=== PATIENT | male | born 1945 | race Caucasian/White ===

== ENCOUNTER 2019-12-04 06:16 | Outpatient (CLI) | payer OTHER, SELFPAY ==
--- NOTE | 2019-12-04 07:15 | US_ITS ---
WS: [id number] Bilateral renal ultrasound, 12/04/2019 Clinical Data: RENAL CYST Comparison: Renal ultrasound, 06/03/2019. Findings: The right kidney measures 12.8 cm x 6.0 cm x 7.0 cm and the left kidney is 12.4 cm x 5.3 cm x 6.1 cm. There is a simple right renal cyst measuring 3.2 x 3.9 x 4.0 cm. The abdominal aorta and inferior ve na cava show no vascular abnormalities. The bladder was scanned and was not remarkable. US/US renal BI* [id number] Impression: 1. Right renal cyst. 2. Negative bilateral renal ultrasound.
== END 2019-12-04 06:17 | disposition home or self-care (01) ==
LOC: RAD 06:16
PROVIDERS: Family Provider Internal Medicine; PCP Internal Medicine; Visit Provider Urology
DX: N28.1 Cyst of kidney, acquired (principal)
CPT/HCPCS: 76770; 81001

== ENCOUNTER 2019-12-31 09:29 | Outpatient (CLI) | payer OTHER, SELFPAY ==
[2019-12-31 10:31] LABS: Prostate Specific Antigen < 0.02 ng/mL (0-4)
== END 2019-12-31 09:30 | disposition home or self-care (01) ==
LOC: ONCMED 09:29
PROVIDERS: Family Provider Internal Medicine; PCP Internal Medicine; Visit Provider Radiology Radiation Oncology
DX: C61 Malignant neoplasm of prostate (principal)
CPT/HCPCS: 84153

== ENCOUNTER 2020-01-07 06:00 | Outpatient (CLI) | payer OTHER, MEDICARE, SELFPAY ==
--- NOTE | 2020-01-07 13:57 | ONCRAD EPV_ITS ---
Radiation Oncology Established Patient Visit Patient: Ponce MR#: [id number] : 1945> Age: 74> Sex: Male> Dictated by: Dr. Barrington Apple Date of Service: 01/07/2020 Referring Physician(s) : Diagnosis: C61 - Malignant neoplasm of prostate, Diagnosed 01/31/2019 (Active) Stage X, T2a, N0, MX Chief Complaint / History of Present Illness: The patient is a 74 year old gentleman with a T2a, N0, M0 adenocarcinoma of the prostate, Cambridge score 3+4, PSA 12.3. There is no definite evidence of local or distant metastasis. He received combination therapy with androgen deprivation therapy x 6 months and EBRT to a total dose of 80Gy completed on 08/05/2020. The patient notes nocturia x2 but denies dysuria, urinary urgency, frequency, weak stream, hematuria, diarrhea, rectal irritation or bleeding. His most recent PSA was 0.05 on September 02, 2019 and < 0.02 on December 31, 2019. Current Medications: Albuterol Sulfate HFA, allopurinol, chlorpheniramine Maleate, chlorthalidone, dULoxetine HCl, fluticasone Propionate, gabapentin, ibuprofen, insulin Glargine, losartan Potassium, multivitamin Adults, proventil HFA, singulair, tamsulosin HCl. Allergies: Lisinopril and Tetanus-Diphtheria Toxoids Td. Current Complaints / Review of Systems: Constitutional - Complains of night sweats which occur every night. Denies lack of appetite, fatigue and fever. Eyes - Complains of blurred vision in the right eye. ENMT - Complains of mouth dryness. Denies dysphagia, ear pain, stomatitis and altered taste. Neck - Complains of neck pain which is chronic. Integumentary - Complains of rash on the upper back / shoulder area. Denies dry skin. Cardiovascular - Denies arrhythmias and chest pain. Respiratory - Complains of dyspnea associated with normal activity. Denies cough and wheezing. Gastrointestinal - Complains of hemorrhoids. Denies abdominal pain, constipation, diarrhea, heartburn / dyspepsia, melena / GI bleeding, nausea and vomiting. No rectal bleeding or irritation. Genitourinary (M) - Complains of nocturia gets up about 2 times per night and urgency occasionally. Denies dysuria and frequency. Musculoskeletal - Complains of arthritis, bone pain in both forearms and joint pain both shoulders. Neurologic - Complains of intermittent dizziness. Denies headaches. Endocrine - Complains of Type 2 diabetes. Complains of frequent hot flashes. Denies thyroid disease. Hematologic/Lymphatic - Denies tender or enlarged lymph nodes. Vital Signs: Performed on 01/07/2020 9:02 AM BMI - 38.735 kg/m2 (high), Height - 72.00 in, Weight - 285.6 lbs, Temperature - 97.7 f, Pulse - 63, Respiration - 18, O2 Sat - 95 % (low), Pain - 4 and BP - 161/ 80 mm(hg)(high/). Physical Exam: General: Alert and oriented x 3. No acute distress. HEENT: Normocephalic, atraumatic. Extraocular Movements Intact: Pupils Equal, Round, Reactive to Light and Accommodation: Sclerae anicteric. Oral cavity is clear without lesions, masses or ulcers. NECK: Supple without supraclavicular or jugular lymphadenopathy. LUNGS: Clear to auscultation bilaterally without rales, rhonchi or wheeze. HEART: Regular rate and rhythm, normal S1 and S2 without murmur, gallop or rub. MUSCULOSKELETAL: No tenderness or percussion pain over the axial skeleton, scapulae or pelvis. ABDOMEN: Soft, nontender, nondistended without masses or organomegaly. Bowel sounds are present. EXTREMITIES: No peripheral edema is identified. Limited motor and sensory examination are grossly intact and symmetric bilaterally. NEUROLOGIC: Cranial nerves II ???XII are grossly intact. Normal sensation, strength 5/5 in all extremities, normal gait, no ataxia. Performance Status: 1 - No physically strenuous activity, but ambulatory and able to carry out light or sedentary work (e.g. office work, light house work). (ECOG) Lab: see HPI Pathology: adenocarcinoma of prostate, Cambridge score 3+4 Imaging: None pending Impression/plan: There is no clinical evidence of prostate cancer recurrence or late radiation toxicities. We will continue cancer surveillance. We will check his PSA in 4 months. Patient will follow-up with us afterwards. He is instructed to call us with any questions or issues. Signed by: 01/07/2020 1:56:07 PM <<Signature on File>> CPT Code: CPT Code: Signed By: Dr. Barrington Apple, 01/07/2020 1:56:08 PM <<Signature on File>>
== END 2020-01-07 06:01 | disposition home or self-care (01) ==
PROVIDERS: Family Provider Internal Medicine; PCP Internal Medicine; Visit Provider Radiology Radiation Oncology
DX: C61 Malignant neoplasm of prostate (principal); Z79.899 Other long term (current) drug therapy; Z92.3 Personal history of irradiation
CPT/HCPCS: 99213

== ENCOUNTER → 2020-04-07 11:55 | Outpatient (BNVA) | payer OTHER, SELFPAY | PROVIDERS: Family Provider Internal Medicine; PCP Internal Medicine; Visit Provider Nurse Practitioner Family | DX: R35.1 Nocturia (principal); R31.0 Gross hematuria; N28.1 Cyst of kidney, acquired; C61 Malignant neoplasm of prostate | CPT/HCPCS: 80053; 81001 ==

== ENCOUNTER → 2020-04-22 08:15 | Outpatient (BNVA) | payer OTHER, SELFPAY | PROVIDERS: Family Provider Internal Medicine; PCP Internal Medicine; Visit Provider Urology | DX: R31.0 Gross hematuria (principal); C61 Malignant neoplasm of prostate; N28.1 Cyst of kidney, acquired | CPT/HCPCS: 81001 ==

== ENCOUNTER 2020-06-16 08:54 | Outpatient (CLI) | payer OTHER, SELFPAY ==
--- NOTE | 2020-06-16 14:22 | ONCRAD EPV_ITS ---
Radiation Oncology Established Patient Visit Patient: Ponce MR#: [id number] : 1945> Age: 75> Sex: Male> Dictated by: Dr. David Fontaine Date of Service: 06/16/2020 Referring Physician(s) : Diagnosis: C61 - Malignant neoplasm of prostate, Diagnosed 01/31/2019 (Active) Stage X, T2a, N0, MX Radiotherapy to Date: Course: Prostate, Treatment Site: PTV54, Ref. ID: [id number], Energy: 15X/6X, Dose/Fx (cGy): 200, #Fx: , Dose Correction (cGy): 0, Total Dose (cGy): 5,400, Start Date: 06/10/2019, End Date: 07/16/2019, Elapsed Days: 36 Treatment Site: PTV80, Ref. ID: [id number], Energy: 15X/6X, Dose/Fx (cGy): 200, #Fx: , Dose Correction (cGy): 0, Total Dose (cGy): 2,600, Start Date: 07/17/2019, End Date: 08/05/2019, Elapsed Days: 19 Chief Complaint / History of Present Illness: The patient is a 75-year-old male who was diagnosed with T2a N0M0 adenocarcinoma of the prostate, Maria R score 3+4 in 6 out of 12 cores, pretreatment PSA 12.3 ng/mL. He is status post combined androgen deprivation therapy (initiated 03/2019 and last administered September 2019) and definitive radiation therapy to a total dose of 80 Gy (completed 08/05/2019). He is seen today in follow-up and his current PSA mateo is 0.02 ng/mL (06/10/2020). Furthermore, his international prostate symptom score completed today was 6 indicating mild urinary symptoms, and he reports that he is pleased with his quality of life due to urinary symptoms. The patient was also concerned that he might have testicular cancer, for he feels that his left testicle is swollen. Current Medications: Albuterol Sulfate HFA, allopurinol, chlorpheniramine Maleate, chlorthalidone, dULoxetine HCl, fluticasone Propionate, gabapentin, insulin Glargine, losartan Potassium, multivitamin Adults, proventil HFA, singulair. Allergies: Lisinopril and Tetanus-Diphtheria Toxoids Td. Current Complaints / Review of Systems: Constitutional - Complains of night sweats which occur every night and also occur during the day.. Denies lack of appetite, fatigue and fever. Eyes - Denies blurred vision and double vision. ENMT - Complains of mouth dryness occasionally and tinnitus. Denies dysphagia, ear pain, stomatitis and altered taste. Neck - Complains of neck pain which is chronic. Integumentary - Denies rash. Cardiovascular - Denies arrhythmias, chest pain and edema. Respiratory - Complains of chronic dyspnea. Denies cough and wheezing. Gastrointestinal - Denies abdominal pain, constipation, diarrhea, heartburn / dyspepsia, melena / GI bleeding, nausea and vomiting. Genitourinary (M) - Complains of dysuria which happens once in awhile and is very little, impotence, nocturia gets up about 1 to 2 times per night and urgency. Denies frequency and hematuria. Musculoskeletal - Complains of joint pain in the hands and shoulders. Denies bone pain. Neurologic - Denies dizziness, abnormal gait and headaches. Endocrine - Complains of Type 2 diabetes. Denies thyroid disease. Hematologic/Lymphatic - Denies tender or enlarged lymph nodes.. Vital Signs: Performed on 06/16/2020 9:34 AM BMI - 36.727 kg/m2 (high), Height - 72.00 in, Weight - 270.8 lbs, Temperature - 98.4 f, Pulse - 69, Respiration - 20, O2 Sat - 95 % (low), Pain - 0, Fatigue - 0 and BP - 164/ 75 mm(hg)(high/). Physical Exam: General: Alert and oriented x 3. No acute distress. HEENT: Normocephalic, atraumatic. Extraocular Movements Intact: Pupils Equal, Round, Reactive to Light and Accommodation: Sclerae anicteric. Oral cavity is clear without lesions, masses or ulcers. NECK: Supple without supraclavicular or jugular lymphadenopathy. LUNGS: Clear to auscultation bilaterally without rales, rhonchi or wheeze. HEART: Regular rate and rhythm, normal S1 and S2 without murmur, gallop or rub. Genital: Palpation of the patient's testicles reveals normal testicles without nodularity, without firmness, without a solid nodule, and without clinical exam findings consistent with malignancy. MUSCULOSKELETAL: No tenderness or percussion pain over the axial skeleton, scapulae or pelvis. ABDOMEN: Soft, nontender, nondistended without masses or organomegaly. Bowell sounds are present. EXTREMITIES: No peripheral edema is identified. Limited motor and sensory examination are grossly intact and symmetric bilaterally. NEUROLOGIC: Cranial nerves II ???XII are grossly intact. Normal sensation, strength 5/5 in all extremities, normal gait, no ataxia. Performance Status: 0 - Fully active, able to carry on all predisease activities without restrictions. (ECOG) Lab: None pending. Pathology: Primary, c61 - malignant neoplasm of prostate, Diagnosed 01/31/2019 (active) stage x, t2a, n0, mx. Impression: The patient is a 75-year-old male who was diagnosed with large volume favorable intermediate risk prostate cancer. He was treated androgen deprivation therapy (last administered September 2019) and definitive radiation therapy to a total dose of 80 Gy completed (July 2019). The patient has no evidence of biochemical recurrence and his PSA post treatment mateo is now 0.02 ng/mL. I plan to follow-up in 6 months with a repeat PSA. [facility]. Signed by: 06/16/2020 2:21:18 PM <<Signature on File>> CPT Code: CPT Code:
== END 2020-06-16 08:55 | disposition home or self-care (01) ==
LOC: ONCMED 08:58
PROVIDERS: PCP Internal Medicine; Visit Provider Radiology Radiation Oncology
DX: C61 Malignant neoplasm of prostate (principal); Z92.3 Personal history of irradiation; Z92.23 Personal history of estrogen therapy
CPT/HCPCS: 99213; G0463

== ENCOUNTER 2020-08-20 10:13 | Emergency (ER) | payer OTHER, MEDICARE, SELFPAY ==
[2020-08-20 10:15] VITALS: BP 95/55; PULSE 66; RESP 20; TEMP 36.6; O2SAT 98
--- NOTE | 2020-08-20 10:26 | CT_ITS ---
WS: [id number] CT HEAD TECHNIQUE: Noncontrast CT of the head obtained from the skullbase to the vertex. CLINICAL INFORMATION: fall, syncope COMPARISON: DLP: 896.[address] scans at [facility] use at least one of these dose optimization techniques: automat ed exposure control; mA and/or kV adjustment per patient size (includes targeted exams where dose is matched to clinical indication); or iterative reconstruction. FINDINGS: No evidence of intracranial hemorrhage or mass effect. Ventricular system and basal cisterns are austin nt. Mild small vessel changes with mild parenchymal volume loss. No extra-axial fluid collections. No evidence of mass or mass effect. Normal andersen-white differentiation. Paranasal sinuses and mastoid air cells are well aerated. .Normal visualized soft tissues. CT/CT head wo con* [id number] IMPRESSION: 1. No evidence of intracranial hemorrhage or mass effect. 2. Mild small vessel changes. Mild parenchymal volume loss. 3. No acute intracranial findings. Notified Joanne Santizo MD at 08/20/2020 10:52 AM.
--- NOTE | 2020-08-20 10:26 | ECG_ITS ---
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 Measurements Intervals [place] Rate: 59 P: 55 SD: 161 QRS: -50 QRSD: 125 T: -35 QT: 419 QTc: 417 Interpretive Statements SINUS BRADYCARDIA LEFT ANTERIOR FASCICULAR BLOCK [QRS AXIS <= -45, QR IN I, RS IN II] POSSIBLE LEFT VENTRICULAR HYPERTROPHY [VOLTAGE CRITERIA PLUS LAE OR QRS WIDENING] NONSPECIFIC ST & T-WAVE ABNORMALITY Compared to ECG 03/24/2019 16:00:39 Left anterior fascicular block now present T-wave abnormality now present Sinus rhythm no longer present Myocardial infarct finding no longer present Electronically Signed On 08-20-2020 20:37:35 CDT by Bernardo Damon M.D. [id number] f
--- NOTE | 2020-08-20 10:27 | XR_ITS ---
WS: [id number] Portable AP upright chest, 08/20/2020 Clinical Data: syncope Comparison: Portable chest, 03/24/2019 Findings: No nodules, masses or effusions are seen. The heart is normal. The pulmonary vascularity is not increased. No pneumonia or pneumothorax is seen. The aortic arch and descending aorta are tortuo us. The diaphragms are flattened. Patient has had an anterior cervical disc fusion. XR/XR chest 1V portable [id number] Impression: Atherosclerosis and hyperinflation.
[2020-08-20 10:55] LABS: Basophils % 0.2 %; Hematocrit 38.2 % (42.0-52.0); Hemoglobin 12.6 g/dL (11.7-16.6); Lymphocytes # 0.6 10^3/uL (0.8-4.8); Lymphocytes % 14.2 %; Mean Corpuscular Hemoglobin 29.7 pg (28.0-34.0); Mean Corpuscular Volume 90.1 fL (80-94); Mean Platelet Volume 11.4 fL (7.4-10.4); Monocytes # 0.2 10^3/uL (0.2-0.9); Monocytes % 5.1 %; Neutrophils # 3.27 10^3/uL (1.8-7.7); Neutrophils % 80.3 %; Nucleated Red Blood Cells % 0 %; Platelet Count 167 10^3/cmm (130-400); Red Blood Count 4.24 10^6/uL (4.1-5.3); Red Cell Distribution Width 13.6 % (12.1-15.1); White Blood Count 4.1 10^3/uL (4.0-10.0)
[2020-08-20 11:13] LABS: Alanine Aminotransferase 25 U/L (0-41); Albumin Level 4.3 g/dL (3.5-5.2); Alkaline Phosphatase 96 IU/L (40-130); Anion Gap 15.3 (5-19); Aspartate Amino Transferase 26 U/L (0-40); Blood Urea Nitrogen 24 mg/dL (8-23); Calcium 9.5 mg/dL (8.5-10.5); Carbon Dioxide 28 mmol/L (22-29); Chloride 95 mmol/L (98-107); Globulin 2.8 g/dL (1.3-4.6); Glucose 239 mg/dL (65-115); Magnesium 1.7 mg/dL (1.7-2.3); Osmolality Calculated 290 mOsm/kg (285-295); Potassium 4.3 mmol/L (3.5-5.1); Sodium 134 mmol/L (136-145); Total Bilirubin 0.2 mg/dL (0.15-1.2); Total Protein 7.1 g/dL (6.6-8.7)
--- NOTE | 2020-08-20 12:02 | W.ED.DIZZY ---
HPI - Dizziness General: Chief Complaint: Dizziness Stated Complaint: VERTIGO Time Seen by Provider: 08/20/20 10:16 History of Present Illness: HPI Narrative: This patient is a 75-year-old gentleman who presents after a syncopal episode. He said he got up this morning and drove into town without any problems. He got out of his vehicle and started to walk around the front of it started having some shaking all over. He tried to steady himself against the carpet next he knew he woke up on the pavement. Bystanders from the restaurant came and helped him up. He then went into the restaurant had breakfast with his friends as he had plan to do. He said he does not have any injuries from the fall but still does not feel quite right. He went to the [facility] for evaluation and they sent him here. He still is complaining of just not quite feeling right. He has no specific complaints at this time. He reports that he is been having these episodes of shakiness and feeling like he might pass out for several weeks. He has mentioned it to his doctor but no testing has been done. He said they happen a few times a week. There is not really a specific pattern to when or how they happen. He says he will just start jerking all over his body and gets dizzy. If he can steady himself the symptoms usually pass within a few seconds. He does not have chest pain or feel palpitations with this. He has no history of prior stroke. He has not been sick recently and said yesterday he felt fine. MD elicited complaint: dizziness, lightheadedness and other (Syncope) Onset (ago): week(s) (Has been having episodes over the past few weeks but had not completely passed out until this morning.) Timing: sudden onset Severity: moderate Description: lightheadedness and other (Jerking of his body) History of similar symptoms: Yes Exacerbating factors: movement/ambulation Relieving factors: remaining still Associated symptoms: Reports syncope; Denies chills or malaise Associated neuro symptoms: Deny confusion, difficulty speaking, dysphagia, diplopia, extremity weakness, facial numbness, facial weakness, gait changes, numbness in extremities or visual changes Review of Systems General: Reports: 10 or more systems reviewed and unremarkable except in HPI and below Const: Denies: fever(s), chills, fatigue or malaise Eyes: Denies: change in vision ENMT: Denies: odynophagia Card: Reports: syncope Resp: Denies: dyspnea, productive cough or non-productive cough GI: Denies: dysphagia : Denies: flank pain Musc: Denies: neck pain or back pain Skin/Breast: Denies: rash Neuro: Reports: involuntary movements; Denies: numbness in extremities or confusion Eder/Lymph: Denies: easy bruising or easy bleeding PFSH ED PFSH: Medical History Complex renal cyst Overall considered low risk, following with ultrasound, COPD (chronic obstructive pulmonary disease) Diabetes mellitus Diabetic neuropathy Gross hematuria HTN (hypertension) Prostate cancer Diagnosed 2019 treated with radiation therapy with good response initially Sleep apnea in adult Surgical History History of back surgery C3-C4 ACDFF WITH C4 CORPECTOMY History of circumcision History of neck surgery History of prostate biopsy Status post cataract surgery Status post knee surgery left Family History Father , AT AGE 65-CHF No problems noted. Mother , AT AGE 65-CHF No problems noted. Social History Smoking and tobacco status: former smoker Alcohol intake: never Marital status: Current occupational status: disabled History of recent travel: No Physical Exam Const: COMMON NORMALS: no acute distress, patient oriented x3, no limitations and alert GENERAL APPEARANCE: cooperative and comfortable HENMT: HEAD & SCALP: normal to inspection FACE & SINUS: normal facial exam Eye: GENERAL EYE: appearance normal, both eyes and all related structures Neck/C-Spine: COMMON NORMALS: supple, no meningeal signs and no JVD Chest: COMMONS NORMALS: normal inspection of the chest Resp: COMMON NORMALS: normal respiratory effort, No use of accessory muscles and clear to auscultation bilaterally AUSCULTATION: clear to auscultation bilaterally Cardio: COMMON NORMALS: no JVD, regular rate, regular rhythm and No murmurs present (Cardio) RATE: regular rate RHYTHM: regular rhythm GI: COMMON NORMALS: Normal to inspection, nondistended, normoactive bowel sounds present, Soft to palpation and non-tender INSPECTION: Yes normal to inspection AUSCULTATION: Yes normoactive bowel sounds PALPATION: Yes Soft to palpation Back/Pelvis: COMMON NORMALS: thoracic and lumbar spine normal to inspection Extremity: COMMON NORMALS: normal to inspection Neuro: COMMON NORMALS: patient oriented x3, moves all extremities, no focal motor deficits and no sensory deficits noted SENSORIUM/ORIENTATION: Yes alert MENINGEAL SIGNS: Yes no meningeal signs Psych: COMMON NORMALS: mental status grossly normal, cooperative and normal affect Skin: COMMON NORMALS: no rashes or lesions noted and turgor normal GENERAL SKIN EXAM: no rashes or lesions noted and turgor normal Course ED course: This patient had a syncopal episode today. He has had some episodes like this before. He struck the side of his head but had a negative work-up here in the department. We discussed the option of admitting him for further testing. He does not prefer to stay in the hospital. He will follow-up with his primary care provider. He agrees to return if he has any further episodes like this. Vital Signs: Vital signs: Vital Signs Temperature 97.9 F 08/20/20 10:15 Pulse Rate 71 08/20/20 14:03 Respiratory Rate 16 08/20/20 14:03 Blood Pressure 134/74 08/20/20 14:03 Pulse Oximetry 97 08/20/20 14:03 MDM - Dizziness Lab Data: Labs: Lab Results 08/20/20 08/20/20 Range/Units 10:00 10:00 WBC 4.1 (4.0-10.0) 10^3/ uL RBC 4.24 (4.1-5.3) 10^6/u L Hgb 12.6 (11.7-16.6) g/dL Hct 38.2 L (42.0-52.0) % MCV 90.1 (80-94) fL MCH 29.7 (28.0-34.0) pg MCHC 33.0 (30.0-36.0) g/dL RDW 13.6 (12.1-15.1) % Plt Count 167 (130-400) 10^3/c mm MPV 11.4 H (7.4-10.4) fL Neut % (Auto) 80.3 % Lymph % (Auto) 14.2 % [place] % (Auto) 5.1 % Eos % (Auto) 0.0 % Baso % (Auto) 0.2 % Neut # (Auto) 3.27 (1.8-7.7) 10^3/u L Lymph # (Auto) 0.6 L (0.8-4.8) 10^3/u L [place] # (Auto) 0.2 (0.2-0.9) 10^3/u L Eos # (Auto) 0.0 (0.0-0.8) 10^3/u L Baso # (Auto) 0.0 (0.0-0.1) 10^3/u L Nucleated RBC % (a uto) 0 % Nucleated RBCs # 0.0 /100WBC Sodium 134 L (136-145) mmol/L Potassium 4.3 (3.5-5.1) mmol/L Chloride 95 L (98-107) mmol/L Carbon Dioxide 28 (22-29) mmol/L Anion Gap 15.3 (5-19) BUN 24 H (8-23) mg/dL Creatinine 1.9 H (0.7-1.2) mg/dL GFR Calculation Not Reportable Glucose 239 H (65-115) mg/dL Calculated Osmolal ity 290 (285-295) mOsm/k g Calcium 9.5 (8.5-10.5) mg/dL Magnesium 1.7 (1.7-2.3) mg/dL Total Bilirubin 0.2 (0.15-1.2) mg/dL AST 26 (0-40) U/L ALT 25 (0-41) U/L Alkaline Phosphata se 96 (40-130) IU/L Total Protein 7.1 (6.6-8.7) g/dL Albumin 4.3 (3.5-5.2) g/dL Globulin 2.8 (1.3-4.6) g/dL Discharge Plan Discharge Patient Disposition: Home Clinical Impression: Syncope Condition: Stable Prescriptions: No Action allopurinol 100 mg tablet 100 mg PO DAILY RF: 0 atorvastatin 80 mg tablet 40 mg PO DAILY RF: 0 chlorthalidone 25 mg tablet 25 mg PO DAILY RF: 0 duloxetine 60 mg capsule,delayed release(DR/EC) 60 mg PO BID RF: 0 fluticasone propionate 50 mcg/actuation blister with device 1 inh INHALATION BID PRN (Reason: unknown) RF: 0 losartan 25 mg tablet 25 mg PO DAILY RF: 0 multivitamin Capsule 1 cap PO QAM RF: 0 prazosin 2 mg capsule 4 mg PO BEDTIME RF: 0 tamsulosin 0.4 mg capsule 0.4 mg PO BEDTIME RF: 0 gabapentin 300 mg Capsule 600 mg PO TID RF: 0 omeprazole 20 mg Capsule,Delayed Release(Dr/Ec) 20 mg PO BID RF: 0 Vitamin D3 10 mcg (400 unit) Tablet 10 mcg PO DAILY RF: 0 insulin regular hum U-500 conc 500 unit/mL (3 mL) Insulin Pen See Rx Instructions .ROUTE .COMPLEX RF: 0 Discharge Orders: Discharge Order (Routine); Ordered 08/20/20 Ordered By: Joanne Santizo Referrals: Denisse Turpin MD [Physician] - Waqas Sherwood [Primary Care Provider] - Denver Stone M.D [Physician] - Discharge Diet: Usual diet Discharge Activity: Resume usual activity Patient Instructions: Syncope (ED) Activity Restrictions/Additional Instructions: Use caution with any activity where passing out suddenly would cause you or others potential harm. This might include driving, climbing, working around machinery. Return to the emergency department if another episode happens or if you have any other new or concerning symptoms. [facility] as well as with neurology and cardiology based on referrals given here in the ER. Discharge Date/Time: 08/20/20 14:03 Coding Level of Care Code ED Lead Front Desk Agent for Julian Fwday Exam Comprehensive
[2020-08-20 12:24] VITALS: BP 135/73; PULSE 66; RESP 16; O2SAT 94
[2020-08-20 13:15] VITALS: BP 119/77; BP 127/87; BP 135/72; PULSE 70; PULSE 73; PULSE 75
[2020-08-20 13:17] VITALS: BP 135/72; PULSE 75; RESP 18; O2SAT 99
[2020-08-20 13:30] VITALS: BP 168/89; PULSE 63; RESP 16; O2SAT 97
[2020-08-20 14:03] VITALS: BP 134/74; PULSE 71; RESP 16; O2SAT 97
--- NOTE | 2020-08-23 16:10 | DCPLANNER ---
reception centre manager had message to schedule a follow up appointment for patient with [facility] and neurology. reception centre manager called [facility], spoke with Yoli, gave clinic patients information. A follow up appointment was scheduled for Tuesday, August 25, 2020 at 9:15 with CLIENT PROFESSIONAL, Apurva Webber. reception centre manager called patient and gave patient the appointment information for [facility]. reception centre manager called the office of Dr. Turpin, left a voicemail for the academic success coordinator that registered nurse hh case manager needed to make a referral to their clinic. reception centre manager tried to call the office several times to make a referral, was unable to speak with anyone to make referral, will call clinic on 08.24.20 to make referral. reception centre manager informed patient that registered nurse hh case manager has not been able to make the referral at this time.
--- NOTE | 2020-08-24 13:52 | DCPLANNER ---
projects manager had message to schedule a follow up appointment for patient with Dr. Turpin. projects manager called the office of Dr. Turpin, spoke with Robyn, gave clinic patients information. projects manager was told that patients information would be printed and reviewed. Clinic will call patient with appointment information.
--- NOTE | 2020-08-25 11:02 | DCPLANNER ---
Patient had a follow up appointment scheduled for 08.25.20 with [facility] - patient did attend the appointment.
--- NOTE | 2020-08-28 08:15 | DCPLANNER ---
Patient has a follow up appointment scheduled for Sunday, September 13, 2020 at 8:[address] Turpin. Clinic will call patient with appointment information.
--- NOTE | 2020-09-16 15:08 | DCPLANNER ---
Patient had a follow up appointment scheduled for 08.25.20 with [facility] - patient did attend appointment. Patient had a follow up appointment scheduled for 09.13.[address] Sheriff office - patient did attend appointment.
== END 2020-08-20 14:03 | disposition home or self-care (01) ==
PROVIDERS: Emergency Provider Emergency Medicine; PCP Internal Medicine
DX: R55 Syncope and collapse (principal); J44.9 Chronic obstructive pulmonary disease, unspecified; E11.40 Type 2 diabetes mellitus with diabetic neuropathy, unspecified; I10 Essential (primary) hypertension; Z85.46 Personal history of malignant neoplasm of prostate; Z87.891 Personal history of nicotine dependence
CPT/HCPCS: 12345; 70450; 71045; 80053; 83735; 85025; 93005; 99283

== ENCOUNTER → 2020-09-13 08:20 | Outpatient (BNVA) | payer OTHER, SELFPAY | PROVIDERS: PCP Internal Medicine; Visit Provider Nurse Practitioner | DX: R42 Dizziness and giddiness (principal); R55 Syncope and collapse; Z87.891 Personal history of nicotine dependence | CPT/HCPCS: 99204 ==

== ENCOUNTER 2020-09-16 14:01 | Outpatient (CLI) | payer OTHER, SELFPAY ==
--- NOTE | 2020-09-16 14:15 | USCV_ITS ---
Nikita Jackson Age: 75 Gender: M : 1945 Exam Date: 09/16/2020 14:19 Ordering Phys: Apurva Webber Technologist: Ran Tracy [place] [facility] [place]: SYNCOPE Risk Factors: HX OF SMOKER Previous Vascular Surgery: Right Brachial BP: / Left Brachial BP: / Right Left Velocity (cm/s) Spectral Plaque Velocity (cm/s) Spectral Plaque Syst/Diast Broadening Syst/Diast Broadening 71.53/ 17.07 Prox CCA 68.50 / 15.90 73.30/ 19.80 Mid CCA 74.10 / 18.80 63.35/ 18.15 Distal CCA 70.30 / 18.80 73.00/ 19.00 Prox ICA 65.70 / 14.10 72.20/ 23.30 Mid ICA 79.70 / 17.80 72.20/ 21.00 Distal ICA 70.30 / 18.80 89.30 ECA 77.80 0.64 ICA/CCA 1.08 Antegrade Vertebral Antegrade 61.40/ 15.50 cm/s 37.00/ 7.90 cm/s Bi Subclavian Tri 51.30 76.70 FINDINGS Comparison: none available. No significant elevation of systolic or diastolic velocities. Waveforms are normal. Mixture of calcified and noncalcified plaque in the bifurcations. Antegrade vertebral arteries. CONCLUSIONS Bilateral ICA stenosis less than 50%. Mild carotid bifurcation atherosclerosis. Dr. Lea Joel DO (Electronically Signed) Final Date: 17 September 2020 07:58 S
--- NOTE | 2020-09-16 15:00 | USCV_ITS ---
Nikita Jackson Age: 75 Gender: M : 1945 Exam Date: 09/16/2020 14:05 Ordering Phys: Apurva Webber Technologist: Ran Tracy Exam Location: [facility] [place] Indication: SYNCOPE BP: 156 / 74 HR: 58 Rhythm: Sinus Technical Quality: Fair MEASUREMENTS (Male / Female) Normal Values 2D ECHO LV Diastolic Diameter PLAX 3.9 cm 4.2 - 5.9 / 3.9 - 5.3 cm LV Systolic Diameter PLAX 3.4 cm IVS Diastolic Thickness 0.9 cm 0.6 - 1.0 / 0.6 - 0.9 cm IVS Systolic Thickness 1.3 cm LVPW Diastolic Thickness 0.8 cm 0.6 - 1.0 / 0.6 - 0.9 cm LVPW Systolic Thickness 1.4 cm LVOT Diameter 2.1 cm LV Ejection Fraction 2D Teich 14.4 % LV Ejection Fraction MOD 2C 58.7 % LV Ejection Fraction 2C AL 57.8 % LA Diameter 4.0 cm LA Width 4.0 cm LA Height 4.9 cm RA Width 3.1 cm RA Height 5.6 cm Aorta at Sinotubular Diameter 1.2 cm M-MODE LV Diastolic Diameter MM 6.6 cm 4.2 - 5.9 / 3.9 - 5.3 cm LV Systolic Diameter MM 5.1 cm LV Ejection Fraction MM Teich 45.2 % IVS Diastolic Thickness MM 1.3 cm 0.6 - 1.0 / 0.6 - 0.9 cm IVS Systolic Thickness MM 1.6 cm LVPW Diastolic Thickness MM 1.1 cm 0.6 - 1.0 / 0.6 - 0.9 cm LVPW Systolic Thickness MM 1.8 cm RV Diastolic Diameter MM 1.5 cm Aortic Annulus Diameter 4.5 cm LA Ao Ratio MM 0.9 MV E Point Septal Separation 1.2 cm DOPPLER AV Peak Velocity 151.0 cm/s LVOT Peak Velocity 120.0 cm/s AV Area Cont Eq vti 2.9 cm squared AV Area Cont Eq pk 2.9 cm squared MV Area PHT 5.0 cm squared Mitral E to A Ratio 0.8 MV E' Velocity 42.0 cm/s Mitral E to MV E' Ratio 10.1 Mitral E to LV E' Lateral Ratio 8.0 Mitral E to LV E' Septal Ratio 13.5 TR Peak Velocity 102.7 cm/s TR Peak Gradient 4.2 mmHg TV Peak E Velocity 98.3 cm/s Right Atrial Pressure 3.0 mmHg Pulmonary Artery Systolic Pressu 7.2 mmHg FINDINGS Left Ventricle Normal left ventricular size, systolic function and wall thickness. Left ventricular ejection fraction is estimated at 60 %. Although no diagnostic regional wall motion abnormality could be identified, this possibility cannot be completely excluded. Indeterminate diastolic function. Right Ventricle Normal right ventricular size and systolic function. Right ventricular systolic pressure 7.2 mmHg. Right Atrium Normal right atrial size. Right atrial pressure estimated at 3 mmHg. Left Atrium Upper normal left atrial size. Mitral Valve Mildly thickened mitral valve. No mitral valve stenosis. Trace mitral valve regurgitation. Aortic Valve Mildly thickened trileaflet aortic valve. No aortic valve stenosis. No aortic valve regurgitation. Tricuspid Valve Tricuspid valve not well visualized. Trace tricuspid valve regurgitation. Pulmonic Valve Pulmonic valve not well visualized. Pericardium No pericardial effusion. Aorta Normal size aortic root and proximal ascending aorta. Normal- sized inferior vena cava. CONCLUSIONS 1. This is a technically difficult study. 2. Normal left ventricular size, systolic function and wall thickness. Left ventricular ejection fraction is estimated at 60 %. Although no diagnostic regional wall motion abnormality could be identified, this possibility cannot be completely excluded. 3. Normal pulmonary artery pressure. 4. When compared to previous echocardiogram dated 03/24/2019, there may not have been any significant change. Yanelis Salas MD (Electronically Signed) Final Date: 16 September 2020 15:45 S
== END 2020-09-16 14:02 | disposition home or self-care (01) ==
LOC: US 14:03
PROVIDERS: PCP Internal Medicine; Visit Provider Nurse Practitioner Family
DX: R55 Syncope and collapse (principal); I65.23 Occlusion and stenosis of bilateral carotid arteries
CPT/HCPCS: 93306; 93880

== ENCOUNTER → 2020-09-28 09:21 | Outpatient (BNVA) | payer OTHER, SELFPAY | PROVIDERS: PCP Internal Medicine; Referring Provider Nurse Practitioner; Visit Provider Specialist | DX: R55 Syncope and collapse (principal); Z87.891 Personal history of nicotine dependence | CPT/HCPCS: 95816 ==

== ENCOUNTER → 2020-10-20 11:54 | Outpatient (BNVA) | payer OTHER, SELFPAY | PROVIDERS: PCP Family Medicine; Visit Provider Internal Medicine Cardiovascular Disease | DX: Z20.828 Contact with and (suspected) exposure to other viral communicable diseases (principal); R55 Syncope and collapse; Z79.01 Long term (current) use of anticoagulants; I10 Essential (primary) hypertension; I49.5 Sick sinus syndrome | CPT/HCPCS: 80053; 85025; 85610; 86850; 86900; 87635 ==

== ENCOUNTER 2020-10-25 06:02 | Day surgery (SDC) | payer OTHER, SELFPAY ==
[2020-10-25] VITALS (12 sets, daily range): BP systolic 156–205; BP diastolic 61–97; PULSE 65–79; RESP 17–19; TEMP 36.4–37.2; O2SAT 90–96; BMI 35.9
--- NOTE | 2020-10-25 06:13 | XR_ITS ---
WS: [id number] XR chest 2V* [id number] REASON FOR EXAM: pre op pace maker FINDINGS: The chest is unchanged compared to previous examination of 08/20/2020. Tortuous thoracic aorta with heart size within normal limits. Calcified granulomatous changes in both hemithoraces. No acute pulmonary parenchymal or pleural abnor mality. Mild degenerative spondylosis in the mid lower thoracic spine. Degenerative arthropathy both shoulder s. XR/XR chest 2V* [id number] IMPRESSION: No acute chest abnormality.
--- NOTE | 2020-10-25 07:10 | W.PM.OPSUD ---
Surgery/Procedure H&P Update DATE OF PROCEDURE: October 25, 2020 DATE H&P PERFORMED: 10/20/20 H&P UPDATE INFORMATION: I have reviewed H&P completed within last 30 days, I have examined patient prior to procedure and No changes to prior documentation PREOP DIAGNOSIS: Sinus node dysfunction/ syncope PLANNED PROCEDURE: Operation Date: 10/25/20 07:00 Proposed Procedures p Pacemaker Insertion(Not Applicable) - Kelby Sifuentes MD PATIENT REASSESSED PRIOR TO SEDATION, WITH NO CHANGE NOTED: Yes PHYSICAL EXAM: alert, clear to auscultation bilaterally and regular rate & rhythm AIRWAY EVAL/ANESTHESIA PLAN: normal airway, see other exam findings, ASA II, Local Anesthesia, Risks, benefits & alternatives of sedation and/or procedure discussed and Patient agrees to continue as planned
--- NOTE | 2020-10-25 09:07 | PM.OP ---
Operative Report Date of procedure: October 25, 2020 Pre-op Diagnosis: Sinus node dysfunction/ syncope Procedure: LOCATION: Cardiac catheterization lab PREOPERATIVE DIAGNOSES: Syncope, prolonged pauses, features of sinus node dysfunction. POSTOPERATIVE DIAGNOSES: Same. COMPLICATIONS: None. ESTIMATED BLOOD LOSS: Around less than 5 milliliters. BRIEF HISTORY: 75-year-old white male presents with recurrent episodes of syncope/near syncope. He was found to have prolonged pauses of more than 3 seconds on the event monitor. His clinical features were consistent with a sinus sofía dysfunction. For further management of his condition, a permanent pacemaker implantation was requested. A normal-chamber permanent pacemaker implantation was recommended for AV synchrony and symptom relief. The procedure was explained to the patient in detail with the risks and benefits. The risks of bleeding, hematoma, vascular injury, infection, pneumothorax, myocardial perforation and other concomitant complications were explained in detail, which the patient understood well and consented to proceed. PROCEDURE DESCRIPTION: The patient was brought to the Cardiac Catheterization Lab. The left and the right side of the neck and the subclavian area were cleaned and draped in a sterile fashion. 1% Xylocaine was used as the local anesthetic agent. A left subclavian venous access was obtained using a micropuncture needle system. Under venographic guidance, the patient was injected with 20 milliliters of Omnipaque through the left antecubital vein. A two-inch long incision was made 2.0 centimeters below the midclavicular region. By sharp and blunt dissection, a pacemaker pocket was made. A second venous access was obtained using another micropuncture needle system. Over the first guidewire, a 7-Nigerian venous sheath with dilator was advanced. The venous dilator and the guidewire were taken out. A screw-in ventricular lead was advanced through the venous sheath and was positioned towards the right ventricle. Under fluoroscopy guidance, the ventricular lead was positioned toward the right ventricular apex. Good pacing and sensing thresholds were obtained. The lead was secured to the endocardium by advancing the helix. The stability of the lead was tested by gentle twisting movements and also by asking the patient to take some deep breaths and cough. The venous sheath was peeled off, at this time. The lead was secured to the pectoralis fascia, by suturing with 1-0 Surgilon. Over the second guidewire, another 7-Nigerian venous sheath with dilator was advanced. The dilator and the guidewire were taken out. Under fluoroscopy guidance, an atrial lead (Medtronic), was advanced and positioned toward the right atrium. The lead was positioned in the right atrial appendage. Good pacing and sensing thresholds were obtained. The lead was secured to the endocardium by advancing the helix. Stability of the lead was tested by gentle twisting movements and also by asking the patient to take some deep breaths and cough. The venous sheath was peeled off, at this time. The lead was secured to the pectoralis fascia by suturing with 0-Surgilon. The pacemaker pocket was copiously irrigated with vancomycin solution. Complete hemostasis was achieved. Sponge counts were confirmed. The leads were attached to a Medtronic generator. The leads were positioned behind the generator and the generator was attached to the pectoralis fascia by suturing with 0-Surgilon. The pocket was closed in layers. Skin was approximated using 4-0 Vicryl. IMPLANTED DEVICES: ATRIAL LEAD: Model number: 5076/52 Serial number: [id number] Make: Medtronic VENTRICULAR LEAD: Model number: 5076/58 Serial number: [id number] Make: Medtronic GENERATOR Brand: Asmita XT DR MRI SureDcan Model number: W1 DR 01 Serial number: [id number] Make: Medtronic IMPLANTATION DATA: With the pacing system analyzer, the R wave sensing was 7.0 millivolts with a lead impedance of 769 and a pacing threshold was 0.5 volts at 0.4 milliseconds. In the atrium, the sensing was 3.0 millivolts with a lead impedance of 515 ohms and a pacing threshold was 0.7 volts at 0 0.5 milliseconds. Through the device, the R-wave sensing was 8.0 millivolts with a lead impedance of 665 and a pacing threshold was 0.5 volts at 0.4 milliseconds. The atrial sensing was 2.6 millivolts with a lead impedance of 456 ohms and a pacing threshold of 0.5 volts at 0.4 milliseconds. The pacemaker was set for AAIR/DDDR mode with upper rate of 130 and a lower rate of 60. A pressure dressing was applied over the pacemaker site. The patient was transferred to the Medical Floor in stable condition. A chest x-ray was ordered to confirm the lead position and also to rule out any pneumothorax.
[2020-10-25] MEDS: atorvastatin 40 mg Tablet 80 MG PO (10:18)
[2020-10-25] MEDS: allopurinol 100 mg Tablet PO (10:18)
[2020-10-25 10:50] LABS: Glucose Point of Care 89 mg/dL (70-110)
[2020-10-25] MEDS: gabapentin 300 mg Capsule 600 MG PO ×2 (14:26→20:28)
[2020-10-25] MEDS: HYDROcodone-acetaminophen 5-325 mg Tablet 1 TAB PO (14:27)
[2020-10-25] MEDS: acetaminophen 325 mg Tablet 650 MG PO (16:06)
[2020-10-25] MEDS: ondansetron 2 mg/ML SDV 2 mL 4 MG IVP (16:07)
[2020-10-25 16:44] LABS: Glucose Point of Care 204 mg/dL (70-110)
[2020-10-25] MEDS: duloxetine 60 mg Capsule PO (17:12)
--- NOTE | 2020-10-25 17:52 | PC.NURSE ---
SHIFT SUMMARY PATIENT HAS DONE WELL TODAY. SINUS RHYTHM ON THE MONITOR. SURGICAL DRESSING C/D/I. IMMOBILIZER IN PLACE. GOOD URINE OUTPUT. THIS AFTERNOON, PATIENT HAD EMESIS X1 AFTER THIS NURSE ADMINISTERED A HYDROCODONE FOR PAIN. DR. RICARDO NOTIFIED. AN ORDER FOR ZOFRAN AND TYLENOL GIVEN. THIS NURSE ADMINISTERED BOTH AND PATIENT STATED HE FEELS MUCH BETTER. NO COMPLAINTS AT THIS TIME.
[2020-10-26 00:24] VITALS: BP 158/81; PULSE 62; RESP 18; TEMP 36.7; O2SAT 97
[2020-10-26 04:50] VITALS: BP 164/82; PULSE 67; RESP 18; TEMP 36.6; O2SAT 95
[2020-10-26 06:00] VITALS: PULSE 60
--- NOTE | 2020-10-26 06:00 | XR_ITS ---
WS: [id number] XR chest 1V [id number] REASON FOR EXAM: Post permanent pacemaker placement; visualize lead tip FINDINGS: Compared to previous examination of 10/25/2020, battery pack is been placed in left chest wall. Pacema ker leads course through the left subclavian vein with the leads in the right atrial region and in th e region of the right ventricular apex. The leads are normal in configuration. The heart is at the up per limits of normal in size. No active pulmonary parenchymal or pleural disease is noted. XR/XR chest 1V [id number] IMPRESSION: Pacemaker placement as above.
[2020-10-26 07:28] VITALS: BP 158/84; PULSE 62; RESP 18; TEMP 36.4; O2SAT 97
[2020-10-26] MEDS: gabapentin 300 mg Capsule 600 MG PO (07:48)
[2020-10-26] MEDS: multivitamin therapeutic Tablet 1 TAB PO (07:48)
[2020-10-26] MEDS: allopurinol 100 mg Tablet PO (07:48)
[2020-10-26] MEDS: duloxetine 60 mg Capsule PO (07:48)
[2020-10-26] MEDS: atorvastatin 40 mg Tablet 80 MG PO (07:48)
[2020-10-26] MEDS: amlodipine 5 mg Tablet PO (07:49)
[2020-10-26 08:43] VITALS: PULSE 71; RESP 16; O2SAT 93
--- NOTE | 2020-10-26 08:55 | PC.CHAP ---
Pastoral Care Encounter/Spiritual Assessment Type of Contact [] Declined scraper meat visit [] Patient/Family/Request visit [] Outpatient visit [] Follow-up visit [] Physician referral [] Code/Alert [] Routine visit [] Staff referral [] Actively dying [] Patient sleeping [] Family support [] [] Out of room [] Palliative care [] [] Receiving care in room [] Pre-surgical visit [] Trauma [] Long length of stay [] ICU visit [] Other: Relational/Emotional Strength [x] Patient feels connected with others/family/visitors/staff [] Distress [] Loneliness/isolation [] Abandonment Spirituality of Patient [x] Person of Juliette [] Attends Mormon of their Juliette [] Believes in Prayer [] Reads Bible or Faith materials [] There are Spiritual issues to be addressed 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 Interventions [x [] Spiritual counseling [] Bereavement support [] Provided bereavement packet [] Provided Bible/devotional materials [] Provided toy/stuffed animal, coloring book to patient or family member [] Provided Communion [] Anointing/[place] [] Salvation [] Completed spiritual assessment [] Other: Impact on Illness or Injury [] Angry [] Fearful [] Anxious [] Often cries [] Exhaustion [] Unable to work [] Unable to attend christianity [] Unable to walk/stand [] Unable to read [] Unable to drive [] Unable to eat/drink [] Unable to sleep [] Unable to be with family [] Patient intubated [] Other: Summary patient doing well ready to go home Time spent with patient 20 min
--- NOTE | 2020-10-26 08:57 | P.PN_ITS ---
Subjective Subjective: Interval history: Patient is doing okay with no specific symptoms. No hematoma or bleeding from the pacemaker site. Telemetry shows sinus rhythm with a demand AV pacing He had a chest x-ray which revealed no pneumothorax. Patient continues remain stable. Blood pressure seems to be slightly elevated. No other specific complaints. Medications: Reviewed: Yes Medication Review Details: Current Medications Acetaminophen (Acetaminophen 325 Mg Tablet) 650 mg PO Q6H PRN PRN Reason: MILD PAIN Last Admin: 10/25/20 16:06 Dose: 650 mg Documented by: Hydrocodone Bitart/Acetaminophen (Hydrocodone-Acetaminophen 5-325 Mg Tablet) 1 tab PO Q4H PRN PRN Reason: MODERATE PAIN Last Admin: 10/25/20 14:27 Dose: 1 tab Documented by: Allopurinol (Allopurinol 100 Mg Tablet) 100 mg PO DAILY [facility] Last Admin: 10/26/20 07:48 Dose: 100 mg Documented by: Amlodipine Besylate (Amlodipine 5 Mg Tablet) 5 mg PO DAILY [facility] Last Admin: 10/26/20 07:49 Dose: 5 mg Documented by: Atorvastatin Calcium (Atorvastatin 40 Mg Tablet) 80 mg PO DAILY [facility] Last Admin: 10/26/20 07:48 Dose: 80 mg Documented by: Duloxetine HCl (Duloxetine 60 Mg Capsule) 60 mg PO BID [facility] Last Admin: 10/26/20 07:48 Dose: 60 mg Documented by: Gabapentin (Gabapentin 300 Mg Capsule) 600 mg PO TID [facility] Last Admin: 10/26/20 07:48 Dose: 600 mg Documented by: Multivitamins Therapeutic (Multivitamin Therapeutic Tablet) 1 tab PO DAILY [facility] Last Admin: 10/26/20 07:48 Dose: 1 tab Documented by: Non-Formulary Medication (Cholecalciferol (Vitamin D3) [Vitamin D3]) 10 mcg PO DAILY [facility] Non-Formulary Medication (Fluticasone Propionate) 1 inh INHALATION BID PRN PRN Reason: unknown Non-Formulary Medication (Insulin Regular Hum U-500 Conc) 0 unit SUBCUT BID [facility] Ondansetron HCl (Ondansetron 2 Mg/Ml Sdv 2 Ml) 4 mg IVP Q6H PRN PRN Reason: NAUSEA AND VOMITING Last Admin: 10/25/20 16:07 Dose: 4 mg Documented by: Vitals/I&O/Wt Last Vital Signs Temp 97.6 F 10/26/20 07:28 Pulse 71 10/26/20 08:43 Resp 16 10/26/20 08:43 BP 158/84 10/26/20 07:28 Pulse Ox 93 10/26/20 08:43 10/25/20 10/26/20 10/26/20 22:59 06:59 14:59 Intake Total 65 / 490 240 / 730 Output Total 300 / 620 300 / 920 Balance -235 / -130 -60 / -190 Weight last 48 hrs Weight 265 lb Physical Exam Narrative: EXAM NARRATIVE: GENERAL: The patient is alert and oriented times three. Not in any acute distress. HEENT: No significant pallor, icterus or lymphadenopathy.Oral cavity: There are no mucous membrane lesions. NECK: Trachea appears to be central. No masses noted. No JVD or thyromegaly appreciated. RESPIRATORY: Chest is symmetrical. No intercostals muscle retraction or any accessory muscle activation. There is no chest wall tenderness. Breath sounds are heard bilaterally. No rales or rhonchi heard. No evidence of any consolidation. The pacemaker site appears to have no hematoma bleeding. BREASTS: Deferred. HEART: The heart sounds are normal. No S3 or S4. No significant murmurs. No pericardial rub ABDOMEN: No vessel pulsations or distention. No tenderness. No organomegaly appreciated. Bowel sounds are normally heard. : Deferred. RECTAL: Deferred. LYMPHATIC: No lymphadenopathy noted in the neck or groin. EXTREMITIES: No edema or cyanosis. No clubbing. Peripheral pulses are palpated in fairly good volume and amplitude MUSCULOSKELETAL: No acute joint deformities or swelling SKIN: There are no significant rashes or ecchymosis NEUROPSYCHIATRIC: The patient is alert and oriented x3. Appears to be in a good mood. No tremors or rigidity noted. Data Other Labs: Laboratory Last Values POC Glucose 204 mg/dL (70-110) 10/25/20 16:40 CXR: My impression: The chest x-ray reveals slightly enlarged cardiac silhouette. No pneumothorax. Pacemaker leads appropriately placed. A&P Assessment and plan (1) Presence of permanent cardiac pacemaker: Patient status post permanent pacer implantation. Currently remained stable. He finished the IV antibiotics. Status: Acute (2) Syncope: No recurrence of syncope. Most likely related to the sinus sofía dysfunction Status: Acute Qualifiers: Syncope type: unspecified Qualified Code(s): R55 - Syncope and collapse (3) HTN (hypertension): Blood pressure is stage II. Patient is advised to continue monitoring the blood pressure at home and keep a blood pressure diary. He will bring the blood pressure diary during his next office visit. Based on the recordings, further management decisions will be made Status: Acute Qualifiers: Hypertension type: essential hypertension Qualified Code(s): I10 - Essential (primary) hypertension (4) Sinus node dysfunction: Patient had a prolonged pauses of 3 seconds or more on the event monitor. Currently seems to be stable Status: Acute Additional A&P Information Since the patient continues remain stable, will be discharged home today. Please refer to the discharge orders. 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
[2020-10-26 08:58] VITALS: PULSE 71; RESP 16; O2SAT 93
--- NOTE | 2020-10-26 09:47 | PC.NURSE ---
patient taken to private vehicle via wheelchair by video game script writer.
== END 2020-10-26 09:50 | disposition home or self-care (01) ==
LOC: CCL 06:04 → MEDSURG 10-26 08:55
PROVIDERS: PCP Family Medicine; Visit Provider Internal Medicine Cardiovascular Disease
DX: R55 Syncope and collapse (principal); I49.5 Sick sinus syndrome; J44.9 Chronic obstructive pulmonary disease, unspecified; E11.40 Type 2 diabetes mellitus with diabetic neuropathy, unspecified; G47.33 Obstructive sleep apnea (adult) (pediatric); Z85.46 Personal history of malignant neoplasm of prostate; E11.22 Type 2 diabetes mellitus with diabetic chronic kidney disease; I12.9 Hypertensive chronic kidney disease with stage 1 through stage 4 chronic kidney disease, or unspecified chronic kidney disease; N18.9 Chronic kidney disease, unspecified; Z87.891 Personal history of nicotine dependence
CPT/HCPCS: 12345; 33208; 36415; 36416; 71045; 71046; 82962; 94660; 96375; 97110; 97165; C1769; C1779; C1786; C1894; C1898; J0690; J2250; J2405; J3010; J7030; J7050; Q9967

== ENCOUNTER 2020-12-06 06:42 | Outpatient (CLI) | payer OTHER, SELFPAY ==
--- NOTE | 2020-12-06 08:00 | US_ITS ---
WS: [id number] RENAL ULTRASOUND HISTORY: Renal cyst COMPARISON: 12/04/2019 TECHNIQUE: 2-D and color Doppler imaging of the kidney submitted. Right kidney: 13.0 cm x 6.8 cm x 6.2 cm. Normal size kidney. Simple cyst upper pole measures 4.2 x 3.8 x 3.8 cm. This has slightly increased i n size. Several smaller additional cysts in the upper RIGHT kidney. No solid mass. Left kidney: 12.6 cm x 6.6 cm x 4.3 cm. Normal size kidney. No hydronephrosis or mass. Aorta: Normal. Urinary Bladder: Minimally distended bladder. Mild diffuse wall thickening may be due to the nondiste ntion. Prostate gland is enlarged measuring 6.2 x 5.5 x 3.2 cm. US/US renal BI* [id number] IMPRESSION: 1. No hydronephrosis or solid mass. 2. RIGHT renal cysts. 3. Prostate gland enlargement.
== END 2020-12-06 06:43 | disposition home or self-care (01) ==
LOC: RAD 06:44
PROVIDERS: PCP Family Medicine; Visit Provider Urology
DX: N28.1 Cyst of kidney, acquired (principal); N40.0 Benign prostatic hyperplasia without lower urinary tract symptoms
CPT/HCPCS: 76770; 81003; 84153

== ENCOUNTER → 2021-02-16 10:59 | Outpatient (BNVA) | payer OTHER, SELFPAY | PROVIDERS: PCP Family Medicine; Visit Provider Urology | DX: D49.4 Neoplasm of unspecified behavior of bladder (principal); Z20.822 Contact with and (suspected) exposure to COVID-19 | CPT/HCPCS: 87635 ==

== ENCOUNTER → 2021-02-17 08:34 | Outpatient (BNVA) | payer OTHER, SELFPAY | PROVIDERS: PCP Family Medicine; Visit Provider Urology | DX: C67.2 Malignant neoplasm of lateral wall of bladder (principal); R31.0 Gross hematuria; N32.89 Other specified disorders of bladder | CPT/HCPCS: 81003 ==

== ENCOUNTER 2021-02-18 14:38 | Observation (INO) | payer OTHER, SELFPAY ==
--- NOTE | 2021-02-17 12:33 | ECG_ITS ---
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 Measurements Intervals [place] Rate: 63 P: 255 CA: 190 QRS: -41 QRSD: 106 T: -22 QT: 383 QTc: 392 Interpretive Statements ELECTRONIC ATRIAL PACEMAKER MINIMAL VOLTAGE CRITERIA FOR LVH, CONSIDER NORMAL VARIANT [MEETS CRITERIA IN ONE OF: R(aVL), S(V1), R(V5), R(V5/V6)+S(V1)] INFERIOR MYOCARDIAL INFARCTION [40+ ms Q WAVE AND/OR ST/T ABNORMALITY IN II/aVF], OF INDETERMINATE AGE Compared to ECG 08/20/2020 10:09:52 Myocardial infarct finding now present Sinus bradycardia no longer present Left anterior fascicular block no longer present T-wave abnormality no longer present Electronically Signed On 02-17-2021 17:25:14 CDT by Yanelis Salas M.D. [email or web address]
[2021-02-17 12:43] VITALS: BMI 36.3
--- NOTE | 2021-02-17 13:33 | ANES.PREANE2 ---
Pre-Anesthetic Assessment Pre-Anesthetic Assessment: Height/Weight: Height 1.83 m Weight 121.563 kg Preop Diagnosis: Sinus node dysfunction/ syncope Proposed Procedure: Operation Date: 02/18/21 12:20 Proposed Procedures p Cystoscopy 02171 C67.2(Not Applicable) - Kolton Sharma MD s Transurethral Resection Bladder Tumor(Not Applicable) - Kolton Sharma MD Was Beta Marcos taken within 24 hours: N/A Was Clonidine taken within 24 hours: N/A Social: Social History: Tobacco and No alcohol Exam: Pre-Anes Outpt Exam: alert, oriented x 3 and regular rate & rhythm Airway: Submandibular: WNL Cervical ROM: WNL MP: 2 Dentition: False Additional comments: Heavy Vick Pulmonary: Pulmonary: COPD and Sleep apnea CV/HEM: CV/HEM: HTN Comments: Pacemaker : : Chronic renal Insufficiency Metabolic: Metabolic: DM Anesthetic Plan: ASA status: 3 Anesthesia: General Risk of > 500 ml blood loss (7ml/kg in children): No PFSH Anesthesia PFSH: Medical History Chronic kidney disease Complex renal cyst Overall considered low risk, following with ultrasound, COPD (chronic obstructive pulmonary disease) Diabetes mellitus Diabetic neuropathy Gross hematuria H/O cardiac pacemaker HTN (hypertension) Obstructive sleep apnea Prostate cancer Diagnosed 2019 treated with radiation therapy with good response Sinus node dysfunction Sleep apnea in adult Surgical History History of back surgery C3-C4 ACDFF WITH C4 CORPECTOMY History of circumcision History of neck surgery History of prostate biopsy Status post cataract surgery Status post knee surgery left Family History Father , AT AGE 65-CHF No problems noted. Mother , AT AGE 65-CHF No problems noted. Social History Smoking and tobacco status: former smoker Alcohol intake: never Marital status: Current occupational status: disabled History of recent travel: No Data Anesthesia Cardiac Studies: Cardiac Event Monitor 09/22/20
[2021-02-17 14:02] LABS: Basophils # 0.1 10^3/uL (0.0-0.1); Basophils % 0.8 %; Eosinophils # 0.2 10^3/uL (0.0-0.8); Eosinophils % 2.6 %; Hematocrit 38.3 % (42.0-52.0); Hemoglobin 12.3 g/dL (11.7-16.6); Lymphocytes # 1.9 10^3/uL (0.8-4.8); Lymphocytes % 30.9 %; Mean Corpuscular HGB Conc 32.1 g/dL (30.0-36.0); Mean Corpuscular Hemoglobin 29.6 pg (28.0-34.0); Mean Corpuscular Volume 92.3 fL (80-94); Mean Platelet Volume 10.3 fL (7.4-10.4); Monocytes # 0.5 10^3/uL (0.2-0.9); Monocytes % 8.1 %; Neutrophils # 3.55 10^3/uL (1.8-7.7); Neutrophils % 57.1 %; Nucleated Red Blood Cells % 0 %; Platelet Count 216 10^3/cmm (130-400); Red Blood Count 4.15 10^6/uL (4.1-5.3); Red Cell Distribution Width 13.7 % (12.1-15.1); White Blood Count 6.2 10^3/uL (4.0-10.0)
[2021-02-17 14:21] LABS: Anion Gap 10.3 (5-19); Blood Urea Nitrogen 18 mg/dL (8-23); Calcium 9.3 mg/dL (8.5-10.5); Carbon Dioxide 32 mmol/L (22-29); Chloride 100 mmol/L (98-107); Glucose 139 mg/dL (65-115); Osmolality Calculated 290 mOsm/kg (285-295); Potassium 4.3 mmol/L (3.5-5.1); Sodium 138 mmol/L (136-145)
[2021-02-18] VITALS (13 sets, daily range): BP systolic 157–188; BP diastolic 73–107; PULSE 60–69; RESP 11–21; TEMP 36.4–36.9; O2SAT 90–98
[2021-02-18] MEDS: sodium chloride 0.9% 1,000 ML 30 ML IV (11:59)
[2021-02-18 12:01] LABS: Glucose Point of Care 171 mg/dL (70-110)
--- NOTE | 2021-02-18 12:03 | ANES.PAUD2 ---
Pre-Anesthetic Update Pre-Anesthetic Assessment: Date of Surgery/Procedure: 02/18/21 Preop Diagnosis: Newly diagnosed left lateral bladder cancer Proposed Procedure: Operation Date: 02/18/21 13:20 Proposed Procedures p Cystoscopy 54139 C67.2(Not Applicable) - Kolton Sharma MD s Transurethral Resection Bladder Tumor(Not Applicable) - Kolton Sharma MD Any changes to Pre-Anesthetic Assessment?: Yes Last Intake: Intake Last Liquid Date 02/18/21 Last Liquid Time 06:30 Last Solid Date 02/17/21 Last Solid Time 19:00 Labs Last 48hrs: Laboratory Results - last 48 hr 02/17/21 02/17/21 02/18/21 13:00 13:00 11:55 WBC 6.2 RBC 4.15 Hgb 12.3 Hct 38.3 L MCV 92.3 MCH 29.6 MCHC 32.1 RDW 13.7 Plt Count 216 MPV 10.3 Neut % (Auto) 57.1 Lymph % (Auto) 30.9 [place] % (Auto) 8.1 Eos % (Auto) 2.6 Baso % (Auto) 0.8 Neut # (Auto) 3.55 Lymph # (Auto) 1.9 [place] # (Auto) 0.5 Eos # (Auto) 0.2 Baso # (Auto) 0.1 Nucleated RBC % (a uto) 0 Nucleated RBCs # 0.0 Sodium 138 Potassium 4.3 Chloride 100 Carbon Dioxide 32 H Anion Gap 10.3 BUN 18 Creatinine 0.9 GFR Calculation Not Reportable Glucose 139 H POC Glucose 171 H Calculated Osmolal ity 290 Calcium 9.3 Vitals: Temperature 97.5 F L 02/18/21 11:48 Temperature Source Temporal Artery S can 02/18/21 11:48 Pulse Rate 63 02/18/21 11:48 Respiratory Rate 18 02/18/21 11:48 Blood Pressure 159/107 02/18/21 11:48 Blood Pressure Xuan n 124 02/18/21 11:48 Pulse Oximetry 96 02/18/21 11:48 Oxygen Delivery Me thod 02/18/21 11:48 Exam: Pre-Anes Outpt Exam: alert, oriented x 3, clear to auscultation bilaterally and regular rate & rhythm Cardiac Studies: Cardiac Event Monitor 09/22/20
[2021-02-18] MEDS: levofloxacin-dextrose 5 % 500 MG/100 ML PREMIX 100 MG IV (13:36)
--- NOTE | 2021-02-18 13:41 | P.HPUD_ITS ---
Surgery/Procedure H&P Update DATE OF PROCEDURE: February 18, 2021 DATE H&P PERFORMED: 02/16/21 H&P UPDATE INFORMATION: I have reviewed H&P completed within last 30 days, I have examined patient prior to procedure, No changes to prior documentation and H&P is in [facility] EMR on date indicated CHANGES TO PREVIOUS DOCUMENTATION: Still having gross hematuria. No other symptom change. PREOP DIAGNOSIS: Newly diagnosed left lateral bladder cancer PLANNED PROCEDURE: Operation Date: 02/18/21 13:20 Proposed Procedures p Cystoscopy 31068 C67.2(Not Applicable) - Kolton Sharma MD s Transurethral Resection Bladder Tumor(Not Applicable) - Kolton Sharma MD
--- NOTE | 2021-02-18 13:43 | P.OP_ITS ---
Operative Report Date of procedure: February 18, 2021 Pre-op Diagnosis: Newly diagnosed left lateral bladder cancer Post-op diagnosis: same Procedure Done: 1. Cystoscopy, transurethral resection of bladder tumor MEDIUM Pathology: Bladder tumor left lateral wall samples Surgeon: Edith Anesthesia: General Estimated blood loss: Minimal Urine output: Not measured Complications: None Findings: Papillary tumor left lateral wall as expected. Largest diameter: Condition: stable Disposition: PACU Brief History: Mr. Velasco is a very pleasant 75-year-old white male with a history of prostate cancer status post radiation therapy with good response. Recently presented with gross hematuria and cystoscopy in the clinic showed some clots which were evacuated via cystoscopy. On the left lateral wall a papillary tumor was identified extending anticipating about 3 cm. Admitted now for TURBT. No contraindications to surgical intervention. Procedure: After routine preoperative evaluation examination and obtaining of informed consent he was taken to the operating suite on 02/18/2021 where general anesthesia was administered without difficulty after appropriate timeout was performed, SCDs confirmed to be functioning, preoperative antibiotics administered, beta- lilliana protocol confirmed. Prepped and draped in usual sterile fashion in dorsolithotomy position paying careful attention to avoiding pressure points. 21 Kyrgyz cystoscope with 30 degree lens was introduced into the urethra meatus and advanced into the bladder under videoscopy. The bladder was systematically examined with both 30 and 70 degree lenses. Some clot was evacuated. The bladder tumor was identified as expected in the location of the left lateral wall. The urethra was then calibrated with Len sounds and easily accommodated 30 Kyrgyz. 2% lidocaine jelly was instilled into the urethra then a 25 Kyrgyz continuous- flow resectoscope sheath with visual obturator was advanced into the bladder without difficulty. The gyrus bipolar system was utilized for resection and base fulguration. Initially started with the super loop for resection of the tumor for its full extent. Several areas were very superficial appearing and these were fulgurated. Muscle was seen at the base of the resection. The base was then fulgurated with the button probe completely. All specimens were evacuated from the bladder. Final inspection revealed good hemostasis and no residual tumor or resection specimens in the bladder. Bladder was drained with a 20 Kyrgyz three-way Hall catheter with 10 cc placed in the balloon.
[2021-02-18] MEDS: lidocaine 2% Urojet 20 mL (14:11)
--- NOTE | 2021-02-18 15:30 | PC.NURSE ---
Pt arrived to floor from PACU. A&Ox4, post op vitals started, CBI running slow, urine pale pink with no clots noted. Pt c/o needing to pee. Pt educated that catheter was draining bladder and he may have the sensation that he needs to pee. Pt verbalized understanding. Call light in reach, no needs at this time.
[2021-02-18] MEDS: gabapentin 300 mg Capsule 600 MG PO ×2 (17:23→21:19)
[2021-02-18] MEDS: duloxetine 60 mg Capsule PO (17:24)
--- NOTE | 2021-02-18 17:54 | PC.NURSE ---
Telephone order received from Dr. Sharma to use pt's cpap from home-- RT notified-- and to substitute pt's home insulin for formulary. This nurse called [facility] pharmacist, and he is going to put the order in for the insulin.
--- NOTE | 2021-02-18 18:00 | ANE.PACU2 ---
Inpatient post-anesthesia follow up: Airway intact: Yes Vital signs: Temperature 97.9 F Pulse Rate 68 Respiratory Rate 17 Blood Pressure 160/74 Pulse Oximetry 94 Oxygen Delivery Me thod [ Nasal Cannula Current Rate & Del william] Oxygen Delivery Me thod Nasal Cannula Oxygen Flow Rate [ Current Rate 2 & Delivery] Oxygen Flow Rate 2 Fraction of Inspir ed Oxygen Hydration adequate: Yes Nausea and vomiting: No Pain level: 2 Mental status: Baseline
[2021-02-18 18:33] LABS: Glucose Point of Care 265 mg/dL (70-110)
[2021-02-18 20:07] LABS: Glucose Point of Care 285 mg/dL (70-110)
--- NOTE | 2021-02-19 02:05 | PC.NURSE ---
Assessment of CBI urine appears to be more red. Output since MN is 1100. Increased CBI drip. There are no clots observed and patient denies pain or discomfort.
[2021-02-19 04:12] VITALS: BP 187/78; PULSE 65; RESP 18; TEMP 36.7; O2SAT 94
[2021-02-19] MEDS: amlodipine 5 mg Tablet PO (04:38)
[2021-02-19 06:48] VITALS: BP 160/74; PULSE 68; RESP 17; TEMP 36.6; O2SAT 94
[2021-02-19 06:48] LABS: Glucose Point of Care 207 mg/dL (70-110)
[2021-02-19] MEDS: allopurinol 100 mg Tablet PO (09:37)
[2021-02-19] MEDS: atorvastatin 40 mg Tablet PO (09:37)
[2021-02-19] MEDS: duloxetine 60 mg Capsule PO (09:37)
[2021-02-19] MEDS: gabapentin 300 mg Capsule 600 MG PO (09:37)
--- NOTE | 2021-02-19 10:23 | PM.PROC ---
Other Information: INTRAVESICAL INSTILLATION OF MITOMYCIN 40 mg Irrigation port plugged. 40 mg of mitomycin instilled into the bladder without difficulty. Tolerated well. Reviewed with nursing staff to drain no later than 11:15 AM. Can remove catheter at that time. Can drain sooner if has symptoms. Coding Level of Care Code Acute Supervisor [employer] for Julian Garsia
--- NOTE | 2021-02-19 10:24 | P.DS_ITS ---
Discharge Providers Date of Admission: 02/18/21 14:38 Date of Discharge: February 19, 2021 Attending Provider at Admission: Kolton Sharma MD Attending Provider at Discharge: Kolton Sharma MD Primary Care Provider: Rajwinder Olivarez MD Diagnoses at Discharge Discharge Diagnosis (1) Bladder cancer: Status: Acute Permanent problem details: TURBT on 02/18/2021. Pending pathology report Qualifiers: Bladder location: lateral wall Qualified Code(s): C67.2 - Malignant neoplasm of lateral wall of bladder (2) Obstructive sleep apnea: Status: Acute (3) HTN (hypertension): Status: Acute Qualifiers: Hypertension type: essential hypertension Qualified Code(s): I10 - Essential (primary) hypertension (4) Prostate cancer: Status: Chronic Permanent problem details: Diagnosed 2019 treated with radiation therapy with good response No evidence of recurrence (5) COPD (chronic obstructive pulmonary disease): Status: Acute Qualifiers: COPD type: unspecified COPD Qualified Code(s): J44.9 - Chronic obstructive pulmonary disease, unspecified (6) Sleep apnea in adult: Status: Deleted Reason for Visit Reason for Visit: cystoscopy Hospital Course Hospital Course He was admitted on 02/18/2021 on the day of surgery which went well. Was found to have a area of about 3 cm of papillary lesion on the left lateral wall cephalad to the left ureteral orifice. The area was well away from the left ureteral orifice. The tumor was completely resected. It had a well differentiated appearance. A good portion of the procedure was fulgurated due to its superficial complete opponent. His postoperative course was unremarkable. MITOMYCIN instillation (40 mg) was performed on postoperative day #1. He held it for an hour and then it was drained. Successful voiding trial after catheter removal and able to be discharged after confirmed emptying and no severe bleeding. He had some hypertension episodes during his hospital stay and was encouraged to follow-up with his primary care. Responded well to medication. Discharged on postoperative day #1 in stable condition. We will review the pathology report in about a week. I will plan on seeing him back in about 2 months for a surveillance cystoscopy. Limitations expectations were fully reviewed with the patient. Follow-up plan also as well. Physical Exam Const: COMMON NORMALS: no acute distress, alert and well nourished GENERAL APPEARANCE: well kempt and well developed ORIENTATION/CONSCIOUSNESS: not confused HENMT: COMMON NORMALS: normocephalic and atraumatic HEAD & SCALP: normocephalic and atraumatic Eye: COMMON NORMALS: no scleral icterus Neck/C-Spine: COMMON NORMALS: full ROM GENERAL: Yes normal visual inspection Resp: COMMON NORMALS: normal respiratory effort EFFORT & INSPECTION: No labored and No Actively coughing Neuro: SENSORIUM/ORIENTATION: Yes alert Psych: COMMON NORMALS: mental status grossly normal APPEARANCE: Yes grossly normal and Yes well kempt ATTITUDE: Yes calm and Yes engaged Skin: COMMON NORMALS: no rashes or lesions noted and no jaundice GENERAL SKIN EXAM: no rashes or lesions noted Urinary Catheter Management^: 3-way Urethral CBI: Cath Placed During This Visit: yes Reason for Continuing Indwelling Catheter: Other Urinary Catheter Date of Insertion: 02/18/21 Urinary Catheter Time of Insertion: 14:25 Discharge Data Data Completed and Pending: Pending at discharge Category Date Time Status Pathology: Surgic al [PTH] Routine Pth 02/18/21 14:45 Ordered Labs from last 24 hours 02/19/21 02/18/21 02/18/21 06:30 19:58 18:28 POC Glucose 207 H 285 H 265 H 02/18/21 11:55 POC Glucose 171 H Vitals: Last Vital Signs Temp 97.9 F 02/19/21 06:48 Pulse 68 02/19/21 06:48 Resp 17 02/19/21 06:48 BP 160/74 02/19/21 06:48 Pulse Ox 94 02/19/21 06:48 Discharge Plan Discharge Patient Disposition: Home Condition: Stable Prescriptions: Continued amlodipine 5 mg tablet 5 mg PO DAILY 30 Days Qty: 30 RF: 5 allopurinol 100 mg tablet 100 mg PO DAILY RF: 0 atorvastatin 80 mg tablet 40 mg PO DAILY RF: 0 duloxetine 60 mg capsule,delayed release(DR/EC) 60 mg PO BID RF: 0 gabapentin 300 mg Capsule 600 mg PO TID RF: 0 cholecalciferol (vitamin D3) [Vitamin D3] 10 mcg (400 unit) Tablet 10 mcg PO DAILY RF: 0 insulin regular hum U-500 conc 500 unit/mL (3 mL) insulin pen See Rx Instructions .ROUTE .COMPLEX RF: 0 Discharge Orders: Discharge Order (Routine); Ordered 02/19/21 Ordered By: Kolton Sharma Referrals: Kolton Sharma MD [Physician] - 2 months (Cystoscopy Call next week for pathology report confirmation) Discharge Diet: Usual diet Discharge Activity: Limit activity as instructed Activity Restrictions/Additional Instructions: 1. Please limit your lifting to less than 10 pounds for 3 weeks. If you are seeing some intermittent bleeding continued holding until the bleeding stops after that 3-week. 2. Please call next week late if you have not heard from us regarding the pathology report. I expect that the pathology will show a low risk of bladder cancer. If it shows something more sinister we may need to intervene with more instillation treatments. 3. Your next visit will be 2 months for cystoscopy in the clinic if the bladder cancer is in fact low risk. 4. Please call if you have any concerns or questions. The hospital corn husker machine operator can reach me after hours. Discharge Attestations Time Spent in Discharge Care*: greater than 30 min Quality Metrics Clinical Quality Measures During this hospital stay, did patient experience: None Coding Level of Care Code Acute Chg [facility] note Diagnoses Bladder cancer C67.2 Bladder location: lateral wall Obstructive sleep apnea G47.33 HTN (hypertension) I10 Hypertension type: essential hypertension Prostate cancer C61 COPD (chronic obstructive pulmonary disease) J44.9 COPD type: unspecified COPD Sleep apnea in adult G47.30
[2021-02-19 11:44] VITALS: BP 154/75; PULSE 63; RESP 17; TEMP 36.6; O2SAT 94
[2021-02-19 11:58] LABS: Glucose Point of Care 203 mg/dL (70-110)
[2021-02-19 16:33] VITALS: BP 154/75; PULSE 63; RESP 17; TEMP 36.6; O2SAT 94
--- NOTE | 2021-02-21 16:46 | PC.RESP ---
Pulmonary Rehab information sent to patient.
== END 2021-02-19 15:00 | disposition home or self-care (01) ==
LOC: MEDSURG 14:38
PROVIDERS: Anesthesiology; Admitting Provider Urology; PCP Family Medicine; Visit Provider Urology
PROC: 0TJB8ZZ Inspection of Bladder, Via Natural or Artificial Opening Endoscopic (ICD-10-PCS; CPT 52000; principal; 2021-02-18 13:00)
PROC: 0TBB8ZZ Excision of Bladder, Via Natural or Artificial Opening Endoscopic (ICD-10-PCS; CPT 52235; 2021-02-18 13:00)
DX: C67.2 Malignant neoplasm of lateral wall of bladder (principal); G47.33 Obstructive sleep apnea (adult) (pediatric); I10 Essential (primary) hypertension; C61 Malignant neoplasm of prostate; J44.9 Chronic obstructive pulmonary disease, unspecified; Z87.891 Personal history of nicotine dependence; E11.9 Type 2 diabetes mellitus without complications; Z95.0 Presence of cardiac pacemaker
CPT/HCPCS: 52235; 36416; 80048; 82962; 85025; 88305; 93005; 96372; G0378; J0330; J1100; J1815; J1956; J2250; J2405; J2710; J3010; J3490; J7030

== ENCOUNTER → 2021-04-25 09:23 | Outpatient (BNVA) | payer OTHER, SELFPAY | PROVIDERS: PCP Family Medicine; Visit Provider Urology | DX: C67.2 Malignant neoplasm of lateral wall of bladder (principal); R97.20 Elevated prostate specific antigen [PSA]; C61 Malignant neoplasm of prostate | CPT/HCPCS: 81003; 84153 ==

== ENCOUNTER → 2021-07-21 10:40 | Outpatient (BNVA) | payer OTHER, SELFPAY | PROVIDERS: PCP Family Medicine; Visit Provider Urology | DX: N32.9 Bladder disorder, unspecified (principal) | CPT/HCPCS: 81003; 88112 ==

== ENCOUNTER 2021-09-12 07:35 | Outpatient (CLI) | payer OTHER, SELFPAY ==
--- NOTE | 2021-09-12 07:48 | FL_ITS ---
WS: [id number] MODIFIED BARIUM SWALLOW HISTORY: Other dysphagia FLUOROSCOPY TIME: 2.5 minutes. Modified barium swallow was performed by the speech pathologist. Fluoroscopy was provided with the pa tient in a lateral projection. Multiple food consistencies were provided. Patient is status post anterior cervical fusion from C3 through C5. Corpectomy at C4. No aspiration or laryngeal penetration was noted during this examination. There is persistent residua l in the piriform sinuses and vallecula during the examination. The residual in the vallecula persist ed but did clear with hard swallows and additional liquids. Patient did swallow the barium tablet wit hout difficulty. FL/FL barium swallow modifd 17268 IMPRESSION: 1. Persistent residual food products in the vallecula and piriform sinuses dur ing this examination. Additional liquid to clear the residual was successful. 2. No aspiration or laryngeal penetration. Please see speech therapist report also for recommendations.
== END 2021-09-12 07:36 | disposition home or self-care (01) ==
LOC: RAD 07:38
PROVIDERS: PCP Family Medicine; Visit Provider Family Medicine
DX: R13.19 Other dysphagia (principal)
CPT/HCPCS: 74230; 92611

== ENCOUNTER → 2021-09-20 08:12 | Outpatient (BNVA) | payer OTHER, SELFPAY | PROVIDERS: PCP Family Medicine; Visit Provider Urology | DX: N32.9 Bladder disorder, unspecified (principal); C61 Malignant neoplasm of prostate; N28.1 Cyst of kidney, acquired | CPT/HCPCS: 81003 ==

== ENCOUNTER → 2021-10-07 08:41 | Outpatient (BNVA) | payer MEDICARE, SELFPAY | PROVIDERS: PCP Family Medicine; Visit Provider Urology | DX: R35.0 Frequency of micturition (principal) | CPT/HCPCS: 81003 ==

== ENCOUNTER → 2021-10-11 08:59 | Outpatient (BNVA) | payer OTHER, SELFPAY | PROVIDERS: PCP Family Medicine; Visit Provider Internal Medicine Cardiovascular Disease | DX: I12.9 Hypertensive chronic kidney disease with stage 1 through stage 4 chronic kidney disease, or unspecified chronic kidney disease (principal); N18.31 Chronic kidney disease, stage 3a; Z79.4 Long term (current) use of insulin; I49.5 Sick sinus syndrome; R55 Syncope and collapse; Z95.0 Presence of cardiac pacemaker; J44.9 Chronic obstructive pulmonary disease, unspecified; E11.22 Type 2 diabetes mellitus with diabetic chronic kidney disease | CPT/HCPCS: 80053; 80061; 83036; 84443; 85025 ==

== ENCOUNTER 2021-11-03 10:01 | Outpatient (RCR) | payer OTHER, SELFPAY | END 2021-11-18 23:59 | disposition home or self-care (01) | LOC: SST 10:01 | PROVIDERS: PCP Family Medicine; Referring Provider Family Medicine; Visit Provider Family Medicine | DX: R13.13 Dysphagia, pharyngeal phase (principal) | CPT/HCPCS: 92526; 92610 ==

== ENCOUNTER → 2021-12-09 08:02 | Outpatient (BNVA) | payer OTHER, SELFPAY | PROVIDERS: PCP Family Medicine; Visit Provider Urology | DX: N32.9 Bladder disorder, unspecified (principal); R30.0 Dysuria; C61 Malignant neoplasm of prostate; N41.9 Inflammatory disease of prostate, unspecified | CPT/HCPCS: 81003 ==

== ENCOUNTER → 2022-01-04 13:11 | Outpatient (BNVA) | payer OTHER, SELFPAY | PROVIDERS: PCP Family Medicine; Visit Provider Nurse Practitioner Family | DX: N41.9 Inflammatory disease of prostate, unspecified (principal) | CPT/HCPCS: 81003; 87086 ==

== ENCOUNTER → 2022-01-20 09:38 | Outpatient (BNVA) | payer OTHER, SELFPAY | PROVIDERS: PCP Family Medicine; Visit Provider Surgery | DX: N41.9 Inflammatory disease of prostate, unspecified (principal) | CPT/HCPCS: 81003; 87635 ==

== ENCOUNTER 2022-01-26 06:35 | Day surgery (SDC) | payer OTHER, SELFPAY ==
[2022-01-23 13:51] VITALS: BMI 35.9
--- NOTE | 2022-01-26 07:15 | ANES.PREANE2 ---
Pre-Anesthetic Assessment Height/Weight: Height 1.83 m Weight 120.202 kg Preop Diagnosis: Choking and acid reflux Operation Date: 01/26/22 08:15 Proposed Procedures p EGD 05344 K21.9(Not Applicable) - Polo Land MD Familial anesthetic complications: None Was Beta Marcos taken within 24 hours: N/A Was Clonidine taken within 24 hours: N/A Social No alcohol and No tobacco Exam alert, oriented x 3, clear to auscultation bilaterally and regular rate & rhythm Airway Submandibular: within normal limits Cervical ROM: Other (Very limited, h/o neck fusion) Mallampati: Class II Dentition: false Comments: Comments: Vick Pulmonary Sleep Apnea CV/HEM Coronary Artery Disease and Hypertension Pacemaker Chronic Renal Insufficiency Metabolic Diabetes Mellitus Anesthetic Plan ASA status: 3 Anesthesia: MAC Risk of > 500 ml blood loss (7ml/kg in children): No Medications/Allergies Home Medications Medication Instructions Recorded Confirmed Last Taken Type atorvastatin 80 mg tablet 80 mg PO DAILY 12/04/19 01/24/22 01/25/22 History duloxetine 60 mg capsule,delayed 60 mg PO BID 12/04/19 01/24/22 01/25/22 History release cholecalciferol (vitamin D3) 10 10 mcg PO DAILY 08/20/20 01/24/22 01/25/22 History mcg (400 unit) tablet (Vitamin D3) losartan 50 mg tablet 50 mg PO DAILY #30 tab 04/20/21 01/24/22 01/25/22 Rx glucosamine HCl 500 mg tablet 500 mg PO DAILY 07/21/21 01/24/22 01/25/22 History multivitamin 1 tab PO DAILY 07/21/21 01/24/22 01/25/22 History allopurinol 100 mg tablet 100 mg PO DAILY 09/30/21 01/24/22 01/25/22 History gabapentin 300 mg capsule 300 mg PO TID cap 09/30/21 01/24/22 01/25/22 History insulin regular hum U-500 conc See Rx Instructions .ROUTE .COMPLEX 09/30/21 01/26/22 01/25/22 17:30 History 65 units hydrochlorothiazide 25 mg tablet 25 mg PO DAILY #90 tab 10/12/21 01/24/22 01/25/22 Rx doxycycline hyclate 100 mg capsule 100 mg PO BID #60 cap 01/04/22 01/24/22 01/25/22 Rx ceracare 1 tab PO DAILY 01/20/22 01/24/22 01/25/22 History tamsulosin 0.4 mg capsule 0.4 mg PO BID #180 cap 01/20/22 01/24/22 01/25/22 Rx Allergies Allergy/AdvReac Type Severity Reaction Status Date / Time lisinopril Allergy unknown Verified 01/24/22 09:48 tetanus toxoid, adsorbed Allergy unknown Verified 01/24/22 09:48 COUNT INCLUDES THE [facility] Anesthesia Medical History Chronic kidney disease Complex renal cyst Overall considered low risk, following with ultrasound, COPD (chronic obstructive pulmonary disease) Diabetes mellitus Diabetic neuropathy Gross hematuria H/O cardiac pacemaker HTN (hypertension) Incomplete bladder emptying Lesion of bladder Chronic inflammatory change with fibroadipose tissue most likely consistent patient cystitis despite its suspicious appearing on cystitis Obstructive sleep apnea Prostate cancer Diagnosed 2019 treated with radiation therapy with good response No evidence of recurrence Sinus node dysfunction Surgical History History of back surgery C3-C4 ACDFF WITH C4 CORPECTOMY History of circumcision History of neck surgery History of prostate biopsy Status post cataract surgery Status post knee surgery left Family History Father , AT AGE 65-CHF No problems noted. Mother , AT AGE 65-CHF No problems noted. Social History Smoking and tobacco status: former smoker Alcohol intake: never Marital status: Current occupational status: disabled History of recent travel: No Data Anesthesia Cardiac Studies: Echocardiogram Ultrasound 09/16/20 Cardiac Event Monitor 09/22/20
[2022-01-26 07:17] VITALS: BP 175/91; PULSE 68; RESP 18; TEMP 36.9; O2SAT 98
[2022-01-26] MEDS: sodium chloride 0.9% 1,000 ML 30 ML IV (07:25)
--- NOTE | 2022-01-26 07:47 | P.HP_ITS ---
Same Day Surgery H&P Indication for Procedure/HPI DATE OF PROCEDURE: January 26, 2022 CHIEF COMPLAINT/INDICATIONFOR SURGICAL PROCEDURE: Problem with swallowing PREOP DIAGNOSIS: Choking and acid reflux PLANNED PROCEDURE: Operation Date: 01/26/22 08:15 Proposed Procedures p EGD 36808 K21.9(Not Applicable) - Polo Land MD This is a pleasant 76 years old gentleman with history of repeated episodes of choking and history of dysphagia as he did undergo modified barium swallow back in August 2021 that showed 1.? Persistent residual food products in the vallecula and piriform sinuses during this examination. Additional liquid to clear the residual was successful. 2.? No aspiration or laryngeal penetrati on. Patient was educated per speech pathology regarding avoiding of those episodes, yet the patient has been having frequency, denies nausea vomiting or bleeding per orifices and does not appear that he had endoscopic evaluation prior.? Patient reports that he has well fitting dentures when I asked him and he is referred to my practice today for consideration of diagnostic EGD. As a side note patient is updated on colonoscopies. 01/26/22 Patient comes today for diagnostic EGD ROS All systems have been reviewed negative except as per the above or per problem list Medications/Allergies* Home Medications Medication Instructions Recorded Confirmed Type atorvastatin 80 mg tablet 80 mg PO DAILY 12/04/19 01/24/22 History duloxetine 60 mg capsule,delayed 60 mg PO BID 12/04/19 01/24/22 History release cholecalciferol (vitamin D3) 10 10 mcg PO DAILY 08/20/20 01/24/22 History mcg (400 unit) tablet (Vitamin D3) glucosamine HCl 500 mg tablet 500 mg PO DAILY 07/21/21 01/24/22 History multivitamin 1 tab PO DAILY 07/21/21 01/24/22 History allopurinol 100 mg tablet 100 mg PO DAILY 09/30/21 01/24/22 History gabapentin 300 mg capsule 300 mg PO TID cap 09/30/21 01/24/22 History insulin regular hum U-500 conc See Rx Instructions .ROUTE .COMPLEX 09/30/21 01/26/22 History ceracare 1 tab PO DAILY 01/20/22 01/24/22 History Allergies/Adverse Reactions Allergy/AdvReac Type Severity Reaction Status Date / Time lisinopril Allergy unknown Verified 01/26/22 07:48 tetanus toxoid, adsorbed Allergy unknown Verified 01/26/22 07:48 Current Medications: Generic Name Dose Route Start Last Admin Trade Name Freq PRN Reason Stop Dose Admin Sodium Chloride 1,000 mls @ 30 mls/hr 01/26/22 07:00 01/26/22 07:25 Sodium Chloride 0.9% IV 01/27/22 06:59 30 mls/hr .Q24H ABHILASH Administration Pertinent History/Comorbid Conditions* Medical History (Updated 01/20/22 @ 09:40 by Cathy Irby APRN) Chronic kidney disease Complex renal cyst Overall considered low risk, following with ultrasound, COPD (chronic obstructive pulmonary disease) Diabetes mellitus Diabetic neuropathy Gross hematuria H/O cardiac pacemaker HTN (hypertension) Incomplete bladder emptying Lesion of bladder Chronic inflammatory change with fibroadipose tissue most likely consistent patient cystitis despite its suspicious appearing on cystitis Obstructive sleep apnea Prostate cancer Diagnosed 2019 treated with radiation therapy with good response No evidence of recurrence Sinus node dysfunction Surgical History (Updated 12/04/19 @ 08:42 by Kolton Sharma MD) History of back surgery C3-C4 ACDFF WITH C4 CORPECTOMY History of circumcision History of neck surgery History of prostate biopsy Status post cataract surgery Status post knee surgery left Family History Father, AT AGE 65-CHF Mother, AT AGE 65-CHF Social History Smoking and tobacco status: former smoker Alcohol intake: never Marital status: Current occupational status: disabled History of recent travel: No Pertinent Exam Findings alert, oriented x 3, regular rate & rhythm and procedure specific exam findings (Abdominal examination nontender nondistended soft) Recommendations Surgery/Procedure today (EGD with possible biopsy) Coding Level of Care Code Acute Predatory Game [employer] for Julian Garsia
[2022-01-26 08:07] VITALS: BP 150/74; PULSE 64; RESP 20; TEMP 36.7; O2SAT 97
[2022-01-26 08:14] VITALS: BP 124/87; PULSE 61; RESP 18; TEMP 36.6; O2SAT 96
--- NOTE | 2022-01-26 08:18 | PC.NURSE ---
dentures given to spouse
[2022-01-26 08:20] VITALS: BP 149/84; PULSE 61; RESP 18; O2SAT 98
--- NOTE | 2022-01-26 12:47 | ANE.PACU2 ---
Inpatient post-anesthesia follow up: Airway intact: Yes Vital signs: Temperature 97.9 F Pulse Rate 61 Respiratory Rate 18 Blood Pressure 149/84 Pulse Oximetry 98 Oxygen Delivery Me thod Room Air Oxygen Flow Rate Fraction of Inspir ed Oxygen Hydration adequate: Yes Nausea and vomiting: No Pain level: 1 Mental status: Baseline
== END 2022-01-26 08:38 | disposition home or self-care (01) ==
PROVIDERS: PCP Family Medicine; Visit Provider Surgery
PROC: 0DJ08ZZ Inspection of Upper Intestinal Tract, Via Natural or Artificial Opening Endoscopic (ICD-10-PCS; CPT 43235; principal; 2022-01-26 08:15)
DX: R09.89 Other specified symptoms and signs involving the circulatory and respiratory systems (principal); K21.00 Gastro-esophageal reflux disease with esophagitis, without bleeding; K29.70 Gastritis, unspecified, without bleeding; K29.80 Duodenitis without bleeding; K26.3 Acute duodenal ulcer without hemorrhage or perforation; G47.30 Sleep apnea, unspecified; I25.10 Atherosclerotic heart disease of native coronary artery without angina pectoris; I10 Essential (primary) hypertension; E11.9 Type 2 diabetes mellitus without complications; J44.9 Chronic obstructive pulmonary disease, unspecified; E11.40 Type 2 diabetes mellitus with diabetic neuropathy, unspecified; G47.33 Obstructive sleep apnea (adult) (pediatric); Z85.46 Personal history of malignant neoplasm of prostate; Z95.0 Presence of cardiac pacemaker; Z87.891 Personal history of nicotine dependence
CPT/HCPCS: 43239; 88305; 88342; J2704; J7030

== ENCOUNTER 2022-02-04 18:35 | Emergency (ER) | payer OTHER, MEDICARE, SELFPAY ==
[2022-02-04 18:42] VITALS: BP 177/84; PULSE 76; RESP 16; TEMP 36.9; O2SAT 96; BMI 35.9
--- NOTE | 2022-02-04 19:07 | W.ED.MALEGU ---
HPI - Male Genitourinary General: Chief complaint: Urogenital-Male Stated complaint: Urine Bag has blood In it Time Seen by Provider: 02/04/22 18:56 History of Present Illness: Patient is a 76-year-old male who comes to the ED with Hall catheter complaint. Patient had Hall catheter placed on February 01. Since noon today his urine started turning red and he was passing some clots. He felt like the Hall catheter was clogged and stopped draining. Urine turned red after he was up working on a ladder today. Also reports some burning discomfort from Hall catheter that he said was present once it was first placed. Denies any abdominal pain, nausea/vomiting, fever, chills. Patient has an appointment with Dr. Sharma on February 08. Associated symptoms: Reports hematuria; Deny dysuria, nausea or vomiting Review of Systems Const: Denies: fever(s), chills or fatigue Eyes: Denies: change in vision or eye discomfort ENMT: Denies: throat pain, odynophagia, nasal discharge or nasal congestion Card: Denies: chest pain, palpitations, edema, swelling of feet/ankles, dyspnea on exertion or orthopnea Resp: Denies: dyspnea, productive cough or non-productive cough GI: Denies: abdominal pain, nausea, vomiting, diarrhea, constipation or hematochezia : Reports: hematuria and other (Hall catheter not following.); Denies: flank pain, difficulty urinating or dysuria Musc: Denies: neck pain, back pain or extremity swelling Skin/Breast: Denies: rash or new lesions Neuro: Denies: headache(s), numbness in extremities or weakness in extremities PFSH ED PFSH: Medical History Chronic kidney disease Complex renal cyst Overall considered low risk, following with ultrasound, COPD (chronic obstructive pulmonary disease) Diabetes mellitus Diabetic neuropathy Gross hematuria H/O cardiac pacemaker HTN (hypertension) Incomplete bladder emptying Lesion of bladder Chronic inflammatory change with fibroadipose tissue most likely consistent patient cystitis despite its suspicious appearing on cystitis Obstructive sleep apnea Prostate cancer Diagnosed 2019 treated with radiation therapy with good response No evidence of recurrence Sinus node dysfunction Surgical History History of back surgery C3-C4 ACDFF WITH C4 CORPECTOMY History of circumcision History of neck surgery History of prostate biopsy Status post cataract surgery Status post knee surgery left Family History Father , AT AGE 65-CHF No problems noted. Mother , AT AGE 65-CHF No problems noted. Social History Smoking and tobacco status: former smoker Alcohol intake: never Marital status: Current occupational status: disabled History of recent travel: No Physical Exam Const: COMMON NORMALS: no acute distress, patient oriented x3 and alert GENERAL APPEARANCE: cooperative HENMT: COMMON NORMALS: normocephalic HEAD & SCALP: normocephalic MOUTH: Normal oral and palatal mucosa present THROAT: posterior oropharynx normal and uvula midline Neck/C-Spine: COMMON NORMALS: supple GENERAL: Yes normal visual inspection Resp: COMMON NORMALS: normal respiratory effort, No retractions, No use of accessory muscles and clear to auscultation bilaterally AUSCULTATION: clear to auscultation bilaterally Cardio: COMMON NORMALS: regular rate, regular rhythm, S1 normal heart sound present, S2 normal heart sound present, No gallops present (Cardio), No clicks present (Cardio), No murmurs present (Cardio) and Peripheral pulses 2+ throughout RATE: regular rate RHYTHM: regular rhythm HEART SOUNDS: S1 normal heart sound present and S2 normal heart sound present PERIPHERAL PULSES: Peripheral pulses 2+ throughout GI: COMMON NORMALS: Normal to inspection, nondistended, normoactive bowel sounds present, Soft to palpation, non-tender and no masses PALPATION: Yes Soft to palpation : COMMON NORMALS: Yes no CVA tenderness BLADDER/KIDNEY EXAM: Yes no CVA tenderness OTHER: Hall catheter bag-gross hematuria noted. Back/Pelvis: COMMON NORMALS: no CVA tenderness Extremity: COMMON NORMALS: normal to inspection Neuro: COMMON NORMALS: patient oriented x3 and moves all extremities SENSORIUM/ORIENTATION: Yes alert Skin: GENERAL SKIN EXAM: dry skin Course ED course: Nurse performed multiple flushes of Hall catheter and removed multiple clots. Urine would clear up some and then get red again. Hall catheters is patent and flowing. Patient has no concern for urinary retention. I discussed patient case with Dr. Ortiz and he recommended doing a CT of the abdomen and to continue doing another round of Hall cath flushes. If urine does not clear up patient could be transferred to a hospital with urology specialist available. Reevaluation(s): Reevaluation #1: Hall catheter bag was still flowing well and patent but urine was still bloody. I told patient about CT findings and my recommendation to transfer patient to hospital and has a urologist available. Patient stated he did not want to transfer to another hospital. I told patient the risks of his Hall catheter likely being obstructed again by clot and he will need to come back into the ED to have it flushed again. Patient understood. Patient has an appointment with Dr. Sharma on February 08 Time: 23:40 Vital Signs: Vital signs: Vital Signs Temperature 98.5 F 02/04/22 18:42 Pulse Rate 67 02/05/22 01:24 Respiratory Rate 20 H 02/05/22 01:24 Blood Pressure 157/77 02/05/22 01:24 Pulse Oximetry 98 02/05/22 01:24 MDM - Male Medical Decision Making Patient is a 76-year-old male comes to the ED with Hall catheter problem and hematuria. Patient says he is not having much flowing out of his Hall catheter and today around noon after he had gotten up on a ladder he started having visible blood in urine. Vitals stable. Patient does have gross hematuria in Hall leg bag. Rest of exam is benign. Hemoglobin 10.6 and creatinine 1.3 the rest of CBC and CMP were unremarkable. UA showed a lot of red blood cells but no concerns for any acute UTI at this time. Nurse performed multiple flushes of Hall catheter and removed multiple clots. Urine would clear up some and then get red again. Hall catheters is patent and flowing. Patient has no concern for urinary retention at this time. I discussed patient case with Dr. Ortiz and he recommended doing a CT of the abdomen and to continue doing another round of Hall cath flushes. Dr. Sharma is not auto transmission specialist and patient would need to be transferred. CT of abdomen pelvis showed some bladder wall thickening but no other significant findings. I once again recommended that patient transfer to another hospital with urology specialist auto transmission specialist. He refused to be transferred to another hospital. Patient wants to discharge home. I told him about the risks and that he will likely have another obstruction of his Hall catheter due to a clot. He understood. I gave him strict return to ED precautions. He was discharged home with a prescription for cefdinir. He has follow-up with Dr. Sharma scheduled for February 08. Dr. Ortiz agreed with plan. Lab Data I reviewed the patient's lab results. : 02/04/22 19:21 02/04/22 19:21 Radiology Impressions Abdomen/Pelvis CT 02/04/22 22:37 IMPRESSION: 1. Suspect mild to moderate diffuse urinary bladder wall thickening. Some indistinctness of the bladder wall, and stranding in the adjacent fat, suggesting edema/inflammation. While nonspecific, these findings could indicate evidence for cystitis or post radiation changes. See additional details above. 2. Some high attenuation fluid/material in the urinary bladder, likely representing blood/clot. 3. No hydronephrosis of either kidney. No visible renal or ureteral calculus. 4. Mild perinephric stranding bilaterally, see above discussion. 5. No free air or significant bowel distention. 6. No evidence for appendicitis or diverticulitis. 7. Other findings discussed above. COMMENTS: Consistent with the [employer]'s Incidental Findings Committee white paper (J Am Beckie Radiol 2018): Any incidental renal lesion less than 1 cm or classified as too small to characterize, or any incidental cystic renal lesion characterized as simple-appearing, is likely benign. No follow-up imaging is recommended for these lesions per consensus recommendations based on imaging criteria. Laboratory Results WBC 7.5 10^3/uL (4.0-10.0) 02/04/22 19: RBC 3.42 10^6/uL (4.1-5.3) L 02/04/22 19:21 Hgb 10.6 g/dL (11.7-16.6) L 02/04/22 19: Hct 32.7 % (42.0-52.0) L 02/04/22 19: MCV 95.6 fl (80-94) H 02/04/22 19: MCH 31.0 pg (28.0-34.0) 02/04/22 19: MCHC 32.4 g/dL (30.0-36.0) 02/04/22 19: RDW 13.6 % (12.1-15.1) 02/04/22 19: Plt Count 184 10^3/cmm (130-400) 02/04/22 19: MPV 10.3 fL (7.4-10.4) 02/04/22 19: Neut % (Auto) 65.4 % 02/04/22 19:21 Lymph % (Auto) 23.5 % 02/04/22 19: [place] % (Auto) 6.5 % 02/04/22 19:21 Eos % (Auto) 3.7 % 02/04/22 19:21 Baso % (Auto) 0.5 % 02/04/22 19: Neut # (Auto) 4.89 10^3/uL (1.8-7.7) 02/04/22: Lymph # (Auto) 1.8 10^3/uL (0.8-4.8) 02/04/22 19: [place] # (Auto) 0.5 10^3/uL (0.2-0.9) 02/04/22 19: Eos # (Auto) 0.3 10^3/uL (0.0-0.8) 02/04/22 19: Baso # (Auto) 0.0 10^3/uL (0.0-0.1) 02/04/22: Nucleated RBC % (auto) 0 % 02/04/22: Nucleated RBCs # 0.0 /100WBC 02/04/22 19: Sodium 135 mmol/L (136-145) L 02/04/22 19: Potassium 4.4 mmol/L (3.5-5.1) 02/04/22 19: Chloride 99 mmol/L (98-107) 02/04/22 19: Carbon Dioxide 26 mmol/L (22-29) 02/04/22 19: Anion Gap 14.4 (5-19) 02/04/22 19:21 BUN 26 mg/dL (8-23) H 02/04/22 19:21 Creatinine 1.3 mg/dL (0.7-1.2) H 02/04/22 19:21 GFR Calculation Not Reportable 02/04/22 19:21 Glucose 125 mg/dL (65-115) H 02/04/22 19:21 Calculated Osmolality 286 mOsm/kg (285-295) 02/04/22 19: Calcium 8.9 mg/dL (8.5-10.5) 02/04/22 19:21 Total Bilirubin 0.2 mg/dL (0.15-1.2) 02/04/22 19:21 AST 22 U/L (0-40) 02/04/22 19: ALT 18 U/L (0-41) 02/04/22 19: Alkaline Phosphatase 90 IU/L (40-130) 02/04/22 19: Total Protein 6.9 g/dL (6.6-8.7) 02/04/22 19: Albumin 4.2 g/dL (3.5-5.2) 02/04/22 19: Globulin 2.7 g/dL (1.3-4.6) 02/04/22 19:21 Urine Color Red (Yellow) 02/04/22 20:58 Urine Appearance Turbid (CLEAR) 02/04/22 20:58 Urine pH 8 (5-7) H 02/04/22 20:58 Ur Specific [place] 1.010 (1.005-1.030) 02/04/22 20:58 Urine Protein 3+ (Negative) H 02/04/22 20:58 Urine Glucose (UA) Norm (Normal) 02/04/22 20:58 Urine Ketones 1+ (Negative) H 02/04/22 20:58 Urine Blood 4+ (Negative) H 02/04/22 20:58 Urine Nitrate Negative (Negative) 02/04/22 20:58 Urine Bilirubin Neg (Negative) 02/04/22 20:58 Prot Sulfosalicylic Acd Positive (Negative) 02/04/22 20:58 Urine Urobilinogen 1 mg/dL (Negative) H 02/04/22 20:58 Ur Leukocyte Esterase Negative (Negative) 02/04/22 20:58 Urine RBC Too numerous to cnt /hpf (0-2) H 02/04/22 20:58 Urine WBC 0-4 /hpf (0-5) H 02/04/22 20:58 Ur Squamous Epith Cells 0-4 /hpf (0-5) H 02/04/22 20:58 Amorphous Sediment Not Reportable 02/04/22 20:58 Urine Bacteria Trace /hpf (NONE) 02/04/22 20:58 Urine Mucus 4+ /hpf 02/04/22 20:58 Discharge Plan Discharge Patient Disposition: Home Clinical Impression: Hall catheter problem Qualifiers: Encounter type: initial encounter Qualified Code(s): T83.9XXA - Unspecified complication of genitourinary prosthetic device, implant and graft, initial encounter Hematuria Qualifiers: Hematuria type: gross Qualified Code(s): R31.0 - Gross hematuria Anemia Qualifiers: Anemia type: unspecified type Qualified Code(s): D64.9 - Anemia, unspecified Condition: Stable Prescriptions: New cefdinir 300 mg capsule 300 mg PO BID 10 Days Qty: 20 0RF No Action allopurinol 100 mg tablet 100 mg PO DAILY 0RF ceracare 1 tab PO DAILY 0RF glucosamine HCl 500 mg tablet 500 mg PO DAILY 0RF Rx Instructions: administer with a meal multivitamin Tablet 1 tab PO DAILY 0RF doxycycline hyclate 100 mg capsule 100 mg PO BID Qty: 60 2RF atorvastatin 80 mg tablet 80 mg PO DAILY 0RF Label Comments: [facility] duloxetine 60 mg capsule,delayed release(DR/EC) 60 mg PO BID 0RF lidocaine HCl 2 % jelly 1 applic intra-urethral ONCE Qty: 1 0RF tamsulosin 0.4 mg capsule 0.4 mg PO BID Qty: 180 3RF losartan 50 mg tablet 50 mg PO DAILY Qty: 30 5RF hydrochlorothiazide 25 mg tablet 25 mg PO DAILY Qty: 90 3RF cholecalciferol (vitamin D3) [Vitamin D3] 10 mcg (400 unit) Tablet 10 mcg PO DAILY 0RF gabapentin 300 mg capsule 300 mg PO TID 0RF insulin regular hum U-500 conc 500 unit/mL (3 mL) insulin pen See Rx Instructions .ROUTE .COMPLEX 0RF Rx Instructions: sliding scale Carafate 1 gram tablet 1 g PO Q6H 84 Days Qty: 336 2RF Discharge Orders: Discharge ED (Routine); Ordered 02/04/22 Ordered By: Everardo Farr Referrals: Rajwinder Olivarez MD [Primary Care Provider] - Discharge Diet: Regular Discharge Activity: Limit activity as instructed Patient Instructions: Hall Catheter Placement and Care (ED), Hematuria (ED) Activity Restrictions/Additional Instructions: Follow-up with Dr. Sharma at your next scheduled appointment on February 08. Return to the ED if he start developing any abdominal pain or Hall catheter issues. take medications as prescribed. Rest for the next couple days and limit activity until seen by Dr. Sharma. Return to the ER or your medical provider if condition worsens. Please read and understand discharge instructions. Thank you for choosing [facility] for your healthcare needs today. Please realize this is an emergency room and that we are providing you with a medical screening exam and this may not be complete and all inclusive of all the testing and or work up that you may need to determine your ailment or severity of your illness. It is very important that you follow up as instructed or that you return to the Emergency Department should you have concerns or if your condition changes or worsens in any way. Coding Level of Care Code ED Bindery Machine Setter/Set Up Operator for Julian Garsia Exam Comprehensive
[2022-02-04 19:28] LABS: Basophils % 0.5 %; Eosinophils # 0.3 10^3/uL (0.0-0.8); Eosinophils % 3.7 %; Hematocrit 32.7 % (42.0-52.0); Hemoglobin 10.6 g/dL (11.7-16.6); Lymphocytes # 1.8 10^3/uL (0.8-4.8); Lymphocytes % 23.5 %; Mean Corpuscular HGB Conc 32.4 g/dL (30.0-36.0); Mean Corpuscular Volume 95.6 fl (80-94); Mean Platelet Volume 10.3 fL (7.4-10.4); Monocytes # 0.5 10^3/uL (0.2-0.9); Monocytes % 6.5 %; Neutrophils # 4.89 10^3/uL (1.8-7.7); Neutrophils % 65.4 %; Nucleated Red Blood Cells % 0 %; Platelet Count 184 10^3/cmm (130-400); Red Blood Count 3.42 10^6/uL (4.1-5.3); Red Cell Distribution Width 13.6 % (12.1-15.1); White Blood Count 7.5 10^3/uL (4.0-10.0)
[2022-02-04 19:58] LABS: Alanine Aminotransferase 18 U/L (0-41); Albumin Level 4.2 g/dL (3.5-5.2); Alkaline Phosphatase 90 IU/L (40-130); Anion Gap 14.4 (5-19); Aspartate Amino Transferase 22 U/L (0-40); Blood Urea Nitrogen 26 mg/dL (8-23); Calcium 8.9 mg/dL (8.5-10.5); Carbon Dioxide 26 mmol/L (22-29); Chloride 99 mmol/L (98-107); Globulin 2.7 g/dL (1.3-4.6); Glucose 125 mg/dL (65-115); Osmolality Calculated 286 mOsm/kg (285-295); Potassium 4.4 mmol/L (3.5-5.1); Sodium 135 mmol/L (136-145); Total Bilirubin 0.2 mg/dL (0.15-1.2); Total Protein 6.9 g/dL (6.6-8.7)
[2022-02-04 20:00] VITALS: BP 197/90; PULSE 80; RESP 20; O2SAT 96
[2022-02-04 20:28] LABS: Slide Review Slide Review Perform
--- NOTE | 2022-02-04 20:45 | PC.NURSE ---
Flushed patient's catheter 5 times with 40ml of normal saline. Each time I pulled out the 40ml that I put in. Return is red/pink. I was able to get one small clot out , but no other clots noticed during flushing. Catheter seems to be draining appropriately at this time.
--- NOTE | 2022-02-04 20:51 | PC.NURSE ---
pt cath flushed by 3 nurses, seveal clots removed
[2022-02-04 20:52] VITALS: BP 167/67; PULSE 80; RESP 20; O2SAT 94
[2022-02-04 21:32] LABS: Urine Appearance Turbid (CLEAR); Urine Color Red (Yellow)
[2022-02-04 21:40] LABS: Add Urine Microscopic? YES; Bilirubin Urine Neg (Negative); Blood Urine 4+ (Negative); Glucose Urine UA Norm (Normal); Ketones Urine 1+ (Negative); Leukocyte Esterase Urine Negative (Negative); Nitrate Urine Negative (Negative); Protein Urine 3+ (Negative); Sulfosalicylic Acid Urine Positive (Negative); Urobilinogen Urine 1 mg/dL (Negative); pH Urine 8 (5-7)
[2022-02-04 21:44] LABS: Add Urine Culture? Yes; Bacteria Urine TRACE /hpf; Mucus Urine 4+ /hpf; RBC Urine TOO NUMEROUS TO CNT /hpf (0-2); Squamous Epithelial Cell Urine 0-4 /hpf (0-5); WBC Urine 0-4 /hpf (0-5)
--- NOTE | 2022-02-04 22:31 | PC.NURSE ---
flushed cooper with 4 more bottles of NS turned to pink color put on fresh leg bag color turns to red
--- NOTE | 2022-02-04 22:37 | CTR_ITS ---
PROCEDURE INFORMATION: Exam: CT Abdomen And Pelvis Without Contrast Exam date and time: 02/04/2022 10:48 PM Age: 76 years old Clinical indication: Patient HX: Gross hematuria, HX of prostate CA w rad TECHNIQUE: Imaging protocol: Computed tomography of the abdomen and pelvis without contrast. Radiation optimization: All CT scans at this facility use at least one of these dose optimization techniques: automated exposure control; mA and/or kV adjustment per patient size (includes targeted exams where dose is matched to clinical indication); or iterative reconstruction. COMPARISON: CT abdomen pelvis wo con [id number] 03/24/2019 1:38 PM RADIATION DOSE METRICS: Total DLP (mGy-cm): 1928.3 FINDINGS: Lungs: The lung bases are clear. Liver: There are couple of small 10-13 mm low attenuation areas in the liver, similar to the prior exam. These are nonspecific, but are statistically most likely small cysts or cavernous hemangiomas. If there is clinical concern for other liver mass, MRI could be more specific. Gallbladder and bile ducts: No definite gallbladder abnormality by CT. No biliary tree dilation. Pancreas: Unremarkable. Spleen: Unremarkable. Adrenal glands: Unremarkable. Kidneys and ureters: No hydronephrosis of either kidney. No visible renal or ureteral calculus. Likely benign cysts in the right kidney, largest measures up to 4 cm. Mild perinephric stranding bilaterally, similar to the prior exam. This is a nonspecific appearance and could well be chronic. Possibility of pyelonephritis is not entirely excluded, please correlate clinically. Stomach and bowel: No significant significant bowel distention. There are no CT findings to strongly suggest diverticulitis. Appendix: The appendix is visualized and appears normal. Intraperitoneal space: No free intraperitoneal air, or ascites. Vasculature: No evidence for abdominal aortic aneurysm. Lymph nodes: No significant retroperitoneal adenopathy. Urinary bladder: Hall catheter in the urinary bladder. Gas in the bladder is presumably secondary to catheter insertion. Suspect mild to moderate diffuse urinary bladder wall thickening. Evaluation is somewhat limited, as the bladder is almost empty. This could be related to the prostate enlargement. There is some indistinctness of the bladder wall, and stranding in the adjacent fat, suggesting edema/inflammation. While nonspecific, these findings could indicate evidence for cystitis or post radiation changes. Bladder neoplasm not excluded. Please correlate clinically. Some high attenuation fluid/material in the urinary bladder, likely representing blood/clot. Reproductive: Prostate enlargement with transverse diameter of 5.5 cm. Bones/joints: Prominent degenerative/arthritic changes throughout the lumbar spine. Soft tissues: Very small umbilical hernia, containing only fat. CT/CT abdomen pelvis wo con [id number] IMPRESSION: 1. Suspect mild to moderate diffuse urinary bladder wall thickening. Some indistinctness of the bladder wall, and stranding in the adjacent fat, suggesting edema/inflammation. While nonspecific, these findings could indicate evidence for cystitis or post radiation changes. See additional details above. 2. Some high attenuation fluid/material in the urinary bladder, likely representing blood/clot. 3. No hydronephrosis of either kidney. No visible renal or ureteral calculus. 4. Mild perinephric stranding bilaterally, see above discussion. 5. No free air or significant bowel distention. 6. No evidence for appendicitis or diverticulitis. 7. Other findings discussed above. COMMENTS: Consistent with the [employer]'s Incidental Findings Committee white paper (J Am Beckie Radiol 2018): Any incidental renal lesion less than 1 cm or classified as too small to characterize, or any incidental cystic renal lesion characterized as simple-appearing, is likely benign. No follow-up imaging is recommended for these lesions per consensus recommendations based on imaging criteria.
[2022-02-04] MEDS: sodium chloride 0.9% 500 ML 999 ML IV (23:05)
[2022-02-04 23:22] VITALS: BP 119/68; PULSE 78; RESP 20; O2SAT 98
[2022-02-05] MEDS: cefdinir 300 MG CAPSULE PO (00:32)
--- NOTE | 2022-02-05 01:23 | PC.NURSE ---
pt cath flush with 4 bottles of NS multiple clots, Dr notified, pt continues to refuse to be transfered but instructed to come back if cath clots again
[2022-02-05 01:24] VITALS: BP 157/77; PULSE 67; RESP 20; O2SAT 98
== END 2022-02-05 01:28 | disposition home or self-care (01) ==
PROVIDERS: Emergency Provider Physician Assistant; PCP Family Medicine
DX: T83.9XXA Unspecified complication of genitourinary prosthetic device, implant and graft, initial encounter (principal); R31.0 Gross hematuria; D64.9 Anemia, unspecified; Z79.4 Long term (current) use of insulin; J44.9 Chronic obstructive pulmonary disease, unspecified; I10 Essential (primary) hypertension; E11.40 Type 2 diabetes mellitus with diabetic neuropathy, unspecified; Z95.0 Presence of cardiac pacemaker; Z85.46 Personal history of malignant neoplasm of prostate; Z87.891 Personal history of nicotine dependence
CPT/HCPCS: 74176; 80053; 81001; 85025; 87086; 96360; 99284; J7040

== ENCOUNTER 2022-02-06 15:39 | Inpatient (IN) | payer OTHER, SELFPAY ==
[2022-02-06] VITALS (27 sets, daily range): BP systolic 108–189; BP diastolic 58–81; PULSE 60–86; RESP 11–25; TEMP 36.8–37.2; O2SAT 82–95
[2022-02-06 16:25] LABS: Glucose Point of Care 91 mg/dL (70-110)
[2022-02-06] MEDS: sodium chlor 0.9% + KCl 20 mEq 20 MEQ/1,000 ML BAG 50 MEQ IV (18:03)
--- NOTE | 2022-02-06 18:13 | PC.NURSE ---
Direct Admit Pt rec'd from admissions via wheelchair. Pt's is at bedside. Pt is alert and oriented. Three way cooper in place and draining. Cooper bag switched from leg bag to gravity overnight bag. Manual irrigation done per Dr Sharma's orders. Small red clots the size of pencil erasers were flushed and drained into cooper bag. Cont. Bladder Irrigation started at a moderate drip rate to maintain a urine color that is between red and pink. No distention noted to bladder and pt currently denies pain. Pt oriented to room and denied further questions.
[2022-02-06 18:44] LABS: Basophils # 0.1 10^3/uL (0.0-0.1); Basophils % 0.7 %; Eosinophils # 0.2 10^3/uL (0.0-0.8); Eosinophils % 2.8 %; Hematocrit 32.1 % (42.0-52.0); Hemoglobin 10.4 g/dL (11.7-16.6); Lymphocytes # 1.9 10^3/uL (0.8-4.8); Lymphocytes % 26.5 %; Mean Corpuscular HGB Conc 32.4 g/dL (30.0-36.0); Mean Corpuscular Hemoglobin 30.6 pg (28.0-34.0); Mean Corpuscular Volume 94.4 fl (80-94); Mean Platelet Volume 10.4 fL (7.4-10.4); Monocytes # 0.5 10^3/uL (0.2-0.9); Monocytes % 7.5 %; Neutrophils # 4.47 10^3/uL (1.8-7.7); Neutrophils % 62.2 %; Nucleated Red Blood Cells % 0 %; Platelet Count 222 10^3/cmm (130-400); Red Cell Distribution Width 13.8 % (12.1-15.1); White Blood Count 7.2 10^3/uL (4.0-10.0)
--- NOTE | 2022-02-06 18:57 | PM.HP ---
Providers/Chief Complaint Admitting Physician: Kolton Sharma MD Primary Care Provider: Rajwinder Olivarez MD History of Present Illness Nikita Perez is a 76 year old male direct admitted from, gross hematuria, radiation cystitis. See note below that was begun in clinic this afternoon: Problems following: PROSTATE CANCER Diagnosed January 2019 PSA 12.3and benign feeling ZEHRA. Prostate volume 54 mL. Pathology: 6 of 12 cores positive for Maria R 3+4 ranging from 2 microscopic foci and 4 with volumes of 40-95%. Bilateral involvement. at prostate cancer counseling he was leaning more toward radiation therapy.? Daughters participated in discussion February 2019. Received combination therapy with antigen deprivation therapy x6 months and EBRT (completed on 08/05/2020). COMPLEX RENAL CYST Follow-up ultrasound showed no evidence of progression of concerning findings. GROSS HEMATURIA Associated with UTI with complete resolution after treatment with ciprofloxacin 2019. BLADDER LESION On cystoscopic examination for gross hematuria was found to have a lesion that looked consistent with TCC of the bladder but pathology on TURBT 03-09 showed FIBROADIPOSE TISSUE with INFLAMMATION but?NO MALIGNANCY 02/06/2022: UROLOGY follow-up visit Last visit was 02/01/2022 with JESUS Dill for complaint of plugging of straight cath with clots. 20 Surinamese Hall catheter was placed and irrigated until urine return was light pink. Plan was for follow-up this week with possible reinitiation of SCIC. ?? ? Summary of outside records: [facility] emergency department (02/04/2022) Presented with complaint of gross hematuria and passing clots. CT scan showed some high attenuation fluid/material in the bladder likely representing blood/clot, no hydronephrosis. WBC: 7.5.? Hemoglobin: 10.6.? BUN: 26.? Creatinine: 1.3. Nurses performed multiple flushes of catheter with removal of multiple clots. Urine was clear and then get red again. Hall catheter patent and flowing. Recommended transfer to another facility, he declined. Discharged with a prescription for cefdinir. ?? ? Current data Symptoms: Has continued to have gross hematuria with passage of clots since ER visit. CYSTOSCOPY/CLOT EVACUATION: 2% lidocaine jelly, informed consent obtained, routine prep. Findings: Large amount of clot identified in the bladder with flexible cystoscopy. A 22 Surinamese Anay Couvelaire hematuria three-way catheter was passed without difficulty and he was irrigated with 2 to 3 L of sterile water with a large amount of clot returned. Placed on continuous bladder irrigation in the clinic Plan direct admit to [facility] for CBI, possible surgical intervention if required. Reviewed alternatives including hyperbaric oxygen therapy etc. Review of Systems Const: Denies: fever(s) or chills Eyes: Denies: change in vision, blurry vision or eye discharge ENMT: Denies: throat pain or hoarseness Card: Denies: chest pain or palpitations Resp: Denies: dyspnea or wheezing GI: Denies: abdominal pain or nausea : Reports: difficulty urinating and hematuria; Denies: flank pain Musc: Denies: neck pain or joint redness Skin/Breast: Denies: rash Neuro: Denies: confusion, behavioral changes or Slurred speech present Psych: Denies: anxiety or depression Endo: Denies: flushing Eder/Lymph: Denies: easy bruising, easy bleeding (Gross hematuria) or tender lymph nodes All/Imm: Denies: urticaria or acute wheezing Medications/Allergies Home Medications Medication Instructions Recorded Confirmed Last Taken Type duloxetine 60 mg capsule,delayed 60 mg PO BID 12/04/19 02/06/22 01/25/22 History release cholecalciferol (vitamin D3) 10 10 mcg PO DAILY 08/20/20 02/06/22 01/25/22 History mcg (400 unit) tablet (Vitamin D3) losartan 50 mg tablet 50 mg PO DAILY #30 tab 04/20/21 02/06/22 01/25/22 Rx glucosamine HCl 500 mg tablet 500 mg PO DAILY 07/21/21 02/06/22 01/25/22 History multivitamin 1 tab PO DAILY 07/21/21 02/06/22 01/25/22 History allopurinol 100 mg tablet 100 mg PO DAILY 09/30/21 02/06/22 01/25/22 History gabapentin 300 mg capsule 300 mg PO TID cap 09/30/21 02/06/22 01/25/22 History hydrochlorothiazide 25 mg tablet 25 mg PO DAILY #90 tab 10/12/21 02/06/22 01/25/22 Rx ceracare 1 tab PO DAILY 01/20/22 02/06/22 01/25/22 History tamsulosin 0.4 mg capsule 0.4 mg PO BID #180 cap 01/20/22 02/06/22 01/25/22 Rx sucralfate 1 gram tablet (Carafate) 1 g PO Q6H 84 Days #336 tab 01/26/22 02/06/22 Unknown Rx atorvastatin 80 mg tablet 40 mg PO DAILY tab 02/06/22 02/06/22 Unknown History fluticasone propionate 50 1 spray INTRANASAL DAILY 02/06/22 02/06/22 Unknown History mcg/actuation nasal spray,suspension (Allergy Relief (fluticasone)) insulin NPH isoph U-100 human 100 85 unit SUBCUT QAM ml 02/06/22 02/06/22 Unknown History unit/mL (3 mL) subcutaneous pen (Humulin N NPH U-100 Insulin KwikPen) resveratrol 100 mg capsule mg PO DAILY cap 02/06/22 02/06/22 Unknown History sucralfate 1 gram tablet 1 g PO .every six hours tab 02/06/22 02/06/22 Unknown History Allergies Allergy/AdvReac Type Severity Reaction Status Date / Time lisinopril Allergy unknown Verified 02/06/22 12:57 tetanus toxoid, adsorbed Allergy unknown Verified 02/06/22 12:57 PFSH Acute PFSH: Medical History (Updated 02/06/22 @ 19:05 by Kolton Sharma MD) Chronic kidney disease Complex renal cyst Overall considered low risk, following with ultrasound, COPD (chronic obstructive pulmonary disease) Diabetes mellitus Diabetic neuropathy Gross hematuria H/O cardiac pacemaker HTN (hypertension) Incomplete bladder emptying Lesion of bladder Chronic inflammatory change with fibroadipose tissue most likely consistent patient cystitis despite its suspicious appearing on cystitis Obstructive sleep apnea Prostate cancer Diagnosed 2019 treated with radiation therapy with good response No evidence of recurrence Sinus node dysfunction Urinary retention Surgical History (Updated 02/06/22 @ 19:05 by Kolton Sharma MD) History of back surgery C3-C4 ACDFF WITH C4 CORPECTOMY History of circumcision History of eye surgery 2018 History of neck surgery History of prostate biopsy Status post cataract surgery Status post knee surgery left Family History Father , AT AGE 65-CHF No problems noted. Mother , AT AGE 65-CHF No problems noted. Social History Smoking and tobacco status: former smoker Alcohol intake: never Marital status: Current occupational status: disabled History of recent travel: No Vitals/I&O/Wt Last Vital Signs Temp 98.9 F 02/06/22 16:56 Pulse 78 02/06/22 16:56 Resp 18 02/06/22 16:56 BP 108/79 02/06/22 16:56 02/06/22 02/06/22 02/06/22 06:59 14:59 22:59 Intake Total 100 / 100 Balance 100 / 100 Physical Exam Const: COMMON NORMALS: no acute distress, alert and well nourished GENERAL APPEARANCE: well kempt and well developed ORIENTATION/CONSCIOUSNESS: not confused HENMT: HEAD & SCALP: normocephalic and atraumatic Eye: COMMON NORMALS: conjunctivae normal and no scleral icterus Neck/C-Spine: COMMON NORMALS: full ROM GENERAL: Yes normal visual inspection Lymph: LYMPHATIC: No no lymphadenopathy noted and No no lymphedema noted Resp: COMMON NORMALS: normal respiratory effort EFFORT & INSPECTION: No labored and No Actively coughing GI: OTHER: Soft. No palpable masses. : OTHER: Normal male genitalia normal urethral meatus. Extremity: COMMON NORMALS: no clubbing, cyanosis or edema Neuro: COMMON NORMALS: no focal motor deficits SENSORIUM/ORIENTATION: Yes alert Psych: COMMON NORMALS: mental status grossly normal APPEARANCE: Yes grossly normal and Yes well kempt ATTITUDE: Yes calm and Yes engaged Skin: COMMON NORMALS: no rashes or lesions noted and no jaundice Data : 02/06/22 18:07 02/06/22 18:07 A&P Assessment and plan (1) Clot retention of urine: Status: Acute (2) Radiation cystitis: Status: Acute (3) Prostate cancer: Status: Chronic (4) HTN (hypertension): Status: Acute Qualifiers: Hypertension type: essential hypertension Qualified Code(s): I10 - Essential (primary) hypertension (5) Diabetes mellitus: Status: Acute Qualifiers: Diabetes mellitus type: type 2 Diabetes mellitus rn long term care insulin use: with chcf use Diabetes mellitus complication status: without complication Qualified Code(s): E11.9 - Type 2 diabetes mellitus without complications; 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 Hopefully initial therapy with conservative CBI will be enough. Manually irrigate as needed. Consider cystoscopy under anesthesia with fulguration alum irrigation hyperbaric oxygen etc. for persistence. Continue home medications. Serial CBC. Attestations Medical Necessity Statement*: Clot retention, requiring CBI, possible surgical intervention. Coding Level of Care Code Acute National Facilities Manager for [facility] Fwd Diagnoses Clot retention of urine R33.8 Radiation cystitis N30.40 Prostate cancer C61 HTN (hypertension) I10 Hypertension type: essential hypertension Diabetes mellitus E11.9; Z79.4 Diabetes mellitus type: type 2 Diabetes mellitus rn long term care insulin use: with rn long term care use Diabetes mellitus complication status: without complication COPD (chronic obstructive pulmonary disease) J44.9 COPD type: unspecified COPD Incomplete bladder emptying R33.9
[2022-02-06 19:27] LABS: Anion Gap 13.3 (5-19); Blood Urea Nitrogen 26 mg/dL (8-23); Calcium 9.2 mg/dL (8.5-10.5); Carbon Dioxide 27 mmol/L (22-29); Chloride 102 mmol/L (98-107); Glucose 55 mg/dL (65-115); Osmolality Calculated 288 mOsm/kg (285-295); Potassium 4.3 mmol/L (3.5-5.1); Sodium 138 mmol/L (136-145)
[2022-02-06 19:57] LABS: Glucose Point of Care 120 mg/dL (70-110)
[2022-02-06] MEDS: gabapentin 300 mg Capsule PO (20:28)
[2022-02-06] MEDS: sucralfate 1 gm Tablet PO (21:51)
[2022-02-07] VITALS (13 sets, daily range): BP systolic 115–165; BP diastolic 44–92; PULSE 61–80; RESP 13–19; TEMP 36.3–37.1; O2SAT 89–98; BMI 33.4
[2022-02-07] MEDS: HYDROcodone-acetaminophen 5-325 mg Tablet 1 TAB PO ×3 (01:03→18:23)
[2022-02-07] MEDS: sucralfate 1 gm Tablet PO ×4 (03:53→22:14)
[2022-02-07 05:11] LABS: Basophils % 0.5 %; Eosinophils # 0.3 10^3/uL (0.0-0.8); Eosinophils % 3.6 %; Hematocrit 31.3 % (42.0-52.0); Lymphocytes # 1.7 10^3/uL (0.8-4.8); Lymphocytes % 21.5 %; Mean Corpuscular HGB Conc 31.9 g/dL (30.0-36.0); Mean Corpuscular Hemoglobin 30.7 pg (28.0-34.0); Mean Platelet Volume 10.2 fL (7.4-10.4); Monocytes # 0.5 10^3/uL (0.2-0.9); Monocytes % 6.1 %; Neutrophils # 5.35 10^3/uL (1.8-7.7); Neutrophils % 67.9 %; Nucleated Red Blood Cells % 0 %; Platelet Count 212 10^3/cmm (130-400); Red Blood Count 3.26 10^6/uL (4.1-5.3); Red Cell Distribution Width 13.7 % (12.1-15.1); White Blood Count 7.9 10^3/uL (4.0-10.0)
[2022-02-07 05:31] LABS: Anion Gap 11.8 (5-19); Blood Urea Nitrogen 23 mg/dL (8-23); Calcium 8.9 mg/dL (8.5-10.5); Carbon Dioxide 26 mmol/L (22-29); Chloride 103 mmol/L (98-107); Glucose 138 mg/dL (65-115); Osmolality Calculated 288 mOsm/kg (285-295); Potassium 4.8 mmol/L (3.5-5.1); Sodium 136 mmol/L (136-145)
[2022-02-07] MEDS: insulin nph human 100 units/1 mL 85 UNIT SUBCUT (07:06)
--- NOTE | 2022-02-07 07:47 | PC.NURSE ---
Pt received from ICU at 0730. AAOx4. MAkes all needs known. CBI in use. MD to bedside. Ordered to aggressively irrigate q1-2h. No c/o pain at this time. IVF at 50ml/h.
[2022-02-07 08:03] LABS: Glucose Point of Care 193 mg/dL (70-110)
[2022-02-07] MEDS: hydroCHLOROthiazide 25 mg Tablet PO (08:30)
[2022-02-07] MEDS: gabapentin 300 mg Capsule PO ×3 (08:30→22:14)
[2022-02-07] MEDS: atorvastatin 40 mg Tablet PO (08:30)
[2022-02-07] MEDS: fluticasone nasal spray 16gm Btl 1 SPRAY INTRANASAL (08:31)
[2022-02-07] MEDS: allopurinol 100 mg Tablet PO (08:31)
[2022-02-07] MEDS: duloxetine 60 mg Capsule PO ×2 (08:31→17:28)
[2022-02-07] MEDS: losartan 50 mg Tablet PO (08:31)
[2022-02-07] MEDS: tamsulosin 0.4 mg Capsule PO ×2 (08:31→17:28)
[2022-02-07] MEDS: multivitamin therapeutic Tablet 1 TAB PO (08:31)
[2022-02-07] MEDS: insulin lispro 100 unit/1 mL SUBCUT ×3 (08:35→22:13)
[2022-02-07 11:42] LABS: Glucose Point of Care 178 mg/dL (70-110)
--- NOTE | 2022-02-07 12:59 | PM.PN ---
Subjective Subjective: Hospital day #2: Still requiring CBI. Required multiple manual irrigations last night with a lot of clots returned. Catheter staying patent without much problem though. Less clots retrieved with irrigation manually this morning. No other complaints. Hemoglobin stable this morning. Reviewed and consider the above information for this visit cystoscopy under anesthesia clot evacuation possible fulguration if no dramatic improvement by this evening. We will go ahead and put him on the schedule in anticipation of that but certainly can cancel if improves. Vitals/I&O/Wt Last Vital Signs Temp 98.6 F 02/07/22 11:14 Pulse 65 02/07/22 11:14 Resp 18 02/07/22 11:14 BP 159/75 02/07/22 11:14 Pulse Ox 94 02/07/22 11:14 02/06/22 02/07/22 02/07/22 22:59 06:59 14:59 Intake Total 100 / 100 100 / 200 720 / 720 Output Total 46550 / 68961 Balance -55251 / -64241 100 / -77956 720 / 720 Data : 02/07/22 04:55 02/07/22 04:55 A&P Assessment and plan (1) Clot retention of urine: Using combination of manual irrigation and CBI. Still continuing with hematuria. Status: Acute (2) Radiation cystitis: Likely the source of recurrent bleeding. Status: Acute Attestations Medical Necessity Statement*: Continues with active hematuria requiring CBI. Coding Level of Care Code Acute Communications Coordinator for [facility] Diagnoses Clot retention of urine R33.8 Radiation cystitis N30.40
[2022-02-07] MEDS: sodium chlor 0.9% + KCl 20 mEq 20 MEQ/1,000 ML BAG 50 MEQ IV (13:00)
[2022-02-07 17:10] LABS: Glucose Point of Care 119 mg/dL (70-110)
--- NOTE | 2022-02-07 18:35 | PC.NURSE ---
Pt resting in bed. 3way catheter in use for CBI. Normal saline infusing per orders. Manual irrigation provided PRN. Small clots cleared. Pt c/o moderate pain, pain med given per orders. Pt tolerates well. MD at bedside, pt to go to surgery in morning for cystoscopy, clot removal and possible surgical intervention. Pt understands and consent form signed and on chart. Pt has home cpap in room and has already placed it on. Will monitor.
[2022-02-07] MEDS: levofloxacin-dextrose 5 % 500 MG/100 ML PREMIX 100 MG IV (18:45)
[2022-02-07 21:12] LABS: Glucose Point of Care 158 mg/dL (70-110)
[2022-02-08] VITALS (15 sets, daily range): BP systolic 94–140; BP diastolic 53–94; PULSE 61–95; RESP 13–18; TEMP 36.2–37.8; O2SAT 89–100
[2022-02-08] MEDS: HYDROcodone-acetaminophen 5-325 mg Tablet 1 TAB PO ×3 (01:02→14:49)
[2022-02-08] MEDS: sucralfate 1 gm Tablet PO ×4 (03:36→19:59)
[2022-02-08 05:56] LABS: Basophils % 0.4 %; Eosinophils # 0.1 10^3/uL (0.0-0.8); Eosinophils % 0.7 %; Hematocrit 30.5 % (42.0-52.0); Hemoglobin 9.8 g/dL (11.7-16.6); Lymphocytes # 1.2 10^3/uL (0.8-4.8); Mean Corpuscular HGB Conc 32.1 g/dL (30.0-36.0); Mean Corpuscular Hemoglobin 30.8 pg (28.0-34.0); Mean Corpuscular Volume 95.9 fl (80-94); Mean Platelet Volume 9.7 fL (7.4-10.4); Monocytes # 0.4 10^3/uL (0.2-0.9); Monocytes % 4.1 %; Neutrophils # 7.31 10^3/uL (1.8-7.7); Neutrophils % 81.4 %; Nucleated Red Blood Cells % 0 %; Platelet Count 221 10^3/cmm (130-400); Red Blood Count 3.18 10^6/uL (4.1-5.3); Red Cell Distribution Width 13.5 % (12.1-15.1)
[2022-02-08 06:55] LABS: Hepatitis B Surface Antigen Non-Reactive (Nonreactive); Hepatitis C Virus Antibody Non-Reactive (Nonreactive)
[2022-02-08 06:59] LABS: HIV 1 & 2 Antibody Non-Reactive (Non-Reactiv); HIV 1 & 2 Antigen Non-Reactive (Non-Reactiv)
--- NOTE | 2022-02-08 07:26 | P.ANESASSM_ITS ---
Pre-Anesthetic Assessment Height/Weight: Height 1.83 m Weight 111.754 kg Temp Pulse Resp BP Pulse Ox 97.1 F L 65 18 126/66 90 02/08/22 07:22 02/08/22 07:22 02/08/22 07:22 02/08/22 07:22 02/08/22 07:22 Preop Diagnosis: Choking and acid reflux Operation Date: 02/08/22 08:15 Proposed Procedures p Cystoscopy(Not Applicable) - Kolton Sharma MD s Clot Evacuation Fulguration(Not Applicable) - Kolton Sharma MD Familial anesthetic complications: None Was Beta Marcos taken within 24 hours: N/A Was Clonidine taken within 24 hours: N/A Last intake: Intake Last Liquid Date 02/08/22 Last Liquid Time 00:00 Last Solid Date 02/08/22 Last Solid Time 00:00 Social Tobacco Exam alert, oriented x 3, clear to auscultation bilaterally and regular rate & rhythm Airway Mallampati: Class IV Dentition: chipped and loose Comments: Comments: full olivares Pulmonary Sleep Apnea CV/HEM Anemia and Hypertension pacer for SSS Chronic Renal Insufficiency Metabolic Diabetes Mellitus, Hyperlipidemia and Morbid Obesity Anesthetic Plan ASA status: 4 Anesthesia: General Risk of > 500 ml blood loss (7ml/kg in children): No Medications/Allergies Home Medications Medication Instructions Recorded Confirmed Last Taken Type duloxetine 60 mg capsule,delayed 60 mg PO BID 12/04/19 02/07/22 01/25/22 History release cholecalciferol (vitamin D3) 10 10 mcg PO DAILY 08/20/20 02/07/22 01/25/22 History mcg (400 unit) tablet (Vitamin D3) glucosamine HCl 500 mg tablet 500 mg PO DAILY 07/21/21 02/07/22 01/25/22 History multivitamin 1 tab PO DAILY 07/21/21 02/07/22 01/25/22 History allopurinol 100 mg tablet 100 mg PO QAM 09/30/21 02/07/22 01/25/22 History gabapentin 300 mg capsule 600 mg PO TID cap 09/30/21 02/07/22 01/25/22 History hydrochlorothiazide 25 mg tablet 25 mg PO DAILY #90 tab 10/12/21 02/07/22 01/25/22 Rx ceracare 1 tab PO DAILY 01/20/22 02/07/2201/25/22 History tamsulosin 0.4 mg capsule 0.4 mg PO BID #180 cap 01/20/22 02/07/22 01/25/22 Rx sucralfate 1 gram tablet (Carafate) 1 g PO Q6H 84 Days #336 tab 01/26/22 02/07/22 01/31/22 Rx atorvastatin 80 mg tablet 40 mg PO BEDTIME tab 02/06/22 02/07/22 Unknown History fluticasone propionate 50 1 spray INTRANASAL BID 02/06/22 02/07/22 Unknown History mcg/actuation nasal spray,suspension (Allergy Relief (fluticasone)) resveratrol 100 mg capsule 100 mg PO DAILY cap 02/06/22 02/07/22 Unknown History acetaminophen 500 mg tablet 500 mg PO QPM PRN 02/07/22 02/07/22 Unknown History albuterol sulfate 90 mcg/actuation 1 inh INHALATION QID PRN 02/07/22 02/07/22 Unknown History aerosol inhaler (ProAir HFA) docusate calcium 240 mg capsule 240 mg PO DAILY 02/07/22 02/07/22 Unknown History doxycycline hyclate 100 mg capsule 100 mg PO BID 02/07/22 02/07/22 02/06/22 History insulin regular hum U-500 conc See Rx Instructions .ROUTE .COMPLEX 02/07/22 02/07/22 Unknown History (Humulin R U-500 (Conc) Insulin Kwikpen) lidocaine 5 % topical patch See Rx Instructions .ROUTE .COMPLEX 02/07/22 02/07/22 Unknown History losartan 50 mg tablet 50 mg PO BID 02/07/22 02/07/22 Unknown History mometasone 100 mcg/actuation HFA 1 puff INHALATION BID 02/07/22 02/07/22 Unknown History aerosol inhaler olodaterol 2.5 mcg/actuation mist 2 inh INHALATION DAILY 02/07/22 02/07/22 Unknown History for inhalation polyethylene glycol 3350 17 See Rx Instructions .ROUTE .COMPLEX 02/07/22 02/07/22 Unknown History gram/dose oral powder sulfamethoxazole 800 1 tab PO BID 02/07/22 02/07/22 02/06/22 History mg-trimethoprim 160 mg tablet Allergies Allergy/AdvReac Type Severity Reaction Status Date / Time lisinopril Allergy unknown Verified 02/06/22 12:57 tetanus toxoid, adsorbed Allergy unknown Verified 02/06/22 12:57 Current Medications Generic Name Dose Route Start Last Admin Trade Name Rayray PRN Reason Stop Dose Admin Hydrocodone Bitart/Acetaminophen 1 tab 02/06/22 16:56 02/08/22 01:02 Hydrocodone-Acetaminophen 5-325 Mg Tablet PO 1 tab Q4H PRN Administration MODERATE TO SEVERE PAIN Allopurinol 100 mg 02/07/22 09:00 02/07/22 08:31 Allopurinol 100 Mg Tablet PO 100 mg DAILY ABHILASH Administration Atorvastatin Calcium 40 mg 02/07/22 09:00 02/07/22 08:30 Atorvastatin 40 Mg Tablet PO 40 mg DAILY ABHILASH Administration Duloxetine HCl 60 mg 02/07/22 09:00 02/07/22 17:28 Duloxetine 60 Mg Capsule PO 60 mg BID ABHILASH Administration Fluticasone Propionate 1 spray 02/07/22 09:00 02/07/22 08:31 Fluticasone Nasal [place] 16gm Btl INTRANASAL 1 spray DAILY ABHILASH Administration Gabapentin 300 mg 02/06/22 21:00 02/07/22 22:14 Gabapentin 300 Mg Capsule PO 300 mg TID ABHILASH Administration Hydrochlorothiazide 25 mg 02/07/22 09:00 02/07/22 08:30 Hydrochlorothiazide 25 Mg Tablet PO 25 mg DAILY ABHILASH Administration Potassium Chloride/Sodium Chloride 20 meq in 1,000 mls @ 50 mls/hr 02/06/22 17:00 02/07/22 13:00 Sodium Chlor 0.9% + Kcl 20 Meq IV 50 mls/hr .Q20H ABHILASH Administration Levofloxacin/Dextrose 500 mg in 100 mls @ 100 mls/hr 02/07/22 18:30 02/07/22 18:45 Levaquin-D5w IV 100 mls/hr Q24H ABHILASH Administration Protocol Insulin Human Lispro 0 unit 02/06/22 21:00 02/07/22 22:13 Insulin Lispro 100 Unit/1 Ml SUBCUT 2 unit WM&BEDTIME ABHILASH Administration Protocol Insulin Human NPH 85 unit 02/07/22 06:00 02/07/22 07:06 Insulin Nph Human 100 Units/1 Ml SUBCUT 85 unit QAM ABHILASH Administration Losartan Potassium 50 mg 02/07/22 09:00 02/07/22 08:31 Losartan 50 Mg Tablet PO 50 mg DAILY ABHILASH Administration Multivitamins Therapeutic 1 tab 02/07/22 09:00 02/07/22 08:31 Multivitamin Therapeutic Tablet PO 1 tab DAILY ABHILASH Administration Sucralfate 1 gm 02/06/22 19:15 02/08/22 03:36 Sucralfate 1 Gm Tablet PO 1 gm Q6H ABHILASH Administration Tamsulosin HCl 0.4 mg 02/07/22 09:00 02/07/22 17:28 Tamsulosin 0.4 Mg Capsule PO 0.4 mg BID ABHILASH Administration PFSH Anesthesia Medical History (Updated 02/06/22 @ 19:05 by Kolton Sharma MD) Chronic kidney disease Complex renal cyst Overall considered low risk, following with ultrasound, COPD (chronic obstructive pulmonary disease) Diabetes mellitus Diabetic neuropathy Gross hematuria H/O cardiac pacemaker HTN (hypertension) Incomplete bladder emptying Lesion of bladder Chronic inflammatory change with fibroadipose tissue most likely consistent patient cystitis despite its suspicious appearing on cystitis Obstructive sleep apnea Prostate cancer Diagnosed 2019 treated with radiation therapy with good response No evidence of recurrence Sinus node dysfunction Urinary retention Surgical History (Updated 02/06/22 @ 19:05 by Kolton Sharma MD) History of back surgery C3-C4 ACDFF WITH C4 CORPECTOMY History of circumcision History of eye surgery 2018 History of neck surgery History of prostate biopsy Status post cataract surgery Status post knee surgery left Family History Father , AT AGE 65-CHF No problems noted. Mother , AT AGE 65-CHF No problems noted. Social History Smoking and tobacco status: former smoker Alcohol intake: never Marital status: Current occupational status: disabled History of recent travel: No Data Anesthesia : 02/08/22 05:48 02/07/22 04:55 Short CBC 02/06/22 02/07/22 02/08/22 Range/Units 18:07 04:55 05:48 WBC 7.2 7.9 9.0 (4.0-10.0) 10^3/uL Hgb 10.4 L 10.0 L 9.8 L (11.7-16.6) g/dL Hct 32.1 L 31.3 L 30.5 L (42.0-52.0) % MCV 94.4 H 96.0 H 95.9 H (80-94) fl Plt Count 222 212 221 (130-400) 10^3/cmm Neut % (Auto) 62.2 67.9 81.4 % Neut # (Auto) 4.47 5.35 7.31 (1.8-7.7) 10^3/uL BMP 02/06/22 02/07/22 18:07 04:55 Sodium 138 136 Potassium 4.3 4.8 Chloride 102 103 Carbon Dioxide 27 26 BUN 26 H 23 Creatinine 1.4 H 1.3 H Glucose 55 L 138 H Calcium 9.2 8.9 Cardiac Studies: Echocardiogram Ultrasound 09/16/20 Cardiac Event Monitor 09/22/20
[2022-02-08] MEDS: sodium chloride 0.9% 1,000 ML 30 ML IV (07:33)
--- NOTE | 2022-02-08 08:36 | PM.OP ---
Operative Report Date of procedure: February 08, 2022 Pre-op diagnosis: Preop Diagnosis Clot retention, radiation cystitis, refractory Post-op diagnosis: Clot retention, radiation cystitis, refractory Procedure done: 1. Cystoscopy with clot evacuation 2. Fulguration of bladder neck Specimens removed/disposition: None Pathology: None Surgeon: Edith Anesthesia: General Estimated blood loss: Minimal active bleeding Urine output: Not measured Complications: None Findings: About 150 cc or more of clot in the bladder it appeared to be old. Evacuated with Ellik evacuator. 2 areas at the bladder neck that were oozing that were fulgurated with the Bugbee cautery probe to complete hemostasis. 20 Nigerian 3-way latex Hall catheter placed at the completion of the procedure with CBI initiated. Brief History: Mr. Velasco is a delightful 76-year-old white male with a history of radiation cystitis and recently developed urinary retention. Developed intermittent gross hematuria and then later clot retention with catheter dysfunction. Large hematuria catheter was placed in my office clots were evacuated with manual barbotage and CBI was started but the urine remained somewhat bloody. He was direct admitted 2 days ago. Initial goal was to perform conservative measures with CBI and manual irrigation which were conducted on inpatient basis. Unfortunately he did not completely clear and for that reason he was taken to the operating room today. Procedure: After urgent evaluation examination and obtaining of informed consent he was taken to the operating suite on 02/08/2022 where general anesthesia was administered. Initially an LMA was anticipated but it was not sealing well and was converted easily to endotracheal tube. Appropriate timeout was performed, SCDs confirmed to be functioning, preoperative antibiotics administered, beta-lilliana protocol confirmed. Prepped and draped in usual sterile fashion in dorsolithotomy position paying careful attention to avoiding pressure points. 21 Nigerian cystoscope with 30 degree lens was introduced into urethra meatus and advanced into the bladder. There was a large amount of clot in the bladder and it was evacuated with an Ellik evacuator. Once it was confirmed that all the clots were out a 70 degree lens was utilized to examine the bladder carefully. He did have some inflammatory changes from catheter and clot but no other suspicious abnormalities other than already identified radiation cystitis type changes. There were 2 areas of bleeding at the bladder neck 1 at the 7 o'clock position and 1 at the 4 o'clock position These were easily controlled with the Bugbee cautery probe. On final inspection hemostasis was good. All clot was confirmed to be out of the bladder. The scope was removed and the bladder was drained with a 20 Nigerian 3-way latex Hall catheter with CBI running. Balloon inflated with 30 cc of saline. Efflux was clear He tolerated the procedure well without complications and was awakened in the operating room and returned to the recovery room in stable condition. PLANS: 1. Maintain CBI but wean off as appropriate. Manual irrigation as needed 2. Anticipate voiding trial tomorrow. If does well can be discharged. May restart SCIC if poor emptying.
[2022-02-08] MEDS: polyethylene glycol 3350 Pkt 17 gm PO (09:45)
[2022-02-08 12:12] LABS: Glucose Point of Care 139 mg/dL (70-110)
[2022-02-08] MEDS: gabapentin 300 mg Capsule PO ×2 (14:44→20:00)
--- NOTE | 2022-02-08 16:49 | ANE.PACU2 ---
Inpatient post-anesthesia follow up: Airway intact: Yes Vital signs: Temperature 97.6 F Pulse Rate 66 Respiratory Rate 18 Blood Pressure 122/71 Pulse Oximetry 92 Oxygen Delivery Me thod Room Air Oxygen Flow Rate 6 Fraction of Inspir ed Oxygen Hydration adequate: Yes Nausea and vomiting: No Pain level: 2 Mental status: Baseline
[2022-02-08] MEDS: duloxetine 60 mg Capsule PO (17:13)
[2022-02-08] MEDS: levofloxacin-dextrose 5 % 500 MG/100 ML PREMIX 100 MG IV (17:13)
[2022-02-08] MEDS: losartan 50 mg Tablet PO (17:13)
[2022-02-08] MEDS: tamsulosin 0.4 mg Capsule PO (17:13)
[2022-02-08] MEDS: sodium chlor 0.9% + KCl 20 mEq 20 MEQ/1,000 ML BAG 50 MEQ IV (17:20)
--- NOTE | 2022-02-08 18:51 | PC.NURSE ---
PATIENT HAS DONE VERY WELL TODAY. CBI TURNED DOWN TO A VERY SLOW DRIP, ALMOST OFF. PATIENT HAS HAD 4500ML OF IRRIGATION IN AND 1100ML OF URINE OUTPUT. NO MANUAL IRRIGATION NEEDED. PAIN VERY WELL CONTROLLED. PATIENT HAS BEEN UP TO THE BATHROOM A FEW TIMES, PASSING GAS BUT NO BOWEL MOVEMENT. CURRENTLY RESTING IN BED WITH NO COMPLAINTS.
[2022-02-08 21:19] LABS: Glucose Point of Care 125 mg/dL (70-110)
[2022-02-08 21:19] LABS: Glucose Point of Care 148 mg/dL (70-110)
[2022-02-08 21:19] LABS: Glucose Point of Care 131 mg/dL (70-110)
[2022-02-08 21:19] LABS: Glucose Point of Care 134 mg/dL (70-110)
[2022-02-08] MEDS: insulin lispro 100 unit/1 mL SUBCUT (21:23)
[2022-02-08] MEDS: insulin nph human 100 units/1 mL 65 UNIT SUBCUT (21:24)
[2022-02-09] VITALS (9 sets, daily range): BP systolic 116–159; BP diastolic 53–80; PULSE 69–74; RESP 16–18; TEMP 36.6–37.2; O2SAT 91–98
[2022-02-09] MEDS: HYDROcodone-acetaminophen 5-325 mg Tablet 1 TAB PO ×2 (00:26→15:11)
[2022-02-09 05:06] LABS: Glucose Point of Care 46 mg/dL (70-110)
[2022-02-09] MEDS: sucralfate 1 gm Tablet PO ×3 (05:14→15:12)
[2022-02-09 05:45] LABS: Glucose Point of Care 46 mg/dL (70-110)
[2022-02-09 05:45] LABS: Glucose Point of Care 51 mg/dL (70-110)
[2022-02-09 06:46] LABS: Glucose Point of Care 98 mg/dL (70-110)
--- NOTE | 2022-02-09 07:57 | PC.NURSE ---
CBI has been running all second shift supervisor at a very low rate. Pt has had approximately 1,950 CBI fluid in and 2,825 out. Urine started out pink/clear/no clots at the beginning of second shift supervisor. This morning urine is yellow/clear/no clots. No manual irrigation was needed overnight. Pt has only required 1 pain pill overnight (states just some discomfort from cooper in urethra). Bladder remains undistended. Temp of 100.1 at approx 2000. room was very warm at this time (76 deg on thermostat). Pt requested that heat be turned down & this Nurse did turn room temp down to 70 deg per pt request. Pt temps remained in the 99's for the next 2 vs checks. Pt was feeling symptomatic of low blood glucose this morning & BG was checked at 46. Pt was given 3 orange juice with sugar packets, he also ate an oatmeal cream pie at bedside. BG did come up to 88 afterwards.
[2022-02-09] MEDS: multivitamin therapeutic Tablet 1 TAB PO (09:07)
[2022-02-09] MEDS: duloxetine 60 mg Capsule PO ×2 (09:07→17:47)
[2022-02-09] MEDS: atorvastatin 40 mg Tablet PO (09:07)
[2022-02-09] MEDS: hydroCHLOROthiazide 25 mg Tablet PO (09:07)
[2022-02-09] MEDS: tamsulosin 0.4 mg Capsule PO ×2 (09:07→17:47)
[2022-02-09] MEDS: polyethylene glycol 3350 Pkt 17 gm PO (09:07)
[2022-02-09] MEDS: losartan 50 mg Tablet PO ×2 (09:07→17:46)
[2022-02-09] MEDS: allopurinol 100 mg Tablet PO (09:07)
[2022-02-09] MEDS: gabapentin 300 mg Capsule PO ×2 (09:14→14:04)
[2022-02-09 11:42] LABS: Glucose Point of Care 148 mg/dL (70-110)
[2022-02-09 17:12] LABS: Glucose Point of Care 167 mg/dL (70-110)
[2022-02-09] MEDS: insulin lispro 100 unit/1 mL SUBCUT (17:46)
[2022-02-09] MEDS: levofloxacin-dextrose 5 % 500 MG/100 ML PREMIX 100 MG IV (17:47)
--- NOTE | 2022-02-09 18:24 | P.DS_ITS ---
Discharge Providers Date of Admission: 02/06/22 15:39 Date of Discharge: February 09, 2022 Attending Provider at Admission: Kolton Sharma MD Attending Provider at Discharge: Kolton Sharma MD Primary Care Provider: Rajwinder Olivarez MD Diagnoses at Discharge Discharge Diagnosis (1) Clot retention of urine: Details from hospital stay: Secondary to radiation cystitis. 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 Will consider alternative treatments including hyperbaric oxygen therapy etc. if recurrent bleeding. Status: Acute Hospital Course Hospital Course He had presented to the clinic on the day of admission with occlusion of his Hall catheter and grossly bloody urine with clots. Large hematuria catheter was placed and he was manually irrigated with clearance of the large amount of clots. Placed on CBI with some improvement. Could not clear up adequately to discharge home with catheter in for that reason he was direct admitted from the clinic. Was re-irrigated once admitted. Continued to have active bleeding requiring CBI. Ultimately on 02/08/2022 he was taken to the operating suite where large amount of clot was evacuated. There were couple areas of oozing from the bladder neck and these were fulgurated. Hall catheter was replaced and he did well. CBI was weaned off with no active bleeding. A voiding trial though failed. He had had diagnosis of urinary retention in a relatively short-term basis prior to his admission and original catheter placement. Discharged home in stable condition for further convalescence at home. Plan will be to reevaluate in the middle of next week possible voiding trial possible SCIC reinitiation. Physical Exam Narrative: Alert oriented no acute distress very pleasant cooperative the exam Respiratory: No labored respiration no wheezes Abdomen: Soft nontender no palpable mass organomegaly appreciated. Neurologic: No focal deficits. Alert and oriented Extremities good range of motion Skin: No jaundice rashes or lesions, multiple tattoos : Normal genitourinary exam. Catheter is draining very light pink urine mostly yellow Hematologic lymphatic: No lymphadenopathy, no active bleeding or bruising Urinary Catheter Management: Hall: Cath Placed During This Visit: yes, but has since been removed by the nurse Reason for Continuing Indwelling Catheter: Acute Urinary Retention or Obstruction Urinary Catheter Date of Insertion: 02/09/22 Urinary Catheter Time of Insertion: 15:30 Date Urinary Catheter Removed: 02/09/22 Time Urinary Catheter Discontinued: 07:53 Discharge Data Studies Completed and Pending Laboratory Results WBC 9.0 10^3/uL (4.0-10.0) 02/08/22 05:48 RBC 3.18 10^6/uL (4.1-5.3) L 02/08/22 05:48 Hgb 9.8 g/dL (11.7-16.6) L 02/08/22 05:48 Hct 30.5 % (42.0-52.0) L 02/08/22 05:48 MCV 95.9 fl (80-94) H 02/08/22 05:48 MCH 30.8 pg (28.0-34.0) 02/08/22 05:48 MCHC 32.1 g/dL (30.0-36.0) 02/08/22 05:48 RDW 13.5 % (12.1-15.1) 02/08/22 05:48 Plt Count 221 10^3/cmm (130-400) 02/08/22 05:48 MPV 9.7 fL (7.4-10.4) 02/08/22 05:48 Neut % (Auto) 81.4 % 02/08/22 05:48 Lymph % (Auto) 13.0 % 02/08/22 05:48 [place] % (Auto) 4.1 % 02/08/22 05:48 Eos % (Auto) 0.7 % 02/08/22 05:48 Baso % (Auto) 0.4 % 02/08/22 05:48 Neut # (Auto) 7.31 10^3/uL (1.8-7.7) 02/08/22 05:48 Lymph # (Auto) 1.2 10^3/uL (0.8-4.8) 02/08/22 05:48 [place] # (Auto) 0.4 10^3/uL (0.2-0.9) 02/08/22 05:48 Eos # (Auto) 0.1 10^3/uL (0.0-0.8) 02/08/22 05:48 Baso # (Auto) 0.0 10^3/uL (0.0-0.1) 02/08/22 05:48 Nucleated RBC % (auto) 0 % 02/08/22 05:48 Nucleated RBCs # 0.0 /100WBC 02/08/22 05:48 Sodium 136 mmol/L (136-145) 02/07/22 04:55 Potassium 4.8 mmol/L (3.5-5.1) 02/07/22 04:55 Chloride 103 mmol/L (98-107) 02/07/22 04:55 Carbon Dioxide 26 mmol/L (22-29) 02/07/22 04:55 Anion Gap 11.8 (5-19) 02/07/22 04:55 BUN 23 mg/dL (8-23) 02/07/22 04:55 Creatinine 1.3 mg/dL (0.7-1.2) H 02/07/22 04:55 GFR Calculation Not Reportable 02/07/22 04:55 Glucose 138 mg/dL (65-115) H 02/07/22 04:55 POC Glucose 167 mg/dL (70-110) H 02/09/22 17:03 Calculated Osmolality 288 mOsm/kg (285-295) 02/07/22 04:55 Calcium 8.9 mg/dL (8.5-10.5) 02/07/22 04:55 Hep Bs Antigen Non-reactive (Nonreactive) 02/08/22 06:22 Hepatitis C Antibody Non-reactive (Nonreactive) 02/08/22 06:22 HIV 1&2 Ab & HIV 1 Ag Non-reactive (Non-Reactiv) 02/08/22 06:22 HIV 1&2 Antibody Non-reactive (Non-Reactiv) 02/08/22 06:22 Procedures Performed Cystoscopy, clot evacuation, fulguration of bladder neck Vitals Last Vital Signs Temp 98.7 F 02/09/22 16:00 Pulse 72 02/09/22 16:00 Resp 17 02/09/22 16:00 BP 147/77 02/09/22 17:46 Pulse Ox 91 02/09/22 16:00 Discharge Plan Discharge Patient Disposition: Home Condition: Stable Prescriptions: New levofloxacin 250 mg tablet 250 mg PO DAILY 10 Days Qty: 10 1RF Continued allopurinol 100 mg tablet 100 mg PO QAM 0RF ceracare 1 tab PO DAILY 0RF glucosamine HCl 500 mg tablet 500 mg PO DAILY 0RF Rx Instructions: administer with a meal multivitamin Tablet 1 tab PO DAILY 0RF duloxetine 60 mg capsule,delayed release(DR/EC) 60 mg PO BID 0RF atorvastatin 80 mg tablet 40 mg PO BEDTIME 0RF Label Comments: [facility] tamsulosin 0.4 mg capsule 0.4 mg PO BID Qty: 180 3RF resveratrol 100 mg capsule 100 mg PO DAILY 0RF fluticasone propionate [Allergy Relief (fluticasone)] 50 mcg/actuation spray,suspension 1 spray intranasal BID 0RF Rx Instructions: administer into each nostril hydrochlorothiazide 25 mg tablet 25 mg PO DAILY Qty: 90 3RF cholecalciferol (vitamin D3) [Vitamin D3] 10 mcg (400 unit) Tablet 10 mcg PO DAILY 0RF gabapentin 300 mg capsule 600 mg PO TID 0RF sucralfate [Carafate] 1 gram tablet 1 g PO Q6H 84 Days Qty: 336 2RF losartan 50 mg Tablet 50 mg PO BID 0RF docusate calcium 240 mg Capsule 240 mg PO DAILY 0RF acetaminophen 500 mg Tablet 500 mg PO QPM PRN (Reason: Sleep) 0RF lidocaine 5 % Adhesive Patch,Medicated See Rx Instructions .ROUTE .COMPLEX 0RF Rx Instructions: 1 patch topically daily leave on most painful area for up to 12 hrs then off for 12 hours polyethylene glycol 3350 17 gram/dose powder See Rx Instructions .ROUTE .COMPLEX 0RF Rx Instructions: two scoops with two glasses of water daily until soft bowel movement then do one scoop once a day ProAir HFA 90 mcg/actuation Hfa Aerosol Inhaler 1 inh INHALATION QID PRN (Reason: Shortness Of Breath) 0RF olodaterol 2.5 mcg/actuation Mist 2 inh INHALATION DAILY 0RF mometasone 100 mcg/actuation Hfa Aerosol Inhaler 1 puff INHALATION BID 0RF Humulin R U-500 (Conc) Kwikpen 500 unit/mL (3 mL) Insulin Pen See Rx Instructions .ROUTE .COMPLEX 0RF Rx Instructions: 85-90 unit subcutaneously qam and 65 units qpm Discontinued doxycycline hyclate 100 mg capsule 100 mg PO BID 0RF Rx Instructions: rx filled 01/04/22 30d/s sulfamethoxazole-trimethoprim 800-160 mg tablet 1 tab PO BID 0RF Rx Instructions: rx filled 01/04/22 30d/s Discharge Orders: Discharge Order (Routine); Ordered 02/09/22 Ordered By: Kolton Sharma Referrals: Kolton Sharma MD [Physician] - 02/15/22 Discharge Diet: Usual diet Discharge Activity: Limit activity as instructed Patient Instructions: Opioid Safety Activity Restrictions/Additional Instructions: 1. We will continue the Hall catheter at discharge and maintain it until reevaluated in the clinic. We will make a decision at that point whether to continue the catheter or restart self-catheterization. 2. Antibiotics have been changed to Levaquin 250 mg daily. A prescription was sent to [facility] pharmacy. 3. Please call if you have any concerns or questions. Follow-up visit will need to be set since the clinic is closed at discharge. Please call the office [phone] for scheduling for next week. Discharge Attestations Time Spent in Discharge Care*: greater than 30 min Quality Metrics Clinical Quality Measures [ No reported AMI, CVA or VTE this stay] Coding Level of Care Code Acute g FW NV note Diagnoses Clot retention of urine R33.8 Radiation cystitis N30.40
--- NOTE | 2022-02-09 18:54 | PC.NURSE ---
Patient discharge education reviewed with patient. Leg bag placed and catheter bag sent with patient. Urine is straw-colored, patient understands discharge plan and needs. All questions asked. Waiting for ride to arrive.
== END 2022-02-09 19:21 | disposition home or self-care (01) | DRG 664 ==
LOC: ICU 17:38 → MEDSURG 02-07 07:13
PROVIDERS: Admitting Provider Urology; PCP Family Medicine; Visit Provider Urology
PROC: 0TJB8ZZ Inspection of Bladder, Via Natural or Artificial Opening Endoscopic (ICD-10-PCS; CPT 52000; principal; 2022-02-08 08:05)
PROC: 0T5B8ZZ Destruction of Bladder, Via Natural or Artificial Opening Endoscopic (ICD-10-PCS; 2022-02-08 08:05)
DX: N30.41 Irradiation cystitis with hematuria (principal); W88.1XXA Exposure to radioactive isotopes, initial encounter; Z85.46 Personal history of malignant neoplasm of prostate; Z92.3 Personal history of irradiation; Z92.23 Personal history of estrogen therapy; T83.091A Other mechanical complication of indwelling urethral catheter, initial encounter; Y73.8 Miscellaneous gastroenterology and urology devices associated with adverse incidents, not elsewhere classified; J44.9 Chronic obstructive pulmonary disease, unspecified; Z95.0 Presence of cardiac pacemaker; R33.9 Retention of urine, unspecified; G47.33 Obstructive sleep apnea (adult) (pediatric); Z98.1 Arthrodesis status; Z87.891 Personal history of nicotine dependence; Z79.4 Long term (current) use of insulin; E11.22 Type 2 diabetes mellitus with diabetic chronic kidney disease; N18.9 Chronic kidney disease, unspecified; E11.42 Type 2 diabetes mellitus with diabetic polyneuropathy; I12.9 Hypertensive chronic kidney disease with stage 1 through stage 4 chronic kidney disease, or unspecified chronic kidney disease
CPT/HCPCS: 36415; 36416; 51702; 80048; 82962; 85025; 86803; 87340; 87806; 96372; J1815; J1956; J2704; J7030

== ENCOUNTER 2022-02-17 06:10 | Outpatient (CLI) | payer OTHER, SELFPAY ==
--- NOTE | 2022-02-17 | US_ITS ---
WS: [id number] Complete ABDOMINAL ULTRASOUND HISTORY: CHRONIC RENAL DISEASE COMPARISON: Renal ultrasound 12/06/2020 CT 02/04/2022 Liver: 20.0 cm in length. Moderately enlarged heterogeneous liver. Attenuation throughout the liver w ith coarse echotexture. No mass identified or bile duct dilatation. Portal Vein: Normal hepatopetal flow with monophasic waveform. Gallbladder: Normally distended with no gallstones, wall thickening or pericholecystic fluid. Gallbladder wall thickness: 0.3 cm. Pancreas: Tail is obscured by bowel gas. Head and proximal body are normal. CBD: 0.6 cm. Right kidney: 11.6 cm x 7.3 cm x 7.7 cm. Normal size kidney. Again noted is a simple cyst from the u pper pole measuring 4.2 x 4.0 x 3.8 cm. No hydronephrosis. No solid mass. Left kidney: 10.0 cm x 5.9 cm x 6.9 cm. No mass, cortical thickening or hydronephrosis. Spleen: Small spleen difficult to visualize. Abdominal aorta and IVC are within normal limits. No ascites. Nondistended urinary bladder. Resulting in a thick wall. Incomplete evaluation of the ranulfo dder. US/US abdomen complete* [id number] IMPRESSION: 1. Normal gallbladder. 2. Moderate hepatomegaly and hepatic steatosis. 3. Stable simple RIGHT renal cyst. 4. No renal obstruction.
== END 2022-02-17 06:11 | disposition home or self-care (01) ==
LOC: RAD 06:11
PROVIDERS: PCP Family Medicine; Visit Provider Registered Nurse
DX: N18.31 Chronic kidney disease, stage 3a (principal); R16.0 Hepatomegaly, not elsewhere classified; K76.0 Fatty (change of) liver, not elsewhere classified; N28.1 Cyst of kidney, acquired
CPT/HCPCS: 76700

== ENCOUNTER 2022-03-01 15:37 | Observation (INO) | payer OTHER, SELFPAY ==
[2022-03-01] VITALS (12 sets, daily range): BP systolic 135–174; BP diastolic 68–110; PULSE 71–85; RESP 12–18; TEMP 36.2–36.6; O2SAT 86–97; BMI 35.2
[2022-03-01 12:42] LABS: Basophils # 0.1 10^3/uL (0.0-0.1); Basophils % 0.9 %; Eosinophils # 0.1 10^3/uL (0.0-0.8); Eosinophils % 2.4 %; Hematocrit 32.3 % (42.0-52.0); Hemoglobin 10.3 g/dL (11.7-16.6); Lymphocytes # 1.4 10^3/uL (0.8-4.8); Lymphocytes % 26.7 %; Mean Corpuscular HGB Conc 31.9 g/dL (30.0-36.0); Mean Corpuscular Hemoglobin 30.7 pg (28.0-34.0); Mean Corpuscular Volume 96.4 fl (80-94); Mean Platelet Volume 10.3 fL (7.4-10.4); Monocytes # 0.4 10^3/uL (0.2-0.9); Monocytes % 7.3 %; Neutrophils # 3.33 10^3/uL (1.8-7.7); Neutrophils % 62.1 %; Nucleated Red Blood Cells % 0 %; Platelet Count 246 10^3/cmm (130-400); Red Blood Count 3.35 10^6/uL (4.1-5.3); Red Cell Distribution Width 14.4 % (12.1-15.1); White Blood Count 5.4 10^3/uL (4.0-10.0)
--- NOTE | 2022-03-01 12:46 | PC.NURSE ---
500mL urine output out of catheter
[2022-03-01 12:50] LABS: Glucose Point of Care 57 mg/dL (70-110)
[2022-03-01 13:05] LABS: Alanine Aminotransferase 15 U/L (0-41); Albumin Level 3.9 g/dL (3.5-5.2); Alkaline Phosphatase 74 IU/L (40-130); Blood Urea Nitrogen 19 mg/dL (8-23); Calcium 8.8 mg/dL (8.5-10.5); Carbon Dioxide 26 mmol/L (22-29); Chloride 103 mmol/L (98-107); Globulin 2.3 g/dL (1.3-4.6); Glucose 58 mg/dL (65-115); Osmolality Calculated 290 mOsm/kg (285-295); Sodium 140 mmol/L (136-145); Total Bilirubin 0.2 mg/dL (0.15-1.2); Total Protein 6.2 g/dL (6.6-8.7)
[2022-03-01 13:10] LABS: Anion Gap 14.8 (5-19); Aspartate Amino Transferase 23 U/L (0-40); Potassium 3.8 mmol/L (3.5-5.1)
--- NOTE | 2022-03-01 13:29 | ANES.PREANE2 ---
Pre-Anesthetic Assessment Height/Weight: Height 1.83 m Weight 117.934 kg Preop Diagnosis: Clot urinary retention, radiation cystitis Operation Date: 03/01/22 11:35 Proposed Procedures p Clot Evacuation Fulguration 09646/31147/n30.40(Not Applicable) - Kolton Sharma MD s Cystoscopy(Not Applicable) - Kolton Sharma MD Familial anesthetic complications: None Was Beta Marcos taken within 24 hours: N/A Was Clonidine taken within 24 hours: N/A Last intake: Intake Last Liquid Date 02/28/22 Last Liquid Time 20:00 Last Solid Date 02/28/22 Last Solid Time 20:00 Social Tobacco and No alcohol Exam alert, oriented x 3 and regular rate & rhythm Airway Submandibular: within normal limits Cervical ROM: within normal limits Mallampati: Class II Dentition: chipped Comments: Comments: Vick Pulmonary Chronic Obstructive Pulmonary Disease and Sleep Apnea CV/HEM Hypertension Pacemaker Chronic Renal Insufficiency GI Gastritis Metabolic Diabetes Mellitus and Morbid Obesity Anesthetic Plan ASA status: 3 Anesthesia: General Medications/Allergies Home Medications Medication Instructions Recorded Confirmed Last Taken Type duloxetine 60 mg capsule,delayed 60 mg PO BID 12/04/19 03/01/22 02/28/22 History release cholecalciferol (vitamin D3) 10 10 mcg PO DAILY 08/20/20 03/01/22 02/28/22 History mcg (400 unit) tablet (Vitamin D3) glucosamine HCl 500 mg tablet 500 mg PO DAILY 07/21/21 03/01/22 02/28/22 History multivitamin 1 tab PO DAILY 07/21/21 03/01/22 02/28/22 History allopurinol 100 mg tablet 100 mg PO QAM 09/30/21 03/01/22 02/28/22 History gabapentin 300 mg capsule 600 mg PO TID cap 09/30/21 03/01/22 02/28/22 History hydrochlorothiazide 25 mg tablet 25 mg PO DAILY #90 tab 10/12/21 03/01/22 02/28/22 Rx ceracare 1 tab PO DAILY 01/20/22 03/01/22 02/28/22 History tamsulosin 0.4 mg capsule 0.4 mg PO BID #180 cap 01/20/22 03/01/22 02/28/22 Rx sucralfate 1 gram tablet (Carafate) 1 g PO Q6H 84 Days #336 tab 01/26/22 03/01/22 02/28/22 Rx atorvastatin 80 mg tablet 40 mg PO BEDTIME tab 02/06/22 03/01/22 02/28/22 History fluticasone propionate 50 1 spray INTRANASAL BID 02/06/22 03/01/22 02/28/22 History mcg/actuation nasal spray,suspension (Allergy Relief (fluticasone)) resveratrol 100 mg capsule 100 mg PO DAILY cap 02/06/22 03/01/22 02/28/22 History acetaminophen 500 mg tablet 500 mg PO QPM PRN 02/07/22 03/01/22 02/28/22 History albuterol sulfate 90 mcg/actuation 1 inh INHALATION QID PRN 02/07/22 03/01/22 02/28/22 History aerosol inhaler (ProAir HFA) docusate calcium 240 mg capsule 240 mg PO DAILY 02/07/22 03/01/22 02/28/22 History insulin regular hum U-500 conc See Rx Instructions .ROUTE .COMPLEX 02/07/22 03/01/22 02/28/22 History (Humulin R U-500 (Conc) Insulin Kwikpen) lidocaine 5 % topical patch See Rx Instructions .ROUTE .COMPLEX 02/07/22 03/01/22 02/28/22 History mometasone 100 mcg/actuation HFA 1 puff INHALATION BID 02/07/22 03/01/22 02/28/22 History aerosol inhaler olodaterol 2.5 mcg/actuation mist 2 inh INHALATION DAILY 02/07/22 03/01/22 02/28/22 History for inhalation polyethylene glycol 3350 17 See Rx Instructions .ROUTE .COMPLEX 02/07/22 03/01/22 02/28/22 History gram/dose oral powder ferrous sulfate 325 mg (65 mg 325 mg PO DAILY 03/01/22 03/01/22 02/28/22 History iron) tablet (Feosol) levofloxacin 250 mg tablet 250 mg PO DAILY PRN tab 03/01/22 03/01/22 02/28/22 History losartan 50 mg tablet 25 mg PO DAILY tab 03/01/22 03/01/22 02/28/22 History Allergies Allergy/AdvReac Type Severity Reaction Status Date / Time lisinopril Allergy unknown Verified 03/01/22 12:05 tetanus toxoid, adsorbed Allergy unknown Verified 03/01/22 12:05 [facility] Anesthesia Medical History Chronic kidney disease Complex renal cyst Overall considered low risk, following with ultrasound, COPD (chronic obstructive pulmonary disease) Diabetes mellitus Diabetic neuropathy Gross hematuria H/O cardiac pacemaker HTN (hypertension) Incomplete bladder emptying Lesion of bladder Chronic inflammatory change with fibroadipose tissue most likely consistent patient cystitis despite its suspicious appearing on cystitis Obstructive sleep apnea Prostate cancer Diagnosed 2019 treated with radiation therapy with good response No evidence of recurrence Sinus node dysfunction Urinary retention Surgical History History of back surgery C3-C4 ACDFF WITH C4 CORPECTOMY History of circumcision History of eye surgery 2018 History of neck surgery History of prostate biopsy Status post cataract surgery Status post knee surgery left Family History Father , AT AGE 65-CHF No problems noted. Mother , AT AGE 65-CHF No problems noted. Social History Smoking and tobacco status: former smoker Alcohol intake: never Marital status: Current occupational status: disabled History of recent travel: No Data Anesthesia : 03/01/22 12:27 03/01/22 12:27 Short CBC 03/01/22 Range/Units 12:27 WBC 5.4 (4.0-10.0) 10^3/uL Hgb 10.3 L (11.7-16.6) g/dL Hct 32.3 L (42.0-52.0) % MCV 96.4 H (80-94) fl Plt Count 246 (130-400) 10^3/cmm Neut % (Auto) 62.1 % Neut # (Auto) 3.33 (1.8-7.7) 10^3/uL BMP 03/01/22 12:27 Sodium 140 Potassium 3.8 Chloride 103 Carbon Dioxide 26 BUN 19 Creatinine 1.2 Glucose 58 L Calcium 8.8 Liver Function 03/01/22 Range/Units 12:27 Total Bilirubin 0.2 (0.15-1.2) mg/dL AST 23 (0-40) U/L ALT 15 (0-41) U/L Alkaline Phosphatase 74 (40-130) IU/L Albumin 3.9 (3.5-5.2) g/dL Blood Bank 03/01/22 12:27 Blood Type O Negative Rho(D) Type Negative Antibody Screen Negative Cardiac Studies: Echocardiogram Ultrasound 09/16/20 Cardiac Event Monitor 09/22/20
[2022-03-01 13:48] LABS: Glucose Point of Care 109 mg/dL (70-110)
[2022-03-01] MEDS: levofloxacin-dextrose 5 % 500 MG/100 ML PREMIX 100 MG IV (14:25)
--- NOTE | 2022-03-01 14:59 | PM.OP ---
Operative Report Date of procedure: March 01, 2022 Pre-op diagnosis: Preop Diagnosis Clot urinary retention, radiation cystitis Post-op diagnosis: Clot urinary retention, radiation cystitis with small active bleeder. Procedure done: 1. Cystoscopy with clot evacuation 2. Fulguration of bladder lesion consistent with radiation cystitis Specimens removed/disposition: Clot Pathology: None Surgeon: Edith Anesthesia: General Urine output: Not measured Complications: None Findings: Approximately 150 cc of clot evacuated. Some generalized erythema of the bladder wall but one active bleeding site and the previously noted area of radiation cystitis type changes with a previous biopsy of the area which was negative for TCCA Brief History: Mr. Velasco is a very 76-year-old white male with a history of prostate cancer status post radiation therapy no evidence of recurrence. Recently he was found to be in retention and to date has not recovered spontaneous voiding on maximal medical therapy. Last year he was found to have some gross hematuria and a cystoscopy revealed a lesion on the right lateral wall the bladder which was suspicious for TCCA. He underwent biopsy under anesthesia but it showed no evidence of cancer but more consistent with a fibroadipose change of unclear etiology possibly consistent with radiation cystitis Last month he developed gross hematuria and required aggressive manual irrigation followed by CBI and ultimately under anesthesia clot evacuation with fulguration of a couple small areas on the bladder neck. Did well ultimately and was placed back on [facility] for retention. Called this morning with complaints of dark bloody urine and difficulty passing clots. Attempts at clot evacuation in the clinic with aggressive irrigation were unsuccessful in clearing all the clot and he was admitted through Outpatient Surgery for further evaluation under anesthesia. Procedure: After urgent/emergent evaluation examination and obtaining of informed consent he was taken to the operating suite on 03/01/2022 where general anesthesia was administered without difficulty after appropriate timeout was performed, SCDs confirmed to be functioning, preoperative antibiotics administered, beta-lilliana protocol confirmed. Prepped and draped in usual sterile fashion in dorsolithotomy position paying careful attention to avoiding pressure points. 21 Peruvian cystoscope with 30 degree lens was introduced into the urethra meatus and advanced into the bladder to videoscopy. His bladder neck was very stiff presumably because of his prior radiation of prostate cancer. There was a large amount of clot in the bladder. An [employer] evacuator was utilized to eventually clear all the clot. The bladder was then carefully inspected with both 30 and 70 degree lenses. There was some generalized erythema but no diffuse bleeding. There was one spot just inside the bladder neck on the right lateral wall/floor well away from the orifice that was actively bleeding. This area was then fulgurated with the Bugbee cautery probe. Because of the difficulty in visualizing the entire wall because of his bladder neck stiffness it was decided to examine post fulguration with the flexible cystoscope and direct and retroflexed positions which showed no further lesions or active bleeding. The bladder was drained with a 20 Peruvian three-way Hall catheter with 30 cc in the balloon. Light CBI was initiated. Tolerated the procedure well without complications and was awakened in the operating room and returned to the recovery room in stable condition. Plans: 1. Consult for outpatient hyperbaric oxygen for refractory intermittent bleeding secondary to radiation cystitis 2. Admit to observation status. Try to wean off the CBI as soon as possible. Manual irrigation as needed.
[2022-03-01] MEDS: lidocaine 2% Urojet 20 mL TOPICAL (15:14)
[2022-03-01 15:39] LABS: Glucose Point of Care 76 mg/dL (70-110)
--- NOTE | 2022-03-01 16:19 | ANE.PACU2 ---
Inpatient post-anesthesia follow up: Airway intact: Yes Vital signs: Temperature 97.3 F Pulse Rate 72 Respiratory Rate 18 Blood Pressure 147/86 Pulse Oximetry 95 Oxygen Delivery Me thod Room Air Oxygen Flow Rate 6 Fraction of Inspir ed Oxygen Hydration adequate: Yes Nausea and vomiting: No Pain level: 2 Mental status: Baseline
[2022-03-01] MEDS: tamsulosin 0.4 mg Capsule PO (17:01)
[2022-03-01] MEDS: famotidine 20 mg/2 mL INJ IVP (17:01)
[2022-03-01] MEDS: sodium chloride 0.9% 1,000 ML 50 ML IV (17:01)
[2022-03-01] MEDS: duloxetine 60 mg Capsule PO (17:02)
[2022-03-01] MEDS: sucralfate 1 gm Tablet PO ×2 (17:02→23:34)
[2022-03-01] MEDS: fluticasone nasal spray 16gm Btl 1 SPRAY INTRANASAL (17:02)
[2022-03-01] MEDS: docusate sodium 100 mg Capsule PO (17:02)
[2022-03-01 17:43] LABS: Glucose Point of Care 68 mg/dL (70-110)
--- NOTE | 2022-03-01 18:20 | PC.NURSE ---
PATIENT HAS DONE WELL SINCE ARRIVING FROM THE OR. PATIENT HAS HAD 700ML OF CBI INSERTED AND 1250ML OF OUTPUT. NO COMPLAINTS OF PAIN. CBI TURNED TO A VERY MINIMAL DRIP. CONTINUE TO MONITOR.
[2022-03-01] MEDS: HYDROcodone-acetaminophen 5-325 mg Tablet 1 TAB PO (21:00)
[2022-03-01] MEDS: gabapentin 300 mg Capsule 600 MG PO (21:00)
[2022-03-01] MEDS: atorvastatin 40 mg Tablet PO (21:01)
[2022-03-01 21:03] LABS: Glucose Point of Care 252 mg/dL (70-110)
[2022-03-01] MEDS: insulin lispro 100 unit/1 mL SUBCUT (21:08)
[2022-03-02] MEDS: HYDROcodone-acetaminophen 5-325 mg Tablet 1 TAB PO (03:18)
[2022-03-02 03:25] LABS: Basophils % 0.3 %; Hematocrit 29.5 % (42.0-52.0); Hemoglobin 9.5 g/dL (11.7-16.6); Lymphocytes # 0.7 10^3/uL (0.8-4.8); Lymphocytes % 8.7 %; Mean Corpuscular HGB Conc 32.2 g/dL (30.0-36.0); Mean Corpuscular Hemoglobin 31.1 pg (28.0-34.0); Mean Corpuscular Volume 96.7 fl (80-94); Mean Platelet Volume 10.6 fL (7.4-10.4); Monocytes # 0.2 10^3/uL (0.2-0.9); Neutrophils % 87.5 %; Nucleated Red Blood Cells % 0 %; Platelet Count 238 10^3/cmm (130-400); Red Blood Count 3.05 10^6/uL (4.1-5.3); Red Cell Distribution Width 14.4 % (12.1-15.1); White Blood Count 7.6 10^3/uL (4.0-10.0)
[2022-03-02 03:43] LABS: Blood Urea Nitrogen 23 mg/dL (8-23); Calcium 8.5 mg/dL (8.5-10.5); Carbon Dioxide 28 mmol/L (22-29); Chloride 102 mmol/L (98-107); Glucose 221 mg/dL (65-115); Osmolality Calculated 296 mOsm/kg (285-295); Sodium 138 mmol/L (136-145)
[2022-03-02 03:50] LABS: Anion Gap 12.9 (5-19); Potassium 4.9 mmol/L (3.5-5.1)
[2022-03-02 04:00] VITALS: BP 146/91; PULSE 91; RESP 17; TEMP 37.1; O2SAT 96
[2022-03-02] MEDS: sucralfate 1 gm Tablet PO (05:32)
[2022-03-02] MEDS: allopurinol 100 mg Tablet PO (05:32)
[2022-03-02] MEDS: famotidine 20 mg/2 mL INJ IVP (05:32)
--- NOTE | 2022-03-02 05:40 | PC.NURSE ---
i reported low o2 86 to nurse we put his oxygen back on and it came back up to 91
[2022-03-02 06:17] LABS: Glucose Point of Care 192 mg/dL (70-110)
[2022-03-02 07:13] VITALS: BP 168/74; PULSE 80; RESP 14; TEMP 36.8; O2SAT 93
[2022-03-02] MEDS: docusate sodium 100 mg Capsule PO (08:25)
[2022-03-02] MEDS: gabapentin 300 mg Capsule 600 MG PO (08:25)
[2022-03-02] MEDS: hydroCHLOROthiazide 25 mg Tablet PO (08:25)
[2022-03-02] MEDS: ferrous sulfate EC 325 mg Tablet PO (08:25)
[2022-03-02] MEDS: tamsulosin 0.4 mg Capsule PO (08:26)
[2022-03-02] MEDS: lidocaine 5% Patch 1 PATCH TOPICAL (08:26)
[2022-03-02] MEDS: losartan 50 mg Tablet 25 MG PO (08:26)
[2022-03-02] MEDS: duloxetine 60 mg Capsule PO (08:26)
[2022-03-02] MEDS: fluticasone nasal spray 16gm Btl 1 SPRAY INTRANASAL (08:27)
--- NOTE | 2022-03-02 08:40 | XR_ITS ---
WS: [id number] Portable AP upright chest, 03/02/2022 Clinical Data: Pre Screening Comparison: Portable chest, 10/26/2020. Findings: No nodules, masses or effusions are seen. The heart is likely enlarged. The pulmonary vascu larity is not increased. No pneumonia or pneumothorax is seen. The aortic arch and descending thoraci c aorta show mild tortuosity. The permanent pacemaker remains in the same position. XR/XR chest 1V portable [id number] Impression: Cardiomegaly and atherosclerosis.
--- NOTE | 2022-03-02 08:46 | ECG_ITS ---
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 Measurements Intervals [place] Rate: 65 P: 48 VT: 154 QRS: -35 QRSD: 125 T: -26 QT: 402 QTc: 419 Interpretive Statements SINUS RHYTHM WITH OCCASIONAL VENTRICULAR PREMATURE COMPLEXES LEFT AXIS DEVIATION [QRS AXIS < -30] MODERATE INTRAVENTRICULAR CONDUCTION DELAY [110+ ms QRS DURATION] Compared to ECG 02/17/2021 12:40:08 Ventricular premature complex(es) now present Left-axis deviation now present Intraventricular conduction delay now present Atrial-paced complex(es) or rhythm no longer present Myocardial infarct finding no longer present Electronically Signed On 03-02-2022 18:13:54 CDT by Denver Stone M.D. [email or web address]
[2022-03-02 10:00] VITALS: PULSE 78; RESP 18; O2SAT 95
--- NOTE | 2022-03-02 10:15 | PC.CHAP ---
Pastoral Care Encounter/Spiritual Assessment Type of Contact [] Declined logistics loss prevention manager visit [] Patient/Family/Request visit [] Outpatient visit [] Follow-up visit [] Physician referral [] Code/Alert [x] Routine visit [] Staff referral [] Actively dying [] Patient sleeping [] Family support [] [] Out of room [] Palliative care [] [x] Receiving care in room [] Pre-surgical visit [] Trauma [] Long length of stay [] ICU visit [] Other: Relational/Emotional Strength [x] Patient feels connected with others/family/visitors/staff [] Distress [] Loneliness/isolation [] Abandonment Spirituality of Patient [x] Person of Juliette [] Attends Mandaen of their Juliette [x] Believes in Prayer [] Reads Bible or Jain materials [] There are Spiritual issues to be addressed [employer] Interventions [x] Prayer [x] Active listening [x] Non-anxious presence [x] Spiritual/emotional support [] Crisis/trauma care [x] Spiritual counseling [] Bereavement support [] Provided bereavement packet [] Provided Bible/devotional materials [] Provided toy/stuffed animal, coloring book to patient or family member [] Provided Communion [] Anointing/[place] [] Salvation [x] Completed spiritual assessment [] Other: Impact on Illness or Injury [] Angry [] Fearful [x] Anxious [] Often cries [] Exhaustion [] Unable to work [] Unable to attend jehovah's witness [] Unable to walk/stand [] Unable to read [] Unable to drive [] Unable to eat/drink [] Unable to sleep [] Unable to be with family [] Patient intubated [] Other: Summary postate surgery has a good attitude is going home +1 Time spent with patient 10 mins
[2022-03-02 10:57] VITALS: PULSE 78; RESP 18; O2SAT 95
--- NOTE | 2022-03-15 10:59 | P.DS_ITS ---
Discharge Providers Date of Admission: 03/01/22 15:37 Date of Discharge: March 02, 2022 Attending Provider at Admission: Kolton Sharma MD Attending Provider at Discharge: Kolton Sharma MD Primary Care Provider: Rajwinder Olivarez MD Diagnoses at Discharge Discharge Diagnosis (1) Clot retention of urine: Status: Resolved (2) Radiation cystitis: Status: Acute (3) Gross hematuria: Status: Acute (4) Prostate cancer: Status: Chronic Permanent problem details: Diagnosed 2019 treated with radiation therapy with good response No evidence of recurrence Reason for Visit Reason for Visit: Brief History: Well-known to me 76-year-old white male with a history of prostate cancer treated with radiation effectively. Has had some intermittent gross hematuria and a recent hospitalization for clot retention. Was managed conservatively and did well. Presented on the day of admission to my office with recurrent clot retention. Admitted to the hospital with plans for cystoscopy clot evacuation and fulguration. Hospital Course Hospital Course Admitted from the hospital to Outpatient Surgery on 03/01/2022 with gross hematuria clot retention and radiation cystitis. Taken emergently to the operating room where clot was evacuated and an area of radiation cystitis type changes was actively bleeding. No other lesions seen. Previously had a suspicious lesion that was biopsied last year showing no evidence of malignant process. There was no evidence on cystoscopic exam of any type of malignant lesions. Postoperatively he did well his CBI was weaned off his Hall catheter was left indwelling and discharged on 03/02/[address] Consult was placed for wound care for hyperbaric oxygen treatment. Physical Exam Narrative: Alert and oriented no acute distress Cardiovascular regular rate and rhythm Respiratory clear to auscultation no audible wheezes Abdomen soft nondistended and nontender. Normal genitourinary exam. Urine was clear draining in the catheter. Good range of motion of extremities. Some mild peripheral edema. No cyanosis. Neuropsych: Clear mental status. Good understanding. Good insight Hematologic lymphatic no active bleeding. Does have some chronic bruising. Neurologic no focal defects. Urinary Catheter Management: 3-way Urethral CBI: Cath Placed During This Visit: yes, but has since been removed by the nurse Reason for Continuing Indwelling Catheter: Perioperative Use in Selected Surgeries Urinary Catheter Date of Insertion: 03/01/22 Urinary Catheter Time of Insertion: 14:58 Date Urinary Catheter Removed: 03/01/22 Time Urinary Catheter Discontinued: 14:30 Discharge Data Studies Completed and Pending Completed Studies During Hospitalization Category Date Time Status XR chest 1V portable [id number] Routine Exams 03/02/22 08:40 Completed Radiology Impressions Chest X-Ray 03/02/22 08:40 Impression: Cardiomegaly and atherosclerosis. Laboratory Results WBC 7.6 10^3/uL (4.0-10.0) 03/02/22 02:20 RBC 3.05 10^6/uL (4.1-5.3) L 03/02/22 02:20 Hgb 9.5 g/dL (11.7-16.6) L 03/02/22 02:20 Hct 29.5 % (42.0-52.0) L 03/02/22 02:20 MCV 96.7 fl (80-94) H 03/02/22 02:20 MCH 31.1 pg (28.0-34.0) 03/02/22 02:20 MCHC 32.2 g/dL (30.0-36.0) 03/02/22 02:20 RDW 14.4 % (12.1-15.1) 03/02/22 02:20 Plt Count 238 10^3/cmm (130-400) 03/02/22 02:20 MPV 10.6 fL (7.4-10.4) H 03/02/22 02:20 Neut % (Auto) 87.5 % 03/02/22 02:20 Lymph % (Auto) 8.7 % 03/02/22 02:20 Beaver % (Auto) 3.0 % 03/02/22 02:20 Eos % (Auto) 0.0 % 03/02/22 02:20 Baso % (Auto) 0.3 % 03/02/22 02:20 Neut # (Auto) 6.60 10^3/uL (1.8-7.7) 03/02/22 02:20 Lymph # (Auto) 0.7 10^3/uL (0.8-4.8) L 03/02/22 02:20 Beaver # (Auto) 0.2 10^3/uL (0.2-0.9) 03/02/22 02:20 Eos # (Auto) 0.0 10^3/uL (0.0-0.8) 03/02/22 02:20 Baso # (Auto) 0.0 10^3/uL (0.0-0.1) 03/02/22 02:20 Nucleated RBC % (auto) 0 % 03/02/22 02:20 Nucleated RBCs # 0.0 /100WBC 03/02/22 02:20 Sodium 138 mmol/L (136-145) 03/02/22 02:20 Potassium 4.9 mmol/L (3.5-5.1) 03/02/22 02:20 Chloride 102 mmol/L (98-107) 03/02/22 02:20 Carbon Dioxide 28 mmol/L (22-29) 03/02/22 02:20 Anion Gap 12.9 (5-19) 03/02/22 02:20 BUN 23 mg/dL (8-23) 03/02/22 02:20 Creatinine 1.2 mg/dL (0.7-1.2) 03/02/22 02:20 GFR Calculation Not Reportable 03/02/22 02:20 Glucose 221 mg/dL (65-115) H 03/02/22 02:20 POC Glucose 192 mg/dL (70-110) H 03/02/22 06:13 Calculated Osmolality 296 mOsm/kg (285-295) H 03/02/22 02:20 Calcium 8.5 mg/dL (8.5-10.5) 03/02/22 02:20 Total Bilirubin 0.2 mg/dL (0.15-1.2) 03/01/22 12:27 AST 23 U/L (0-40) 03/01/22 12:27 ALT 15 U/L (0-41) 03/01/22 12:27 Alkaline Phosphatase 74 IU/L (40-130) 03/01/22 12:27 Total Protein 6.2 g/dL (6.6-8.7) L 03/01/22 12:27 Albumin 3.9 g/dL (3.5-5.2) 03/01/22 12:27 Globulin 2.3 g/dL (1.3-4.6) 03/01/22 12:27 Blood Type O Negative 03/01/22 12:27 Rho(D) Type Negative 03/01/22 12:27 Antibody Screen Negative 03/01/22 12:27 Procedures Performed 1. Cystoscopy, clot evacuation 2. Fulguration Vitals Last Vital Signs Temp 98.3 F 03/02/22 07:13 Pulse 78 03/02/22 10:57 Resp 18 03/02/22 10:57 BP 168/74 03/02/22 07:13 Pulse Ox 95 03/02/22 10:57 Discharge Plan Discharge Patient Disposition: Home Condition: Stable Prescriptions: Continued allopurinol 100 mg tablet 100 mg PO QAM 0RF ceracare 1 tab PO DAILY 0RF glucosamine HCl 500 mg tablet 500 mg PO DAILY 0RF Rx Instructions: administer with a meal multivitamin Tablet 1 tab PO DAILY 0RF duloxetine 60 mg capsule,delayed release(DR/EC) 60 mg PO BID 0RF atorvastatin 80 mg tablet 40 mg PO BEDTIME 0RF Label Comments: [facility] tamsulosin 0.4 mg capsule 0.4 mg PO BID Qty: 180 3RF resveratrol 100 mg capsule 100 mg PO DAILY 0RF fluticasone propionate [Allergy Relief (fluticasone)] 50 mcg/actuation spray,suspension 1 spray intranasal BID 0RF Rx Instructions: administer into each nostril levofloxacin 250 mg tablet 250 mg PO DAILY PRN (Reason: infection) 0RF ferrous sulfate [Feosol] 325 mg (65 mg iron) tablet 325 mg PO DAILY 0RF hydrochlorothiazide 25 mg tablet 25 mg PO DAILY Qty: 90 3RF cholecalciferol (vitamin D3) [Vitamin D3] 10 mcg (400 unit) Tablet 10 mcg PO DAILY 0RF gabapentin 300 mg capsule 600 mg PO TID 0RF sucralfate [Carafate] 1 gram tablet 1 g PO Q6H 84 Days Qty: 336 2RF docusate calcium 240 mg Capsule 240 mg PO DAILY 0RF acetaminophen 500 mg Tablet 500 mg PO QPM PRN (Reason: Sleep) 0RF lidocaine 5 % Adhesive Patch,Medicated See Rx Instructions .ROUTE .COMPLEX 0RF Rx Instructions: 1 patch topically daily leave on most painful area for up to 12 hrs then off for 12 hours polyethylene glycol 3350 17 gram/dose powder See Rx Instructions .ROUTE .COMPLEX 0RF Rx Instructions: two scoops with two glasses of water daily until soft bowel movement then do one scoop once a day albuterol sulfate [ProAir HFA] 90 mcg/actuation Hfa Aerosol Inhaler 1 inh INHALATION QID PRN (Reason: Shortness Of Breath) 0RF olodaterol 2.5 mcg/actuation Mist 2 inh INHALATION DAILY 0RF mometasone 100 mcg/actuation Hfa Aerosol Inhaler 1 puff INHALATION BID 0RF Humulin R U-500 (Conc) Kwikpen 500 unit/mL (3 mL) Insulin Pen See Rx Instructions .ROUTE .COMPLEX 0RF Rx Instructions: 85-90 unit subcutaneously qam and 65 units qpm losartan 50 mg tablet 25 mg PO DAILY 0RF Discharge Orders: Discharge Order (Routine); Ordered 03/02/22 Ordered By: Kolton Sharma Referrals: Kolton Sharma MD [Physician] - 03/10/22 (Voiding trial Dr. Sharma's office will call you with a follow up appointment.) Darleen Marshall [Emergency Department] - 03/03/22 8:00 am (Recurrent radiation cystitis with bleeding and clot retention. Please evaluate to see if a candidate for hyperbaric oxygen treatment) [facility], [Staff Physician] - (You have an appointment at the Wound Care Clinic tomorrow, March 03, 2022 at 8:00 am. If you have any questions or concerns please contact them at [phone].) Discharge Diet: Usual diet Discharge Activity: Limit activity as instructed Patient Instructions: Cystoscopy, Hall Catheter Care, Urinary Leg Bag (GEN), Opioid Safety Activity Restrictions/Additional Instructions: Maintain Hall catheter Avoid lifting >10 pounds You should be contacted by the wound care clinic soon for evaluation for hyperbaric oxygen candidacy We will follow up with you next week toward the end of the week for voiding t rial. Discharge Attestations Time Spent in Discharge Care*: greater than 30 min Quality Metrics Clinical Quality Measures [ No reported AMI, CVA or VTE this stay] Coding Level of Care Code Acute Chg FW DC note Diagnoses Clot retention of urine R33.8 Radiation cystitis N30.40 Gross hematuria R31.0 Prostate cancer C61
== END 2022-03-02 10:58 | disposition home or self-care (01) ==
LOC: MEDSURG 03-02 07:46
PROVIDERS: Admitting Provider Urology; PCP Family Medicine; Visit Provider Urology
PROC: 0T5B8ZZ Destruction of Bladder, Via Natural or Artificial Opening Endoscopic (ICD-10-PCS; CPT 52001; principal; 2022-03-01 11:35)
PROC: 0TJB8ZZ Inspection of Bladder, Via Natural or Artificial Opening Endoscopic (ICD-10-PCS; CPT 52000; 2022-03-01 11:35)
DX: R33.8 Other retention of urine (principal); N30.40 Irradiation cystitis without hematuria; J44.9 Chronic obstructive pulmonary disease, unspecified; Z95.0 Presence of cardiac pacemaker; E66.01 Morbid (severe) obesity due to excess calories; Z68.35 Body mass index [BMI] 35.0-35.9, adult; Z79.4 Long term (current) use of insulin; E11.22 Type 2 diabetes mellitus with diabetic chronic kidney disease; I12.9 Hypertensive chronic kidney disease with stage 1 through stage 4 chronic kidney disease, or unspecified chronic kidney disease; N18.9 Chronic kidney disease, unspecified; G47.33 Obstructive sleep apnea (adult) (pediatric); Z98.1 Arthrodesis status; Z85.46 Personal history of malignant neoplasm of prostate; Z87.891 Personal history of nicotine dependence
CPT/HCPCS: 52001; 52224; 36415; 36416; 71045; 80048; 80053; 82962; 85025; 86850; 86900; 93005; 96372; G0378; J1100; J1815; J1956; J2405; J2704; J3010; J3490; J7030

== ENCOUNTER → 2022-03-03 08:05 | Outpatient (BNVA) | payer OTHER, SELFPAY | PROVIDERS: PCP Family Medicine; Visit Provider Emergency Medicine | DX: L59.9 Disorder of the skin and subcutaneous tissue related to radiation, unspecified (principal); M79.9 Soft tissue disorder, unspecified; N32.89 Other specified disorders of bladder; Z92.3 Personal history of irradiation; Z87.891 Personal history of nicotine dependence | CPT/HCPCS: 99204; 99212 ==

== ENCOUNTER → 2022-03-07 12:53 | Outpatient (BNVA) | payer OTHER, SELFPAY | PROVIDERS: PCP Family Medicine | DX: L59.9 Disorder of the skin and subcutaneous tissue related to radiation, unspecified (principal); M79.9 Soft tissue disorder, unspecified; N32.89 Other specified disorders of bladder; Z92.3 Personal history of irradiation | CPT/HCPCS: G0277 ==

== ENCOUNTER → 2022-03-08 13:01 | Outpatient (BNVA) | payer OTHER, SELFPAY | PROVIDERS: PCP Family Medicine | DX: L59.9 Disorder of the skin and subcutaneous tissue related to radiation, unspecified (principal); M79.9 Soft tissue disorder, unspecified; N32.89 Other specified disorders of bladder; Z97.3 Presence of spectacles and contact lenses | CPT/HCPCS: G0277 ==

== ENCOUNTER → 2022-03-09 13:17 | Outpatient (BNVA) | payer OTHER, SELFPAY | PROVIDERS: PCP Family Medicine | DX: L59.9 Disorder of the skin and subcutaneous tissue related to radiation, unspecified (principal); M79.9 Soft tissue disorder, unspecified; N32.89 Other specified disorders of bladder; Z92.3 Personal history of irradiation | CPT/HCPCS: G0277 ==

== ENCOUNTER → 2022-03-10 08:21 | Outpatient (BNVA) | payer OTHER, SELFPAY | PROVIDERS: PCP Family Medicine | DX: L59.9 Disorder of the skin and subcutaneous tissue related to radiation, unspecified (principal); M79.9 Soft tissue disorder, unspecified; N30.41 Irradiation cystitis with hematuria; Z92.3 Personal history of irradiation | CPT/HCPCS: G0277 ==

== ENCOUNTER → 2022-03-13 13:06 | Outpatient (BNVA) | payer OTHER, SELFPAY | PROVIDERS: PCP Family Medicine | DX: L59.9 Disorder of the skin and subcutaneous tissue related to radiation, unspecified (principal); M79.9 Soft tissue disorder, unspecified; N30.41 Irradiation cystitis with hematuria; Z92.3 Personal history of irradiation | CPT/HCPCS: G0277 ==

== ENCOUNTER → 2022-03-14 12:54 | Outpatient (BNVA) | payer OTHER, SELFPAY | PROVIDERS: PCP Family Medicine | DX: L59.9 Disorder of the skin and subcutaneous tissue related to radiation, unspecified (principal); M79.9 Soft tissue disorder, unspecified; N32.89 Other specified disorders of bladder; Z92.3 Personal history of irradiation | CPT/HCPCS: 99183; G0277 ==

== ENCOUNTER → 2022-03-15 13:08 | Outpatient (BNVA) | payer OTHER, SELFPAY | PROVIDERS: PCP Family Medicine | DX: L59.9 Disorder of the skin and subcutaneous tissue related to radiation, unspecified (principal); M79.9 Soft tissue disorder, unspecified; N30.41 Irradiation cystitis with hematuria; Z92.3 Personal history of irradiation | CPT/HCPCS: G0277 ==

== ENCOUNTER → 2022-03-16 08:02 | Outpatient (BNVA) | payer OTHER, SELFPAY | PROVIDERS: PCP Family Medicine | DX: L59.9 Disorder of the skin and subcutaneous tissue related to radiation, unspecified (principal); M79.9 Soft tissue disorder, unspecified; N30.41 Irradiation cystitis with hematuria; Z92.3 Personal history of irradiation | CPT/HCPCS: G0277 ==

== ENCOUNTER → 2022-03-17 08:14 | Outpatient (BNVA) | payer OTHER, SELFPAY | PROVIDERS: PCP Family Medicine | DX: L59.9 Disorder of the skin and subcutaneous tissue related to radiation, unspecified (principal); M79.9 Soft tissue disorder, unspecified; N30.41 Irradiation cystitis with hematuria; Z92.3 Personal history of irradiation | CPT/HCPCS: G0277 ==

== ENCOUNTER → 2022-03-20 13:06 | Outpatient (BNVA) | payer OTHER, SELFPAY | PROVIDERS: PCP Family Medicine; Visit Provider Thoracic Surgery (Cardiothoracic Vascular Surgery) | DX: L59.9 Disorder of the skin and subcutaneous tissue related to radiation, unspecified (principal); M79.9 Soft tissue disorder, unspecified; N30.41 Irradiation cystitis with hematuria; Z92.3 Personal history of irradiation | CPT/HCPCS: G0277 ==

== ENCOUNTER → 2022-03-21 08:26 | Outpatient (BNVA) | payer OTHER, SELFPAY | PROVIDERS: PCP Family Medicine | DX: L59.9 Disorder of the skin and subcutaneous tissue related to radiation, unspecified (principal); M79.9 Soft tissue disorder, unspecified; N32.89 Other specified disorders of bladder; Z92.3 Personal history of irradiation | CPT/HCPCS: G0277 ==

== ENCOUNTER → 2022-03-22 08:23 | Outpatient (BNVA) | payer OTHER, SELFPAY | PROVIDERS: PCP Family Medicine | DX: L59.9 Disorder of the skin and subcutaneous tissue related to radiation, unspecified (principal); M79.9 Soft tissue disorder, unspecified; N32.89 Other specified disorders of bladder; Z92.3 Personal history of irradiation | CPT/HCPCS: G0277 ==

== ENCOUNTER → 2022-03-23 08:07 | Outpatient (BNVA) | payer OTHER, SELFPAY | PROVIDERS: PCP Family Medicine | DX: L59.9 Disorder of the skin and subcutaneous tissue related to radiation, unspecified (principal); M79.9 Soft tissue disorder, unspecified; N32.89 Other specified disorders of bladder; Z92.3 Personal history of irradiation | CPT/HCPCS: G0277 ==

== ENCOUNTER → 2022-03-24 12:56 | Outpatient (BNVA) | payer OTHER, SELFPAY | PROVIDERS: PCP Family Medicine | DX: L59.9 Disorder of the skin and subcutaneous tissue related to radiation, unspecified (principal); M79.9 Soft tissue disorder, unspecified; N32.89 Other specified disorders of bladder; Z92.3 Personal history of irradiation | CPT/HCPCS: G0277 ==

== ENCOUNTER → 2022-03-27 08:05 | Outpatient (BNVA) | payer OTHER, SELFPAY | PROVIDERS: PCP Family Medicine | DX: L59.9 Disorder of the skin and subcutaneous tissue related to radiation, unspecified (principal); M79.9 Soft tissue disorder, unspecified; N32.89 Other specified disorders of bladder; Z92.3 Personal history of irradiation | CPT/HCPCS: G0277 ==

== ENCOUNTER → 2022-03-28 08:01 | Outpatient (BNVA) | payer OTHER, SELFPAY | PROVIDERS: PCP Family Medicine | DX: L59.9 Disorder of the skin and subcutaneous tissue related to radiation, unspecified (principal); M79.9 Soft tissue disorder, unspecified; N32.89 Other specified disorders of bladder; Z92.3 Personal history of irradiation | CPT/HCPCS: G0277 ==

== ENCOUNTER → 2022-03-29 07:54 | Outpatient (BNVA) | payer OTHER, SELFPAY | PROVIDERS: PCP Family Medicine | DX: L59.9 Disorder of the skin and subcutaneous tissue related to radiation, unspecified (principal); M79.9 Soft tissue disorder, unspecified; N32.89 Other specified disorders of bladder; Z92.3 Personal history of irradiation | CPT/HCPCS: G0277 ==

== ENCOUNTER → 2022-03-30 13:12 | Outpatient (BNVA) | payer OTHER, SELFPAY | PROVIDERS: PCP Family Medicine | DX: L59.9 Disorder of the skin and subcutaneous tissue related to radiation, unspecified (principal); M79.9 Soft tissue disorder, unspecified; N32.89 Other specified disorders of bladder; Z92.3 Personal history of irradiation | CPT/HCPCS: G0277 ==

== ENCOUNTER → 2022-03-31 07:55 | Outpatient (BNVA) | payer OTHER, SELFPAY | PROVIDERS: PCP Family Medicine | DX: L59.9 Disorder of the skin and subcutaneous tissue related to radiation, unspecified (principal); M79.9 Soft tissue disorder, unspecified; N30.41 Irradiation cystitis with hematuria; Z92.3 Personal history of irradiation | CPT/HCPCS: 51700; 99213; G0277 ==

== ENCOUNTER → 2022-04-04 07:59 | Outpatient (BNVA) | payer OTHER, SELFPAY | PROVIDERS: PCP Family Medicine | DX: L59.9 Disorder of the skin and subcutaneous tissue related to radiation, unspecified (principal); M79.9 Soft tissue disorder, unspecified; N32.89 Other specified disorders of bladder; Z92.3 Personal history of irradiation | CPT/HCPCS: G0277 ==

== ENCOUNTER → 2022-04-05 07:59 | Outpatient (BNVA) | payer OTHER, SELFPAY | PROVIDERS: PCP Family Medicine | DX: L59.9 Disorder of the skin and subcutaneous tissue related to radiation, unspecified (principal); M79.9 Soft tissue disorder, unspecified; N30.41 Irradiation cystitis with hematuria; Z92.3 Personal history of irradiation | CPT/HCPCS: G0277 ==

== ENCOUNTER → 2022-04-06 13:22 | Outpatient (BNVA) | payer OTHER, SELFPAY | PROVIDERS: PCP Family Medicine | DX: L59.9 Disorder of the skin and subcutaneous tissue related to radiation, unspecified (principal); M79.9 Soft tissue disorder, unspecified; N32.89 Other specified disorders of bladder; Z92.3 Personal history of irradiation | CPT/HCPCS: G0277 ==

== ENCOUNTER → 2022-04-07 08:05 | Outpatient (BNVA) | payer OTHER, SELFPAY | PROVIDERS: PCP Family Medicine | DX: N30.41 Irradiation cystitis with hematuria (principal); M79.9 Soft tissue disorder, unspecified; Z92.3 Personal history of irradiation | CPT/HCPCS: G0277 ==

== ENCOUNTER → 2022-04-10 07:50 | Outpatient (BNVA) | payer OTHER, SELFPAY | PROVIDERS: PCP Family Medicine | DX: L59.9 Disorder of the skin and subcutaneous tissue related to radiation, unspecified (principal); M79.9 Soft tissue disorder, unspecified; N30.41 Irradiation cystitis with hematuria; Z92.3 Personal history of irradiation | CPT/HCPCS: G0277 ==

== ENCOUNTER → 2022-04-11 08:09 | Outpatient (BNVA) | payer OTHER, SELFPAY | PROVIDERS: PCP Family Medicine | DX: L59.9 Disorder of the skin and subcutaneous tissue related to radiation, unspecified (principal); M79.9 Soft tissue disorder, unspecified; Z92.3 Personal history of irradiation; N30.41 Irradiation cystitis with hematuria | CPT/HCPCS: G0277 ==

== ENCOUNTER → 2022-04-12 07:57 | Outpatient (BNVA) | payer OTHER, SELFPAY | PROVIDERS: PCP Family Medicine | DX: L59.9 Disorder of the skin and subcutaneous tissue related to radiation, unspecified (principal); M79.9 Soft tissue disorder, unspecified; Z92.3 Personal history of irradiation; N30.41 Irradiation cystitis with hematuria | CPT/HCPCS: 99212; G0277 ==

== ENCOUNTER → 2022-04-14 07:58 | Outpatient (BNVA) | payer OTHER, SELFPAY | PROVIDERS: PCP Family Medicine | DX: L59.9 Disorder of the skin and subcutaneous tissue related to radiation, unspecified (principal); M79.9 Soft tissue disorder, unspecified; Z92.3 Personal history of irradiation; N30.41 Irradiation cystitis with hematuria | CPT/HCPCS: G0277 ==

== ENCOUNTER → 2022-04-18 07:58 | Outpatient (BNVA) | payer OTHER, SELFPAY | PROVIDERS: PCP Family Medicine; Visit Provider Nurse Practitioner Family | DX: L59.9 Disorder of the skin and subcutaneous tissue related to radiation, unspecified (principal); M79.9 Soft tissue disorder, unspecified; N30.41 Irradiation cystitis with hematuria; Z92.3 Personal history of irradiation | CPT/HCPCS: G0277 ==

== ENCOUNTER → 2022-04-19 08:13 | Outpatient (BNVA) | payer OTHER, SELFPAY | PROVIDERS: PCP Family Medicine | DX: L59.9 Disorder of the skin and subcutaneous tissue related to radiation, unspecified (principal); M79.9 Soft tissue disorder, unspecified; N30.41 Irradiation cystitis with hematuria; Z92.3 Personal history of irradiation | CPT/HCPCS: G0277 ==

== ENCOUNTER → 2022-04-21 08:16 | Outpatient (BNVA) | payer OTHER, SELFPAY | PROVIDERS: PCP Family Medicine | DX: L59.9 Disorder of the skin and subcutaneous tissue related to radiation, unspecified (principal); M79.9 Soft tissue disorder, unspecified; Z92.3 Personal history of irradiation; N30.41 Irradiation cystitis with hematuria | CPT/HCPCS: G0277 ==

== ENCOUNTER → 2022-04-24 08:10 | Outpatient (BNVA) | payer OTHER, SELFPAY | PROVIDERS: PCP Family Medicine | DX: L59.9 Disorder of the skin and subcutaneous tissue related to radiation, unspecified (principal); M79.9 Soft tissue disorder, unspecified; Z92.3 Personal history of irradiation; N30.41 Irradiation cystitis with hematuria | CPT/HCPCS: G0277 ==

== ENCOUNTER → 2022-04-25 07:51 | Outpatient (BNVA) | payer OTHER, SELFPAY | PROVIDERS: PCP Family Medicine | DX: L59.9 Disorder of the skin and subcutaneous tissue related to radiation, unspecified (principal); M79.9 Soft tissue disorder, unspecified; N30.41 Irradiation cystitis with hematuria; Z92.3 Personal history of irradiation | CPT/HCPCS: G0277 ==

== ENCOUNTER → 2022-04-26 08:18 | Outpatient (BNVA) | payer OTHER, SELFPAY | PROVIDERS: PCP Family Medicine | DX: L59.9 Disorder of the skin and subcutaneous tissue related to radiation, unspecified (principal); M79.9 Soft tissue disorder, unspecified; Z92.3 Personal history of irradiation; N30.41 Irradiation cystitis with hematuria | CPT/HCPCS: G0277 ==

== ENCOUNTER → 2022-04-27 08:18 | Outpatient (BNVA) | payer OTHER, SELFPAY | PROVIDERS: PCP Family Medicine | DX: L59.9 Disorder of the skin and subcutaneous tissue related to radiation, unspecified (principal); M79.9 Soft tissue disorder, unspecified; Z92.3 Personal history of irradiation; N30.41 Irradiation cystitis with hematuria | CPT/HCPCS: G0277 ==

== ENCOUNTER → 2022-04-28 07:50 | Outpatient (BNVA) | payer OTHER, SELFPAY | PROVIDERS: PCP Family Medicine | DX: L59.9 Disorder of the skin and subcutaneous tissue related to radiation, unspecified (principal); M79.9 Soft tissue disorder, unspecified; Z92.3 Personal history of irradiation; N30.41 Irradiation cystitis with hematuria | CPT/HCPCS: 52000; G0277 ==

== ENCOUNTER → 2022-05-01 07:53 | Outpatient (BNVA) | payer OTHER, SELFPAY | PROVIDERS: PCP Family Medicine | DX: L59.9 Disorder of the skin and subcutaneous tissue related to radiation, unspecified (principal); M79.9 Soft tissue disorder, unspecified; Z92.3 Personal history of irradiation; N30.41 Irradiation cystitis with hematuria | CPT/HCPCS: G0277 ==

== ENCOUNTER → 2022-05-02 08:08 | Outpatient (BNVA) | payer OTHER, SELFPAY | PROVIDERS: PCP Family Medicine | DX: L59.9 Disorder of the skin and subcutaneous tissue related to radiation, unspecified (principal); M79.9 Soft tissue disorder, unspecified; Z92.3 Personal history of irradiation; N30.41 Irradiation cystitis with hematuria | CPT/HCPCS: G0277 ==

== ENCOUNTER → 2022-05-03 08:21 | Outpatient (BNVA) | payer OTHER, SELFPAY | PROVIDERS: PCP Family Medicine | DX: L59.9 Disorder of the skin and subcutaneous tissue related to radiation, unspecified (principal); M79.9 Soft tissue disorder, unspecified; Z92.3 Personal history of irradiation; N30.41 Irradiation cystitis with hematuria | CPT/HCPCS: G0277 ==

== ENCOUNTER → 2022-05-04 08:10 | Outpatient (BNVA) | payer OTHER, SELFPAY | PROVIDERS: PCP Family Medicine | DX: L59.9 Disorder of the skin and subcutaneous tissue related to radiation, unspecified (principal); M79.9 Soft tissue disorder, unspecified; Z92.3 Personal history of irradiation; N30.41 Irradiation cystitis with hematuria | CPT/HCPCS: G0277 ==

== ENCOUNTER → 2022-05-05 07:57 | Outpatient (BNVA) | payer OTHER, SELFPAY | PROVIDERS: PCP Family Medicine | DX: L59.9 Disorder of the skin and subcutaneous tissue related to radiation, unspecified (principal); M79.9 Soft tissue disorder, unspecified; Z92.3 Personal history of irradiation; N30.41 Irradiation cystitis with hematuria | CPT/HCPCS: G0277 ==

== ENCOUNTER → 2022-05-17 10:48 | Outpatient (BNVA) | payer OTHER, SELFPAY | PROVIDERS: PCP Family Medicine; Visit Provider Internal Medicine Cardiovascular Disease | DX: N32.89 Other specified disorders of bladder (principal); R33.8 Other retention of urine; N30.41 Irradiation cystitis with hematuria; E11.22 Type 2 diabetes mellitus with diabetic chronic kidney disease; I12.9 Hypertensive chronic kidney disease with stage 1 through stage 4 chronic kidney disease, or unspecified chronic kidney disease; N18.31 Chronic kidney disease, stage 3a; Z79.4 Long term (current) use of insulin; Z95.0 Presence of cardiac pacemaker; R31.0 Gross hematuria; I49.5 Sick sinus syndrome; E11.9 Type 2 diabetes mellitus without complications; J44.9 Chronic obstructive pulmonary disease, unspecified; R55 Syncope and collapse; Z87.891 Personal history of nicotine dependence | CPT/HCPCS: 52001; 99214; 99215 ==

== ENCOUNTER 2022-05-17 17:40 | Observation (INO) | payer OTHER, SELFPAY ==
[2022-05-17] VITALS (13 sets, daily range): BP systolic 123–233; BP diastolic 60–99; PULSE 60–78; RESP 10–20; TEMP 36.2–36.7; O2SAT 90–98; BMI 34.7
--- NOTE | 2022-05-17 16:18 | ANES.PREANE2 ---
Pre-Anesthetic Assessment Height/Weight: Height 1.83 m Weight 117.934 kg Preop Diagnosis: Clot Urinary retention, radiation cystitis Operation Date: 05/17/22 16:30 Proposed Procedures p Cystoscopy(Not Applicable) - Kolton Sharma MD s Clot Evacuation Fulguration(Not Applicable) - Kolton Sharma MD Familial anesthetic complications: none Was Beta Marcos taken within 24 hours: N/A Was Clonidine taken within 24 hours: N/A Last intake: > 8 hrs Social Tobacco and No alcohol Exam alert, oriented x 3, clear to auscultation bilaterally and regular rate & rhythm Airway Mallampati: Class IV Dentition: chipped Comments: Comments: full olivares Pulmonary Chronic Obstructive Pulmonary Disease and Sleep Apnea CV/HEM Hypertension cardiac pacemaker, sinus node dysfunction Chronic Renal Insufficiency Metabolic Diabetes Mellitus Anesthetic Plan ASA status: 4 Anesthesia: General Risk of > 500 ml blood loss (7ml/kg in children): No Medications/Allergies Home Medications Medication Instructions Recorded Confirmed Last Taken Type duloxetine 60 mg capsule,delayed 60 mg PO BID 12/04/19 05/17/22 02/28/22 History release cholecalciferol (vitamin D3) 10 10 mcg PO DAILY 08/20/20 05/17/22 02/28/22 History mcg (400 unit) tablet (Vitamin D3) glucosamine HCl 500 mg tablet 500 mg PO DAILY 07/21/21 05/17/22 02/28/22 History multivitamin 1 tab PO DAILY 07/21/21 05/17/22 02/28/22 History allopurinol 100 mg tablet 100 mg PO QAM 09/30/21 05/17/22 02/28/22 History gabapentin 300 mg capsule 600 mg PO TID cap 09/30/21 05/17/22 02/28/22 History hydrochlorothiazide 25 mg tablet 25 mg PO DAILY #90 tab 10/12/21 05/17/22 02/28/22 Rx ceracare 1 tab PO DAILY 01/20/22 05/17/22 02/28/22 History tamsulosin 0.4 mg capsule 0.4 mg PO BID #180 cap 01/20/22 05/17/22 02/28/22 Rx sucralfate 1 gram tablet (Carafate) 1 g PO Q6H 84 Days #336 tab 01/26/22 05/17/22 02/28/22 Rx atorvastatin 80 mg tablet 40 mg PO BEDTIME tab 02/06/22 05/17/22 02/28/22 History fluticasone propionate 50 1 spray INTRANASAL BID 02/06/22 05/17/22 02/28/22 History mcg/actuation nasal spray,suspension (Allergy Relief (fluticasone)) resveratrol 100 mg capsule 100 mg PO DAILY cap 02/06/22 05/17/22 02/28/22 History acetaminophen 500 mg tablet 500 mg PO QPM PRN 02/07/22 05/17/22 02/28/22 History albuterol sulfate 90 mcg/actuation 1 inh INHALATION QID PRN 02/07/22 05/17/22 02/28/22 History aerosol inhaler (ProAir HFA) docusate calcium 240 mg capsule 240 mg PO DAILY 02/07/22 05/17/22 02/28/22 History insulin regular hum U-500 conc See Rx Instructions .ROUTE .COMPLEX 02/07/22 05/17/22 02/28/22 History (Humulin R U-500 (Conc) Insulin Kwikpen) lidocaine 5 % topical patch See Rx Instructions .ROUTE .COMPLEX 02/07/22 05/17/22 02/28/22 History mometasone 100 mcg/actuation HFA 1 puff INHALATION BID 02/07/22 05/17/22 02/28/22 History aerosol inhaler olodaterol 2.5 mcg/actuation mist 2 inh INHALATION DAILY 02/07/22 05/17/22 02/28/22 History for inhalation polyethylene glycol 3350 17 See Rx Instructions .ROUTE .COMPLEX 02/07/22 05/17/22 02/28/22 History gram/dose oral powder ferrous sulfate 325 mg (65 mg 325 mg PO DAILY 03/01/22 05/17/22 02/28/22 History iron) tablet (Feosol) nifedipine 30 mg tablet,extended 30 mg PO DAILY #30 tab 05/17/22 05/17/22 Unknown Rx release Allergies Allergy/AdvReac Type Severity Reaction Status Date / Time losartan Allergy Mild ADR-Seizure Verified 05/17/22 12:47 lisinopril Allergy unknown Verified 05/17/22 12:47 tetanus toxoid, adsorbed Allergy unknown Verified 05/17/22 12:47 [facility] Anesthesia Medical History Chronic kidney disease Complex renal cyst Overall considered low risk, following with ultrasound, COPD (chronic obstructive pulmonary disease) Diabetes mellitus Diabetic neuropathy Gross hematuria H/O cardiac pacemaker HTN (hypertension) Incomplete bladder emptying Lesion of bladder Chronic inflammatory change with fibroadipose tissue most likely consistent patient cystitis despite its suspicious appearing on cystitis Obstructive sleep apnea Prostate cancer Diagnosed 2019 treated with radiation therapy with good response No evidence of recurrence Sinus node dysfunction Urinary retention Surgical History History of back surgery C3-C4 ACDFF WITH C4 CORPECTOMY History of circumcision History of eye surgery 2018 History of neck surgery History of prostate biopsy Status post cataract surgery Status post knee surgery left Family History Father , AT AGE 65-CHF No problems noted. Mother , AT AGE 65-CHF No problems noted. Social History Smoking and tobacco status: former smoker Alcohol intake: never Marital status: Current occupational status: retired and disabled History of recent travel: No Data Anesthesia Cardiac Studies: Echocardiogram Ultrasound 09/16/20 Cardiac Event Monitor 09/22/20
[2022-05-17] MEDS: sodium chloride 0.9% 1,000 ML 30 ML IV ×2 (16:35→20:07)
[2022-05-17] MEDS: levofloxacin-dextrose 5 % 500 MG/100 ML PREMIX 100 MG IV (16:39)
[2022-05-17 16:40] LABS: Glucose Point of Care 116 mg/dL (70-110)
[2022-05-17] MEDS: lidocaine 2% Urojet 20 mL TOPICAL (17:02)
--- NOTE | 2022-05-17 17:22 | PM.OP ---
Operative Report Date of procedure: May 17, 2022 Pre-op diagnosis: Clot Urinary retention, radiation cystitis Post-op diagnosis: Clot Urinary retention, radiation cystitis Procedure done: Cystoscopy, clot evacuation Specimens removed/disposition: Clots, discarded Pathology: None Surgeon: Edith Anesthesia: General Estimated blood loss: Minimal Urine output: Not measured Complications: None Findings: Large amount of old clot in the bladder Evacuated through the cystoscope utilizing Ellik evacuator. No active bleeding noted. -Fixed bladder neck secondary to prior radiation therapy. Brief History: Mr. Velasco is a delightful 77-year-old white male with a history of prostate cancer status post radiation therapy completed July 2020. No evidence of recurrence of prostate cancer but he has had intermittent gross hematuria and episodic clot retention. Cystoscopy revealed on 1 occasion what appeared to be bladder cancer but it was resected and pathology showed fibroadipose tissue consistent with inflammation felt to be secondary to radiation cystitis and not bladder cancer. He continued to have intermittent bleeding and was hospitalized at least 1 other time requiring clot evacuation fulguration prolonged continuous bladder irrigation etc. Ultimately was recommended that he undergo hyperbaric oxygen therapy. He received 40 treatments completing them on 05/05/2022. Further complicating issues is that he has had recurrent persistent urinary retention requiring self clean intermittent catheterization which was felt potentially a contributing factor to his recurrent bleeding. Presented today in the clinic with of almost a week of gross hematuria. Was developing increasing difficulty draining his bladder with self-catheterization. Large bore catheter was placed in the office and manual irrigation was conducted. Cystoscopy in the office today with some clot evacuation did confirmed persistent large organized clots and for that reason he was admitted through same-day surgery for cystoscopy under anesthesia with clot evacuation Procedure: After emergent evaluation examination and obtaining of informed consent he was taken to the operating suite on 05/17/22 where general anesthesia was administered without difficulty, appropriate timeout was performed, SCDs confirmed to be functioning, preoperative antibiotics administered, beta-lilliana protocol confirmed. Prepped and draped in the usual sterile fashion in dorsolithotomy position paying careful attention to avoiding pressure points. 21 Hungarian cystoscope with 30 degree lens was introduced into the urethra meatus and into the bladder. As previously noted he has a very high and fixed bladder neck from his radiation treatment. It was somewhat difficult to get the scope into the bladder but ultimately was successful without traumatizing the mucosa. Large amount of clot was identified. Ellik evacuator was utilized to clear the clot requiring several fillings and emptying's to do so. Some large organized clots were removed as well as more fresh clots. Bladder was reinspected and all the clot was confirmed to be evacuated. There was no easily identifiable active bleeding sites. The water was turned off and the bladder was carefully inspected and no active bleeding could be found. The bladder neck was inspected and found to be in good shape without significant mucosal disruption. The scope was removed. A 22 Hungarian Hall Anay three-way catheter was attempted to be passed into the bladder but could not be manipulated beyond the bladder neck. The scope was repassed, flexible tip guidewire was passed through the scope into the bladder, and then the three-way catheter was advanced over the guidewire easily into the bladder. Several irrigations were conducted without any significant bleeding or clots. Balloon was inflated with 30 cc and light CBI with normal saline was initiated. Efflux remained clear He tolerated procedure well without complications was awakened in the operating room and returned to recovery in stable condition. PLANS: 1. Admit to observation status 2. Continue CBI with tapering as tolerated 3. Will likely discharge with catheter in place for removal in the clinic early next week.
[2022-05-17 17:51] LABS: Glucose Point of Care 112 mg/dL (70-110)
[2022-05-17 18:06] LABS: Basophils % 0.6 %; Eosinophils # 0.1 10^3/uL (0.0-0.8); Eosinophils % 2.9 %; Hematocrit 26.9 % (42.0-52.0); Hemoglobin 8.5 g/dL (11.7-16.6); Lymphocytes # 1.1 10^3/uL (0.8-4.8); Lymphocytes % 21.9 %; Mean Corpuscular HGB Conc 31.6 g/dL (30.0-36.0); Mean Corpuscular Hemoglobin 28.8 pg (28.0-34.0); Mean Corpuscular Volume 91.2 fl (80-94); Monocytes # 0.3 10^3/uL (0.2-0.9); Neutrophils # 3.28 10^3/uL (1.8-7.7); Neutrophils % 67.2 %; Nucleated Red Blood Cells % 0 %; Platelet Count 187 10^3/cmm (130-400); Red Blood Count 2.95 10^6/uL (4.1-5.3); Red Cell Distribution Width 13.3 % (12.1-15.1); White Blood Count 4.9 10^3/uL (4.0-10.0)
[2022-05-17] MEDS: NIFEdipine ER (24 hr) 30 mg Tablet PO (20:04)
[2022-05-17] MEDS: duloxetine 60 mg Capsule PO (20:05)
[2022-05-17] MEDS: atorvastatin 40 mg Tablet PO (20:05)
[2022-05-17] MEDS: tamsulosin 0.4 mg Capsule PO (20:05)
[2022-05-17] MEDS: sucralfate 1 gm Tablet PO (20:05)
[2022-05-17] MEDS: gabapentin 300 mg Capsule 600 MG PO (20:05)
[2022-05-17] MEDS: budesonide 0.5 mg/2 mL Neb INHALATION (22:12)
[2022-05-17] MEDS: hydroCHLOROthiazide 25 mg Tablet PO (22:26)
[2022-05-17 22:37] LABS: Glucose Point of Care 116 mg/dL (70-110)
[2022-05-17 23:32] LABS: Alanine Aminotransferase 8 U/L (0-41); Albumin Level 3.6 g/dL (3.5-5.2); Alkaline Phosphatase 71 IU/L (40-130); Aspartate Amino Transferase 15 U/L (0-40); Blood Urea Nitrogen 70 mg/dL (8-23); Calcium 8.4 mg/dL (8.5-10.5); Carbon Dioxide 25 mmol/L (22-29); Chloride 103 mmol/L (98-107); Globulin 3.1 g/dL (1.3-4.6); Glucose 105 mg/dL (65-115); Osmolality Calculated 313 mOsm/kg (285-295); Sodium 141 mmol/L (136-145); Total Bilirubin 0.2 mg/dL (0.15-1.2); Total Protein 6.7 g/dL (6.6-8.7)
[2022-05-17 23:33] LABS: Anion Gap 17.9 (5-19); Potassium 4.9 mmol/L (3.5-5.1)
[2022-05-18] VITALS (21 sets, daily range): BP systolic 110–173; BP diastolic 48–78; PULSE 66–93; RESP 12–36; TEMP 36.5–37.3; O2SAT 88–95
--- NOTE | 2022-05-18 | SCC_ITS ---
Procedure done: Cystoscopy, clot evacuation (small amount of clot) 3.8 seconds of fluoroscopic guidance, for a cumulative dose of 1.41 mGy, was provided to Dr. Sharma by the radiology department. C-arm images of the pelvis were saved for the patient's permanent record. GABRIELE
--- NOTE | 2022-05-18 02:04 | PC.NURSE ---
NATHANIEL rain informed of midnight BP
--- NOTE | 2022-05-18 03:38 | PC.NURSE ---
CBI running number of bags from my shift starting at 1900 to 0400 when I signed off to Cathy OROZCO was 9 bags. First bag was already counted for by day shift RN. One bag was only 2000ml. Still running at a moderately fast rate, urine is still flores red.
--- NOTE | 2022-05-18 04:17 | PM.PN ---
Subjective Subjective: Postoperative day #1, clot evacuation Patient was taken to the operating room last night emergently for clot retention. Blood clot was removed After clot was removed bladder was carefully inspected and no active bleeding could be identified. 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 He was placed on CBI at that time primarily as a prophylactic measure. In the PACU his urine looked good. He had a CBC and CMP drawn operatively. CBC came back postoperatively with a hemoglobin of 8.5 white count of 4.9. Before received a critical value alert regarding a creatinine of >6 on CMP and when I spoke to the lab it was reported that the specimen was hemolyzed, was canceled and not reliable. He was to be redrawn. The results available from the redraw for about midnight last night and confirmed initial results of creatinine 6.3. That was 4.9 other electrolytes were okay. In addition to his lab findings he was having enough gross hematuria to require fairly high flow CBI to keep urine pink. Creatinine was 1.2 in February 2022. Last renal ultrasound February 2022: No evidence of hydronephrosis, 4 cm RUP simple cyst known from previous imaging. No solid masses. Last CT scan of abdomen was 02/04/2022: Showed no upper urinary tract abnormalities but did show bladder wall thickening, acute blood in the bladder, perivesical inflammatory changes, all consistent with the process of acute bleeding which was addressed at that time with cystoscopy and clot evacuation. He had had an episode of clot urinary retention again of unclear etiology. It was felt that RADIATION CYSTITIS explained this bleeding and ultimately because of persistence of bleeding he was treated with HYPERBARIC OXYGEN THERAPY for a total of 40 treatments completed in April 2022. Etiology of his renal failure at this point is unclear. Does have other significant comorbidities including diabetes and hypertension. Will obtain hospitalist and nephrology consultation for medical management. Obtain a noncontrasted stone protocol CT scan to reevaluate the upper urinary tract including the ureters. He has been typed and crossed for 2 units given what appears to be ongoing bleeding. ADDENDUM: CT scan has been performed. Shows thickened bladder wall and bilateral hydroureteronephrosis down to the bilateral UVJ. No stones. Expect that what ever is creating his chronic thickening of his bladder wall, most likely radiation cystitis is the source. Plan: 1. Cystoscopy bilateral stent placement if possible today when time available in the OR. If unsuccessful in accessing the ureters in a retrograde fashion will require bilateral percutaneous nephrostomy tube placement where interventional radiology is available. 2. Consulted Dr. Talamantes, hospitalist for medical management. 3. Possible nephrology consult if Dr. Bullard felt that it was necessary. Hopefully if I can get stents up we will see a reversal of his deteriorating renal function. Vitals/I&O/Wt Last Vital Signs Temp 99.1 F 05/18/22 00:00 Pulse 66 05/18/22 00:00 Resp 12 05/18/22 00:00 BP 173/78 05/18/22 00:00 Pulse Ox 90 05/18/22 00:00 05/17/22 05/17/22 05/18/22 14:59 22:59 06:59 Intake Total 400 / 400 Output Total 301 / 301 1850 / 2151 Balance 99 / 99 -1850 / -1751 Weight last 48 hrs Weight 256 lb 4 oz Weight 260 lb Physical Exam Narrative: Alert and oriented no acute distress Respiratoryno audible wheezes, unlabored Abdomen soft nondistended and nontender. Normal genitourinary exam.? Urine was clear draining in the catheter. Urine is clear with fairly low CBI rate of infusion Good range of motion of extremities.? Some mild peripheral edema.? No cyanosis. Neuropsych: Clear mental status.? Good understanding.? Good insight Hematologic lymphatic no active bleeding.? Does have some chronic bruising. Neurologic no focal defects. Urinary Catheter Management: 3-way Urethral CBI: Cath Placed During This Visit: yes, but has since been removed by the nurse Reason for Continuing Indwelling Catheter: Perioperative Use in Selected Surgeries Urinary Catheter Date of Insertion: 05/17/22 Urinary Catheter Time of Insertion: 17:00 Date Urinary Catheter Removed: 05/17/22 Time Urinary Catheter Discontinued: 16:45 Data : 05/18/22 04:57 05/18/22 04:57 A&P Assessment and plan (1) Bilateral ureteral obstruction: Level of bilateral UVJ. Exact etiology unclear but expect related to chronic bladder inflammatory changes. Status: Acute (2) Acute renal failure: Obstructive uropathy likely secondary to bladder wall thickening associated with radiation cystitis, chronic cystitis. Status: Acute (3) Urinary retention: Chronic. On SCIC at home. Complicated by clot retention from radiation cystitis. Status post clot evacuation last night with stable status currently. Status: Acute (4) Radiation cystitis: Status: Acute (5) Prostate cancer: Status: Chronic Plan 1. Cystoscopy bilateral stent placement if possible today when time available in the OR. If unsuccessful in accessing the ureters in a retrograde fashion will require bilateral percutaneous nephrostomy tube placement where interventional radiology is available. 2. Consulted Dr. Talamantes, hospitalist for medical management. 3. Possible nephrology consult if Dr. Bullard felt that it was necessary. Hopefully if I can get stents up we will see a reversal of his deteriorating renal function. Attestations Medical Necessity Statement*: Critically ill. Renal failure. Obstructive uropathy. Ongoing requirement for CBI Coding Level of Care Code Acute Regulatory Process Manager for [facility] Fwd Diagnoses Acute renal failure N17.9 Urinary retention R33.9 Radiation cystitis N30.40 Prostate cancer C61 Bilateral ureteral obstruction N13.5
--- NOTE | 2022-05-18 04:41 | CTR_ITS ---
PROCEDURE INFORMATION: Exam: CT Abdomen And Pelvis Without Contrast Exam date and time: 05/18/2022 6:08 AM Age: 77 years old Clinical indication: Other: Hermaturia; Additional info: Gross hematuria, recurrent clot retention, new onset renal F, . new onset renal failure TECHNIQUE: Imaging protocol: Computed tomography of the abdomen and pelvis without contrast. Radiation optimization: All CT scans at this facility use at least one of these dose optimization techniques: automated exposure control; mA and/or kV adjustment per patient size (includes targeted exams where dose is matched to clinical indication); or iterative reconstruction. COMPARISON: 1. US abdomen complete* [id number] 02/17/2022 6:[address] abdomen pelvis wo con [id number] 02/04/2022 10:48 PM 3. US renal BI* [id number] 12/06/2020 7:[address] abdomen pelvis wo con [id number] 03/24/2019 1:38 PM RADIATION DOSE METRICS: Total DLP (mGy-cm): 2213.98 FINDINGS: Tubes, catheters and devices: Pacemaker leads noted. Lungs: Chronic bibasilar atelectasis or scarring. Heart: Coronary artery calcifications. Liver: No acute abnormality on noncontrast imaging. Stable small hepatic dome cyst. Gallbladder and bile ducts: No acute abnormality. No calcified stones. No ductal dilation. Pancreas: No acute abnormality. No ductal dilation. Spleen: No acute abnormality. Adrenal glands: No acute abnormality. No mass. Kidneys and ureters: Moderate bilateral hydroureteronephrosis. Redemonstrated right renal cysts including 4.9 cm anterolateral right renal upper pole cyst. Stomach and bowel: No significant or disproportionate large or small bowel distention. Colonic diverticulosis without CT evidence of diverticulitis. Appendix: Grossly normal nondilated visualized appendix. Intraperitoneal space: No significant fluid collection. No free air. Vasculature: Atherosclerotic vascular calcification. No aortic aneurysm. Lymph nodes: No enlarged lymph nodes. Urinary bladder: Hall catheter in place within a thickened nondistended decompressed urinary bladder with perivesical inflammation and fat stranding. Minimal hyperdense hematuria or clot within the urinary bladder. Reproductive: Mildly prominent prostate with small prostate calcifications. Bones/joints: Multilevel spondylosis and degenerative bony changes. Soft tissues: Tiny fat containing umbilical hernia. Fat containing bilateral inguinal hernias left greater than right. CT/CT abdomen pelvis wo con [id number] IMPRESSION: 1. Hall catheter in place within a thickened nondistended decompressed urinary bladder with perivesical inflammation and fat stranding. Findings are suggestive of chronic cystitis/UTI. An underlying urothelial lesion could be obscured. 2. Minimal hyperdense hematuria or clot within the urinary bladder. 3. Moderate bilateral hydroureteronephrosis consistent with obstructive uropathy. 4. Colonic diverticulosis without CT evidence of diverticulitis. 5. Atherosclerotic vascular disease including coronary artery disease.
[2022-05-18 05:06] LABS: Basophils % 0.4 %; Eosinophils # 0.1 10^3/uL (0.0-0.8); Eosinophils % 2.2 %; Hemoglobin 8.4 g/dL (11.7-16.6); Lymphocytes # 0.7 10^3/uL (0.8-4.8); Lymphocytes % 12.1 %; Mean Corpuscular HGB Conc 32.3 g/dL (30.0-36.0); Mean Corpuscular Hemoglobin 28.5 pg (28.0-34.0); Mean Corpuscular Volume 88.1 fl (80-94); Mean Platelet Volume 11.3 fL (7.4-10.4); Monocytes # 0.3 10^3/uL (0.2-0.9); Monocytes % 6.2 %; Neutrophils # 4.29 10^3/uL (1.8-7.7); Neutrophils % 78.7 %; Nucleated Red Blood Cells % 0 %; Platelet Count 186 10^3/cmm (130-400); Red Blood Count 2.95 10^6/uL (4.1-5.3); Red Cell Distribution Width 13.2 % (12.1-15.1); White Blood Count 5.5 10^3/uL (4.0-10.0)
[2022-05-18 05:31] LABS: Blood Urea Nitrogen 69 mg/dL (8-23); Calcium 8.5 mg/dL (8.5-10.5); Carbon Dioxide 25 mmol/L (22-29); Chloride 104 mmol/L (98-107); Glucose 134 mg/dL (65-115); Osmolality Calculated 316 mOsm/kg (285-295); Sodium 142 mmol/L (136-145)
[2022-05-18] MEDS: allopurinol 100 mg Tablet PO (05:35)
[2022-05-18] MEDS: sucralfate 1 gm Tablet PO ×3 (05:35→18:16)
--- NOTE | 2022-05-18 07:09 | PC.NURSE ---
during my care of this patient i instilled a little less than 4 bags of CBI fluid at approx. 11,700ml and 12,975ml was returned. Urine yield was approx 1,275mls. No complaints of pain. Urine output color at this time light pink and turned down to a moderate flow. No need to irrigate during my time with this patient.
[2022-05-18] MEDS: levalbuterol 0.63 mg/3 mL Neb INHALATION (08:19)
[2022-05-18] MEDS: budesonide 0.5 mg/2 mL Neb INHALATION (08:19)
[2022-05-18 08:23] LABS: Creatine Phosphokinase 139 U/L (39-308)
--- NOTE | 2022-05-18 08:25 | PM.HP ---
Providers/Chief Complaint Admitting Physician: Kolton Sharma MD Primary Care Provider: Rajwinder Olivarez MD Chief Complaint: Clot evacuation History of Present Illness Nikita Perez is a 77 year old male Medications/Allergies Home Medications Medication Instructions Recorded Confirmed Last Taken Type duloxetine 60 mg capsule,delayed 60 mg PO BID 12/04/19 05/17/22 05/17/22 History release cholecalciferol (vitamin D3) 10 10 mcg PO DAILY 08/20/20 05/17/22 05/16/22 History mcg (400 unit) tablet (Vitamin D3) glucosamine HCl 500 mg tablet 500 mg PO DAILY 07/21/21 05/17/22 05/16/22 History multivitamin 1 tab PO DAILY 07/21/21 05/17/22 05/16/22 History allopurinol 100 mg tablet 100 mg PO QAM 09/30/21 05/17/22 05/17/22 History gabapentin 300 mg capsule 600 mg PO TID cap 09/30/21 05/17/22 05/17/22 History hydrochlorothiazide 25 mg tablet 25 mg PO DAILY #90 tab 10/12/21 05/17/22 05/16/22 Rx ceracare 1 tab PO DAILY 01/20/22 05/17/22 05/16/22 History tamsulosin 0.4 mg capsule 0.4 mg PO BID #180 cap 01/20/22 05/17/22 05/16/22 Rx sucralfate 1 gram tablet (Carafate) 1 g PO Q6H 84 Days #336 tab 01/26/22 05/17/22 05/16/22 Rx atorvastatin 80 mg tablet 40 mg PO BEDTIME tab 02/06/22 05/17/22 05/16/22 History fluticasone propionate 50 1 spray INTRANASAL BID 02/06/22 05/17/22 05/16/22 History mcg/actuation nasal spray,suspension (Allergy Relief (fluticasone)) resveratrol 100 mg capsule 100 mg PO DAILY cap 02/06/22 05/17/22 05/16/22 History acetaminophen 500 mg tablet 500 mg PO QPM PRN 02/07/22 05/17/22 02/28/22 History albuterol sulfate 90 mcg/actuation 1 inh INHALATION QID PRN 02/07/22 05/17/22 05/17/22 History aerosol inhaler (ProAir HFA) docusate calcium 240 mg capsule 240 mg PO DAILY 02/07/22 05/17/22 05/16/22 History insulin regular hum U-500 conc See Rx Instructions .ROUTE .COMPLEX 02/07/22 05/17/22 05/16/22 History (Humulin R U-500 (Conc) Insulin Kwikpen) lidocaine 5 % topical patch See Rx Instructions .ROUTE .COMPLEX 02/07/22 05/17/22 02/28/22 History mometasone 100 mcg/actuation HFA 1 puff INHALATION BID 02/07/22 05/17/22 02/28/22 History aerosol inhaler olodaterol 2.5 mcg/actuation mist 2 inh INHALATION DAILY 02/07/22 05/17/22 05/16/22 History for inhalation polyethylene glycol 3350 17 See Rx Instructions .ROUTE .COMPLEX 02/07/22 05/17/22 05/16/22 History gram/dose oral powder ferrous sulfate 325 mg (65 mg 325 mg PO DAILY 03/01/22 05/17/22 05/16/22 History iron) tablet (Feosol) nifedipine 30 mg tablet,extended 30 mg PO DAILY #30 tab 05/17/22 05/17/22 Unknown Rx release Allergies Allergy/AdvReac Type Severity Reaction Status Date / Time losartan Allergy Mild ADR-Seizure Verified 05/17/22 12:47 lisinopril Allergy unknown Verified 05/17/22 12:47 tetanus toxoid, adsorbed Allergy unknown Verified 05/17/22 12:47 PFSH Acute PFSH: Medical History Chronic kidney disease Complex renal cyst Overall considered low risk, following with ultrasound, COPD (chronic obstructive pulmonary disease) Diabetes mellitus Diabetic neuropathy Gross hematuria H/O cardiac pacemaker HTN (hypertension) Incomplete bladder emptying Lesion of bladder Chronic inflammatory change with fibroadipose tissue most likely consistent patient cystitis despite its suspicious appearing on cystitis Obstructive sleep apnea Prostate cancer Diagnosed 2019 treated with radiation therapy with good response No evidence of recurrence Sinus node dysfunction Urinary retention Surgical History History of back surgery C3-C4 ACDFF WITH C4 CORPECTOMY History of circumcision History of eye surgery 2018 History of neck surgery History of prostate biopsy Status post cataract surgery Status post knee surgery left Family History Father , AT AGE 65-CHF No problems noted. Mother , AT AGE 65-CHF No problems noted. Social History Smoking and tobacco status: former smoker Alcohol intake: never Marital status: Current occupational status: retired and disabled History of recent travel: No Vitals/I&O/Wt Last Vital Signs Temp 98.3 F 05/18/22 04:00 Pulse 78 05/18/22 08:22 Resp 18 05/18/22 08:22 BP 119/66 05/18/22 04:00 Pulse Ox 90 05/18/22 08:22 05/17/22 05/18/22 05/18/22 22:59 06:59 14:59 Intake Total 400 / 400 400 / 800 Output Total 301 / 301 3125 / 3426 Balance 99 / 99 -2725 / -2626 Weight last 48 hrs Weight 116.233 kg Weight 117.934 kg Physical Exam Urinary Catheter Management: 3-way Urethral CBI: Cath Placed During This Visit: yes, but has since been removed by the nurse Reason for Continuing Indwelling Catheter: Perioperative Use in Selected Surgeries Urinary Catheter Date of Insertion: 05/17/22 Urinary Catheter Time of Insertion: 17:00 Date Urinary Catheter Removed: 05/17/22 Time Urinary Catheter Discontinued: 16:45 Data : 05/18/22 04:57 05/18/22 04:57 Coding Level of Care Code Acute Health Counselor for [facility]
--- NOTE | 2022-05-18 08:32 | PM.CONSULT ---
Providers/Reason For Consult Consulting Physician/Specialty*: Nimesh Talamantes MD, hospitalist Reason for Consult*: Medical management, renal failure Requesting Physician: Dr. Sharma Attending Physician: Kolton Sharma MD Primary Care Provider: Rajwinder Olivarez MD History of Present Illness History of Present Illness Nikita Perez is a 77 year old male admitted to hospital with hematuria, requiring CBI. Urology noted the patient had significant renal failure on admission. Patient reports he has been concerned about blood in his urine lately. He reports no fevers. He has had no vomiting. He denies any chest pain or shortness of breath. He has been taking his medication as prescribed. There has been a concern as his renal function is still poor this morning. Hospital course to this point has been reviewed in detail with the patient. Review of Systems General: Reports: 10 or more systems reviewed and unremarkable except in HPI and below Const: Denies: fever(s) or chills Eyes: Denies: change in vision ENMT: Denies: throat pain Card: Denies: chest pain Resp: Reports: dyspnea (Reports this is chronic and unchanged) GI: Reports: hematochezia (Occasional blood in stool. Negative colonoscopy 2018); Denies: abdominal pain, nausea or vomiting : Reports: difficulty urinating and hematuria Musc: Denies: neck pain Skin/Breast: Denies: rash Neuro: Denies: headache(s) Psych: Denies: anxiety Endo: Denies: polyuria Eder/Lymph: Denies: easy bruising All/Imm: Denies: urticaria Medications/Allergies Home Medications Medication Instructions Recorded Confirmed Last Taken Type duloxetine 60 mg capsule,delayed 60 mg PO BID 12/04/19 05/17/22 05/17/22 History release cholecalciferol (vitamin D3) 10 10 mcg PO DAILY 08/20/20 05/17/22 05/16/22 History mcg (400 unit) tablet (Vitamin D3) glucosamine HCl 500 mg tablet 500 mg PO DAILY 07/21/21 05/17/22 05/16/22 History multivitamin 1 tab PO DAILY 07/21/21 05/17/22 05/16/22 History allopurinol 100 mg tablet 100 mg PO QAM 09/30/21 05/17/22 05/17/22 History gabapentin 300 mg capsule 600 mg PO TID cap 1105/17/22 05/17/22 History hydrochlorothiazide 25 mg tablet 25 mg PO DAILY #90 tab 10/12/21 05/17/22 05/16/22 Rx ceracare 1 tab PO DAILY 01/20/22 05/17/22 05/16/22 History tamsulosin 0.4 mg capsule 0.4 mg PO BID #180 cap 01/20/22 05/17/22 05/16/22 Rx sucralfate 1 gram tablet (Carafate) 1 g PO Q6H 84 Days #336 tab 01/26/22 05/17/22 05/16/22 Rx atorvastatin 80 mg tablet 40 mg PO BEDTIME tab 02/06/22 05/17/22 05/16/22 History fluticasone propionate 50 1 spray INTRANASAL BID 02/06/22 05/17/22 05/16/22 History mcg/actuation nasal spray,suspension (Allergy Relief (fluticasone)) resveratrol 100 mg capsule 100 mg PO DAILY cap 02/06/22 05/17/22 05/16/22 History acetaminophen 500 mg tablet 500 mg PO QPM PRN 02/07/22 05/17/22 02/28/22 History albuterol sulfate 90 mcg/actuation 1 inh INHALATION QID PRN 02/07/22 05/17/22 05/17/22 History aerosol inhaler (ProAir HFA) docusate calcium 240 mg capsule 240 mg PO DAILY 02/07/22 05/17/22 05/16/22 History insulin regular hum U-500 conc See Rx Instructions .ROUTE .COMPLEX 02/07/22 05/17/22 05/16/22 History (Humulin R U-500 (Conc) Insulin Kwikpen) lidocaine 5 % topical patch See Rx Instructions .ROUTE .COMPLEX 02/07/22 05/17/22 02/28/22 History mometasone 100 mcg/actuation HFA 1 puff INHALATION BID 02/07/22 05/17/22 02/28/22 History aerosol inhaler olodaterol 2.5 mcg/actuation mist 2 inh INHALATION DAILY 02/07/22 05/17/22 05/16/22 History for inhalation polyethylene glycol 3350 17 See Rx Instructions .ROUTE .COMPLEX 02/07/22 05/17/22 05/16/22 History gram/dose oral powder ferrous sulfate 325 mg (65 mg 325 mg PO DAILY 03/01/22 05/17/22 05/16/22 History iron) tablet (Feosol) nifedipine 30 mg tablet,extended 30 mg PO DAILY #30 tab 05/17/22 05/17/22 Unknown Rx release Allergies Allergy/AdvReac Type Severity Reaction Status Date / Time losartan Allergy Mild ADR-Seizure Verified 05/17/22 12:47 lisinopril Allergy unknown Verified 05/17/22 12:47 tetanus toxoid, adsorbed Allergy unknown Verified 05/17/22 12:47 Current Medications Generic Name Dose Route Start Last Admin Trade Name Freq PRN Reason Stop Dose Admin Allopurinol 100 mg 05/18/22 06:00 05/18/22 05:35 Allopurinol 100 Mg Tablet PO 100 mg QAM ABHILASH Administration Budesonide 0.5 mg 05/17/22 20:00 05/18/22 08:19 Budesonide 0.5 Mg/2 Ml Neb INHALATION 0.5 mg BID.RESPIRATORY ABHILASH Administration Duloxetine HCl 60 mg 05/17/22 18:54 05/17/22 20:05 Duloxetine 60 Mg Capsule PO 60 mg BID ABHILASH Administration Fluticasone Propionate 1 spray 05/17/22 18:54 05/17/22 20:06 Fluticasone Nasal [place] 16gm Btl INTRANASAL Not Given BID ABHILASH Sodium Chloride 1,000 mls @ 100 mls/hr 05/17/22 18:54 05/17/22 20:07 Sodium Chloride 0.9% IV 30 mls/hr .Q10H ABHILASH Administration Sucralfate 1 gm 05/17/22 18:54 05/18/22 05:35 Sucralfate 1 Gm Tablet PO 1 gm Q6H ABHILASH Administration Tamsulosin HCl 0.4 mg 05/17/22 18:54 05/17/22 20:05 Tamsulosin 0.4 Mg Capsule PO 0.4 mg BID ABHILASH Administration PFSH Acute PFSH: Medical History Chronic kidney disease Complex renal cyst Overall considered low risk, following with ultrasound, COPD (chronic obstructive pulmonary disease) Diabetes mellitus Diabetic neuropathy Gross hematuria H/O cardiac pacemaker HTN (hypertension) Incomplete bladder emptying Lesion of bladder Chronic inflammatory change with fibroadipose tissue most likely consistent patient cystitis despite its suspicious appearing on cystitis Obstructive sleep apnea Prostate cancer Diagnosed 2019 treated with radiation therapy with good response No evidence of recurrence Sinus node dysfunction Urinary retention Surgical History History of back surgery C3-C4 ACDFF WITH C4 CORPECTOMY History of circumcision History of eye surgery 2018 History of neck surgery History of prostate biopsy Status post cataract surgery Status post knee surgery left Family History Father , AT AGE 65-CHF No problems noted. Mother , AT AGE 65-CHF No problems noted. Social History Smoking and tobacco status: former smoker Alcohol intake: never Marital status: Current occupational status: retired and disabled History of recent travel: No Vitals/I&O/Wt Last Vital Signs Temp 98.3 F 05/18/22 04:00 Pulse 78 05/18/22 08:22 Resp 18 05/18/22 08:22 BP 119/66 05/18/22 04:00 Pulse Ox 90 05/18/22 08:22 05/17/22 05/18/22 05/18/22 22:59 06:59 14:59 Intake Total 400 / 400 400 / 800 Output Total 301 / 301 3125 / 3426 Balance 99 / 99 -2725 / -2626 Weight last 48 hrs Weight 116.233 kg Weight 117.934 kg Physical Exam Narrative: General exam is a conversive white male, in no distress. HEENT: Pupils equally round. Oropharynx clear. Neck is supple no lymphadenopathy or thyromegaly Cardiovascular regular rate and rhythm without murmur. Lungs clear no wheezing or crackles. Diminished breath sounds are noted bilaterally Abdomen is soft with positive bowel sounds. Perhaps slight suprapubic pain to palpation, more on the right. exam demonstrates Hall Extremities no cyanosis clubbing or edema, cap refill brisk Skin no rash Neuro no focal deficits Urinary Catheter Management: 3-way Urethral CBI: Cath Placed During This Visit: yes, but has since been removed by the nurse Reason for Continuing Indwelling Catheter: Perioperative Use in Selected Surgeries Urinary Catheter Date of Insertion: 05/17/22 Urinary Catheter Time of Insertion: 17:00 Date Urinary Catheter Removed: 05/17/22 Time Urinary Catheter Discontinued: 16:45 Data : 05/18/22 04:57 05/18/22 04:57 Other Labs: Calcium 8.5 CK1 [address] demonstrates Hall catheter with decompressed bladder, perivesical inflammation and fat stranding, moderate bilateral hydroureteronephrosis A&P Assessment and plan (1) Acute kidney injury: Patient with significant acute kidney injury, which appears to be secondary to postobstructive uropathy. Clot removal occurred yesterday. Ureteral stents are planned today. Continue hydration currently. Monitor closely for any fluid overload. Currently will use isotonic saline at 100 cc an hour. Check urinalysis I have checked CK this morning, it was normal Hold statin Reduce Neurontin for renal function Discontinue current insulin regimen. He has significant chance of hypoglycemia with his renal failure. Placed on mild sliding scale. Avoid renal toxic medication Hold hydrochlorothiazide Secondary to concern of possible cystitis placed on Rocephin, urine culture will be obtained Repeat laboratory around 1. Status: Acute (2) Obstructive uropathy: Postoperative day #1 status post clot evacuation. Urology evaluating for ureteral stenting Status: Acute (3) Gross hematuria: Improved with CBI, clot evacuation by urology Status: Acute (4) Anemia: Significant acute blood loss anemia secondary to hematuria. Hemoglobin appears to have stabilized. Repeat hemoglobin this afternoon. At this point blood transfusion is not needed. It may be needed in the future. Status: Acute (5) Diabetes mellitus: Change to sliding scale insulin Status: Acute Qualifiers: Diabetes mellitus type: type 2 Diabetes mellitus assisted insulin use: with artificial plastic eye maker use Diabetes mellitus complication status: without complication Qualified Code(s): E11.9 - Type 2 diabetes mellitus without complications; Z79.4 - assisted (current) use of insulin (6) HTN (hypertension): Discontinue hydrochlorothiazide for now. Close monitoring of blood pressure. Status: Acute Qualifiers: Hypertension type: essential hypertension Qualified Code(s): I10 - Essential (primary) hypertension Plan Multiple other medical problems as listed in past medical history Full code SCDs for DVT prophylaxis. Anticoagulation contraindicated as active bleeding Consult Attestations Medical Necessity Statement: As per primary Coding Level of Care Code Acute Technical Training Coordinator for [facility] Diagnoses Acute kidney injury N17.9 Obstructive uropathy N13.9 Gross hematuria R31.0 Anemia D64.9 Diabetes mellitus E11.9; Z79.4 Diabetes mellitus type: type 2 Diabetes mellitus assisted insulin use: with assisted use Diabetes mellitus complication status: without complication HTN (hypertension) I10 Hypertension type: essential hypertension
[2022-05-18] MEDS: NIFEdipine ER (24 hr) 30 mg Tablet PO (09:23)
[2022-05-18] MEDS: docusate sodium 100 mg Capsule 200 MG PO (09:23)
[2022-05-18] MEDS: tamsulosin 0.4 mg Capsule PO ×2 (09:24→18:16)
[2022-05-18] MEDS: ferrous sulfate EC 325 mg Tablet PO (09:24)
[2022-05-18] MEDS: duloxetine 60 mg Capsule PO ×2 (09:24→18:16)
[2022-05-18] MEDS: fluticasone nasal spray 16gm Btl 1 SPRAY INTRANASAL ×2 (09:25→18:16)
[2022-05-18] MEDS: lidocaine 5% Patch 1 PATCH TRANSDERMA (09:25)
[2022-05-18] MEDS: cefTRIAXone 1,000 MG in sodium chloride 0.9% (plus) 50 ML 100 MG IV (09:29)
[2022-05-18] MEDS: gabapentin 100 mg Capsule PO ×2 (09:29→15:13)
--- NOTE | 2022-05-18 09:35 | ANES.PREANE2 ---
Pre-Anesthetic Assessment Height/Weight: Height 1.83 m Weight 116.233 kg Temp Pulse Resp BP Pulse Ox 98.3 F 78 18 119/66 90 05/18/22 04:00 05/18/22 08:22 05/18/22 08:22 05/18/22 04:00 05/18/22 08:22 Preop Diagnosis: Clot Urinary retention, radiation cystitis Operation Date: 05/17/22 16:30 Proposed Procedures p Cystoscopy(Not Applicable) - Kolton Sharma MD s Clot Evacuation Fulguration(Not Applicable) - Kolton Sharma MD Operation Date: 05/18/22 11:50 Proposed Procedures p Cystoscopy(Not Applicable) - Kolton Sharma MD s Ureteral Stent Placement(Not Applicable) - Kolton Sharma MD s possible Clot Evacuation Fulguration(Not Applicable) - Kolton Sharma MD Familial anesthetic complications: none Was Beta Marcos taken within 24 hours: N/A Was Clonidine taken within 24 hours: N/A Last intake: Intake Last Liquid Date 05/17/22 Last Liquid Time 10:30 Last Solid Date 05/17/22 Last Solid Time 07:00 Social No alcohol and No tobacco Exam alert, oriented x 3 and regular rate & rhythm diminished b/l Airway Submandibular: within normal limits Cervical ROM: within normal limits Mallampati: Class IV Dentition: chipped Pulmonary Chronic Obstructive Pulmonary Disease and Sleep Apnea CV/HEM Arrythmia and Hypertension cardiac pacemaker Chronic Renal Insufficiency Hepatic None reported GI None reported Metabolic Diabetes Mellitus Musc/skel Osteoarthritis/DJD Neuropsych None reported Anesthetic Plan ASA status: 4 Anesthesia: Anesthesia Evaluation and General Other: We discussed risk and benefits of general anesthesia including PONV, sore throat (sometimes severe), corneal abrasion, positioning and peripheral nerve injuries, life threatening allergic reaction, post operative ICU admission requiring prolonged intubation, aspiration, stroke, heart attack, , and rare incidences of recall. Patient consents to proceed with general anesthesia. Risk of > 500 ml blood loss (7ml/kg in children): No Medications/Allergies Home Medications Medication Instructions Recorded Confirmed Last Taken Type duloxetine 60 mg capsule,delayed 60 mg PO BID 12/04/19 05/17/22 05/17/22 History release cholecalciferol (vitamin D3) 10 10 mcg PO DAILY 08/20/20 05/17/22 05/16/22 History mcg (400 unit) tablet (Vitamin D3) glucosamine HCl 500 mg tablet 500 mg PO DAILY 07/21/21 05/17/22 05/16/22 History multivitamin 1 tab PO DAILY 07/21/21 05/17/22 05/16/22 History allopurinol 100 mg tablet 100 mg PO QAM 09/30/21 05/17/22 05/17/22 History gabapentin 300 mg capsule 600 mg PO TID cap 09/30/21 05/17/22 05/17/22 History hydrochlorothiazide 25 mg tablet 25 mg PO DAILY #90 tab 10/12/21 05/17/22 05/16/22 Rx ceracare 1 tab PO DAILY 01/20/22 05/17/22 05/16/22 History tamsulosin 0.4 mg capsule 0.4 mg PO BID #180 cap 01/20/22 05/17/22 05/16/22 Rx sucralfate 1 gram tablet (Carafate) 1 g PO Q6H 84 Days #336 tab 01/26/22 05/17/22 05/16/22 Rx atorvastatin 80 mg tablet 40 mg PO BEDTIME tab 02/06/22 05/17/22 05/16/22 History fluticasone propionate 50 1 spray INTRANASAL BID 02/06/22 05/17/22 05/16/22 History mcg/actuation nasal spray,suspension (Allergy Relief (fluticasone)) resveratrol 100 mg capsule 100 mg PO DAILY cap 02/06/22 05/17/22 05/16/22 History acetaminophen 500 mg tablet 500 mg PO QPM PRN 02/07/22 05/17/22 02/28/22 History albuterol sulfate 90 mcg/actuation 1 inh INHALATION QID PRN 02/07/22 05/17/22 05/17/22 History aerosol inhaler (ProAir HFA) docusate calcium 240 mg capsule 240 mg PO DAILY 02/07/22 05/17/22 05/16/22 History insulin regular hum U-500 conc See Rx Instructions .ROUTE .COMPLEX 02/07/22 05/17/22 05/16/22 History (Humulin R U-500 (Conc) Insulin Kwikpen) lidocaine 5 % topical patch See Rx Instructions .ROUTE .COMPLEX 02/07/22 05/17/22 02/28/22 History mometasone 100 mcg/actuation HFA 1 puff INHALATION BID 02/07/22 05/17/22 02/28/22 History aerosol inhaler olodaterol 2.5 mcg/actuation mist 2 inh INHALATION DAILY 02/07/22 05/17/22 05/16/22 History for inhalation polyethylene glycol 3350 17 See Rx Instructions .ROUTE .COMPLEX 02/07/22 05/17/22 05/16/22 History gram/dose oral powder ferrous sulfate 325 mg (65 mg 325 mg PO DAILY 03/01/22 05/17/22 05/16/22 History iron) tablet (Feosol) nifedipine 30 mg tablet,extended 30 mg PO DAILY #30 tab 05/17/22 05/17/22 Unknown Rx release Allergies Allergy/AdvReac Type Severity Reaction Status Date / Time losartan Allergy Mild ADR-Seizure Verified 05/17/22 12:47 lisinopril Allergy unknown Verified 05/17/22 12:47 tetanus toxoid, adsorbed Allergy unknown Verified 05/17/22 12:47 Current Medications Generic Name Dose Route Start Last Admin Trade Name Freq PRN Reason Stop Dose Admin Allopurinol 100 mg 05/18/22 06:00 05/18/22 05:35 Allopurinol 100 Mg Tablet PO 100 mg QAM ABHILASH Administration Budesonide 0.5 mg 05/17/22 20:00 05/18/22 08:19 Budesonide 0.5 Mg/2 Ml Neb INHALATION 0.5 mg BID.RESPIRATORY ABHILASH Administration Docusate Sodium 200 mg 05/18/22 09:00 05/18/22 09:23 Docusate Sodium 100 Mg Capsule PO 200 mg DAILY ABHILASH Administration Duloxetine HCl 60 mg 05/17/22 18:54 05/18/22 09:24 Duloxetine 60 Mg Capsule PO 60 mg BID ABHILASH Administration Ferrous Sulfate 325 mg 05/18/22 09:00 05/18/22 09:24 Ferrous Sulfate Ec 325 Mg Tablet PO 325 mg DAILY ABHILSAH Administration Fluticasone Propionate 1 spray 05/17/22 18:54 05/18/22 09:25 Fluticasone Nasal [place] 16gm Btl INTRANASAL 1 spray BID ABHILASH Administration Gabapentin 100 mg 05/18/22 09:00 05/18/22 09:29 Gabapentin 100 Mg Capsule PO 100 mg TID ABHILASH Administration Sodium Chloride 1,000 mls @ 100 mls/hr 05/17/22 18:54 05/17/22 20:07 Sodium Chloride 0.9% IV 30 mls/hr .Q10H ABHILASH Administration Ceftriaxone Sodium 1,000 mg/ 50 mls @ 100 mls/hr 05/18/22 09:00 05/18/22 09:29 Sodium Chloride IV 100 mls/hr Q24H ABHILASH Administration Protocol Lidocaine 1 patch 05/18/22 09:00 05/18/22 09:25 Lidocaine 5% Patch TRANSDERMA 1 patch Q12H ABHILASH Administration Nifedipine 30 mg 05/18/22 09:00 05/18/22 09:23 Nifedipine Er (24 Hr) 30 Mg Tablet PO 30 mg DAILY ABHILASH Administration Sucralfate 1 gm 05/17/22 18:54 05/18/22 05:35 Sucralfate 1 Gm Tablet PO 1 gm Q6H ABHILASH Administration Tamsulosin HCl 0.4 mg 05/17/22 18:54 05/18/22 09:24 Tamsulosin 0.4 Mg Capsule PO 0.4 mg BID ABHILASH Administration PFSH Anesthesia Medical History Chronic kidney disease Complex renal cyst Overall considered low risk, following with ultrasound, COPD (chronic obstructive pulmonary disease) Diabetes mellitus Diabetic neuropathy Gross hematuria H/O cardiac pacemaker HTN (hypertension) Incomplete bladder emptying Lesion of bladder Chronic inflammatory change with fibroadipose tissue most likely consistent patient cystitis despite its suspicious appearing on cystitis Obstructive sleep apnea Prostate cancer Diagnosed 2019 treated with radiation therapy with good response No evidence of recurrence Sinus node dysfunction Urinary retention Surgical History History of back surgery C3-C4 ACDFF WITH C4 CORPECTOMY History of circumcision History of eye surgery 2018 History of neck surgery History of prostate biopsy Status post cataract surgery Status post knee surgery left Family History Father , AT AGE 65-CHF No problems noted. Mother , AT AGE 65-CHF No problems noted. Social History Smoking and tobacco status: former smoker Alcohol intake: never Marital status: Current occupational status: retired and disabled History of recent travel: No Data Anesthesia : 05/18/22 04:57 05/18/22 04:57 Short CBC 05/17/22 05/18/22 Range/Units 16:45 04:57 WBC 4.9 5.5 (4.0-10.0) 10^3/uL Hgb 8.5 L 8.4 L (11.7-16.6) g/dL Hct 26.9 L 26.0 L (42.0-52.0) % MCV 91.2 88.1 (80-94) fl Plt Count 187 186 (130-400) 10^3/cmm Neut % (Auto) 67.2 78.7 % Neut # (Auto) 3.28 4.29 (1.8-7.7) 10^3/uL BMP 05/17/22 05/17/22 05/18/22 16:45 23:01 04:57 Sodium Cancelled 141 142 Potassium Cancelled 4.9 5.0 Chloride Cancelled 103 104 Carbon Dioxide Cancelled 25 25 BUN Cancelled 70 H 69 H Creatinine Cancelled 6.3 H* 6.0 H* Glucose Cancelled 105 134 H Calcium Cancelled 8.4 L 8.5 Cardiac Enzymes 05/18/22 Range/Units 04:57 Creatine Kinase 139 (39-308) U/L Liver Function 05/17/22 05/17/22 Range/Units 16:45 23:01 Total Bilirubin Cancelled 0.2 AST Cancelled 15 ALT Cancelled 8 Alkaline Phosphatase Cancelled 71 Albumin Cancelled 3.6 Blood Bank 05/18/22 04:57 Blood Type O Negative Rho(D) Type Negative Antibody Screen Negative Cardiac Studies: Echocardiogram Ultrasound 09/16/20 Cardiac Event Monitor 09/22/20
--- NOTE | 2022-05-18 10:29 | PC.CHAP ---
Pastoral Care Encounter/Spiritual Assessment Type of Contact [] Declined stock and station agent visit [] Patient/Family/Request visit [] Outpatient visit [] Follow-up visit [] Physician referral [] Code/Alert [x] Routine visit [] Staff referral [] Actively dying [] Patient sleeping [] Family support [] [] Out of room [] Palliative care [] [x] Receiving care in room [] Pre-surgical visit [] Trauma [] Long length of stay [] ICU visit [] Other: Relational/Emotional Strength [x] Patient feels connected with others/family/visitors/staff [] Distress [] Loneliness/isolation [] Abandonment Spirituality of Patient [x] Person of Juliette [] Attends [employer] of their [place] [x] Believes in Prayer [] Reads Bible or Religion materials [] There are Spiritual issues to be addressed 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 Plant 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 Interventions [x] Prayer [x] Active listening [x] Non-anxious presence [x] Spiritual/emotional support [] Crisis/trauma care [x] Spiritual counseling [] Bereavement support [] Provided bereavement packet [] Provided Bible/devotional materials [] Provided toy/stuffed animal, coloring book to patient or family member [] Provided Communion [] Anointing/[place] [] Salvation [x] Completed spiritual assessment [] Other: Impact on Illness or Injury [] Angry [] Fearful [x] Anxious [] Often cries [] Exhaustion [] Unable to work [] Unable to attend mu-ism [] Unable to walk/stand [] Unable to read [] Unable to drive [] Unable to eat/drink [] Unable to sleep [] Unable to be with family [] Patient intubated [] Other: Summary in some pain had surgery has a good attirude soime recovery time will be going home Time spent with patient 10 mins
[2022-05-18 10:45] LABS: Glucose Point of Care 145 mg/dL (70-110)
[2022-05-18] MEDS: sodium chloride 0.9% 1,000 ML 30 ML IV (11:40)
--- NOTE | 2022-05-18 12:20 | SC_ITS ---
WS: [id number] [place] [facility] U[facility] REASON FOR EXAM: surgery FINDINGS: The cystoscope in place with wire deployed into air-filled bladder which has an irregular mucosal cristofer face. SC/[facility] [place] [facility] U[facility] IMPRESSION: Cystoscopy as above.
[2022-05-18] MEDS: lidocaine 2% Urojet 20 mL TOPICAL (12:43)
[2022-05-18 13:34] LABS: Glucose Point of Care 149 mg/dL (70-110)
--- NOTE | 2022-05-18 13:34 | P.OP_ITS ---
Operative Report Date of procedure: May 18, 2022 Pre-op diagnosis: Bilateral distal ureteral obstruction with acute renal failure Clot Urinary retention, radiation cystitis Post-op diagnosis: Bilateral distal ureteral obstruction with acute renal failure Clot Urinary retention, radiation cystitis Procedure done: Cystoscopy, clot evacuation (small amount of clot) Implants: Hall catheter Specimens removed/disposition: Clot Pathology: None Surgeon: Edith Anesthesia: General Urine output: Not measured Complications: Could not identify either ureteral orifice through the severe inflammatory changes on the posterior bladder wall near the bladder neck extending onto the trigone. No evidence of malignant process. Therefore attempt at bilateral ureteral stenting retrograde fashion was aborted. Findings: Severe intense inflammatory changes on the posterior bladder wall near the bladder neck. Failed to identify either ureteral orifice. Small amount of clot evacuated. No active bleeding was identified. 24 Gu[place]ian three-way 30 cc balloon catheter was replaced for prophylactic CBI. Brief History: Mr. Velasco is a delightful 77-year-old white male with a history of prostate cancer status post radiation therapy no evidence of recurrence to date. 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 He also had persistence of incomplete emptying and required SCIC for bladder management since that time. Developed recurrent bleeding requiring cystoscopy and clot evacuation of large amount of clot with severe bleeding earlier this year. Treated conservatively with improvement. Based on the radiation cystitis changes was recommended that he undergo hyperbaric oxygen therapy which was completed in mid April. Presented to the office yesterday with 1 weeks worth of ongoing intermittent bleeding. Could not drain his bladder completely because of the catheter size and persistence of retention requiring SCIC. He was scoped in the clinic after a prolonged irrigation of the bladder and still found to have large clots and ultimately last night was taken to the operating room for clot evacuation. Was found to have a lot of inflammatory changes in the bladder but no active bleeding after the clots were removed and he was transferred back to the floor on CBI for prophylaxis. Did have more bleeding but it was ultimately managed well conservatively with CBI. CMP was drawn preoperatively but was discarded due to hemolyzed specimen. It was repeated and at midnight was discovered to have a creatinine of 6.3. No electrolyte disturbances otherwise. No cardiac irritability etc. He was decided to taken to the operating room today when time is available to see if a retrograde access could be obtained for bilateral ureteral stenting. We did review that if that was impossible he would need bilateral percutaneous nephrostomies and that would require transfer to an institution with IR coverage. He was taken to the operating suite this afternoon for cystoscopy clot evacuation bilateral ureteral stenting. Procedure: After urgent evaluation and obtaining of informed consent he was taken to the operating suite on 05/18/2022 where general anesthesia was administered without difficulty. Prepped and draped in usual sterile fashion in dorsolithotomy position paying careful attention to avoiding pressure points. 21 [place]ian cystoscope with 30 degree lens was introduced into the urethra meatus and advanced into the bladder. The previously identified high bladder neck and fairly fixed bladder neck was again encountered but easily bypassable. Clot was identified in the bladder and was cleared with an Ellik evacuator easily. Careful inspection with a 70 and 30 degree lens was then conducted looking for either ureteral orifice. There is an intense amount of inflammation and bullous edema of the bladder neck area extending onto the trigone bilaterally and extending fairly laterally on both sides. A guidewire was used to try to probe several potential areas but unfortunately none of the more likely possibilities were proven to be ureteral orifices. Eventually the attempt at guidewire passing was abandoned. The bladder was then carefully inspected looking for any active bleeding and none was found. The guidewire was advanced into the bladder to help facilitate passage of the 24 [place]ian three-way 30 cc balloon catheter. Last night when I placed the catheter it was somewhat difficult and a guidewire made it easier. Balloon was inflated with 30 cc catheter was irrigated and confirmed to be functioning well and the wire was removed. Light CBI was reinitiated. He tolerated procedure well without complications and was awakened in the operating room and returned to the recovery room in stable condition. PLANS: 1. We will request transfer for interventional radiology. Family and patient prefer [facility] if possible. I will contact Dr. Carney to see if that it would be a possibility. 2. Continue CBI for now. 3. I have reviewed the findings with the and patient. We had discussed this possibility preoperatively so it was no real surprise. They seem to content with my explanations.
--- NOTE | 2022-05-18 14:13 | ANE.PACU2 ---
Inpatient post-anesthesia follow up: Airway intact: Yes Vital signs: Temperature 97.7 F Pulse Rate 87 Respiratory Rate 17 Blood Pressure 110/69 Pulse Oximetry 92 Oxygen Delivery Me thod Nasal Cannula Oxygen Flow Rate 2 Fraction of Inspir ed Oxygen Hydration adequate: Yes Nausea and vomiting: No Pain level: 1 Mental status: Baseline
[2022-05-18 15:17] LABS: Basophils % 0.1 %; Eosinophils % 0.2 %; Hematocrit 24.2 % (42.0-52.0); Hemoglobin 7.9 g/dL (11.7-16.6); Lymphocytes # 0.6 10^3/uL (0.8-4.8); Lymphocytes % 7.6 %; Mean Corpuscular HGB Conc 32.6 g/dL (30.0-36.0); Mean Corpuscular Hemoglobin 28.7 pg (28.0-34.0); Monocytes # 0.5 10^3/uL (0.2-0.9); Monocytes % 5.6 %; Neutrophils # 7.17 10^3/uL (1.8-7.7); Neutrophils % 86.1 %; Nucleated Red Blood Cells % 0 %; Platelet Count 184 10^3/cmm (130-400); Red Blood Count 2.75 10^6/uL (4.1-5.3); Red Cell Distribution Width 13.3 % (12.1-15.1); White Blood Count 8.3 10^3/uL (4.0-10.0)
[2022-05-18 15:20] LABS: Blood Urea Nitrogen 67 mg/dL (8-23); Calcium 8.3 mg/dL (8.5-10.5); Carbon Dioxide 23 mmol/L (22-29); Chloride 104 mmol/L (98-107); Glucose 154 mg/dL (65-115); Osmolality Calculated 316 mOsm/kg (285-295); Sodium 142 mmol/L (136-145)
[2022-05-18] MEDS: ipratropium-albuterol 3 mL Neb INHALATION (16:00)
[2022-05-18] MEDS: HYDROcodone-acetaminophen 5-325 mg Tablet 1 TAB PO (16:13)
[2022-05-18 17:18] LABS: Glucose Point of Care 166 mg/dL (70-110)
--- NOTE | 2022-05-18 17:25 | P.TS_ITS ---
Transfer Summary Providers Date of Admission: 05/17/22 17:40 Date of Discharge/Transfer: 05/18/22 Attending Provider at Admission: Kolton Sharma MD Attending Provider at Transfer: Kolton Sharma MD Consults: Hospitalist service: Dr. Nimesh Talamantes Primary Care Provider: Rajwinder Olivarez MD Transfer Plans: Anticipated date of transfer: 05/18/22 . Diagnoses at Discharge Discharge Diagnosis (1) Acute kidney injury: Details from hospital stay: Creatinine of 6.3 discovered on routine lab work done before emergent clot evacuation. Discovered to be secondary to distal ureteral obstruction bilaterally likely from bladder inflammatory changes. Status: Acute (2) Obstructive uropathy: Details from hospital stay: See above Status: Acute (3) Gross hematuria: Details from hospital stay: Recurrent. 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 Below is a summary of problems that we are following as well as current admission description. PCP: Rajwinder Olivarez, [place] [facility] [place] visit Problems following: PROSTATE CANCER Diagnosed January 2019 PSA 12.3and benign feeling ZEHRA. Prostate volume 54 mL. Pathology: 6 of 12 cores positive for Maria R 3+4 ranging from 2 microscopic foci and 4 with volumes of 40-95%. Bilateral involvement. at prostate cancer counseling he was leaning more toward radiation therapy.? Daughters participated in discussion February 2019. Received combination therapy with antigen deprivation therapy x6 months and EBRT (completed on 08/05/2020). COMPLEX RENAL CYST Follow-up ultrasound showed no evidence of progression of concerning findings. GROSS HEMATURIA Associated with UTI with complete resolution after treatment with ciprofloxacin 2019. 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 Recurred April 2022. URINARY RETENTION Etiology unclear. Was not able to void after initial episode of gross hematuria and has been on self clean intermittent catheterization since then. CURRENT VISIT 05/17/2022: UROLOGY follow-up visit Urgent drop-in: GROSS HEMATURIA/retention Noticed increasing gross hematuria fairly abruptly on 05/12/2022.? Continued intermittently over the weekend and then got worse on 05/15/2022.? Has not really abated since that time.? Was having difficulty emptying his bladder with his intermittent catheterization schedule. Experiencing a lot of pressure frequency and urgency. Presented to the clinic where a large bore Hall catheter was placed and manual irrigation was conducted with about 4+ liters of sterile water with a lot of clot returned. Procedure: CYSTOSCOPY/clot evacuation:?2% lidocaine jelly, informed consent obtained, routine prep. Findings: Scope was passed into the bladder.? Large amount of clot in the bladder.? Irrigation was conducted with some return.? Could not see any definite active bleeding. Exchanged for 22 Vietnamese hematuria catheter (Anay Morel) but still cannot clear the clot. Based on the degree of bleeding that he has been having now for almost a week and amount of clot that was visualized I recommended taken to the operating room for cystoscopy clot evacuation fulguration. See above problems which were reviewed and updated today specifically with radiation cystitis. I reviewed with the patient the procedure.? He has been through this before.? Benefits risk potential complications alternatives discussed. We will plan on cystoscopy clot evacuation fulguration and admission for postoperative CBI Hospital Course Hospital Course On day of admission, 05/17/2022 he was taken from the clinic to the outpatient surgery area and then to the operating room for clot evacuation. He was found to have a fairly large amount of clot in his bladder that was cleared with cystoscopy. There was a lot of inflammatory changes noted on the posterior floor but no active bleeding. Three-way CBI catheter was reinserted and he was admitted to the floor. Later that night CMP demonstrated a surprise finding of a creatinine 6.3. His previous creatinine had been 1.[address] scan was ordered (stone protocol) and demonstrated bilateral hydroureteronephrosis with dilation all the way to the UVJ's bilaterally. There was no evidence of stones or other clear defining cause of obstruction but his bladder was thickened consistent with a cystoscopic findings and it was felt that there was an intramural obstruction. Based on these findings it was recommended that we try retrograde stent placement and if not successful due to difficulty finding the orifices consider bilateral percutaneous nephrostomy tube placement. He was taken to the operating room on 05/18/2022 and cystoscopy was performed. There was a small amount of clot in the bladder that was easily cleared. There was no active bleeding identified. Unfortunately with extensive inspection of the posterior bladder wall and what appeared to be the area of the trigone there was just no landmark that was normal. He had significant bullous edema and inflammatory changes without obvious evidence of a malignant process. I was unable to find and therefore intubate either orifice despite spending a lot of time trying to discern that. Ultimately the procedure was abandoned and he was placed back on CBI and arrangements were then made for transfer to [facility] for evaluation of bilateral percutaneous nephrostomy tube placement. He was transferred on the afternoon of 05/18/[address] [facility]. Physical Exam Narrative: Alert and oriented no acute distress Respiratoryno audible wheezes, unlabored Abdomen soft nondistended and nontender. Normal genitourinary exam.? Urine was clear draining in the catheter.? Urine is clear with fairly low CBI rate of infusion Good range of motion of extremities.? Some mild peripheral edema.? No cyanosis. Neuropsych: Clear mental status.? Good understanding.? Good insight Hematologic lymphatic no active bleeding.? Does have some chronic bruising. Neurologic no focal defects. Urinary Catheter Management: 3-way Urethral CBI: Cath Placed During This Visit: yes, but has since been removed by the nurse Reason for Continuing Indwelling Catheter: Perioperative Use in Selected Surgeries Urinary Catheter Date of Insertion: 05/18/22 Urinary Catheter Time of Insertion: 12:50 Date Urinary Catheter Removed: 05/18/22 Time Urinary Catheter Discontinued: 12:28 TS Data Studies Completed and Pending Pending at discharge Category Date Time Status CBC Auto Diff [Complete Blood Count w/Auto] AM LABS Lab 05/19/22 04:00 Ordered CMP [Comprehensive Metabolic Panel] AM LABS Lab 05/19/22 04:00 Ordered PRBC [Leukocyte Reduced RBC] Timed Lab 05/18/22 04:57 Results Type and Screen AM LABS Lab 05/18/22 04:57 Results Urinalysis and Microscopic Routine Lab 05/18/22 08:23 Uncollected Urine Culture Routine Lab 05/18/22 08:23 Uncollected Labs from last 24 hours 05/18/22 05/18/22 05/18/22 17:10 14:36 14:36 WBC 8.3 RBC 2.75 L Hgb 7.9 L Hct 24.2 L MCV 88.0 MCH 28.7 MCHC 32.6 RDW 13.3 Plt Count 184 MPV 11.0 H Neut % (Auto) 86.1 Lymph % (Auto) 7.6 Anderson % (Auto) 5.6 Eos % (Auto) 0.2 Baso % (Auto) 0.1 Neut # (Auto) 7.17 Lymph # (Auto) 0.6 L Anderson # (Auto) 0.5 Eos # (Auto) 0.0 Baso # (Auto) 0.0 Nucleated RBC % (auto) 0 Nucleated RBCs # 0.0 Sodium 142 Potassium 5.0 Chloride 104 Carbon Dioxide 23 Anion Gap 20.0 H BUN 67 H Creatinine 5.9 H* GFR Calculation Not Reportable Glucose 154 H POC Glucose 166 H Calculated Osmolality 316 H Calcium 8.3 L Magnesium 2.0 Total Bilirubin AST ALT Alkaline Phosphatase Creatine Kinase Total Protein Albumin Globulin Blood Type Rho(D) Type Antibody Screen Crossmatch 05/18/22 05/18/22 05/18/22 13:29 10:40 04:57 WBC RBC Hgb Hct MCV MCH MCHC RDW Plt Count MPV Neut % (Auto) Lymph % (Auto) Anderson % (Auto) Eos % (Auto) Baso % (Auto) Neut # (Auto) Lymph # (Auto) Anderson # (Auto) Eos # (Auto) Baso # (Auto) Nucleated RBC % (auto) Nucleated RBCs # Sodium Potassium Chloride Carbon Dioxide Anion Gap BUN Creatinine GFR Calculation Glucose POC Glucose 149 H 145 H Calculated Osmolality Calcium Magnesium Total Bilirubin AST ALT Alkaline Phosphatase Creatine Kinase 139 Total Protein Albumin Globulin Blood Type Rho(D) Type Antibody Screen Crossmatch 05/18/22 05/18/22 05/18/22 04:57 04:57 04:57 WBC 5.5 RBC 2.95 L Hgb 8.4 L Hct 26.0 L MCV 88.1 MCH 28.5 MCHC 32.3 RDW 13.2 Plt Count 186 MPV 11.3 H Neut % (Auto) 78.7 Lymph % (Auto) 12.1 Anderson % (Auto) 6.2 Eos % (Auto) 2.2 Baso % (Auto) 0.4 Neut # (Auto) 4.29 Lymph # (Auto) 0.7 L Anderson # (Auto) 0.3 Eos # (Auto) 0.1 Baso # (Auto) 0.0 Nucleated RBC % (auto) 0 Nucleated RBCs # 0.0 Sodium 142 Potassium 5.0 Chloride 104 Carbon Dioxide 25 Anion Gap 18.0 BUN 69 H Creatinine 6.0 H* GFR Calculation Not Reportable Glucose 134 H POC Glucose Calculated Osmolality 316 H Calcium 8.5 Magnesium Total Bilirubin AST ALT Alkaline Phosphatase Creatine Kinase Total Protein Albumin Globulin Blood Type O Negative Rho(D) Type Negative Antibody Screen Negative Crossmatch See Detail 05/17/22 05/17/22 05/17/22 23:01 22:30 17:48 WBC RBC Hgb Hct MCV MCH MCHC RDW Plt Count MPV Neut % (Auto) Lymph % (Auto) [place] % (Auto) Eos % (Auto) Baso % (Auto) Neut # (Auto) Lymph # (Auto) Anderson # (Auto) Eos # (Auto) Baso # (Auto) Nucleated RBC % (auto) Nucleated RBCs # Sodium 141 Potassium 4.9 Chloride 103 Carbon Dioxide 25 Anion Gap 17.9 BUN 70 H Creatinine 6.3 H* GFR Calculation Not Reportable Glucose 105 POC Glucose 116 H 112 H Calculated Osmolality 313 H Calcium 8.4 L Magnesium Total Bilirubin 0.2 AST 15 ALT 8 Alkaline Phosphatase 71 Creatine Kinase Total Protein 6.7 Albumin 3.6 Globulin 3.1 Blood Type Rho(D) Type Antibody Screen Crossmatch 05/17/22 05/17/22 16:45 16:45 WBC 4.9 RBC 2.95 L Hgb 8.5 L Hct 26.9 L MCV 91.2 MCH 28.8 MCHC 31.6 RDW 13.3 Plt Count 187 MPV 12.0 H Neut % (Auto) 67.2 Lymph % (Auto) 21.9 Anderson % (Auto) 7.0 Eos % (Auto) 2.9 Baso % (Auto) 0.6 Neut # (Auto) 3.28 Lymph # (Auto) 1.1 Anderson # (Auto) 0.3 Eos # (Auto) 0.1 Baso # (Auto) 0.0 Nucleated RBC % (auto) 0 Nucleated RBCs # 0.0 Sodium Cancelled Potassium Cancelled Chloride Cancelled Carbon Dioxide Cancelled Anion Gap Cancelled BUN Cancelled Creatinine Cancelled GFR Calculation Cancelled Glucose Cancelled POC Glucose Calculated Osmolality Cancelled Calcium Cancelled Magnesium Total Bilirubin Cancelled AST Cancelled ALT Cancelled Alkaline Phosphatase Cancelled Creatine Kinase Total Protein Cancelled Albumin Cancelled Globulin Cancelled Blood Type Rho(D) Type Antibody Screen Crossmatch Completed Studies During Hospitalization Category Date Time Status CT abdomen pelvis wo con [id number] Routine Cat Scan 05/18/22 04:41 Completed Laboratory Last Values WBC 8.3 10^3/uL (4.0-10.0) 05/18/22 14:36 RBC 2.75 10^6/uL (4.1-5.3) L 05/18/22 14:36 Hgb 7.9 g/dL (11.7-16.6) L 05/18/22 14:36 Hct 24.2 % (42.0-52.0) L 05/18/22 14:36 MCV 88.0 fl (80-94) 05/18/22 14:36 MCH 28.7 pg (28.0-34.0) 05/18/22 14:36 MCHC 32.6 g/dL (30.0-36.0) 05/18/22 14:36 RDW 13.3 % (12.1-15.1) 05/18/22 14:36 Plt Count 184 10^3/cmm (130-400) 05/18/22 14:36 MPV 11.0 fL (7.4-10.4) H 05/18/22 14:36 Neut % (Auto) 86.1 % 05/18/22 14:36 Lymph % (Auto) 7.6 % 05/18/22 14:36 Anderson % (Auto) 5.6 % 05/18/22 14:36 Eos % (Auto) 0.2 % 05/18/22 14:36 Baso % (Auto) 0.1 % 05/18/22 14:36 Neut # (Auto) 7.17 10^3/uL (1.8-7.7) 05/18/22 14:36 Lymph # (Auto) 0.6 10^3/uL (0.8-4.8) L 05/18/22 14:36 Anderson # (Auto) 0.5 10^3/uL (0.2-0.9) 05/18/22 14:36 Eos # (Auto) 0.0 10^3/uL (0.0-0.8) 05/18/22 14:36 Baso # (Auto) 0.0 10^3/uL (0.0-0.1) 05/18/22 14:36 Nucleated RBC % (auto) 0 % 05/18/22 14:36 Nucleated RBCs # 0.0 /100WBC 05/18/22 14:36 Sodium 142 mmol/L (136-145) 05/18/22 14:36 Potassium 5.0 mmol/L (3.5-5.1) 05/18/22 14:36 Chloride 104 mmol/L (98-107) 05/18/22 14:36 Carbon Dioxide 23 mmol/L (22-29) 05/18/22 14:36 Anion Gap 20.0 (5-19) H 05/18/22 14:36 BUN 67 mg/dL (8-23) H 05/18/22 14:36 Creatinine 5.9 mg/dL (0.7-1.2) H* 05/18/22 14:36 GFR Calculation Not Reportable 05/18/22 14:36 Glucose 154 mg/dL (65-115) H 05/18/22 14:36 POC Glucose 166 mg/dL (70-110) H 05/18/22 17:10 Calculated Osmolality 316 mOsm/kg (285-295) H 05/18/22 14:36 Calcium 8.3 mg/dL (8.5-10.5) L 05/18/22 14:36 Magnesium 2.0 mg/dL (1.7-2.3) 05/18/22 14:36 Total Bilirubin 0.2 mg/dL (0.15-1.2) 05/17/22 23:01 AST 15 U/L (0-40) 05/17/22 23:01 ALT 8 U/L (0-41) 05/17/22 23:01 Alkaline Phosphatase 71 IU/L (40-130) 05/17/22 23:01 Creatine Kinase 139 U/L (39-308) 05/18/22 04:57 Total Protein 6.7 g/dL (6.6-8.7) 05/17/22 23:01 Albumin 3.6 g/dL (3.5-5.2) 05/17/22 23:01 Globulin 3.1 g/dL (1.3-4.6) 05/17/22 23:01 Blood Type O Negative 05/18/22 04:57 Rho(D) Type Negative 05/18/22 04:57 Antibody Screen Negative 05/18/22 04:57 Crossmatch See Detail 05/18/22 04:57 Radiology Impressions Abdomen/Pelvis CT 05/18/22 04:41 IMPRESSION: 1. Hall catheter in place within a thickened nondistended decompressed urinary bladder with perivesical inflammation and fat stranding. Findings are suggestive of chronic cystitis/UTI. An underlying urothelial lesion could be obscured. 2. Minimal hyperdense hematuria or clot within the urinary bladder. 3. Moderate bilateral hydroureteronephrosis consistent with obstructive uropathy. 4. Colonic diverticulosis without CT evidence of diverticulitis. 5. Atherosclerotic vascular disease including coronary artery disease. C-Arm Fluoroscopy 05/18/22 12:20 IMPRESSION: Cystoscopy as above. Recent Clincial Data Last Vital Signs Temp 98.2 F 05/18/22 15:30 Pulse 91 05/18/22 16:03 Resp 20 H 05/18/22 16:03 BP 129/63 05/18/22 15:30 Pulse Ox 95 05/18/22 16:03 Vital Signs Temp Pulse Resp BP Pulse Ox 05/18/22 16:03 91 20 H 95 05/18/22 15:30 98.2 F 79 14 129/63 94 05/18/22 15:00 98.2 F 80 20 H 119/60 93 05/18/22 14:30 99.1 F 84 17 135/70 94 05/18/22 13:55 97.7 F 87 17 110/69 92 05/18/22 13:50 85 15 127/59 91 05/18/22 13:45 85 14 122/60 93 05/18/22 13:40 84 16 135/57 90 05/18/22 13:35 86 12 139/48 90 05/18/22 13:30 86 16 132/59 89 L 05/18/22 13:25 87 19 H 126/61 90 05/18/22 13:20 85 17 130/66 92 05/18/22 13:16 91 05/18/22 13:15 89 16 125/55 88 L 05/18/22 13:10 90 15 136/57 95 05/18/22 13:08 93 36 H 93 05/18/22 11:22 99.1 F 72 17 152/66 94 05/18/22 08:22 78 18 90 Intake & Output/Weight 05/16/22 05/17/22 05/18/22 05/19/22 06:59 06:59 06:59 06:59 Intake Total 800 / 800 688 / 688 Output Total 3426 / 3426 2 / 2 Balance -2626 / -2626 686 / 686 Weight 256 lb 4 oz Vitals Last Vital Signs Temp 98.2 F 05/18/22 15:30 Pulse 91 05/18/22 16:03 Resp 20 H 05/18/22 16:03 BP 129/63 05/18/22 15:30 Pulse Ox 95 05/18/22 16:03 TS Medications Medications Acetaminophen (Acetaminophen 500 Mg Tablet) 500 mg PO QPM PRN PRN Reason: Sleep Hydrocodone Bitart/Acetaminophen (Hydrocodone-Acetaminophen 5-325 Mg Tablet) 1 tab PO Q6H PRN PRN Reason: MODERATE PAIN Last Admin: 05/18/22 16:13 Dose: 1 tab Documented by: Albuterol/Ipratropium (Ipratropium-Albuterol 3 Ml Neb) 3 ml INHALATION Q6H.RESPIRATORY ABHILASH Last Admin: 05/18/22 16:00 Dose: 3 ml Documented by: Allopurinol (Allopurinol 100 Mg Tablet) 100 mg PO QAM ABHILASH Last Admin: 05/18/22 05:35 Dose: 100 mg Documented by: Budesonide (Budesonide 0.5 Mg/2 Ml Neb) 0.5 mg INHALATION BID.RESPIRATORY ABHILASH Last Admin: 05/18/22 08:19 Dose: 0.5 mg Documented by: Dexamethasone (Dexamethasone 4 Mg/Ml Inj) 4 mg IVP Q5M PRN PRN Reason: Nausea unrelieved by Reglan Stop: 05/19/22 13:04 Dextrose (Dextrose 50% Syringe 50 Ml) 25 ml IVP ONCE PRN; Protocol PRN Reason: hypoglycemia protocol Dextrose (Dextrose 50% Syringe 50 Ml) 50 ml IVP PRN PRN; Protocol PRN Reason: hypoglycemia protocol Diphenhydramine HCl (Diphenhydramine 50 Mg/Ml Sdv 1ml) 12.5 mg IVP Q6H PRN PRN Reason: ITCHING Docusate Sodium (Docusate Sodium 100 Mg Capsule) 200 mg PO DAILY [facility] Last Admin: 05/18/22 09:23 Dose: 200 mg Documented by: Duloxetine HCl (Duloxetine 60 Mg Capsule) 60 mg PO BID [facility] Last Admin: 05/18/22 09:24 Dose: 60 mg Documented by: Ferrous Sulfate (Ferrous Sulfate Ec 325 Mg Tablet) 325 mg PO DAILY [facility] Last Admin: 05/18/22 09:24 Dose: 325 mg Documented by: Fluticasone Propionate (Fluticasone Nasal [place] 16gm Btl) 1 spray INTRANASAL BID [facility] Last Admin: 05/18/22 09:25 Dose: 1 spray Documented by: Gabapentin (Gabapentin 100 Mg Capsule) 100 mg PO TID [facility] Last Admin: 05/18/22 15:13 Dose: 100 mg Documented by: Glucagon (Glucagon 1 Mg/Ml Inj 1 Ml) 1 mg IM ONCE PRN; Protocol PRN Reason: Adult Acute Hypoglycemia Prot. Sodium Chloride (Sodium Chloride 0.9%) 1,000 mls @ 100 mls/hr IV .Q10H [facility] Last Infusion: 05/18/22 14:03 Dose: 30 mls/hr Documented by: Dextrose (D5w) 500 mls @ 100 mls/hr IV ONCE PRN; Protocol PRN Reason: Adult Acute Hypoglycemia Prot Ceftriaxone Sodium 1,000 mg/ (Sodium Chloride) 50 mls @ 100 mls/hr IV Q24H [facility]; Protocol Last Infusion: 05/18/22 10:36 Dose: Infused Documented by: Insulin Human Lispro (Insulin Lispro 100 Unit/1 Ml) 0 unit SUBCUT WM&BEDTIME [facility]; Protocol Ipratropium [place] (Ipratropium 0.5 Mg/2.5 Ml Neb) 0.5 mg INHALATION ONCE PRN PRN Reason: WHEEZING Lidocaine (Lidocaine 5% Patch) 1 patch TRANSDERMA Q12H [facility] Last Admin: 05/18/22 09:25 Dose: 1 patch Documented by: Naloxone HCl (Naloxone 0.4 Mg/Ml Sdv) 0.1 mg IVP Q2M PRN PRN Reason: OPIATERV Nifedipine (Nifedipine Er (24 Hr) 30 Mg Tablet) 30 mg PO DAILY [facility] Last Admin: 05/18/22 09:23 Dose: 30 mg Documented by: Polyethylene Glycol (Polyethylene Glycol 3350 Pkt 17 Gm) 17 - 34 gm PO Q24H PRN PRN Reason: CONSTIPATION Sucralfate (Sucralfate 1 Gm Tablet) 1 gm PO Q6H [facility] Last Admin: 05/18/22 15:13 Dose: 1 gm Documented by: Tamsulosin HCl (Tamsulosin 0.4 Mg Capsule) 0.4 mg PO BID [facility] Last Admin: 05/18/22 09:24 Dose: 0.4 mg Documented by: Discontinued Medications Albuterol Sulfate (Albuterol 8 Gm Mdi) 1 puff INHALATION QID PRN PRN Reason: Shortness Of Breath Albuterol Sulfate (Albuterol 2.5 Mg/0.5 Ml Neb) 2.5 mg INHALATION ONCE PRN PRN Reason: WHEEZING Albuterol/Ipratropium (Ipratropium-Albuterol 3 Ml Neb) 3 ml INHALATION Q6H [facility] Atorvastatin Calcium (Atorvastatin 40 Mg Tablet) 40 mg PO BEDTIME [facility] Last Admin: 05/17/22 20:05 Dose: 40 mg Documented by: Benzocaine (Cetylpyridinium Lozenge) 1 each MUCOUS MEM ONCE ONE Stop: 05/18/22 13:05 Last Admin: 05/18/22 14:55 Dose: Not Given Documented by: Diphenhydramine HCl (Diphenhydramine 50 Mg/Ml Sdv 1ml) 12.5 mg IVP ONCE PRN PRN Reason: NAUSEA Ephedrine Sulfate (Ephedrine 50 Mg/Ml Inj) Confirm Administered Dose 50 mg .ROUTE .STK-MED ONE Stop: 05/18/22 12:27 Famotidine (Famotidine 20 Mg/2 Ml Inj) 20 mg IVP ONCE PRN PRN Reason: HEARTBURN Famotidine (Famotidine 20 Mg/2 Ml Inj) 20 mg IVP ONCE PRN PRN Reason: HEARTBURN Fentanyl (Fentanyl 50 Mcg/Ml Inj 2ml) 50 mcg IVP Q10M PRN PRN Reason: Preop Pain Fentanyl (Fentanyl 50 Mcg/Ml Inj 2ml) 100 mcg IVP ONCE PRN PRN Reason: Per anesthesia for block Fentanyl (Fentanyl 50 Mcg/Ml Inj 2ml) Confirm Administered Dose 100 mcg .ROUTE .STK-MED ONE Stop: 05/17/22 16:57 Fentanyl (Fentanyl 50 Mcg/Ml Inj 2ml) Confirm Administered Dose 100 mcg .ROUTE .STK-MED ONE Stop: 05/18/22 11:18 Fentanyl (Fentanyl 50 Mcg/Ml Inj 2ml) 50 mcg IVP Q10M PRN PRN Reason: Preop Pain Fentanyl (Fentanyl 50 Mcg/Ml Inj 2ml) 100 mcg IVP ONCE PRN PRN Reason: Per anesthesia for block Fentanyl (Fentanyl 50 Mcg/Ml Inj 2ml) 50 mcg IVP Q5M PRN PRN Reason: Pain level 6-10 PACU Phase I Stop: 05/19/22 13:04 Gabapentin (Gabapentin 300 Mg Capsule) 600 mg PO TID [facility] Last Admin: 05/17/22 20:05 Dose: 600 mg Documented by: Glycopyrrolate (Glycopyrrolate 0.2 Mg/Ml Sdv 2 Ml) Confirm Administered Dose 0.4 mg .ROUTE .STK-MED ONE Stop: 05/18/22 12:37 Hydrochlorothiazide (Hydrochlorothiazide 25 Mg Tablet) 25 mg PO DAILY [facility] Hydrochlorothiazide (Hydrochlorothiazide 25 Mg Tablet) 25 mg PO ONCE ONE Stop: 05/17/22 19:51 Last Admin: 05/17/22 22:26 Dose: 25 mg Documented by: Hydromorphone HCl (Hydromorphone 1 Mg/Ml Inj 1 Ml) 0.25 mg IVP Q10M PRN PRN Reason: Pain level 4-6 PACU Phase I Stop: 05/19/22 13:04 Hydromorphone HCl (Hydromorphone 1 Mg/Ml Inj 1 Ml) 0.5 mg IVP Q10M PRN PRN Reason: Pain level 7-10 PACU Phase I Stop: 05/19/22 13:04 Sodium Chloride (Sodium Chloride 0.9%) 1,000 mls @ 30 mls/hr IV .Q24H [facility] Stop: 05/18/22 16:29 Last Admin: 05/17/22 16:35 Dose: 30 mls/hr Documented by: Levofloxacin/Dextrose (Levaquin-D5w) 500 mg in 100 mls @ 100 mls/hr IV ONCE ONE; Protocol Stop: 05/17/22 17:24 Last Infusion: 05/17/22 17:22 Dose: Infused Documented by: Sodium Chloride (Sodium Chloride 0.9%) 1,000 mls @ 30 mls/hr IV .Q24H [facility] Stop: 05/19/22 11:29 Last Admin: 05/18/22 11:40 Dose: 30 mls/hr Documented by: Sodium Chloride (Sodium Chloride 0.9%) 500 mls @ 999 mls/hr IV .Q31M PRN PRN Reason: HYPOTENSION Insulin Human Regular (Insulin Regular-Human 100 Units/1 Ml) 85 unit SUBCUT QAM ABHILASH Insulin Human Regular (Insulin Regular-Human 100 Units/1 Ml) 65 unit SUBCUT QPM ABHILASH Insulin Human Regular (Insulin Regular-Human 100 Units/1 Ml) 65 unit SUBCUT QPM [facility] Last Admin: 05/17/22 22:42 Dose: Not Given Documented by: Ipratropium [place] (Ipratropium 0.5 Mg/2.5 Ml Neb) 0.5 mg INHALATION ONCE PRN PRN Reason: WHEEZING Levalbuterol HCl (Levalbuterol 0.63 Mg/3 Ml Neb) 0.63 mg INHALATION ONCE PRN PRN Reason: WHEEZING Levalbuterol HCl (Levalbuterol 0.63 Mg/3 Ml Neb) 0.63 mg INHALATION QID.RESPIRATORY ABHILASH Last Admin: 05/18/22 08:19 Dose: 0.63 mg Documented by: Lidocaine HCl (Lidocaine 2% Inj 20 Ml) Confirm Administered Dose 20 ml .ROUTE .STK-MED ONE Stop: 05/17/22 16:13 Lidocaine HCl (Lidocaine 1% Inj 20 Ml) 0.1 ml INTRADERMA PRN PRN PRN Reason: anesthetic prior to IV start Stop: 05/18/22 16:17 Lidocaine HCl (Lidocaine 2% [place]ro[place] 20 Ml) Confirm Administered Dose 20 ml .ROUTE .STK-MED ONE Stop: 05/17/22 16:23 Lidocaine HCl (Lidocaine 2% Urojet 20 Ml) 20 ml TOPICAL ONCE ONE Stop: 05/17/22 17:02 Last Admin: 05/17/22 17:02 Dose: 20 ml Documented by: Lidocaine HCl (Lidocaine 1% Inj 20 Ml) 0.1 ml INTRADERMA PRN PRN PRN Reason: anesthetic prior to IV start Stop: 05/19/22 11:27 Lidocaine HCl (Lidocaine 2% Urojet 20 Ml) Confirm Administered Dose 20 ml .ROUTE .STK-MED ONE Stop: 05/18/22 12:14 Lidocaine HCl (Lidocaine 2% Urojet 20 Ml) 20 ml TOPICAL ONCE ONE Stop: 05/18/22 12:43 Last Admin: 05/18/22 12:43 Dose: 20 ml Documented by: Lidocaine HCl (Lidocaine 1% Mpf 5 Ml Inj) Confirm Administered Dose 5 ml .ROUTE .STK-MED ONE Stop: 05/18/22 13:15 Meperidine HCl (Meperidine 50 Mg/Ml Inj) 12.5 mg IVP Q5M PRN PRN Reason: Shivering PACU Phase I Stop: 05/19/22 13:04 Metoclopramide HCl (Metoclopramide 5 Mg/Ml Sdv 2 Ml) 10 mg IVP ONCE PRN PRN Reason: N/V if zofran ineffective Metoclopramide HCl (Metoclopramide 5 Mg/Ml Sdv 2 Ml) 10 mg IVP ONCE PRN PRN Reason: N/V if zofran ineffective Metoclopramide HCl (Metoclopramide 5 Mg/Ml Sdv 2 Ml) 10 mg IVP Q5M PRN PRN Reason: Nausea unrelieved by Zofran Stop: 05/19/22 13:04 Midazolam HCl (Midazolam 1 Mg/Ml Inj 2 Ml) 2 mg IVP Q5M PRN PRN Reason: Preop Anxiety Midazolam HCl (Midazolam 1 Mg/Ml Inj 5 Ml) 5 mg IVP ONCE PRN PRN Reason: Per anesthesia for block Nifedipine (Nifedipine Er (24 Hr) 30 Mg Tablet) 30 mg PO ONCE ONE Stop: 05/17/22 19:50 Last Admin: 05/17/22 20:04 Dose: 30 mg Documented by: Non-Formulary Medication ([facility]) 1 tab PO DAILY ABHILASH Non-Formulary Medication (Resveratrol) 100 mg PO DAILY ABHILASH Ondansetron HCl (Ondansetron 2 Mg/Ml Sdv 2 Ml) 4 mg IVP Q5M PRN PRN Reason: NAUSEA AND VOMITING Ondansetron HCl (Ondansetron 2 Mg/Ml Sdv 2 Ml) Confirm Administered Dose 4 mg .ROUTE .STK-MED ONE Stop: 05/17/22 16:59 Ondansetron HCl (Ondansetron 2 Mg/Ml Sdv 2 Ml) 4 mg IVP Q5M PRN PRN Reason: NAUSEA AND VOMITING Ondansetron HCl (Ondansetron 2 Mg/Ml Sdv 2 Ml) Confirm Administered Dose 4 mg .ROUTE .STK-MED ONE Stop: 05/18/22 12:37 Ondansetron HCl (Ondansetron 2 Mg/Ml Sdv 2 Ml) 4 mg IVP Q15M PRN PRN Reason: Nausea/Vomiting PACU PHASE II Ondansetron HCl (Ondansetron 2 Mg/Ml Sdv 2 Ml) 4 mg IVP Q5M PRN PRN Reason: Nausea PACU Phase I Stop: 05/19/22 13:04 Phenylephrine HCl (Phenylephrine 10 Mg/Ml Sdv 1 Ml) Confirm Administered Dose 10 mg .ROUTE .STK-MED ONE Stop: 05/18/22 12:37 Propofol (Propofol 10 Mg/Ml Sdv 20 Ml) Confirm Administered Dose 200 mg .ROUTE .STK-MED ONE Stop: 05/17/22 16:13 Propofol (Propofol 10 Mg/Ml Sdv 20 Ml) Confirm Administered Dose 200 mg .ROUTE .STK-MED ONE Stop: 05/18/22 13:15 Scopolamine (Scopolamine 1.5 Patch) 1 patch TRANSDERMA ONCE PRN PRN Reason: Nausea/ Vomiting Prophylaxis Scopolamine (Scopolamine 1.5 Patch) 1 patch TRANSDERMA ONCE PRN PRN Reason: Nausea/ Vomiting Prophylaxis Vasopressin (Vasopressin 20 Unit/Ml Inj) Confirm Administered Dose 20 unit .ROUTE .STK-MED ONE Stop: 05/18/22 12:50 Allergies losartan Allergy (Mild, Verified 05/17/22 12:47) ADR-Seizure lisinopril Allergy (Verified 05/17/22 12:47) unknown tetanus toxoid, adsorbed Allergy (Verified 05/17/22 12:47) unknown Home Medications duloxetine 60 mg capsule,delayed release 60 mg PO BID 12/04/19 [History Confirmed 05/17/22] cholecalciferol (vitamin D3) 10 mcg (400 unit) tablet (Vitamin D3) 10 mcg PO DAILY 08/20/20 [History Confirmed 05/17/22] glucosamine HCl 500 mg tablet 500 mg PO DAILY 07/21/21 [History Confirmed 05/17/22] multivitamin 1 tab PO DAILY 07/21/21 [History Confirmed 05/17/22] allopurinol 100 mg tablet 100 mg PO QAM 09/30/21 [History Confirmed 05/17/22] gabapentin 300 mg capsule 600 mg PO TID cap 09/30/21 [History Confirmed 05/17/22] hydrochlorothiazide 25 mg tablet 25 mg PO DAILY #90 tab 10/12/21 [Rx Confirmed 05/17/22] [facility] 1 tab PO DAILY 01/20/22 [History Confirmed 05/17/22] tamsulosin 0.4 mg capsule 0.4 mg PO BID #180 cap 01/20/22 [Rx Confirmed ] sucralfate 1 gram tablet (Carafate) 1 g PO Q6H 84 Days #336 tab 01/26/22 [Rx Confirmed 05/17/22] atorvastatin 80 mg tablet 40 mg PO BEDTIME tab 02/06/22 [History Confirmed 05/17/22] fluticasone propionate 50 mcg/actuation nasal spray,suspension (Allergy Relief (fluticasone)) 1 spray INTRANASAL BID 02/06/22 [History Confirmed 05/17/22] resveratrol 100 mg capsule 100 mg PO DAILY cap 02/06/22 [History Confirmed 05/17/22] acetaminophen 500 mg tablet 500 mg PO QPM PRN 02/07/22 [History Confirmed 05/17/22] albuterol sulfate 90 mcg/actuation aerosol inhaler (ProAir HFA) 1 inh INHALATION QID PRN 02/07/22 [History Confirmed 05/17/22] docusate calcium 240 mg capsule 240 mg PO DAILY 02/07/22 [History Confirmed 05/17/22] insulin regular hum U-500 conc (Humulin R U-500 (Conc) Insulin Kwikpen) See Rx Instructions .ROUTE .COMPLEX 02/07/22 [History Confirmed 05/17/22] lidocaine 5 % topical patch See Rx Instructions .ROUTE .COMPLEX 02/07/22 [History Confirmed 05/17/22] mometasone 100 mcg/actuation HFA aerosol inhaler 1 puff INHALATION BID 02/07/22 [History Confirmed 05/17/22] olodaterol 2.5 mcg/actuation mist for inhalation 2 inh INHALATION DAILY 02/07/22 [History Confirmed 05/17/22] polyethylene glycol 3350 17 gram/dose oral powder See Rx Instructions .ROUTE .COMPLEX 02/07/22 [History Confirmed 05/17/22] ferrous sulfate 325 mg (65 mg iron) tablet (Feosol) 325 mg PO DAILY 03/01/22 [Hi story Confirmed 05/17/22] nifedipine 30 mg tablet,extended release 30 mg PO DAILY #30 tab 05/17/22 [Rx Confirmed 05/17/22] Discharge Plan Discharge Patient Disposition: Home Condition: Stable Prescriptions: Continued allopurinol 100 mg tablet 100 mg PO QAM 0RF [facility] 1 tab PO DAILY 0RF glucosamine HCl 500 mg tablet 500 mg PO DAILY 0RF Rx Instructions: administer with a meal multivitamin Tablet 1 tab PO DAILY 0RF duloxetine 60 mg capsule,delayed release(DR/EC) 60 mg PO BID 0RF atorvastatin 80 mg tablet 40 mg PO BEDTIME 0RF Label Comments: [facility] tamsulosin 0.4 mg capsule 0.4 mg PO BID Qty: 180 3RF resveratrol 100 mg capsule 100 mg PO DAILY 0RF fluticasone propionate [Allergy Relief (fluticasone)] 50 mcg/actuation spray,suspension 1 spray intranasal BID 0RF Rx Instructions: administer into each nostril ferrous sulfate [Feosol] 325 mg (65 mg iron) tablet 325 mg PO DAILY 0RF nifedipine 30 mg tablet extended release 30 mg PO DAILY Qty: 30 3RF Rx Instructions: hasn't started taking this rx yet hydrochlorothiazide 25 mg tablet 25 mg PO DAILY Qty: 90 3RF cholecalciferol (vitamin D3) [Vitamin D3] 10 mcg (400 unit) Tablet 10 mcg PO DAILY 0RF gabapentin 300 mg capsule 600 mg PO TID 0RF sucralfate [Carafate] 1 gram tablet 1 g PO Q6H 84 Days Qty: 336 2RF docusate calcium 240 mg Capsule 240 mg PO DAILY 0RF acetaminophen 500 mg Tablet 500 mg PO QPM PRN (Reason: Sleep) 0RF lidocaine 5 % Adhesive Patch,Medicated See Rx Instructions .ROUTE .COMPLEX 0RF Rx Instructions: 1 patch topically daily leave on most painful area for up to 12 hrs then off for 12 hours polyethylene glycol 3350 17 gram/dose powder See Rx Instructions .ROUTE .COMPLEX 0RF Rx Instructions: two scoops with two glasses of water daily until soft bowel movement then do one scoop once a day albuterol sulfate [ProAir HFA] 90 mcg/actuation Hfa Aerosol Inhaler 1 inh INHALATION QID PRN (Reason: Shortness Of Breath) 0RF olodaterol 2.5 mcg/actuation Mist 2 inh INHALATION DAILY 0RF mometasone 100 mcg/actuation Hfa Aerosol Inhaler 1 puff INHALATION BID 0RF Humulin R U-500 (Conc) Kwikpen 500 unit/mL (3 mL) Insulin Pen See Rx Instructions .ROUTE .COMPLEX 0RF Rx Instructions: 85-90 unit subcutaneously qam and 65 units qpm Discharge Orders: Transfer Out of Facility (Order); Ordered 05/18/22 Ordered By: Kolton Sharma Discharge Diet: As Directed Discharge Activity: Limit activity as instructed Patient Instructions: Opioid Safety Transfer Attestations Time Spent in Transfer Care: greater than 30 min Quality Metrics Clinical Quality Measures [ No reported AMI, CVA or VTE this stay] Coding Level of Care Code Acute Pleating 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
== END 2022-05-18 19:00 | disposition short-term general hospital (02) ==
LOC: MEDSURG 17:41
PROVIDERS: Internal Medicine; Admitting Provider Urology; PCP Family Medicine; Visit Provider Urology
PROC: 0TJB8ZZ Inspection of Bladder, Via Natural or Artificial Opening Endoscopic (ICD-10-PCS; CPT 52000; principal; 2022-05-17 16:30)
PROC: 0T5B8ZZ Destruction of Bladder, Via Natural or Artificial Opening Endoscopic (ICD-10-PCS; CPT 52001; 2022-05-17 16:30)
PROC: 0T5B8ZZ Destruction of Bladder, Via Natural or Artificial Opening Endoscopic (ICD-10-PCS; CPT 52001; 2022-05-18 11:30)
DX: N13.5 Crossing vessel and stricture of ureter without hydronephrosis (principal); N17.9 Acute kidney failure, unspecified; N13.9 Obstructive and reflux uropathy, unspecified; R31.0 Gross hematuria; D64.9 Anemia, unspecified; Z79.4 Long term (current) use of insulin; I10 Essential (primary) hypertension; E11.40 Type 2 diabetes mellitus with diabetic neuropathy, unspecified; Z95.0 Presence of cardiac pacemaker; Z87.891 Personal history of nicotine dependence
CPT/HCPCS: 52001 ×2; 36415; 36416; 74176; 76000; 80048; 80053; 82550; 82962; 83735; 85025; 86850; 86900; 86920; 94640; 94660; 94664; G0378; J0696; J1815; J1956; J2370; J2405; J2704; J3010; J3490; J7030; J7614; J7626

== ENCOUNTER → 2022-06-20 07:52 | Outpatient (BNVA) | payer OTHER, SELFPAY | PROVIDERS: PCP Family Medicine; Visit Provider Urology | DX: N13.9 Obstructive and reflux uropathy, unspecified (principal); R31.0 Gross hematuria; R33.9 Retention of urine, unspecified; N30.40 Irradiation cystitis without hematuria; Z96.0 Presence of urogenital implants | CPT/HCPCS: 99213 ==

== ENCOUNTER → 2022-06-21 14:58 | Outpatient (BNVA) | payer OTHER, SELFPAY | PROVIDERS: PCP Family Medicine; Visit Provider Urology | DX: N13.9 Obstructive and reflux uropathy, unspecified (principal); R33.9 Retention of urine, unspecified; N30.40 Irradiation cystitis without hematuria; N13.5 Crossing vessel and stricture of ureter without hydronephrosis; Z96.0 Presence of urogenital implants | CPT/HCPCS: 52310; 99213 ==

== ENCOUNTER 2022-06-26 09:58 | Outpatient (CLI) | payer OTHER, SELFPAY ==
--- NOTE | 2022-06-26 10:45 | FL_ITS ---
WS: [id number] BILATERAL PERCUTANEOUS NEPHROSTOGRAMS. HISTORY: Bilateral distal ureteral. Prostatic carcinoma with radiation therapy treatment. RIGHT NEPHROSTOGRAM: Under fluoroscopy contrast was injected into the right nephrostomy tube. There is prompt filling of n ormal-appearing calyces and renal pelvis. Contrast readily flowed down the abdominal portion of the u reter which was of normal caliber. From S1 distally the ureter as a complex appearance with areas of dilatation and narrowing over a saari g segment ending in a 2 cm irregular narrowing with no contrast entering the bladder from the right u reter. LEFT NEPHROSTOGRAM: Under fluoroscopy contrast was injected into the left gastrostomy tube. There is prompt filling of no rmal-appearing calyces and renal pelvis. Contrast readily flowed down the abdominal portion of the ur eter which was of normal caliber. Mild dilatation of the proximal pelvic ureter terminating in a short segment of stenosis with distal dilatation and no contrast entering the urinary bladder from the left ureter. No contrast identified within the bladder on delayed imaging. FL/FL nephrostogram exst [id number] IMPRESSION: By moderate pressure nephrostograms both ureters are completely occluded in a c omplex fashion compatible with recurrent carcinoma and/or radiation.
[2022-06-26] MEDS: iohexol 350 mg/mL 100 mL Btl IV (11:12)
== END 2022-06-26 09:59 | disposition home or self-care (01) ==
LOC: RAD 10:00
PROVIDERS: PCP Family Medicine; Visit Provider Urology
DX: Z96.0 Presence of urogenital implants (principal)
CPT/HCPCS: 50431; 50684; Q9967

== ENCOUNTER → 2022-06-29 08:26 | Outpatient (BNVA) | payer OTHER, SELFPAY | PROVIDERS: PCP Family Medicine; Visit Provider Urology | DX: N13.9 Obstructive and reflux uropathy, unspecified (principal); Z96.0 Presence of urogenital implants | CPT/HCPCS: 99213 ==

== ENCOUNTER 2022-08-03 09:03 | Outpatient (CLI) | payer OTHER, SELFPAY ==
--- NOTE | 2022-08-03 10:15 | FL_ITS ---
WS: [id number] Bilateral nephrostograms, 08/03/2022 Clinical Data: Prostatic carcinoma treated with radiation therapy, obstruction of distal ureters. Comparison: Bilateral nephrostogram, 06/26/2022. Fluoroscopy time: 0.9 minutes # of spot films: 8 Findings: Right nephrostogram: Contrast material was injected through the nephrostomy catheter. The right renal pelvis is normal. Th e proximal right ureter was normal. Distally there was narrowing unchanged from before. No contrast e ntered the bladder. Left nephrostogram: Contrast material is injected through the nephrostomy catheter. The left renal pe lvis showed mild dilatation. The proximal left ureter was normal. Distally there is dilatation of the left ureter and no contrast entered the bladder. FL/FL nephrostogram exst [id number] Impression: No change in bilateral distal ureteral obstruction probably from radiation ther apy.
[2022-08-03 15:44] LABS: Alanine Aminotransferase 12 U/L (0-41); Albumin Level 3.2 g/dL (3.5-5.2); Alkaline Phosphatase 81 U/L (40-130); Blood Urea Nitrogen 34 mg/dL (8-23); Calcium 9.2 mg/dL (8.5-10.5); Carbon Dioxide 23 mmol/L (22-29); Chloride 101 mmol/L (98-107); Globulin 4.2 g/dL (1.3-4.6); Glucose 163 mg/dL (65-115); Osmolality Calculated 295 mOsm/kg (285-295); Sodium 137 mmol/L (136-145); Total Bilirubin 0.3 mg/dL (0.15-1.2); Total Protein 7.4 g/dL (6.6-8.7)
[2022-08-03 15:49] LABS: Anion Gap 17.8 (5-19); Aspartate Amino Transferase 29 U/L (0-40); Potassium 4.8 mmol/L (3.5-5.1)
[2022-08-03 18:20] LABS: Prostate Specific AG Urology 0.09 ng/mL (0-4)
== END 2022-08-03 09:04 | disposition home or self-care (01) ==
LOC: RAD 09:05
PROVIDERS: PCP Family Medicine; Visit Provider Urology
DX: N13.5 Crossing vessel and stricture of ureter without hydronephrosis (principal); R97.20 Elevated prostate specific antigen [PSA]; N13.9 Obstructive and reflux uropathy, unspecified; R51.9 Headache, unspecified; R63.4 Abnormal weight loss; N30.40 Irradiation cystitis without hematuria; C61 Malignant neoplasm of prostate; N41.9 Inflammatory disease of prostate, unspecified; R62.7 Adult failure to thrive; Z96.0 Presence of urogenital implants
CPT/HCPCS: 50431; 50684; 80053; 84153; 99213

== ENCOUNTER 2022-08-05 21:39 | Inpatient (IN) | payer OTHER, SELFPAY ==
[2022-08-05 21:40] VITALS: PULSE 93; RESP 22; O2SAT 97; BMI 27.1
[2022-08-05 21:46] VITALS: BP 114/64; PULSE 86; RESP 19; O2SAT 94
--- NOTE | 2022-08-05 21:48 | PC.NURSE ---
Addendum entered by Millie Amanda RN 08/06/22 01:31: attempted to obtain urine specimen at this time. states no no nope sorry . clarified that i cannot obtain urine from nephrostomy drain, patient states no. Original Note: attempted to obtain urine specimen at this time. states no no nope sorry . clarified that i cannot obtain urine specimen from renal collection, patient states no.
--- NOTE | 2022-08-05 22:09 | XRR_ITS ---
PROCEDURE INFORMATION: Exam: XR Chest Exam date and time: 08/05/2022 10:42 PM Age: 77 years old Clinical indication: Shortness of breath; Prior surgery; Surgery date: 6+ months; Surgery type: Pace maker; Additional info: SOB, weakness TECHNIQUE: Imaging protocol: Radiologic exam of the chest. Views: 1 view. COMPARISON: CR XR chest 1V portable [id number] 03/02/2022 9:01 AM FINDINGS: Tubes, catheters and devices: Pacemaker. Lungs: Left lower lobe atelectasis versus very minimal infiltrate. Pleural spaces: Unremarkable. No pleural effusion. No pneumothorax. Heart/Mediastinum: Cardiomegaly. Bones/joints: Unremarkable. XR/XR chest 1V portable [id number] IMPRESSION: 1. Cardiomegaly. 2. Left lower lobe atelectasis versus very minimal infiltrate.
--- NOTE | 2022-08-05 22:10 | ECG_ITS ---
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 Measurements Intervals [place] Rate: 91 P: 64 PA: 142 QRS: -43 QRSD: 114 T: 80 QT: 347 QTc: 428 Interpretive Statements SINUS RHYTHM LEFT AXIS DEVIATION [QRS AXIS < -30] MODERATE INTRAVENTRICULAR CONDUCTION DELAY [110+ ms QRS DURATION] NONSPECIFIC T-WAVE ABNORMALITY INTERPRETATION BASED ON A DEFAULT AGE OF 40 YEARS Compared to ECG 03/02/2022 08:30:29 T-wave abnormality now present Ventricular premature complex(es) no longer present Electronically Signed On 08-06-2022 8:36:32 CDT by Jason Valiente M.D. [id number]
[2022-08-05 22:22] LABS: Basophils % 0.2 %; Eosinophils % 0.1 %; Hematocrit 28.6 % (42.0-52.0); Hemoglobin 8.9 g/dL (11.7-16.6); Lymphocytes # 0.8 10^3/uL (0.8-4.8); Lymphocytes % 4.4 %; Mean Corpuscular HGB Conc 31.1 g/dL (30.0-36.0); Mean Corpuscular Hemoglobin 27.5 pg (28.0-34.0); Mean Corpuscular Volume 88.3 fl (80-94); Mean Platelet Volume 10.6 fL (7.4-10.4); Monocytes % 5.4 %; Neutrophils # 15.91 10^3/uL (1.8-7.7); Neutrophils % 89.3 %; Nucleated Red Blood Cells % 0 %; Platelet Count 330 10^3/cmm (130-400); Red Blood Count 3.24 10^6/uL (4.1-5.3); Red Cell Distribution Width 15.4 % (12.1-15.1); White Blood Count 17.8 10^3/uL (4.0-10.0)
[2022-08-05] MEDS: sodium chloride 0.9% 500 ML IV (22:32)
[2022-08-05 22:34] LABS: Lactate (Lactic Acid level) 3.2 mmol/L (0.5-2.2)
[2022-08-05 22:36] LABS: Troponin(5th) Baseline 58 ng/L (0-15)
[2022-08-05 22:47] LABS: Alanine Aminotransferase 10 U/L (0-41); Albumin Level 3.2 g/dL (3.5-5.2); Alkaline Phosphatase 74 U/L (40-130); Anion Gap 19.8 (5-19); Aspartate Amino Transferase 15 U/L (0-40); Blood Urea Nitrogen 40 mg/dL (8-23); C Reactive Protein 125.2 mg/L (0.0-4.9); Calcium 8.9 mg/dL (8.5-10.5); Carbon Dioxide 22 mmol/L (22-29); Chloride 99 mmol/L (98-107); Creatine Phosphokinase 111 U/L (39-308); Globulin 3.8 g/dL (1.3-4.6); Glucose 254 mg/dL (65-115); Magnesium 1.5 mg/dL (1.7-2.3); NT Pro B Type Natriuretic Pept 1502 pg/mL (0-450); Osmolality Calculated 300 mOsm/kg (285-295); Phosphorus 2.8 mg/dL (2.5-4.5); Potassium 4.8 mmol/L (3.5-5.1); Sodium 136 mmol/L (136-145); Total Bilirubin 0.4 mg/dL (0.15-1.2)
--- NOTE | 2022-08-05 22:53 | W.ED.SOB ---
HPI - SOB/Dyspnea General: Chief Complaint: Shortness of Breath/Dyspnea Stated Complaint: FALL Time Seen by Provider: 08/05/22 21:43 Source: patient and EMS History of Present Illness: HPI Narrative: 77-year-old gentleman with a history of prostate cancer, CHF, and a 50 pound weight loss in the last several months. He presents with a fall this evening, and generalized weakness. Essentially he was trying to clean feces, his own, off the floor, when he fell and could not get up at home. He did not injure himself or hit his head. He is not anticoagulated. He simply could not get up. This was around 8 PM. No focal weakness. No dizziness. No language or vision problems. He has been experiencing increased shortness of breath recently. MD elicited complaint: shortness of breath and cough Pertinent past history: congestive heart failure Onset (ago): hour(s) Exacerbating factors: lying flat and exertion Relieving factors: oxygen Associated symptoms: Reports cough, fever(s) (Possibly today, and may) and orthopnea; Deny abdominal pain, chest congestion, chest pain, dizziness, extremity pain, nausea or vomiting Treatment prior to arrival: oxygen Related Data: Home oxygen amount: none Review of Systems Const: Reports: fever(s) (Possibly today, and may) Eyes: Denies: change in vision ENMT: Denies: throat pain Card: Reports: orthopnea; Denies: chest pain Resp: Reports: dyspnea and non-productive cough; Denies: productive cough or chest congestion GI: Reports: diarrhea and constipation; Denies: abdominal pain, nausea or vomiting Musc: Denies: extremity pain Neuro: Denies: headache(s) or dizziness PFS ED PFSH: Medical History Chronic kidney disease Complex renal cyst Overall considered low risk, following with ultrasound, COPD (chronic obstructive pulmonary disease) Diabetes mellitus Diabetic neuropathy Gross hematuria H/O cardiac pacemaker HTN (hypertension) Incomplete bladder emptying Lesion of bladder Chronic inflammatory change with fibroadipose tissue most likely consistent patient cystitis despite its suspicious appearing on cystitis Obstructive sleep apnea Prostate cancer Diagnosed 2019 treated with radiation therapy with good response No evidence of recurrence Sinus node dysfunction Urinary retention Surgical History History of back surgery C3-C4 ACDFF WITH C4 CORPECTOMY History of circumcision History of eye surgery 2018 History of neck surgery History of prostate biopsy Status post cataract surgery Status post knee surgery left Family History Father , AT AGE 65-CHF No problems noted. Mother , AT AGE 65-CHF No problems noted. Social History Smoking and tobacco status: never smoked Alcohol intake: never Marital status: Current occupational status: retired and disabled History of recent travel: No Physical Exam Const: GENERAL APPEARANCE: cooperative and frail appearing HENMT: COMMON NORMALS: normocephalic, atraumatic and Normal external nose present HEAD & SCALP: normocephalic and atraumatic FACE & SINUS: normal facial exam and face symmetric NOSE: Normal external nose present Eye: COMMON NORMALS: Equal, round and reactive pupils present and EOMs intact bilaterally PUPIL: Yes Equal, round and reactive pupils present Neck/C-Spine: GENERAL: Yes trachea midline Chest: CHEST: Yes Symmetrical chest wall rise Resp: COMMON NORMALS: normal respiratory effort, No use of accessory muscles and clear to auscultation bilaterally AUSCULTATION: clear to auscultation bilaterally and diminished lung sounds Cardio: COMMON NORMALS: regular rate and regular rhythm RATE: regular rate RHYTHM: regular rhythm GI: COMMON NORMALS: Normal to inspection, nondistended, normoactive bowel sounds present, Soft to palpation and non-tender PALPATION: Yes Soft to palpation Extremity: COMMON NORMALS: no pedal edema Neuro: CAMIL[place] COMA SCALE: document GCS findings Camille coma scale eye opening: Spontaneous [place] coma scale verbal response: Orientated [place] coma scale motor response: Obey commands Camille coma scale total score: 15 Course Vital Signs: Vital signs: Vital Signs Pulse Rate 75 08/06/22 02:08 Respiratory Rate 20 H 08/06/22 02:26 Blood Pressure 128/66 08/06/22 02:26 Pulse Oximetry 94 08/06/22 02:26 Oxygen Delivery Me thod 08/06/22 02:26 Oxygen Flow Rate 2 08/05/22 21:40 MDM - SOB/Dyspnea Medical Decision Making Patient with generalized weakness. He thinks he may have had a fever earlier in the day. His white count is 18. Hemoglobin 9. His creatinine is 2.1, up from 1.7 a couple of days ago. His BUN is 40. Chest x-ray shows cardiomegaly, and perhaps minimal infiltrate versus atelectasis. Abdominal CT shows prominent fluid in the small bowel suggestive of enteritis and some rectal wall thickening potentially a colitis. It also shows prominent urinary bladder wall thickening and edema suggestive of cystitis with bilateral perinephric edema, possibly pyelonephritis. He is given IV fluids, but not a full sepsis bolus, as the patient has a history of CHF. He is given IV Zosyn after blood cultures. He will be admitted. His lactic is 3.2. Hospitalist will evaluate in ER Lab Data : 08/05/22 21:47 08/05/22 21:47 Labs/Radiology: Radiology Impressions Chest X-Ray 08/05/22 22:09 IMPRESSION: 1. Cardiomegaly. 2. Left lower lobe atelectasis versus very minimal infiltrate. Abdomen/Pelvis CT 08/05/22 23:30 IMPRESSION: 1. Diffuse urinary bladder wall thickening with some surrounding edema suggestive of a cystitis. 2. Mildly prominent fluid in the small bowel without dilation suggestive of an enteritis. 3. Emphysematous changes. 4. Left lower lobe atelectasis versus minimal infiltrate. 5. Right kidney cyst, negative for follow-up advised. 6. Bilateral percutaneous nephrostomy tube seen appear in place. 7. Rectal wall thickening suggestive of a colitis. 8. Bilateral fat containing inguinal hernias without bowel. 9. Mild perinephric edema bilaterally suggestive of renal insufficiency, pyelonephritis may also be a consideration. 10. Diverticulosis without diverticulitis. Laboratory Results WBC 17.8 10^3/uL (4.0-10.0) H 08/05/22 21:47 RBC 3.24 10^6/uL (4.1-5.3) L 08/05/22 21:47 Hgb 8.9 g/dL (11.7-16.6) L 08/05/22 21:47 Hct 28.6 % (42.0-52.0) L 08/05/22 21:47 MCV 88.3 fl (80-94) 08/05/22 21:47 MCH 27.5 pg (28.0-34.0) L 08/05/22 21:47 MCHC 31.1 g/dL (30.0-36.0) 08/05/22 21:47 RDW 15.4 % (12.1-15.1) H 08/05/22 21:47 Plt Count 330 10^3/cmm (130-400) 08/05/22 21:47 MPV 10.6 fL (7.4-10.4) H 08/05/22 21:47 Neut % (Auto) 89.3 % 08/05/22 21:47 Lymph % (Auto) 4.4 % 08/05/22 21:47 [place] % (Auto) 5.4 % 08/05/22 21:47 Eos % (Auto) 0.1 % 08/05/22 21:47 Baso % (Auto) 0.2 % 08/05/22 21:47 Neut # (Auto) 15.91 10^3/uL (1.8-7.7) H 08/05/22 21:47 Lymph # (Auto) 0.8 10^3/uL (0.8-4.8) 08/05/22 21:47 [place] # (Auto) 1.0 10^3/uL (0.2-0.9) H 08/05/22 21:47 Eos # (Auto) 0.0 10^3/uL (0.0-0.8) 08/05/22 21:47 Baso # (Auto) 0.0 10^3/uL (0.0-0.1) 08/05/22 21:47 Nucleated RBC % (auto) 0 % 08/05/22 21:47 Nucleated RBCs # 0.0 /100WBC 08/05/22 21:47 Sodium 136 mmol/L (136-145) 08/05/22 21:47 Potassium 4.8 mmol/L (3.5-5.1) 08/05/22 21:47 Chloride 99 mmol/L (98-107) 08/05/22 21:47 Carbon Dioxide 22 mmol/L (22-29) 08/05/22 21:47 Anion Gap 19.8 (5-19) H 08/05/22 21:47 BUN 40 mg/dL (8-23) H 08/05/22 21:47 Creatinine 2.1 mg/dL (0.7-1.2) H 08/05/22 21:47 GFR Calculation Not Reportable 08/05/22 21:47 Glucose 254 mg/dL (65-115) H 08/05/22 21:47 Calculated Osmolality 300 mOsm/kg (285-295) H 08/05/22 21:47 Lactate 3.2 mmol/L (0.5-2.2) H 08/05/22 21:47 Calcium 8.9 mg/dL (8.5-10.5) 08/05/22 21:47 Phosphorus 2.8 mg/dL (2.5-4.5) 08/05/22 21:47 Magnesium 1.5 mg/dL (1.7-2.3) L 08/05/22 21:47 Total Bilirubin 0.4 mg/dL (0.15-1.2) 08/05/22 21:47 AST 15 U/L (0-40) 08/05/22 21:47 ALT 10 U/L (0-41) 08/05/22 21:47 Alkaline Phosphatase 74 U/L (40-130) 08/05/22 21:47 Creatine Kinase 111 U/L (39-308) 08/05/22 21:47 Troponin T Baseline 58 ng/L (0-15) H 08/05/22 21:47 Troponin T 120 Minute 58.90 ng/L (0-15) H 08/06/22 00:25 Delta Troponin T 0.90 ABS# (0-10) 08/06/22 00:25 C-Reactive Protein 125.2 mg/L (0.0-4.9) H 08/05/22 21:47 NT-Pro-B Natriuret Pep 1502 pg/mL (0-450) H 08/05/22 21:47 Total Protein 7.0 g/dL (6.6-8.7) 08/05/22 21:47 Albumin 3.2 g/dL (3.5-5.2) L 08/05/22 21:47 Globulin 3.8 g/dL (1.3-4.6) 08/05/22 21:47 Urine Color Yellow (Yellow) 08/05/22 22:52 Urine Appearance Cloudy (CLEAR) 08/05/22 22:52 Urine pH 5 (5-7) 08/05/22 22:52 Ur Specific [place] 1.020 (1.005-1.030) 08/05/22 22:52 Urine Protein 3+ (Negative) H 08/05/22 22:52 Urine Glucose (UA) Norm (Normal) 08/05/22 22:52 Urine Ketones 1+ (Negative) H 08/05/22 22:52 Urine Blood 3+ (Negative) H 08/05/22 22:52 Urine Nitrate Negative (Negative) 08/05/22 22:52 Urine Bilirubin Neg (Negative) 08/05/22 22:52 Urine Urobilinogen Neg mg/dL (Negative) 08/05/22 22:52 Ur Leukocyte Esterase 2+ (Negative) H 08/05/22 22:52 Urine RBC 25-40 /hpf (0-2) H 08/05/22 22:52 Urine WBC 55-80 /hpf (0-5) H 08/05/22 22:52 Ur Squamous Epith Cells 0-4 /hpf (0-5) H 08/05/22 22:52 Amorphous Sediment Trace /hpf 08/05/22 22:52 Urine Bacteria 3+ /hpf (NONE) H 08/05/22 22:52 Coarse Granular Casts 0-4 /lpf H 08/05/22 22:52 Urine Mucus Trace /hpf 08/05/22 22:52 Blood Type O Negative 08/05/22 23:05 Rho(D) Type Negative 08/05/22 23:05 Antibody Screen Negative 08/05/22 23:05 Discharge Plan Discharge Patient Disposition: Admitted As Inpatient Clinical Impression: Acute kidney injury, Obstructive uropathy, Acute pyelonephritis Condition: Stable Coding Level of Care Code ED Director Of Outreach for Chg Fwd Exam Comprehensive
[2022-08-05 22:54] VITALS: BP 123/56; PULSE 78; RESP 19; O2SAT 98
[2022-08-05 23:10] LABS: Urine Color Yellow (Yellow)
[2022-08-05 23:11] LABS: Add Urine Microscopic? YES; Bilirubin Urine Neg (Negative); Blood Urine 3+ (Negative); Glucose Urine UA Norm (Normal); Ketones Urine 1+ (Negative); Leukocyte Esterase Urine 2+ (Negative); Nitrate Urine Negative (Negative); Protein Urine 3+ (Negative); Urine Appearance Cloudy (CLEAR); Urobilinogen Urine Neg (Negative); pH Urine 5 (5-7)
[2022-08-05 23:12] LABS: Add Urine Culture? Yes; Amorphous Sediment Urine TRACE /hpf; Bacteria Urine 3+ /hpf; Coarse Granular Casts Urine 0-4 /lpf; Mucus Urine TRACE /hpf; RBC Urine 25-40 /hpf (0-2); Squamous Epithelial Cell Urine 0-4 /hpf (0-5); WBC Urine 55-80 /hpf (0-5)
[2022-08-05 23:17] VITALS: BP 138/66; PULSE 79; RESP 21; O2SAT 95
--- NOTE | 2022-08-05 23:30 | CTR_ITS ---
PROCEDURE INFORMATION: Exam: CT Abdomen And Pelvis Without Contrast Exam date and time: 08/05/2022 11:57 PM Age: 77 years old Clinical indication: Other: Leukocytosis, abd pain, urinary obstruction; Patient HX: Renal drainage tube TECHNIQUE: Imaging protocol: Computed tomography of the abdomen and pelvis without contrast. Radiation optimization: All CT scans at this facility use at least one of these dose optimization techniques: automated exposure control; mA and/or kV adjustment per patient size (includes targeted exams where dose is matched to clinical indication); or iterative reconstruction. COMPARISON: CT abdomen pelvis wo con [id number] 06/16/2022 2:18 PM RADIATION DOSE METRICS: Total DLP (mGy-cm): 841.53 FINDINGS: Tubes, catheters and devices: Pacemaker. Bilateral percutaneous nephrostomy tube seen appear in place. Lungs: Emphysematous changes. Left lower lobe atelectasis versus minimal infiltrate. Liver: Normal. No mass. Gallbladder and bile ducts: Normal. No calcified stones. No ductal dilation. Pancreas: Normal. No ductal dilation. Spleen: Normal. No splenomegaly. Adrenal glands: Normal. No mass. Kidneys and ureters: Right kidney cyst, negative for follow-up advised. Mild perinephric edema bilaterally suggestive of renal insufficiency, pyelonephritis may also be a consideration. Stomach and bowel: Mildly prominent fluid in the small bowel without dilation suggestive of an enteritis. Rectal wall thickening suggestive of a colitis. Diverticulosis without diverticulitis. Appendix: No evidence of appendicitis. Intraperitoneal space: Unremarkable. No free air. No significant fluid collection. Vasculature: Unremarkable. No abdominal aortic aneurysm. Lymph nodes: Unremarkable. No enlarged lymph nodes. Urinary bladder: Diffuse urinary bladder wall thickening with some surrounding edema suggestive of a cystitis. Reproductive: Unremarkable as visualized. Bones/joints: Unremarkable. No acute fracture. Soft tissues: Bilateral fat containing inguinal hernias without bowel. CT/CT abdomen pelvis con [id number] IMPRESSION: 1. Diffuse urinary bladder wall thickening with some surrounding edema suggestive of a cystitis. 2. Mildly prominent fluid in the small bowel without dilation suggestive of an enteritis. 3. Emphysematous changes. 4. Left lower lobe atelectasis versus minimal infiltrate. 5. Right kidney cyst, negative for follow-up advised. 6. Bilateral percutaneous nephrostomy tube seen appear in place. 7. Rectal wall thickening suggestive of a colitis. 8. Bilateral fat containing inguinal hernias without bowel. 9. Mild perinephric edema bilaterally suggestive of renal insufficiency, pyelonephritis may also be a consideration. 10. Diverticulosis without diverticulitis.
[2022-08-05] MEDS: piperacillin-tazobactam 3.375 GM in sodium chloride 0.9% (plus) 50 ML IV (23:39)
[2022-08-06] VITALS (26 sets, daily range): BP systolic 92–164; BP diastolic 44–71; PULSE 70–101; RESP 16–23; TEMP 36.8–37.7; O2SAT 92–98
--- NOTE | 2022-08-06 00:10 | ECG_ITS ---
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 Measurements Intervals [place] Rate: 74 P: 59 OR: 145 QRS: -42 QRSD: 107 T: -44 QT: 391 QTc: 436 Interpretive Statements SINUS RHYTHM LEFT AXIS DEVIATION [QRS AXIS < -30] NONSPECIFIC ST & T-WAVE ABNORMALITY Compared to ECG 08/05/2022 21:46:54 Intraventricular conduction delay no longer present T-wave abnormality still present Electronically Signed On 08-06-2022 8:39:42 CDT by Jason Valiente M.D. [email or web address] [email or web address] hospitalLSU, [facility].[id number]
[2022-08-06] MEDS: ondansetron 2 mg/ML SDV 2 mL 4 MG IVP (01:07)
[2022-08-06] MEDS: fentaNYL 50 mcg/mL INJ 2mL IVP (01:07)
--- NOTE | 2022-08-06 01:23 | PC.NURSE ---
LILLIE SAAVEDRA LEAVING TO GO HOME, CELL [phone]
[2022-08-06] MEDS: sodium chloride 0.9% 1,000 ML 999 ML IV (01:30)
--- NOTE | 2022-08-06 01:36 | P.HP_ITS ---
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 Patient tells me that he lives at home with his , recently he been feeling more weak and fatigued, has had generalized malaise, this evening, he fell, and was able to get up, due to weakness. He tells me that his nephrostomy tubes are draining, he has not had any recent issues with it, follows up with Dr. Sharma, no fevers, no chills, no nausea, no vomiting, no abdominal pain. He does report over 50 pound weight loss poor appetite. Denies any head trauma, is not on any blood thinners, does report increased shortness of breath. Review of Systems Card: Denies: chest pain Resp: Denies: dyspnea GI: Denies: abdominal pain : Denies: flank pain Neuro: Denies: headache(s) Medications/Allergies Home Medications Medication Instructions Recorded Confirmed Last Taken Type duloxetine 60 mg capsule,delayed 60 mg PO BID 12/04/19 08/03/22 05/17/22 History release cholecalciferol (vitamin D3) 10 10 mcg PO DAILY 08/20/20 08/03/22 05/16/22 History mcg (400 unit) tablet (Vitamin D3) glucosamine HCl 500 mg tablet 500 mg PO DAILY 07/21/21 08/03/22 05/16/22 History multivitamin 1 tab PO DAILY 07/21/21 08/03/22 05/16/22 History allopurinol 100 mg tablet 100 mg PO QAM 09/30/21 08/03/22 05/17/22 History gabapentin 300 mg capsule 600 mg PO TID 09/30/21 08/03/22 05/17/22 History hydrochlorothiazide 25 mg tablet 25 mg PO DAILY #90 tabs 10/12/21 08/03/22 05/16/22 Rx ceracare 1 tab PO DAILY 01/20/22 08/03/22 05/16/22 History tamsulosin 0.4 mg capsule 0.4 mg PO BID #180 caps 01/20/22 08/03/22 05/16/22 Rx sucralfate 1 gram tablet (Carafate) 1 g PO Q6H 12 weeks #336 tabs 01/26/22 08/03/22 05/16/22 Rx atorvastatin 80 mg tablet 40 mg PO BEDTIME 02/06/22 08/03/22 05/16/22 History fluticasone propionate 50 1 spray intranasal BID 02/06/22 08/03/22 05/16/22 History mcg/actuation nasal spray,suspension (Allergy Relief (fluticasone)) resveratrol 100 mg capsule 100 mg PO DAILY 02/06/22 08/03/22 05/16/22 History acetaminophen 500 mg tablet 500 mg PO QPM PRN Sleep 02/07/22 08/03/22 02/28/22 History albuterol sulfate 90 mcg/actuation 1 inh inhalation QID PRN Shortness 02/07/22 08/03/22 05/17/22 History aerosol inhaler (ProAir HFA) Of Breath docusate calcium 240 mg capsule 240 mg PO DAILY 02/07/22 08/03/22 05/16/22 History insulin regular hum U-500 conc See Rx Instructions .Route .COMPLEX 02/07/22 08/03/22 05/16/22 History (Humulin R U-500 (Conc) Insulin Kwikpen) lidocaine 5 % topical patch See Rx Instructions .Route .COMPLEX 02/07/22 08/03/22 02/28/22 History mometasone 100 mcg/actuation HFA 1 puff inhalation BID 02/07/22 08/03/22 02/28/22 History aerosol inhaler olodaterol 2.5 mcg/actuation mist 2 inh inhalation DAILY 02/07/22 08/03/22 05/16/22 History for inhalation polyethylene glycol 3350 17 See Rx Instructions .Route .COMPLEX 02/07/22 08/03/22 05/16/22 History gram/dose oral powder ferrous sulfate 325 mg (65 mg 325 mg PO DAILY 03/01/22 08/03/22 05/16/22 History iron) tablet (Feosol) nifedipine 30 mg tablet,extended 30 mg PO DAILY #30 tabs 05/17/22 08/03/22 Unknown Rx release cefdinir 300 mg capsule 300 mg PO Q12H 06/20/22 08/03/22 Unknown History tramadol 50 mg tablet 50 mg PO Q8H PRN pain #21 tabs 08/03/22 08/03/22 Unknown Rx Allergies Allergy/AdvReac Type Severity Reaction Status Date / Time losartan Allergy Mild ADR-Seizure Verified 08/03/22 12:59 lisinopril Allergy unknown Verified 08/03/22 12:59 morphine Allergy ADR-Halluci Verified 08/03/22 13:04 nating tetanus toxoid, adsorbed Allergy unknown Verified 08/03/22 12:59 PFSH Acute PFSH: Medical History Chronic kidney disease Complex renal cyst Overall considered low risk, following with ultrasound, COPD (chronic obstructive pulmonary disease) Diabetes mellitus Diabetic neuropathy Gross hematuria H/O cardiac pacemaker HTN (hypertension) Incomplete bladder emptying Lesion of bladder Chronic inflammatory change with fibroadipose tissue most likely consistent patient cystitis despite its suspicious appearing on cystitis Obstructive sleep apnea Prostate cancer Diagnosed 2019 treated with radiation therapy with good response No evidence of recurrence Sinus node dysfunction Urinary retention Surgical History History of back surgery C3-C4 ACDFF WITH C4 CORPECTOMY History of circumcision History of eye surgery 2018 History of neck surgery History of prostate biopsy Status post cataract surgery Status post knee surgery left Family History Father , AT AGE 65-CHF No problems noted. Mother , AT AGE 65-CHF No problems noted. Social History Smoking and tobacco status: never smoked Alcohol intake: never Marital status: Current occupational status: retired and disabled History of recent travel: No Vitals/I&O/Wt Last Vital Signs Pulse 70 08/06/22 01:35 Resp 16 08/06/22 01:35 BP 109/59 08/06/22 01:35 Pulse Ox 94 08/06/22 01:35 O2 Del Method 08/06/22 01:35 O2 Flow Rate 2 08/05/22 21:40 08/05/22 08/05/22 08/06/22 14:59 22:59 06:59 Intake Total 500 / 500 Balance 500 / 500 Weight last 48 hrs Weight 90.718 kg Physical Exam Const: COMMON NORMALS: no acute distress and patient oriented x3 HENMT: COMMON NORMALS: normocephalic HEAD & SCALP: normocephalic Resp: COMMON NORMALS: normal respiratory effort, No retractions, No use of accessory muscles and clear to auscultation bilaterally AUSCULTATION: clear to auscultation bilaterally Cardio: COMMON NORMALS: regular rate, regular rhythm, S1 normal heart sound present and S2 normal heart sound present RATE: regular rate RHYTHM: regular rhythm HEART SOUNDS: S1 normal heart sound present and S2 normal heart sound present GI: COMMON NORMALS: Normal to inspection, nondistended, normoactive bowel sounds present, Soft to palpation, non-tender, No hepatosplenomegaly present, no masses and no bruits PALPATION: Yes Soft to palpation and Yes No hepatosplenomegaly present : OTHER: Bilateral nephrostomy tubes in place Extremity: COMMON NORMALS: capillary refill normal, no clubbing, cyanosis or edema, no calf tenderness and no pedal edema Neuro: COMMON NORMALS: patient oriented x3 Psych: COMMON NORMALS: mental status grossly normal Data : 08/05/22 21:47 08/05/22 21:47 Micro: Microbiology 08/05/22 23:05 Blood Culture - Preliminary Blood SPECIMEN COLLECTED 08/05/22 23:00 Blood Culture - Preliminary Blood SPECIMEN COLLECTED A&P Assessment and plan (1) Prostate cancer: Status: Acute (2) HTN (hypertension): Status: Acute Qualifiers: Hypertension type: essential hypertension Qualified Code(s): I10 - Essential (primary) hypertension (3) Diabetes mellitus: Status: Acute Qualifiers: Diabetes mellitus type: type 2 Diabetes mellitus usp insulin use: with usp use Diabetes mellitus complication status: without complication Qualified Code(s): E11.9 - Type 2 diabetes mellitus without complications; Z79.4 - sod cutter (current) use of insulin (4) COPD (chronic obstructive pulmonary disease): Status: Acute Qualifiers: COPD type: unspecified COPD Qualified Code(s): J44.9 - Chronic obstructive pulmonary disease, unspecified (5) Chronic kidney disease: Status: Acute Qualifiers: Chronic kidney disease stage: stage 3 (moderate) Chronic kidney disease stage 3 subtype: stage 3a (GFR 45-59) Qualified Code(s): N18.31 - Chronic kidney disease, stage 3a (6) UTI (urinary tract infection): Status: Acute (7) Generalized weakness: Status: Acute Plan UTI -Continue Zosyn -Monitor urine output from nephrostomy tubes -We will have to discuss with urology service in the morning -Full code -Lovenox for DVT prophylaxis Generalized weakness, likely sec to UTI, PT OT Type II days mellitus, low-dose sliding scale Bilateral nephrostomy tube placement, for urinary retention Acute on chronic anemia, monitor LC on CKD, does complain of shortness of breath, gentle IV hydration Elevated lactic 3.2, IV fluids, likely dehydration, UTI Hypomagnesemia, will replace Attestations Medical Necessity Statement*: Patient requires hospitalization for generalized weakness, UTI, outpatient observation Coding Level of Care Code Acute Dial Polisher for Chg Fwd Diagnoses Prostate cancer C61 HTN (hypertension) I10 Hypertension type: essential hypertension Diabetes mellitus E11.9; Z79.4 Diabetes mellitus type: type 2 Diabetes mellitus usp insulin use: with golf stud riveter use Diabetes mellitus complication status: without complication COPD (chronic obstructive pulmonary disease) J44.9 COPD type: unspecified COPD Chronic kidney disease N18.31 Chronic kidney disease stage: stage 3 (moderate) Chronic kidney disease stage 3 subtype: stage 3a (GFR 45-59) UTI (urinary tract infection) N39.0 Generalized weakness R53.1
--- NOTE | 2022-08-06 02:50 | PC.NURSE ---
attempted report nurse unavailable.
--- NOTE | 2022-08-06 03:50 | PC.NURSE ---
warm blankets applied, 350ml urine emptied from neph drain bag.
--- NOTE | 2022-08-06 03:54 | PC.NURSE ---
report called to lico noble.
--- NOTE | 2022-08-06 04:10 | ECG_ITS ---
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 Measurements Intervals [place] Rate: 88 P: 54 MI: 148 QRS: -39 QRSD: 118 T: 77 QT: 354 QTc: 429 Interpretive Statements SINUS RHYTHM LEFT AXIS DEVIATION [QRS AXIS < -30] MODERATE INTRAVENTRICULAR CONDUCTION DELAY [110+ ms QRS DURATION] NONSPECIFIC T-WAVE ABNORMALITY Compared to ECG 08/06/2022 00:15:36 Intraventricular conduction delay now present T-wave abnormality still present Electronically Signed On 08-06-2022 8:40:10 CDT by Jason Valiente M.D. [id number]
--- NOTE | 2022-08-06 04:39 | PC.NURSE ---
Addendum entered by Shirley Harding RN 08/06/22 04:40: Ordered to hold for now. Original Note: Dr. Padron notified that IV fluids ordered on patient are out of stock.
[2022-08-06] MEDS: enoxaparin 40 mg/0.4 mL Syringe SUBCUT (04:46)
[2022-08-06 04:57] LABS: Thyroid Stimulating Hormone 0.97 uIU/mL (0.27-4.20)
[2022-08-06 05:06] LABS: Estmated Average Glucose 166; Hemoglobin A1C 7.4 % (4.0-6.0)
[2022-08-06] MEDS: HYDROcodone-acetaminophen 5-325 mg Tablet 1 TAB PO ×2 (05:10→20:06)
--- NOTE | 2022-08-06 05:38 | PC.NURSE ---
Patient's oxygen saturation ranging mid to upper 80s on room air. Patient placed on 2 liters nasal cannula.
[2022-08-06 07:12] LABS: Glucose Point of Care 165 mg/dL (70-110)
[2022-08-06] MEDS: magnesium sulfate premix 4 GM/100 ML PREMIX IV (07:58)
[2022-08-06] MEDS: ferrous sulfate EC 325 mg Tablet PO (07:59)
[2022-08-06] MEDS: insulin lispro 100 unit/1 mL SUBCUT ×3 (07:59→17:18)
[2022-08-06] MEDS: pantoprazole DR 40 mg Tablet PO (08:00)
[2022-08-06] MEDS: duloxetine 60 mg Capsule PO ×2 (08:00→17:18)
[2022-08-06 11:16] LABS: Glucose Point of Care 183 mg/dL (70-110)
[2022-08-06 12:37] LABS: Basophils % 0.2 %; Hematocrit 26.9 % (42.0-52.0); Hemoglobin 8.3 g/dL (11.7-16.6); Lymphocytes # 1.5 10^3/uL (0.8-4.8); Lymphocytes % 6.1 %; Mean Corpuscular HGB Conc 30.9 g/dL (30.0-36.0); Mean Corpuscular Hemoglobin 27.5 pg (28.0-34.0); Mean Corpuscular Volume 89.1 fl (80-94); Mean Platelet Volume 10.4 fL (7.4-10.4); Monocytes # 0.8 10^3/uL (0.2-0.9); Monocytes % 3.2 %; Neutrophils # 21.59 10^3/uL (1.8-7.7); Neutrophils % 89.4 %; Nucleated Red Blood Cells % 0 %; Platelet Count 316 10^3/cmm (130-400); Red Blood Count 3.02 10^6/uL (4.1-5.3); Red Cell Distribution Width 15.5 % (12.1-15.1); White Blood Count 24.1 10^3/uL (4.0-10.0)
[2022-08-06 12:55] LABS: Anion Gap 16.1 (5-19); Blood Urea Nitrogen 45 mg/dL (8-23); Calcium 8.8 mg/dL (8.5-10.5); Carbon Dioxide 25 mmol/L (22-29); Chloride 98 mmol/L (98-107); Glucose 170 mg/dL (65-115); Osmolality Calculated 294 mOsm/kg (285-295); Potassium 5.1 mmol/L (3.5-5.1); Sodium 134 mmol/L (136-145)
--- NOTE | 2022-08-06 16:58 | PM.MISC ---
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 Sharma:FL nephrostogram?: No change in bilateral distal ureteral obstruction probably from radiation therapy. According to the patient the nephrostomy tubes are draining well. CT abdomen pelvis wo con: Done during this hospital stay: Has shown: Diffuse urinary bladder wall thickening with some surrounding edema suggestive of a cystitis.Bilateral percutaneous nephrostomy tube seen appear in place.Rectal wall thickening suggestive of a colitis.Mild perinephric edema bilaterally suggestive of renal insufficiency, pyelonephritis. Urinalysis has shown: 2+ positive leukocyte esterase, negative nitrate, urine WBC: 55-80 , urine bacteria 3+. Blood culture and urine culture has been done. Patient has been covered with broad-spectrum antibiotics for possible UTI, colitis, pyelonephritis Patient was also recently started complaining of increasing difficulty with swallowing liquid. We will do modified barium study In the morning.SPL On board.Continue to check orthostatic vital sign every 6 hours: Midodrine 5 mg p.o. daily has been added. Patient has urology appointment at [facility] on Sunday. We will have to monitor the nephrostomy tube output. ?
[2022-08-06 17:07] LABS: Glucose Point of Care 247 mg/dL (70-110)
[2022-08-06] MEDS: midodrine 5 mg TABLET PO (17:18)
[2022-08-06] MEDS: atorvastatin 40 mg Tablet PO (20:06)
--- NOTE | 2022-08-06 20:15 | PC.NURSE ---
Patient emptied urine bags in toilet. Patient educated to next time notify us so that we are able to measure urine output. Patient states Okay, I'll try to remember.
--- NOTE | 2022-08-06 20:17 | PC.NURSE ---
Patient's oxygen saturation 90 percent on room air. Will monitor.
[2022-08-06 21:56] LABS: Glucose Point of Care 109 mg/dL (70-110)
[2022-08-07] VITALS (10 sets, daily range): BP systolic 93–175; BP diastolic 47–87; PULSE 61–91; RESP 16–18; TEMP 36.4–37.3; O2SAT 90–95
[2022-08-07] MEDS: enoxaparin 40 mg/0.4 mL Syringe SUBCUT (04:45)
[2022-08-07] MEDS: HYDROcodone-acetaminophen 5-325 mg Tablet 1 TAB PO ×4 (04:45→22:51)
[2022-08-07 04:54] LABS: Basophils % 0.2 %; Eosinophils % 0.1 %; Hematocrit 26.3 % (42.0-52.0); Hemoglobin 7.8 g/dL (11.7-16.6); Lymphocytes # 0.9 10^3/uL (0.8-4.8); Lymphocytes % 6.7 %; Mean Corpuscular HGB Conc 29.7 g/dL (30.0-36.0); Mean Corpuscular Hemoglobin 26.6 pg (28.0-34.0); Mean Corpuscular Volume 89.8 fl (80-94); Mean Platelet Volume 10.7 fL (7.4-10.4); Monocytes # 0.5 10^3/uL (0.2-0.9); Monocytes % 3.9 %; Neutrophils % 88.7 %; Nucleated Red Blood Cells % 0 %; Platelet Count 287 10^3/cmm (130-400); Red Blood Count 2.93 10^6/uL (4.1-5.3); Red Cell Distribution Width 15.6 % (12.1-15.1)
[2022-08-07] MEDS: midodrine 5 mg TABLET PO ×3 (05:16→17:21)
[2022-08-07] MEDS: TRAMadol 50 mg Tablet PO ×2 (05:16→20:05)
[2022-08-07 05:20] LABS: Anion Gap 14.5 (5-19); Blood Urea Nitrogen 42 mg/dL (8-23); Calcium 8.6 mg/dL (8.5-10.5); Carbon Dioxide 22 mmol/L (22-29); Chloride 102 mmol/L (98-107); Glucose 139 mg/dL (65-115); Osmolality Calculated 291 mOsm/kg (285-295); Potassium 4.5 mmol/L (3.5-5.1); Sodium 134 mmol/L (136-145)
[2022-08-07 05:23] LABS: Creatinine Clr Calc Pharmacy 41.5515
[2022-08-07] MEDS: lidocaine 5% Patch TOPICAL (05:25)
[2022-08-07 08:32] LABS: Glucose Point of Care 142 mg/dL (70-110)
[2022-08-07 11:26] LABS: Glucose Point of Care 195 mg/dL (70-110)
[2022-08-07] MEDS: ferrous sulfate EC 325 mg Tablet PO (12:04)
[2022-08-07] MEDS: insulin lispro 100 unit/1 mL SUBCUT (12:04)
[2022-08-07] MEDS: pantoprazole DR 40 mg Tablet PO (12:04)
[2022-08-07] MEDS: duloxetine 60 mg Capsule PO ×2 (12:05→17:22)
--- NOTE | 2022-08-07 14:40 | FL_ITS ---
WS: [id number] MODIFIED BARIUM SWALLOW HISTORY: Oropharyngeal dysphagia FLUOROSCOPY TIME: 1min [id number] # of spot films: 1 Modified barium swallow was performed by the speech pathologist. Fluoroscopy was provided with the pa tient in a lateral projection. Multiple food consistencies were provided. Patient swallowed all food consistencies without difficulty. Multiple episodes of aspiration were isaak ntified. During the aspiration coughing was elicited. Most significant aspiration was with thin liqui ds and multiple contiguous swallows of liquid. There was also significant coating and delayed emptyin g of the pharynx placing the patient increased risk for aspiration. Patient swallowed the barium tabl et without difficulty. Anterior cervical fusion with cervical cage. FL/FL barium swallow modifd [id number] IMPRESSION: 1. Moderate aspiration was noted with multiple food consistencies but predomin antly with liquids and multiple contiguous swallows of liquid. Please see speech therapist report also for recommendations.
--- NOTE | 2022-08-07 15:18 | PC.NURSE ---
nephrostomy tube drsgs changed.no s/sxs infection noted
[2022-08-07 16:38] LABS: Glucose Point of Care 110 mg/dL (70-110)
--- NOTE | 2022-08-07 17:27 | P.PN_ITS ---
Subjective Subjective: Underwent modified barium swallow this morning which showed luis aspiration with multiple different consistencies. Consulted ENT. Currently feels improved. Medications: Reviewed: Yes Vitals/I&O/Wt Last Vital Signs Temp 98.3 F 08/07/22 16:00 Pulse 67 08/07/22 16:00 Resp 16 08/07/22 16:00 BP 108/67 08/07/22 16:00 Pulse Ox 93 08/07/22 16:00 O2 Del Method 08/07/22 16:00 O2 Flow Rate 0 08/07/22 08:00 08/07/22 08/07/22 08/07/22 06:59 14:59 22:59 Intake Total 100 / 900 700 / 700 Balance 100 / 900 700 / 700 Weight last 48 hrs Weight 90.718 kg Physical Exam Narrative: General: No acute distress, AO x3 HEENT: PERRLA, pupils bilaterally equal and reactive, pallors not present Chest: Normal vesicular breath sounds, no added sounds, equal good air entry bilaterally CVS: S1-S2 regular, no murmurs, no tachycardia, no gallops, no rubs Abdomen: Soft, nontender, no organomegaly, bowel sounds present Neuro: No focal deficits, no facial deformity, AO x3, power 5/5 in all limbs Data : 08/07/22 04:39 08/07/22 04:39 Micro: Microbiology 08/05/22 22:52 Urine Culture - Preliminary Urine,Clean Catch Gram Negative Rods Gram Negative Rods#2 08/05/22 23:05 Blood Culture - Preliminary Blood NEGATIVE TO DATE 08/05/22 23:00 Blood Culture - Preliminary Blood NEGATIVE TO DATE A&P Assessment and plan (1) Prostate cancer: Status: Acute (2) HTN (hypertension): Status: Acute Qualifiers: Hypertension type: essential hypertension Qualified Code(s): I10 - Essential (primary) hypertension (3) Diabetes mellitus: Status: Acute Qualifiers: Diabetes mellitus type: type 2 Diabetes mellitus fci insulin use: with superintendent container terminal use Diabetes mellitus complication status: without complication Qualified Code(s): E11.9 - Type 2 diabetes mellitus without complications; Z79.4 - terminal operations supervisor (current) use of insulin (4) COPD (chronic obstructive pulmonary disease): Status: Acute Qualifiers: COPD type: unspecified COPD Qualified Code(s): J44.9 - Chronic obstructive pulmonary disease, unspecified (5) Chronic kidney disease: Status: Acute Qualifiers: Chronic kidney disease stage: stage 3 (moderate) Chronic kidney disease stage 3 subtype: stage 3a (GFR 45-59) Qualified Code(s): N18.31 - Chronic kidney disease, stage 3a (6) UTI (urinary tract infection): Status: Acute (7) Generalized weakness: Status: Acute Plan # Complicated UTI -Continue Zosyn empirically while awaiting further culture data. - Urine cx with GNR preliminary, pending identification -Currently has good urine output from bilateral nephrostomies. -Both tubes are draining well, clear urine bilaterally. CT of the abdomen and pelvis without any perinephric collections. Patient has an appointment at [facility] tomorrow, with IR for bilateral nephrostomy tube exchange, however unlikely that he will be able to keep this appointment as he continues to be inpatient. Urological plan is to have a repeat nephrogram, if there is evidence of flow into the bladder and improvement of bilateral ureteral UVJ obstruction, to internalize with stents at some point. Bilateral UVJ obstruction has been biopsied, no evidence of malignancy thus far. #Significant weight loss of about 40 pounds, patient today underwent a modified barium swallow which showed luis aspiration with all consistencies. Concern for vocal cord paralysis. ENT consult requested with Dr. Alba Cause unclear at this time. -Lovenox for DVT prophylaxis LC on CKD, does complain of shortness of breath, gentle IV hydration Elevated lactic 3.2, IV fluids, likely dehydration, UTI Attestations Medical Necessity Statement*: Ongoing admission for Iv abx, complicated UTI, ENT assessment Coding Level of Care Code Acute Legal Writing Professor for g Fwd Diagnoses Prostate cancer C61 HTN (hypertension) I10 Hypertension type: essential hypertension Diabetes mellitus E11.9; Z79.4 Diabetes mellitus type: type 2 Diabetes mellitus fci insulin use: with fci use Diabetes mellitus complication status: without complication COPD (chronic obstructive pulmonary disease) J44.9 COPD type: unspecified COPD Chronic kidney disease N18.31 Chronic kidney disease stage: stage 3 (moderate) Chronic kidney disease stage 3 subtype: stage 3a (GFR 45-59) UTI (urinary tract infection) N39.0 Generalized weakness R53.1
--- NOTE | 2022-08-07 17:59 | P.CONIM_ITS ---
Providers/Reason For Consult Consulting Physician/Specialty*: Dr. Joaquin Alba MD Otolaryngology, Head & Neck Surgery Reason for Consult*: Vocal cord paralysis Requesting Physician: Dr. Yadira Ibarra MD Attending Physician: Yadira Ibarra MD Primary Care Provider: Rajwinder Olivarez MD History of Present Illness History of Present Illness Nikita Perez is a 77 year old male who was well until one month ago when he developed hoarseness and dysphagia that have slowly worsened since that time. The patient reports that he presented to the ER today with a c/o dysphagia and initially had SOB. The patient reports that he is doing well now and denies any shortness of breath. The patient has a h/o tobacco abuse, but quit in 1987. The patient does not drink by his report. He has been losing weight over that time period, but is o/w without c/o. The patient denies any other noted palliative or provocative factors, and describes his current symptoms as mild. Review of Systems General: Reports: 10 or more systems reviewed and unremarkable except in HPI and below Medications/Allergies Home Medications Medication Instructions Recorded Confirmed Last Taken Type duloxetine 60 mg capsule,delayed 60 mg PO BID 12/04/19 08/06/22 05/17/22 History release cholecalciferol (vitamin D3) 10 10 mcg PO DAILY 08/20/20 08/06/22 05/16/22 History mcg (400 unit) tablet (Vitamin D3) multivitamin 1 tab PO DAILY 07/21/21 08/06/22 05/16/22 History allopurinol 100 mg tablet 100 mg PO QAM 09/30/21 08/06/22 05/17/22 History gabapentin 300 mg capsule 600 mg PO BID 09/30/21 08/06/22 05/17/22 History hydrochlorothiazide 25 mg tablet 25 mg PO DAILY #90 tabs 10/12/21 08/06/22 05/16/22 Rx atorvastatin 80 mg tablet 40 mg PO BEDTIME 02/06/22 08/06/22 05/16/22 History fluticasone propionate 50 1 spray intranasal BID 02/06/22 08/06/22 05/16/22 History mcg/actuation nasal spray,suspension (Allergy Relief (fluticasone)) resveratrol 100 mg capsule 100 mg PO DAILY 03/08/06/22 05/16/22 History acetaminophen 500 mg tablet 500 mg PO QPM PRN Sleep 02/07/22 08/06/22 02/28/22 History albuterol sulfate 90 mcg/actuation 1 inh inhalation QID PRN Shortness 02/07/22 08/06/22 05/17/22 History aerosol inhaler (ProAir HFA) Of Breath docusate calcium 240 mg capsule 240 mg PO DAILY PRN Constipation 02/07/22 08/06/22 05/16/22 History insulin regular hum U-500 conc See Rx Instructions .Route .COMPLEX 02/07/22 08/06/22 05/16/22 History (Humulin R U-500 (Conc) Insulin Kwikpen) lidocaine 5 % topical patch See Rx Instructions .Route .COMPLEX 02/07/22 08/06/22 02/28/22 History mometasone 100 mcg/actuation HFA 1 puff inhalation BID 02/07/22 08/06/22 02/28/22 History aerosol inhaler (Asmanex HFA) olodaterol 2.5 mcg/actuation mist 2 inh inhalation DAILY 02/07/22 08/06/22 05/16/22 History for inhalation (Striverdi Respimat) polyethylene glycol 3350 17 See Rx Instructions .Route 02/07/22 08/06/22 05/16/22 History gram/dose oral powder .COMPLEX PRN Constipation tramadol 50 mg tablet 50 mg PO Q8H PRN pain #21 tabs 08/03/22 08/06/22 Unknown Rx carboxymethylcellulose sodium 1 % 1 drp ophthalmic (eye) DAILY PRN 08/06/22 08/06/22 Unknown History eye drops (Artificial Tears Dry Eyes (carboxymethylcellulose)) glucose 4 gram chewable tablet 4 g PO Q15M PRN LOW BS 08/06/22 08/06/22 Unknown History hydrocodone 5 mg-acetaminophen 325 1 tab PO Q4H PRN Pain 08/06/22 08/06/22 Unknown History mg tablet megestrol 20 mg tablet 20 mg PO DAILY 08/06/22 08/06/22 Unknown History Allergies Allergy/AdvReac Type Severity Reaction Status Date / Time losartan Allergy Mild ADR-Seizure Verified 08/06/22 05:42 lisinopril Allergy unknown Verified 08/06/22 05:42 morphine Allergy ADR-Halluci Verified 08/06/22 05:42 nating tetanus toxoid, adsorbed Allergy unknown Verified 08/06/22 05:42 Current Medications Generic Name Dose Route Start Last Admin Trade Name Freq PRN Reason Stop Dose Admin Hydrocodone Bitart/Acetaminophen 1 tab 08/06/22 04:25 08/07/22 17:28 Hydrocodone-Acetaminophen 5-325 Mg Tablet PO 1 tab Q4H PRN Administration MODERATE TO SEVERE PAIN Atorvastatin Calcium 40 mg 08/06/22 21:00 08/06/22 20:06 Atorvastatin 40 Mg Tablet PO 40 mg BEDTIME ABHILASH Administration Duloxetine HCl 60 mg 08/06/22 09:00 08/07/22 17:22 Duloxetine 60 Mg Capsule PO 60 mg BID ABHILASH Administration Enoxaparin Sodium 40 mg 08/06/22 04:25 08/07/22 04:45 Enoxaparin 40 Mg/0.4 Ml Syringe SUBCUT 40 mg Q24H ABHILASH Administration Ferrous Sulfate 325 mg 08/06/22 09:00 08/07/22 12:04 Ferrous Sulfate Ec 325 Mg Tablet PO 325 mg DAILY ABHILASH Administration Dextrose/Sodium Chloride 1,000 mls @ 50 mls/hr 08/06/22 04:25 08/06/22 22:24 Dextrose 5%-Sod Chloride 0.9% IV Not Given .Q20H ABHILASH Imipenem/Cilastatin Sodium 250 100 mls @ 200 mls/hr 08/06/22 17:30 08/07/22 17:22 mg/ Sodium Chloride IV 12.5 mls/hr Q6H ABHILASH Administration Protocol Insulin Human Lispro 0 unit 08/06/22 08:00 08/07/22 17:17 Insulin Lispro 100 Unit/1 Ml SUBCUT Not Given TIDWM [facility] Protocol Lidocaine 0 patch 08/06/22 21:00 08/07/22 05:25 Lidocaine 5% Patch TOPICAL 1 patch [id number] ABHILASH Administration Midodrine 5 mg 08/06/22 18:00 08/07/22 17:21 Midodrine 5 Mg Tablet PO 5 mg 0700,1300,1800 ABHILASH Administration Non-Formulary Medication 1 puff 08/06/22 18:00 08/07/22 17:18 Mometasone [Asmanex Hfa] INHALATION Not Given BID [facility] Non-Formulary Medication 2 inh 08/07/22 09:00 08/07/22 11:50 Olodaterol [Striverdi Respimat] INHALATION Not Given DAILY ABHILASH Pantoprazole Sodium 40 mg 08/06/22 09:00 08/07/22 12:[address] 40 Mg Tablet PO 40 mg DAILY ABHILASH Administration Tramadol HCl 50 mg 08/06/22 12:11 08/07/22 05:16 Tramadol 50 Mg Tablet PO 50 mg Q4H PRN Administration MODERATE PAIN PFSH Acute PFSH: Medical History Chronic kidney disease Complex renal cyst Overall considered low risk, following with ultrasound, COPD (chronic obstructive pulmonary disease) Diabetes mellitus Diabetic neuropathy Gross hematuria H/O cardiac pacemaker HTN (hypertension) Incomplete bladder emptying Lesion of bladder Chronic inflammatory change with fibroadipose tissue most likely consistent patient cystitis despite its suspicious appearing on cystitis Obstructive sleep apnea Prostate cancer Diagnosed 2019 treated with radiation therapy with good response No evidence of recurrence Sinus node dysfunction Urinary retention Surgical History History of back surgery C3-C4 ACDFF WITH C4 CORPECTOMY History of circumcision History of eye surgery 2018 History of neck surgery History of prostate biopsy Status post cataract surgery Status post knee surgery left Family History Father , AT AGE 65-CHF No problems noted. Mother , AT AGE 65-CHF No problems noted. Social History Smoking and tobacco status: never smoked Alcohol intake: never Marital status: Current occupational status: retired and disabled History of recent travel: No Vitals/I&O/Wt Last Vital Signs Temp 98.3 F 08/07/22 16:00 Pulse 67 08/07/22 16:00 Resp 16 08/07/22 16:00 BP 108/67 08/07/22 16:00 Pulse Ox 93 08/07/22 16:00 O2 Del Method 08/07/22 16:00 O2 Flow Rate 0 08/07/22 08:00 08/07/22 08/07/22 08/07/22 06:59 14:59 22:59 Intake Total 100 / 900 700 / 700 Balance 100 / 900 700 / 700 Weight last 48 hrs Weight 90.718 kg Physical Exam Const: COMMON NORMALS: no acute distress, patient oriented x3 and alert GENERAL APPEARANCE: cooperative and well developed HENMT: COMMON NORMALS: normocephalic, atraumatic, external ears normal and Normal external nose present HEAD & SCALP: normocephalic and atraumatic FACE & SINUS: normal facial exam and face symmetric NOSE: Normal external nose present EXTERNAL EAR: Yes external ears normal MOUTH: Normal oral and palatal mucosa present and tongue normal Eye: COMMON NORMALS: Equal, round and reactive pupils present, EOMs intact bilaterally and conjunctivae normal CONJUNCTIVA: Yes conjunctivae normal PUPIL: Yes Equal, round and reactive pupils present Neck/C-Spine: COMMON NORMALS: no lymphadenopathy and supple GENERAL: Yes trachea midline Lymph: LYMPHATIC: no lymphadenopathy noted Chest: COMMONS NORMALS: normal inspection of the chest CHEST: Yes Symmetrical chest wall rise Resp: COMMON NORMALS: normal respiratory effort, No retractions, No use of accessory muscles and clear to auscultation bilaterally AUSCULTATION: clear to auscultation bilaterally Neuro: COMMON NORMALS: patient oriented x3 SENSORIUM/ORIENTATION: Yes alert Data : 08/07/22 04:39 08/07/22 04:39 Micro: Microbiology 08/05/22 22:52 Urine Culture - Preliminary Urine,Clean Catch Gram Negative Rods Gram Negative Rods#2 08/05/22 23:05 Blood Culture - Preliminary Blood NEGATIVE TO DATE 08/05/22 23:00 Blood Culture - Preliminary Blood NEGATIVE TO DATE Attestation for Other Data: I personally reviewed and interpreted the following: Other data: Chest X Ray Modified Barium Swallow A&P Assessment and plan (1) Vocal cord dysfunction: Impression: 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 The patient is not short of breath and has had normal 02 sats on room air Plan: - I recommend an MRI with IV contrast if possible of the brain and neck to r/o a lesion along the course of the recurrent laryngeal nerves and vagus nerve - Consider ICU transfer if patient develops respiratory symptoms/difficulty - I will make further recommendations once the MRI becomes available. Status: Acute (2) Dysphagia: Impression: Dysphagia with aspiration secondary to the above Plan: - I recommend NPO status until the above condition has resolved - Consider alternate route for alimentation/hydration Status: Acute Consult Attestations Medical Necessity Statement: I was consulted to to evaluate the patient's true vocal cord function Procedures Procedure Narrative Fiberoptic Laryngoscopy, Bedside: normal nasopharynx, orophaarynx, and hypopharynx; right true vocal cord paralysis present; left true vocal cord paresis present; airway adequate, but mildly to moderately reduced caliber; o/w normal laryngeal exam. 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
--- NOTE | 2022-08-07 18:16 | CTR_ITS ---
PROCEDURE INFORMATION: Exam: CT Chest Without Contrast; Diagnostic Exam date and time: 08/07/2022 6:38 PM Age: 77 years old Clinical indication: Chest wall pain; Additional info: Vocal cord paralysis, evaluate for supraclavicular mass TECHNIQUE: Imaging protocol: Diagnostic computed tomography of the chest without contrast. Radiation optimization: All CT scans at this facility use at least one of these dose optimization techniques: automated exposure control; mA and/or kV adjustment per patient size (includes targeted exams where dose is matched to clinical indication); or iterative reconstruction. COMPARISON: CR (CHEST, ) 08/05/2022 10:42 PM RADIATION DOSE METRICS: Total DLP (mGy-cm): 517.44 FINDINGS: Tubes, catheters and devices: Pacemaker. Left percutaneous nephrostomy tube. Lungs: Bilateral dependent atelectasis versus infiltrate. Pleural spaces: Trace bilateral pleural effusions. Heart: Cardiomegaly. Coronary artery atherosclerotic calcifications. Lymph nodes: Unremarkable. No enlarged lymph nodes. Vasculature: Unremarkable. No aortic aneurysm. Kidneys and ureters: Right kidney cyst, partially visualized. Bones/joints: Unremarkable. No acute fracture. Soft tissues: Hepatic dome cyst. CT/CT chest wo con [id number] IMPRESSION: 1. Bilateral dependent atelectasis versus infiltrate. 2. Trace bilateral pleural effusions. 3. Cardiomegaly. 4. Pacemaker. 5. Coronary artery atherosclerotic calcifications. 6. Right kidney cyst, partially visualized. 7. Left percutaneous nephrostomy tube. 8. Negative for supraclavicular mass. COMMENTS: Consistent with the [employer]'s Incidental Findings Committee white paper (J Am Beckie Radiol 2018): Any incidental renal lesion less than 1 cm or classified as too small to characterize, or any incidental cystic renal lesion characterized as simple-appearing, is likely benign. No follow-up imaging is recommended for these lesions per consensus recommendations based on imaging criteria.
[2022-08-07] MEDS: sodium chloride 0.9% 1,000 ML 50 ML IV (20:00)
[2022-08-07] MEDS: atorvastatin 40 mg Tablet PO (20:00)
[2022-08-07 20:58] LABS: Glucose Point of Care 135 mg/dL (70-110)
[2022-08-08] VITALS (10 sets, daily range): BP systolic 96–193; BP diastolic 57–77; PULSE 61–80; RESP 16–22; TEMP 36.4–37.3; O2SAT 91–98
[2022-08-08] MEDS: HYDROcodone-acetaminophen 5-325 mg Tablet 1 TAB PO ×3 (04:06→20:37)
[2022-08-08] MEDS: enoxaparin 40 mg/0.4 mL Syringe SUBCUT (04:07)
[2022-08-08] MEDS: TRAMadol 50 mg Tablet PO ×2 (05:08→23:34)
[2022-08-08] MEDS: midodrine 5 mg TABLET PO ×2 (05:09→17:46)
[2022-08-08 06:08] LABS: Basophils % 0.3 %; Eosinophils # 0.1 10^3/uL (0.0-0.8); Eosinophils % 1.4 %; Hematocrit 25.3 % (42.0-52.0); Hemoglobin 7.7 g/dL (11.7-16.6); Lymphocytes # 0.6 10^3/uL (0.8-4.8); Mean Corpuscular HGB Conc 30.4 g/dL (30.0-36.0); Mean Corpuscular Hemoglobin 26.9 pg (28.0-34.0); Mean Corpuscular Volume 88.5 fl (80-94); Mean Platelet Volume 10.7 fL (7.4-10.4); Monocytes # 0.4 10^3/uL (0.2-0.9); Monocytes % 6.2 %; Neutrophils # 5.25 10^3/uL (1.8-7.7); Neutrophils % 81.8 %; Nucleated Red Blood Cells % 0 %; Platelet Count 282 10^3/cmm (130-400); Red Blood Count 2.86 10^6/uL (4.1-5.3); Red Cell Distribution Width 15.5 % (12.1-15.1); White Blood Count 6.4 10^3/uL (4.0-10.0)
[2022-08-08 06:22] LABS: Glucose Point of Care 145 mg/dL (70-110)
[2022-08-08 06:29] LABS: Alanine Aminotransferase 10 U/L (0-41); Albumin Level 2.6 g/dL (3.5-5.2); Alkaline Phosphatase 65 U/L (40-130); Anion Gap 15.3 (5-19); Aspartate Amino Transferase 18 U/L (0-40); Blood Urea Nitrogen 40 mg/dL (8-23); Calcium 8.8 mg/dL (8.5-10.5); Carbon Dioxide 23 mmol/L (22-29); Chloride 100 mmol/L (98-107); Globulin 3.8 g/dL (1.3-4.6); Glucose 139 mg/dL (65-115); Osmolality Calculated 290 mOsm/kg (285-295); Potassium 4.3 mmol/L (3.5-5.1); Sodium 134 mmol/L (136-145); Total Bilirubin 0.3 mg/dL (0.15-1.2); Total Protein 6.4 g/dL (6.6-8.7)
[2022-08-08 06:30] LABS: Creatinine Clr Calc Pharmacy 43.9957
[2022-08-08] MEDS: duloxetine 60 mg Capsule PO ×2 (09:44→17:46)
[2022-08-08] MEDS: pantoprazole DR 40 mg Tablet PO (09:44)
[2022-08-08] MEDS: insulin lispro 100 unit/1 mL SUBCUT (09:45)
[2022-08-08] MEDS: ferrous sulfate EC 325 mg Tablet PO (09:45)
--- NOTE | 2022-08-08 09:47 | CT_ITS ---
WS: [id number] CT HEAD TECHNIQUE: Noncontrast and contrast-enhanced CT of the head. CLINICAL INFORMATION: evalute for base of skull tumor COMPARISON: August 20, 2020 DLP: 1214.[address] scans at [facility] use at least one of these dose optimization techniques: automated e xposure control; mA and/or kV adjustment per patient size (includes targeted exams where dose is matc hed to clinical indication); or iterative reconstruction. FINDINGS: No evidence of intracranial hemorrhage or mass effect. Ventricular system and basal cisterns are austin nt. No suspicious enhancing intracranial lesions. No extra-axial fluid collections. No evidence of ma ss or mass effect. Paranasal sinuses and mastoid air cells are well aerated. Mild cavernous carotid c alcification. No mass or lesion at the visualized skull base. CT/CT head wo/w con [id number] IMPRESSION: No acute intracranial findings.
--- NOTE | 2022-08-08 09:47 | CT_ITS ---
WS: [id number] CT NECK TECHNIQUE: Contrast-enhanced CT of the neck with coronal and sagittal reformatted images. CLINICAL INFORMATION: B/L vocal cord paralysis COMPARISON: CT 3 21,019 DLP: 1474.[address] scans at [facility] use at least one of these dose optimization techniques: automated e xposure control; mA and/or kV adjustment per patient size (includes targeted exams where dose is matc hed to clinical indication); or iterative reconstruction. FINDINGS: Normal mastoid air cells. Visualized paranasal sinuses are well aerated. Normal parapharyngeal fat. N ormal posterior nasopharynx. Normal parotid glands. Normal submandibular glands. No evidence of supra glottic or glottic mass. Small RIGHT lateral pharyngeal pouch. Medial deviation of the RIGHT true voc al cord suspicious for vocal cord paralysis. Dilatation of the RIGHT laryngeal ventricle. Normal pir iform sinuses. Subglottic airway is patent. Normal lung apices. No evidence of mass or lesion in the upper mediastinum. No cervical lymphadenopathy. Hypertrophic changes cervical spine with stable posto perative instrumentation. Slightly heterogeneous thyroid gland. CT/CT neck w con* [id number] IMPRESSION: 1. No evidence of mass or lesion in the lower neck or visualized upper mediast inum. 2. No evidence of supraglottic or glottic mass. 3. Suspected RIGHT vocal cord paralysis. 4. No cervical lymphadenopathy. 12 mm LEFT supraclavicular lymph node unchange d from 2019 5. Incidental small RIGHT lateral pharyngeal pouch. 6. Normal salivary glands. 7. Stable postoperative changes cervical spine with instrumentation.
[2022-08-08] MEDS: lidocaine 5% Patch TOPICAL (09:51)
[2022-08-08] MEDS: iohexol 350 mg/mL 100 mL Btl IV (11:42)
[2022-08-08 12:02] LABS: Glucose Point of Care 135 mg/dL (70-110)
--- NOTE | 2022-08-08 13:23 | P.PN_ITS ---
Subjective Subjective: MRI needed to be canceled this morning as they were informed this could not be completed with his pacemaker. Instead we will be obtaining a CT of his head and neck today. Continues to be NPO. White blood cell count has normalized today at 6.4. He is afebrile. Medications: Reviewed: Yes Vitals/I&O/Wt Last Vital Signs Temp 98.3 F 08/08/22 12:00 Pulse 63 08/08/22 12:00 Resp 18 08/08/22 12:00 BP 182/75 08/08/22 12:02 Pulse Ox 98 08/08/22 12:00 O2 Del Method 08/08/22 12:00 O2 Flow Rate 0 08/07/22 08:00 08/07/22 08/08/22 08/08/22 22:59 06:59 14:59 Intake Total 100 / 800 200 / 1000 Balance 100 / 800 200 / 1000 Physical Exam Narrative: General: No acute distress, AO x3 HEENT: PERRLA, pupils bilaterally equal and reactive, pallors not present Chest: Normal vesicular breath sounds, no added sounds, equal good air entry bilaterally CVS: S1-S2 regular, no murmurs, no tachycardia, no gallops, no rubs Abdomen: Soft, nontender, no organomegaly, bowel sounds present Neuro: No focal deficits, no facial deformity, AO x3, power 5/5 in all limbs Data : 08/08/22 05:51 08/08/22 05:51 Micro: Microbiology 08/05/22 22:52 Urine Culture - Final Urine,Clean Catch Klebsiella pneumoniae Citrobacter braakii A&P Assessment and plan (1) Prostate cancer: Status: Acute (2) HTN (hypertension): Status: Acute Qualifiers: Hypertension type: essential hypertension Qualified Code(s): I10 - Essential (primary) hypertension (3) Diabetes mellitus: Status: Acute Qualifiers: Diabetes mellitus type: type 2 Diabetes mellitus fpc insulin use: with fpc use Diabetes mellitus complication status: without complication Qualified Code(s): E11.9 - Type 2 diabetes mellitus without complications; Z79.4 - MCC (current) use of insulin (4) COPD (chronic obstructive pulmonary disease): Status: Acute Qualifiers: COPD type: unspecified COPD Qualified Code(s): J44.9 - Chronic obstructive pulmonary disease, unspecified (5) Chronic kidney disease: Status: Acute Qualifiers: Chronic kidney disease stage: stage 3 (moderate) Chronic kidney disease stage 3 subtype: stage 3a (GFR 45-59) Qualified Code(s): N18.31 - Chronic kidney disease, stage 3a (6) UTI (urinary tract infection): Status: Acute (7) Generalized weakness: Status: Acute Plan # Complicated UTI -Continue Zosyn - Urine cx with Klebsiella pneumonia and Citrobacter brachii, both reported to be Zosyn susceptible -Currently has good urine output from bilateral nephrostomies. -Both tubes are draining well, clear urine bilaterally. CT of the abdomen and pelvis without any perinephric collections. Patient will follow-up at [facility] for exchange of his nephrostomy tubes once he is discharged from the hospital. Urological plan is to have a repeat nephrogram, if there is evidence of flow int o the bladder and improvement of bilateral ureteral UVJ obstruction, to internalize with stents at some point. Bilateral UVJ obstruction has been biopsied, no evidence of malignancy thus far. #Significant weight loss of about 40 pounds, with noted aspiration and hoarseness of voice over the last 1 to 2 months. Initial measure modified barium swallow had shown luis aspiration with all consistencies. Concern for vocal cord paralysis. This was confirmed on ENT exam as well. Awaiting CT of his head and neck to evaluate for recurrent laryngeal nerve involvement from any potential masses along the head and neck which would explain his findings. Discussed risk of potential SAMM Cause unclear at this time. May need placement of a PEG tube but continues to have luis aspiration #Hypertension, blood pressure noted to be elevated at 182/75. Orthostatic drop to 96 systolic last night. -Lovenox for DVT prophylaxis LC on CKD, does complain of shortness of breath, gentle IV hydration Attestations Medical Necessity Statement*: CT of the head and neck today as noted above. 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
[2022-08-08 16:41] LABS: Glucose Point of Care 128 mg/dL (70-110)
--- NOTE | 2022-08-08 17:24 | PM.PN ---
Subjective Subjective: 77 yo wm with a h/o bilateral true vocal cord paralysis/paresis who is admitted for new onset hoarseness and dysphagia. The patient reports that he is breathing well, but continues to have difficulty swallowing. He is o/w without c/o. Medications: Reviewed: Yes Vitals/I&O/Wt Last Vital Signs Temp 98.3 F 08/08/22 15:47 Pulse 68 08/08/22 15:47 Resp 18 08/08/22 15:47 BP 107/65 08/08/22 15:47 Pulse Ox 97 08/08/22 15:47 O2 Del Method 08/08/22 15:47 O2 Flow Rate 0 08/07/22 08:00 08/08/22 08/08/22 08/08/22 06:59 14:59 22:59 Intake Total 200 / 1000 100 / 100 Balance 200 / 1000 100 / 100 Physical Exam Const: COMMON NORMALS: no acute distress, average body habitus, patient oriented x3, healthy appearing, alert and well nourished HENMT: COMMON NORMALS: normocephalic, atraumatic and Normal external nose present HEAD & SCALP: normocephalic and atraumatic FACE & SINUS: normal facial exam NOSE: Normal external nose present Eye: COMMON NORMALS: EOMs intact bilaterally, conjunctivae normal and no scleral icterus CONJUNCTIVA: Yes conjunctivae normal Neck/C-Spine: COMMON NORMALS: no lymphadenopathy, supple and Thyroid normal GENERAL: Yes trachea midline THYROID: Thyroid normal Lymph: LYMPHATIC: no lymphadenopathy noted Chest: COMMONS NORMALS: normal inspection of the chest Resp: COMMON NORMALS: normal respiratory effort, No retractions, No use of accessory muscles and clear to auscultation bilaterally EFFORT & INSPECTION: Yes able to speak in complete sentences AUSCULTATION: clear to auscultation bilaterally Neuro: COMMON NORMALS: patient oriented x3 SENSORIUM/ORIENTATION: Yes alert Data : 08/08/22 05:51 08/08/22 05:51 Micro: Microbiology 08/05/22 22:52 Urine Culture - Final Urine,Clean Catch Klebsiella pneumoniae Citrobacter braakii Attestation for Other Data: I personally reviewed and interpreted the following: Other data: Neck CT scan Head CT scan A&P Assessment and plan (1) Vocal cord dysfunction: Impression: 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 They wish to observe for now. - I recommend direct/microdirect larngoscopy and esophagoscopy with biopsy or biopsies to further evaluate the patient's larynx under general anesthesia. I explained this to the patient and his as well as the potential risks, complications, and alternatives as well. They express understanding and wish to proceed. We will schedule in the am. I will make further recommendations after this evaluation. Status: Acute (2) Dysphagia: Impression: Stable Plan: - I will perform an esophagoscopy in the am. Otherwise, as per Dr. 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
--- NOTE | 2022-08-08 19:00 | PC.NURSE ---
Patient was found at the begining of the shift trying to get into the bathroom asking to be detached from everything. The patient was naked hooked up to his IV fluids and dragging his nephrostomy drainage bags behind him. Both of his nephrostomy dressings were pulled off and the patients nephrostomy tubes were open to air. The patient was irritated and demanding to be detached from everything. This nurse did unhook the patient from his IV at the time to try and calm the patient but explained she can not detach the nephrostomy tubes from the drainage bags. The patient did go back to bed and allowed day nurse tyron to redress his nephrostomy tubes. Moon Reported to the restaurant shift supervisor nurse present that the patient is impulsive. The patients bed alarm was turned on to alert staff if patient gets up again.
[2022-08-08] MEDS: atorvastatin 40 mg Tablet PO (20:38)
[2022-08-08] MEDS: sodium chloride 0.9% 1,000 ML 50 ML IV (20:38)
[2022-08-08 21:18] LABS: Glucose Point of Care 153 mg/dL (70-110)
--- NOTE | 2022-08-08 22:00 | PC.NURSE ---
Right nephrostomy tube output 175ml and left nephrostomy tube output 400ml.
--- NOTE | 2022-08-08 23:41 | PC.NURSE ---
Emptied 350ml out of patients left nephrostomy and 100ml out of patients right nephrostomy
[2022-08-09] VITALS (18 sets, daily range): BP systolic 106–200; BP diastolic 61–94; PULSE 64–89; RESP 16–22; TEMP 36.2–37.2; O2SAT 92–99
[2022-08-09] MEDS: enoxaparin 40 mg/0.4 mL Syringe SUBCUT (04:26)
[2022-08-09 05:16] LABS: Basophils % 0.6 %; Eosinophils % 0.6 %; Hematocrit 26.4 % (42.0-52.0); Hemoglobin 8.2 g/dL (11.7-16.6); Lymphocytes # 0.6 10^3/uL (0.8-4.8); Mean Corpuscular HGB Conc 31.1 g/dL (30.0-36.0); Mean Corpuscular Volume 86.8 fl (80-94); Mean Platelet Volume 10.9 fL (7.4-10.4); Monocytes # 0.4 10^3/uL (0.2-0.9); Monocytes % 8.4 %; Neutrophils # 4.16 10^3/uL (1.8-7.7); Nucleated Red Blood Cells % 0 %; Platelet Count 336 10^3/cmm (130-400); Red Blood Count 3.04 10^6/uL (4.1-5.3); Red Cell Distribution Width 15.5 % (12.1-15.1); White Blood Count 5.3 10^3/uL (4.0-10.0)
[2022-08-09 05:32] LABS: Alanine Aminotransferase 9 U/L (0-41); Alkaline Phosphatase 67 U/L (40-130); Anion Gap 17.1 (5-19); Aspartate Amino Transferase 16 U/L (0-40); Blood Urea Nitrogen 37 mg/dL (8-23); Calcium 8.8 mg/dL (8.5-10.5); Carbon Dioxide 22 mmol/L (22-29); Chloride 104 mmol/L (98-107); Globulin 3.8 g/dL (1.3-4.6); Glucose 141 mg/dL (65-115); Osmolality Calculated 299 mOsm/kg (285-295); Potassium 4.1 mmol/L (3.5-5.1); Sodium 139 mmol/L (136-145); Total Bilirubin 0.3 mg/dL (0.15-1.2); Total Protein 6.8 g/dL (6.6-8.7)
[2022-08-09 05:35] LABS: Creatinine Clr Calc Pharmacy 43.9957
[2022-08-09 06:28] LABS: Glucose Point of Care 153 mg/dL (70-110)
[2022-08-09] MEDS: HYDROcodone-acetaminophen 5-325 mg Tablet 1 TAB PO ×3 (06:49→20:01)
[2022-08-09] MEDS: midodrine 5 mg TABLET PO ×2 (06:49→18:32)
[2022-08-09] MEDS: sodium chloride 0.9% 1,000 ML 30 ML IV (08:24)
[2022-08-09] MEDS: labetalol 5 mg/mL SDV 20mL 10 MG IVP (08:24)
[2022-08-09 08:39] LABS: Glucose Point of Care 158 mg/dL (70-110)
--- NOTE | 2022-08-09 09:15 | ANES.PREANE2 ---
Pre-Anesthetic Assessment Height/Weight: Height 1.83 m Weight 90.718 kg Temp Pulse Resp BP Pulse Ox O2 Del Method O2 Flow Rate 97.4 F L 81 18 175/93 96 0 08/09/22 08:08 08/09/22 08:08 08/09/22 08:08 08/09/22 08:52 08/09/22 08:08 08/09/22 08:08 08/09/22 07:49 Preop Diagnosis: Clot Urinary retention, radiation cystitis Operation Date: 08/09/22 09:20 Proposed Procedures p Direct Laryngoscopy(Not Applicable) - Joaquin Alba MD s Esophagoscopy(Not Applicable) - Joaquin Alba MD Familial anesthetic complications: None Was Beta Marcos taken within 24 hours: N/A Was Clonidine taken within 24 hours: N/A Last intake: Intake Last Liquid Date 08/08/22 Last Liquid Time 23:34 Last Solid Date 08/05/22 Social No alcohol and No tobacco Exam alert, oriented x 3, clear to auscultation bilaterally and regular rate & rhythm Airway Mallampati: Class II Dentition: other ( no teeth) Comments: Comments: full olivares, vocal cord dysfunction Pulmonary Chronic Obstructive Pulmonary Disease and Sleep Apnea hx aaspiration CV/HEM Anemia and Hypertension pacemaker for sinus node dysfunction Chronic Renal Insufficiency Metabolic Diabetes Mellitus and Hyperlipidemia Anesthetic Plan ASA status: 4 Anesthesia: General Risk of > 500 ml blood loss (7ml/kg in children): No Medications/Allergies Home Medications Medication Instructions Recorded Confirmed Last Taken Type duloxetine 60 mg capsule,delayed 60 mg PO BID 12/04/19 08/06/22 05/17/22 History release cholecalciferol (vitamin D3) 10 10 mcg PO DAILY 08/20/20 08/06/22 05/16/22 History mcg (400 unit) tablet (Vitamin D3) multivitamin 1 tab PO DAILY 07/21/21 08/06/22 05/16/22 History allopurinol 100 mg tablet 100 mg PO QAM 09/30/21 08/06/22 05/17/22 History gabapentin 300 mg capsule 600 mg PO BID 09/30/21 08/06/22 05/17/22 History hydrochlorothiazide 25 mg tablet 25 mg PO DAILY #90 tabs 10/12/21 08/06/22 05/16/22 Rx atorvastatin 80 mg tablet 40 mg PO BEDTIME 02/06/22 08/06/22 05/16/22 History fluticasone propionate 50 1 spray intranasal BID 02/06/22 08/06/22 05/16/22 History mcg/actuation nasal spray,suspension (Allergy Relief (fluticasone)) resveratrol 100 mg capsule 100 mg PO DAILY 02/06/22 08/06/22 05/16/22 History acetaminophen 500 mg tablet 500 mg PO QPM PRN Sleep 02/07/22 08/06/22 02/28/22 History albuterol sulfate 90 mcg/actuation 1 inh inhalation QID PRN Shortness 02/07/22 08/06/22 05/17/22 History aerosol inhaler (ProAir HFA) Of Breath docusate calcium 240 mg capsule 240 mg PO DAILY PRN Constipation 02/07/22 08/06/22 05/16/22 History insulin regular hum U-500 conc See Rx Instructions .Route .COMPLEX 02/07/22 08/06/22 05/16/22 History (Humulin R U-500 (Conc) Insulin Kwikpen) lidocaine 5 % topical patch See Rx Instructions .Route .COMPLEX 02/07/22 08/06/22 02/28/22 History mometasone 100 mcg/actuation HFA 1 puff inhalation BID 02/07/22 08/06/22 02/28/22 History aerosol inhaler (Asmanex HFA) olodaterol 2.5 mcg/actuation mist 2 inh inhalation DAILY 02/07/22 08/06/22 05/16/22 History for inhalation (Striverdi Respimat) polyethylene glycol 3350 17 See Rx Instructions .Route 02/07/22 08/06/22 05/16/22 History gram/dose oral powder .COMPLEX PRN Constipation tramadol 50 mg tablet 50 mg PO Q8H PRN pain #21 tabs 08/03/22 08/06/22 Unknown Rx carboxymethylcellulose sodium 1 % 1 drp ophthalmic (eye) DAILY PRN 08/06/22 08/06/22 Unknown History eye drops (Artificial Tears Dry Eyes (carboxymethylcellulose)) glucose 4 gram chewable tablet 4 g PO Q15M PRN LOW BS 08/06/22 08/06/22 Unknown History hydrocodone 5 mg-acetaminophen 325 1 tab PO Q4H PRN Pain 08/06/22 08/06/22 Unknown History mg tablet megestrol 20 mg tablet 20 mg PO DAILY 08/06/22 08/06/22 Unknown History Allergies Allergy/AdvReac Type Severity Reaction Status Date / Time losartan Allergy Mild ADR-Seizure Verified 08/06/22 05:42 lisinopril Allergy unknown Verified 08/06/22 05:42 morphine Allergy ADR-Halluci Verified 08/06/22 05:42 nating tetanus toxoid, adsorbed Allergy unknown Verified 08/06/22 05:42 Current Medications Generic Name Dose Route Start Last Admin Trade Name Freq PRN Reason Stop Dose Admin Hydrocodone Bitart/Acetaminophen 1 tab 08/06/22 04:25 08/09/22 06:49 Hydrocodone-Acetaminophen 5-325 Mg Tablet PO 1 tab Q4H PRN Administration MODERATE TO SEVERE PAIN Atorvastatin Calcium 40 mg 08/06/22 21:00 08/08/22 20:38 Atorvastatin 40 Mg Tablet PO 40 mg BEDTIME ABHILASH Administration Duloxetine HCl 60 mg 08/06/22 09:00 08/08/22 17:46 Duloxetine 60 Mg Capsule PO 60 mg BID ABHILASH Administration Enoxaparin Sodium 40 mg 08/06/22 04:25 08/09/22 04:26 Enoxaparin 40 Mg/0.4 Ml Syringe SUBCUT 40 mg Q24H ABHILASH Administration Ferrous Sulfate 325 mg 08/06/22 09:00 08/08/22 09:45 Ferrous Sulfate Ec 325 Mg Tablet PO 325 mg DAILY ABHILASH Administration Imipenem/Cilastatin Sodium 250 100 mls @ 200 mls/hr 08/06/22 17:30 08/09/22 05:32 mg/ Sodium Chloride IV Infused Q6H ABHILASH Infusion Protocol Sodium Chloride 1,000 mls @ 50 mls/hr 08/07/22 19:15 08/08/22 20:38 Sodium Chloride 0.9% IV 50 mls/hr .Q20H ABHILASH Administration Sodium Chloride 1,000 mls @ 30 mls/hr 08/09/22 08:15 08/09/22 08:24 Sodium Chloride 0.9% IV 08/10/22 08:14 30 mls/hr .Q24H ABHILASH Administration Insulin Human Lispro 0 unit 08/06/22 08:00 08/08/22 17:46 Insulin Lispro 100 Unit/1 Ml SUBCUT Not Given TIDWM ABHILASH Protocol Lidocaine 0 patch 08/06/22 21:00 08/08/22 20:40 Lidocaine 5% Patch TOPICAL Not Given [id number] ABHILASH Midodrine 5 mg 08/06/22 18:00 08/09/22 06:49 Midodrine 5 Mg Tablet PO 5 mg 0700,1300,1800 ABHILASH Administration Non-Formulary Medication 1 puff 08/06/22 18:00 08/08/22 17:46 Mometasone [Asmanex Hfa] INHALATION Not Given BID [facility] Non-Formulary Medication 2 inh 08/07/22 09:00 08/08/22 09:53 Olodaterol [Striverdi Respimat] INHALATION Not Given DAILY [facility] Pantoprazole Sodium 40 mg 08/06/22 09:00 08/08/22 09:[address] 40 Mg Tablet PO 40 mg DAILY ABHILASH Administration Tramadol HCl 50 mg 08/06/22 12:11 08/08/22 23:34 Tramadol 50 Mg Tablet PO 50 mg Q4H PRN Administration MODERATE PAIN PFSH Anesthesia Medical History Chronic kidney disease Complex renal cyst Overall considered low risk, following with ultrasound, COPD (chronic obstructive pulmonary disease) Diabetes mellitus Diabetic neuropathy Gross hematuria H/O cardiac pacemaker HTN (hypertension) Incomplete bladder emptying Lesion of bladder Chronic inflammatory change with fibroadipose tissue most likely consistent patient cystitis despite its suspicious appearing on cystitis Obstructive sleep apnea Prostate cancer Diagnosed 2019 treated with radiation therapy with good response No evidence of recurrence Sinus node dysfunction Urinary retention Surgical History History of back surgery C3-C4 ACDFF WITH C4 CORPECTOMY History of circumcision History of eye surgery 2018 History of neck surgery History of prostate biopsy Status post cataract surgery Status post knee surgery left Family History Father , AT AGE 65-CHF No problems noted. Mother , AT AGE 65-CHF No problems noted. Social History Smoking and tobacco status: never smoked Alcohol intake: never Marital status: Current occupational status: retired and disabled History of recent travel: No Data Anesthesia : 08/09/22 04:46 08/09/22 04:46 Short CBC 08/08/22 08/09/22 Range/Units 05:51 04:46 WBC 6.4 5.3 (4.0-10.0) 10^3/uL Hgb 7.7 L 8.2 L (11.7-16.6) g/dL Hct 25.3 L 26.4 L (42.0-52.0) % MCV 88.5 86.8 (80-94) fl Plt Count 282 336 (130-400) 10^3/cmm Neut % (Auto) 81.8 79.0 % Neut # (Auto) 5.25 4.16 (1.8-7.7) 10^3/uL BMP 08/08/22 08/09/22 05:51 04:46 Sodium 134 L 139 Potassium 4.3 4.1 Chloride 100 104 Carbon Dioxide 23 22 BUN 40 H 37 H Creatinine 1.7 H 1.7 H Glucose 139 H 141 H Calcium 8.8 8.8 Liver Function 08/08/22 08/09/22 Range/Units 05:51 04:46 Total Bilirubin 0.3 0.3 (0.15-1.2) mg/dL AST 18 16 (0-40) U/L ALT 10 9 (0-41) U/L Alkaline Phosphatase 65 67 (40-130) U/L Albumin 2.6 L 3.0 L (3.5-5.2) g/dL Microbiology 08/05/22 22:52 Urine Culture - Final Urine,Clean Catch Klebsiella pneumoniae Citrobacter braakii Cardiac Studies: Echocardiogram Ultrasound 09/16/20 Cardiac Event Monitor 09/22/20
--- NOTE | 2022-08-09 09:24 | W.PM.OPSUD ---
Surgery/Procedure H&P Update DATE OF PROCEDURE: August 09, 2022 DATE H&P PERFORMED: 05/18/22 PREOP DIAGNOSIS: Clot Urinary retention, radiation cystitis PRIMARY INDICATION FOR PROCEDURE: Vocal cord paralysis with airway obstruction PLANNED PROCEDURE: Operation Date: 08/09/22 09:20 Proposed Procedures p Direct Laryngoscopy(Not Applicable) - Joaquin Alba MD s Esophagoscopy(Not Applicable) - Joaquin Alba MD
[2022-08-09] MEDS: EPINEPHrine 1 mg/mL INJ XX (10:04)
--- NOTE | 2022-08-09 10:18 | P.OP_ITS ---
Operative Report Date of procedure: August 09, 2022 Pre-op diagnosis: Preop Diagnosis: 1) Bilateral true vocal cord paralysis/paresis, 2) Dysphagia Post-op diagnosis: same Post-op diagnosis: 1) Laryngeal Exam: - Right true vocal cord paralysis - Left true vocal cord paresis - O/W normal laryngeal exam 2) Esophageal Exam: - Esophagitis with patchy leukoplakia of the distal esophagus - O/W Normal exam of the esophagus to the cardia of the stomach Post-op findings: See the above Procedure done: - Microdirect laryngoscopy - Flexible esophagoscopy with biopsy Implants: None Specimens removed/disposition: Distal Esophageal biopsies Pathology: Distal esophageal biopsies Surgeon: Joaquin Alba Cherry Picker Operator: Lisa Rosales Anesthesia: General Estimated blood loss (mL): 1 IV fluids (mL): 800 Complications: None Findings: See the above Condition: stable Disposition: PACU Brief History: 77 yo wm with a c/o vocal cord paralysis/paresis and dysphagia who presents today for surgical evaluation. Procedure: The patient was identified in the preoperative holding area and was taken to the operating room where he was placed on the operating table in the supine p osition. Anesthesia was obtained with general endotracheal anesthesia and the table was then turned 90 degrees to the patient's left. The surgical laryngoscope was was advanced down the right oral cavity gutter under direct vision until the larynx came into view. A systematic inspection was then carried out of the patient's larynx with findings noted above. The patient was placed on suspension and the 0 degree Grimaldo ludivina surgical telescope with the attached video camera system was used to evaluate and photo document the laryngeal findings. Once this was accomplished, the patient was taken off suspension and the patient's larynx was reinspected with the findings previously noted. At this point the flexible esophagoscope was advanced down the right oral cavity gutter into the esophageal inlet and a systematic inspection was carried out of the patient's esophagus with the findings noted above. Biopsies were taken of the lesions noted in the distal esophagus. Once this was accompl ished, the esophagoscope was removed from the patient and the procedure was terminated. Control of the patient was then returned to anesthesia where he underwent an uneventful reversal of anesthesia and extubation and was taken to the recovery room stable condition. There were no operative or anesthetic complications
[2022-08-09 11:52] LABS: Glucose Point of Care 155 mg/dL (70-110)
[2022-08-09] MEDS: HYDROmorphone 1 mg/mL INJ 1 mL IVP ×2 (12:21→18:48)
--- NOTE | 2022-08-09 15:07 | ANE.PACU2 ---
Inpatient post-anesthesia follow up: Airway intact: Yes Vital signs: Temperature 97.8 F Pulse Rate [Orthos tatic 78 Standing Right Api monae] Pulse Rate [Orthos tatic 78 Sitting Right Apic al] Pulse Rate [Orthos tatic Lying 64 Right Apical] Pulse Rate 83 Respiratory Rate 16 Blood Pressure [Or thostatic 125/68 Standing Right Arm ] Blood Pressure [Or thostatic 143/61 Sitting Right Arm] Blood Pressure [Or thostatic 171/85 Lying Right Arm] Blood Pressure 149/65 Pulse Oximetry 95 Oxygen Delivery Me thod Room Air Oxygen Flow Rate 6 Fraction of Inspir ed Oxygen Hydration adequate: Yes Nausea and vomiting: No Pain level: 1 Mental status: Baseline
--- NOTE | 2022-08-09 16:40 | PM.PN ---
Subjective Subjective: Status post direct laryngoscopy today. No masses encountered. No obvious gross lesion to explain his bilateral vocal cord paralysis. Acetylcholine receptor antibodies have been ordered, results are pending, anticipate to take a few weeks. Medications: Reviewed: Yes Vitals/I&O/Wt Last Vital Signs Temp 97.8 F 08/09/22 12:00 Pulse 83 08/09/22 12:00 Resp 16 08/09/22 12:21 BP 149/65 08/09/22 12:00 Pulse Ox 95 08/09/22 12:00 O2 Del Method 08/09/22 12:00 O2 Flow Rate 6 08/09/22 10:23 08/09/22 08/09/22 08/09/22 06:59 14:59 22:59 Intake Total 560 / 1760 275 / 275 Output Total 1735 / 2310 Balance -1175 / -550 274 / 274 Physical Exam Narrative: General: AO x3 HEENT: PERRLA, pupils bilaterally equal and reactive, pallors not present Chest: Normal vesicular breath sounds, no added sounds, equal good air entry bilaterally CVS: S1-S2 regular, no murmurs, no tachycardia, no gallops, no rubs Abdomen: Soft, nontender, no organomegaly, bowel sounds present Neuro: No focal deficits, no facial deformity, AO x3, power 5/5 in all limbs Data : 08/09/22 04:46 08/09/22 04:46 Micro: Microbiology 08/05/22 22:52 Urine Culture - Final Urine,Clean Catch Klebsiella pneumoniae Citrobacter braakii A&P Assessment and plan (1) Prostate cancer: Status: Acute (2) HTN (hypertension): Status: Acute Qualifiers: Hypertension type: essential hypertension Qualified Code(s): I10 - Essential (primary) hypertension (3) Diabetes mellitus: Status: Acute Qualifiers: Diabetes mellitus type: type 2 Diabetes mellitus group home insulin use: with terminologist use Diabetes mellitus complication status: without complication Qualified Code(s): E11.9 - Type 2 diabetes mellitus without complications; 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 (4) COPD (chronic obstructive pulmonary disease): Status: Acute Qualifiers: COPD type: unspecified COPD Qualified Code(s): J44.9 - Chronic obstructive pulmonary disease, unspecified (5) Chronic kidney disease: Status: Acute Qualifiers: Chronic kidney disease stage: stage 3 (moderate) Chronic kidney disease stage 3 subtype: stage 3a (GFR 45-59) Qualified Code(s): N18.31 - Chronic kidney disease, stage 3a (6) UTI (urinary tract infection): Status: Acute (7) Generalized weakness: Status: Acute Plan # Complicated UTI -Continue Primaxin, please note that this was charted as Zosyn in error on note from 08/08 - Urine cx with Klebsiella pneumonia and Citrobacter brachii -Currently has good urine output from bilateral nephrostomies. -Both tubes are draining well, clear urine bilaterally. CT of the abdomen and pelvis without any perinephric collections. Patient will follow-[facility] at [facility] for exchange of his nephrostomy tubes once he is discharged from the hospital. Urological plan is to have a repeat nephrogram, if there is evidence of flow into the bladder and improvement of bilateral ureteral UVJ obstruction, to internalize with stents at some point. Bilateral UVJ obstruction has been biopsied, no evidence of malignancy thus far. #B/L vocal; cord paralysis No gross mass lesions on CT head/neck/ Chest or direct layngoscopy caus eunclear, may be neurological ACh receptor ab has been added to evaluate for myasthenia gravis Will need neurology follow up - discussed with Dr. Turpin that patient will be seen in close follow up post discharge PEG tube to minimize risk of aspiration - consult gen/surg Currently maintaining airway, has refused trach with ENT #Hypertension, blood pressure noted to be elevated at 182/75. Orthostatic drop to 96 systolic last night. -Lovenox for DVT prophylaxis LC on CKD, does complain of shortness of breath, gentle IV hydration Attestations Medical Necessity Statement*: PEG tomorrow Coding Level of Care Code Acute Park Landscape Architect for g Fwd Diagnoses Prostate cancer C61 HTN (hypertension) I10 Hypertension type: essential hypertension Diabetes mellitus E11.9; Z79.4 Diabetes mellitus type: type 2 Diabetes mellitus terminologist insulin use: with group home use Diabetes mellitus complication status: without complication COPD (chronic obstructive pulmonary disease) J44.9 COPD type: unspecified COPD Chronic kidney disease N18.31 Chronic kidney disease stage: stage 3 (moderate) Chronic kidney disease stage 3 subtype: stage 3a (GFR 45-59) UTI (urinary tract infection) N39.0 Generalized weakness R53.1
--- NOTE | 2022-08-09 16:54 | PM.CONSULT ---
Providers/Reason For Consult Consulting Physician/Specialty*: Polo Land MD Reason for Consult*: Dysphagia Requesting Physician: Dr. Ibarra Attending Physician: Yadira Ibarra MD Primary Care Provider: Rajwinder Olivarez MD History of Present Illness History of Present Illness Mr. Nikita Perez is a pleasant 77 year old male well-known to me from previous clinical encounters does have multiple medical comorbidities;?radiation cystitis, history of bilateral ureteral obstruction from radiation cystitis, COPD, diabetes, hypertension, history of prostate cancer, who presents to [facility] due to weakness, fatigue, fall. Apparently the patient has progressive dysphagia and a barium swallow was done on 08/07/2022 and did show ?Moderate aspiration was noted with multiple food consistencies but predominantly with liquids and multiple contiguous swallows of liquid. ? Also CT of the abdomen pelvis was done on 08/05/2022 that did show 1. Diffuse urinary bladder wall thickening with some surrounding edema suggestive of a cystitis. 2. Mildly prominent fluid in the small bowel without dilation suggestive of an enteritis. 3. Emphysematous changes. 4. Left lower lobe atelectasis versus minimal infiltrate. 5. Right kidney cyst, negative for follow-up advised. 6. Bilateral percutaneous nephrostomy tube seen appear in place. 7. Rectal wall thickening suggestive of a colitis. 8. Bilateral fat containing inguinal hernias without bowel. 9. Mild perinephric edema bilaterally suggestive of renal insufficiency, pyelonephritis may also be a consideration.? 10. Diverticulosis without diverticulitis. General Surgery was consulted for further evaluation for potential PEG tube placement. Patient denies any previous gastric surgeries Review of Systems General: Reports: 10 or more systems reviewed and unremarkable except in HPI and below Medications/Allergies Home Medications Medication Instructions Recorded Confirmed Last Taken Type duloxetine 60 mg capsule,delayed 60 mg PO BID 12/04/19 08/06/22 05/17/22 History release cholecalciferol (vitamin D3) 10 10 mcg PO DAILY 08/20/20 08/06/22 05/16/22 History mcg (400 unit) tablet (Vitamin D3) multivitamin 1 tab PO DAILY 07/21/21 08/06/22 05/16/22 History allopurinol 100 mg tablet 100 mg PO QAM 09/30/21 08/06/22 05/17/22 History gabapentin 300 mg capsule 600 mg PO BID 09/30/21 08/06/22 05/17/22 History hydrochlorothiazide 25 mg tablet 25 mg PO DAILY #90 tabs 10/12/21 08/06/22 05/16/22 Rx atorvastatin 80 mg tablet 40 mg PO BEDTIME 02/06/22 08/06/22 05/16/22 History fluticasone propionate 50 1 spray intranasal BID 02/06/22 08/06/22 05/16/22 History mcg/actuation nasal spray,suspension (Allergy Relief (fluticasone)) resveratrol 100 mg capsule 100 mg PO DAILY 02/06/22 08/06/22 05/16/22 History acetaminophen 500 mg tablet 500 mg PO QPM PRN Sleep 02/07/22 08/06/22 02/28/22 History albuterol sulfate 90 mcg/actuation 1 inh inhalation QID PRN Shortness 02/07/22 08/06/22 05/17/22 History aerosol inhaler (ProAir HFA) Of Breath docusate calcium 240 mg capsule 240 mg PO DAILY PRN Constipation 02/07/22 08/06/22 05/16/22 History insulin regular hum U-500 conc See Rx Instructions .Route .COMPLEX 02/07/22 08/06/22 05/16/22 History (Humulin R U-500 (Conc) Insulin Kwikpen) lidocaine 5 % topical patch See Rx Instructions .Route .COMPLEX 02/07/22 08/06/22 02/28/22 History mometasone 100 mcg/actuation HFA 1 puff inhalation BID 02/07/22 08/06/22 02/28/22 History aerosol inhaler (Asmanex HFA) olodaterol 2.5 mcg/actuation mist 2 inh inhalation DAILY 02/07/22 08/06/22 05/16/22 History for inhalation (Striverdi Respimat) polyethylene glycol 3350 17 See Rx Instructions .Route 02/07/22 08/06/22 05/16/22 History gram/dose oral powder .COMPLEX PRN Constipation tramadol 50 mg tablet 50 mg PO Q8H PRN pain #21 tabs 08/03/22 08/06/22 Unknown Rx carboxymethylcellulose sodium 1 % 1 drp ophthalmic (eye) DAILY PRN 08/06/22 08/06/22 Unknown History eye drops (Artificial Tears Dry Eyes (carboxymethylcellulose)) glucose 4 gram chewable tablet 4 g PO Q15M PRN LOW BS 08/06/22 08/06/22 Unknown History hydrocodone 5 mg-acetaminophen 325 1 tab PO Q4H PRN Pain 08/06/22 08/06/22 Unknown History mg tablet megestrol 20 mg tablet 20 mg PO DAILY 08/06/22 08/06/22 Unknown History Allergies Allergy/AdvReac Type Severity Reaction Status Date / Time losartan Allergy Mild ADR-Seizure Verified 08/09/22 17:11 lisinopril Allergy unknown Verified 08/09/22 17:11 morphine Allergy ADR-Halluci Verified 08/09/22 17:11 nating tetanus toxoid, adsorbed Allergy unknown Verified 08/09/22 17:11 Current Medications Generic Name Dose Route Start Last Admin Trade Name Freq PRN Reason Stop Dose Admin Hydrocodone Bitart/Acetaminophen 1 tab 08/06/22 04:25 08/09/22 15:51 Hydrocodone-Acetaminophen 5-325 Mg Tablet PO 1 tab Q4H PRN Administration MODERATE TO SEVERE PAIN Atorvastatin Calcium 40 mg 08/06/22 21:00 08/08/22 20:38 Atorvastatin 40 Mg Tablet PO 40 mg BEDTIME ABHILASH Administration Duloxetine HCl 60 mg 08/06/22 09:00 08/08/22 17:46 Duloxetine 60 Mg Capsule PO 60 mg BID AB[facility]ASH Administration Enoxaparin Sodium 40 mg 08/06/22 04:25 08/09/22 04:26 Enoxaparin 40 Mg/0.4 Ml Syringe SUBCUT 40 mg Q24H ABHILASH Administration Ferrous Sulfate 325 mg 08/06/22 09:00 08/08/22 09:45 Ferrous Sulfate Ec 325 Mg Tablet PO 325 mg DAILY ABHILASH Administration Hydromorphone HCl 1 mg 08/09/22 12:11 08/09/22 12:21 Hydromorphone 1 Mg/Ml Inj 1 Ml IVP 1 mg Q6H PRN Administration SEVERE pain Imipenem/Cilastatin Sodium 250 100 mls @ 200 mls/hr 08/06/22 17:30 08/09/22 11:54 mg/ Sodium Chloride IV Infused Q6H [facility] Infusion Protocol Sodium Chloride 1,000 mls @ 50 mls/hr 08/07/22 19:15 08/08/22 20:38 Sodium Chloride 0.9% IV 50 mls/hr .Q20H AB[facility]ASH Administration Insulin Human Lispro 0 unit 08/06/22 08:00 08/09/22 12:16 Insulin Lispro 100 Unit/1 Ml SUBCUT Not Given TIDWM [facility] Protocol Lidocaine 0 patch 08/06/22 21:00 08/08/22 20:40 Lidocaine 5% Patch TOPICAL Not Given O12O12 AB[facility] Midodrine 5 mg 08/06/22 18:00 08/09/22 12:30 Midodrine 5 Mg Tablet PO Not Given 0700,1300,1800 [facility] Non-Formulary Medication 1 puff 08/06/22 18:00 08/08/22 17:46 Mometasone [Asmanex Hfa] INHALATION Not Given BID [facility] Non-Formulary Medication 2 inh 08/07/22 09:00 08/08/22 09:53 Olodaterol [Striverdi Respimat] INHALATION Not Given DAILY [facility] Pantoprazole Sodium 40 mg 08/06/22 09:00 08/08/22 09:[address] 40 Mg Tablet PO 40 mg DAILY [facility] Administration Tramadol HCl 50 mg 08/06/22 12:11 08/08/22 23:34 Tramadol 50 Mg Tablet PO 50 mg Q4H PRN Administration MODERATE PAIN PFSH Acute PFSH: Medical History Chronic kidney disease Complex renal cyst Overall considered low risk, following with ultrasound, COPD (chronic obstructive pulmonary disease) Diabetes mellitus Diabetic neuropathy Gross hematuria H/O cardiac pacemaker HTN (hypertension) Incomplete bladder emptying Lesion of bladder Chronic inflammatory change with fibroadipose tissue most likely consistent patient cystitis despite its suspicious appearing on cystitis Obstructive sleep apnea Prostate cancer Diagnosed 2019 treated with radiation therapy with good response No evidence of recurrence Sinus node dysfunction Urinary retention Surgical History History of back surgery C3-C4 ACDFF WITH C4 CORPECTOMY History of circumcision History of eye surgery 2018 History of neck surgery History of prostate biopsy Status post cataract surgery Status post knee surgery left Family History Father , AT AGE 65-CHF No problems noted. Mother , AT AGE 65-CHF No problems noted. Social History Smoking and tobacco status: never smoked Alcohol intake: never Marital status: Current occupational status: retired and disabled History of recent travel: No Vitals/I&O/Wt Last Vital Signs Temp 97.8 F 08/09/22 12:00 Pulse 83 08/09/22 12:00 Resp 16 08/09/22 12:21 BP 149/65 08/09/22 12:00 Pulse Ox 95 08/09/22 12:00 O2 Del Method 08/09/22 12:00 O2 Flow Rate 6 08/09/22 10:23 08/09/22 08/09/22 08/09/22 06:59 14:59 22:59 Intake Total 560 / 1760 275 / 275 Output Total 1735 / 2310 Balance -1175 / -550 274 / 274 Physical Exam Const: COMMON NORMALS: no acute distress and patient oriented x3; negative for healthy appearing GENERAL APPEARANCE: cooperative, disheveled, ill appearing, frail appearing and other (Cachectic) ORIENTATION/CONSCIOUSNESS: Yes awake, Yes oriented to person, Yes oriented to place and Yes oriented to time HENMT: COMMON NORMALS: normocephalic HEAD & SCALP: normocephalic Eye: COMMON NORMALS: Equal, round and reactive pupils present and no scleral icterus PUPIL: Yes Equal, round and reactive pupils present Lymph: LYMPHATIC: no lymphadenopathy noted Chest: COMMONS NORMALS: normal inspection of the chest Resp: COMMON NORMALS: normal respiratory effort and clear to auscultation bilaterally AUSCULTATION: clear to auscultation bilaterally Cardio: COMMON NORMALS: S1 normal heart sound present and S2 normal heart sound present; negative for No murmurs present (Cardio) HEART SOUNDS: S1 normal heart sound present and S2 normal heart sound present GI: COMMON NORMALS: Soft to palpation; negative for No hepatosplenomegaly present INSPECTION: Yes normal to inspection PALPATION: Yes Soft to palpation, No Firmness to palpation present (GI), No Tenderness to palpation present (GI), No Guarding due to palpation present (GI), No Rigid due to palpation and No No hepatosplenomegaly present Back/Pelvis: OTHER: Bilateral nephrostomy tubes in place Neuro: COMMON NORMALS: patient oriented x3 SENSORIUM/ORIENTATION: Yes oriented to person, Yes oriented to place and Yes oriented to time Psych: COMMON NORMALS: mental status grossly normal Skin: COMMON NORMALS: no rashes or lesions noted GENERAL SKIN EXAM: no rashes or lesions noted Data : 08/10/22 04:50 08/10/22 04:50 Micro: Microbiology 08/05/22 22:52 Urine Culture - Final Urine,Clean Catch Klebsiella pneumoniae Citrobacter braakii A&P Assessment and plan (1) Dysphagia: Plan of care; After thorough history and physical examination and reviewing the chart, plan to perform endoscopic guided percutaneous gastrostomy feeding tube placement. I discussed with the patient in detail the risk,benefits,alternatives and indications.The risk of aspiration, bleeding, soft tissue injury, perforation of the stomach/esophagus and other potential concomitant complications were explained to the patient in details,aslo the potential need for Thoracic and or Abdominal surgery to repair any complications.The patient understood this well and did agree to proceed. Rationale was carefully and clearly discussed with the patient.Appropriate informed consent have been reviewed and signed All questions have been answered and all concerns have been addressed to patient's satisfaction. Status: Acute Consult Attestations Medical Necessity Statement: Per admitting service Coding Level of Care Code Acute House Officer for Chg Fwd Exam Comprehensive Diagnoses Dysphagia R13.10
[2022-08-09 17:15] LABS: Glucose Point of Care 216 mg/dL (70-110)
[2022-08-09] MEDS: duloxetine 60 mg Capsule PO (18:32)
[2022-08-09] MEDS: fluticasone nasal spray 16gm Btl 1 SPRAY INTRANASAL (18:36)
[2022-08-09] MEDS: atorvastatin 40 mg Tablet PO (20:01)
[2022-08-09] MEDS: sodium chloride 0.9% 1,000 ML 50 ML IV (20:02)
[2022-08-09 20:54] LABS: Glucose Point of Care 281 mg/dL (70-110)
[2022-08-10] VITALS (17 sets, daily range): BP systolic 136–197; BP diastolic 70–95; PULSE 54–85; RESP 13–24; TEMP 36.3–37.4; O2SAT 90–100
[2022-08-10] MEDS: HYDROmorphone 1 mg/mL INJ 1 mL IVP ×3 (02:07→15:31)
[2022-08-10 04:48] LABS: Glucose Point of Care 178 mg/dL (70-110)
[2022-08-10 05:01] LABS: Basophils % 0.2 %; Hemoglobin 8.9 g/dL (11.7-16.6); Lymphocytes # 0.8 10^3/uL (0.8-4.8); Lymphocytes % 14.6 %; Mean Corpuscular HGB Conc 30.7 g/dL (30.0-36.0); Mean Corpuscular Hemoglobin 26.4 pg (28.0-34.0); Mean Corpuscular Volume 86.1 fl (80-94); Mean Platelet Volume 10.6 fL (7.4-10.4); Monocytes # 0.4 10^3/uL (0.2-0.9); Monocytes % 6.3 %; Neutrophils # 4.44 10^3/uL (1.8-7.7); Neutrophils % 78.4 %; Nucleated Red Blood Cells % 0 %; Platelet Count 378 10^3/cmm (130-400); Red Blood Count 3.37 10^6/uL (4.1-5.3); Red Cell Distribution Width 15.5 % (12.1-15.1); White Blood Count 5.7 10^3/uL (4.0-10.0)
[2022-08-10] MEDS: allopurinol 100 mg Tablet PO (05:03)
[2022-08-10] MEDS: enoxaparin 40 mg/0.4 mL Syringe SUBCUT (05:03)
[2022-08-10] MEDS: HYDROcodone-acetaminophen 5-325 mg Tablet 1 TAB PO (05:03)
[2022-08-10] MEDS: midodrine 5 mg TABLET PO (05:03)
[2022-08-10 05:29] LABS: Alanine Aminotransferase 8 U/L (0-41); Albumin Level 2.9 g/dL (3.5-5.2); Alkaline Phosphatase 70 U/L (40-130); Anion Gap 20.2 (5-19); Aspartate Amino Transferase 15 U/L (0-40); Blood Urea Nitrogen 35 mg/dL (8-23); Calcium 9.2 mg/dL (8.5-10.5); Carbon Dioxide 20 mmol/L (22-29); Chloride 105 mmol/L (98-107); Globulin 4.5 g/dL (1.3-4.6); Glucose 189 mg/dL (65-115); Osmolality Calculated 305 mOsm/kg (285-295); Potassium 4.2 mmol/L (3.5-5.1); Sodium 141 mmol/L (136-145); Total Bilirubin 0.3 mg/dL (0.15-1.2); Total Protein 7.4 g/dL (6.6-8.7)
[2022-08-10 05:58] LABS: Ferritin 792 ng/mL (30-400); Iron 33 ug/dL (59-158); Total Iron Binding Capacity 157 mcg/dl; Unsaturated Iron Binding 124 ug/dL (112-347)
[2022-08-10 06:41] LABS: Glucose Point of Care 211 mg/dL (70-110)
[2022-08-10] MEDS: lidocaine 5% Patch TOPICAL ×2 (08:51→21:50)
[2022-08-10 11:28] LABS: Glucose Point of Care 218 mg/dL (70-110)
--- NOTE | 2022-08-10 12:23 | PC.SOCIAL ---
IMM update IMM updated with patient and at bedside. Verbalized an understanding. Copy Pg 2 provided. Initialled, dated, timed, and placed in chart.
[2022-08-10] MEDS: sodium chloride 0.9% 1,000 ML 30 ML IV (12:28)
--- NOTE | 2022-08-10 13:14 | ANES.PREANE2 ---
Pre-Anesthetic Assessment Height/Weight: Height 1.83 m Weight 90.718 kg Temp Pulse Resp BP Pulse Ox O2 Del Method O2 Flow Rate 97.4 F L 71 18 184/93 97 6 08/10/22 12:16 08/10/22 12:16 08/10/22 12:16 08/10/22 12:16 08/10/22 12:16 08/10/22 12:16 08/10/22 08:00 Preop Diagnosis: Dysphagia Operation Date: 08/09/22 09:20 Proposed Procedures p Direct Laryngoscopy(Not Applicable) - Joaquin Alba MD s Esophagoscopy(Not Applicable) - Joaquin Alba MD Operation Date: 08/10/22 11:30 Proposed Procedures p PEG Tube Insertion(Left) - Polo Land MD Familial anesthetic complications: none Was Beta Marcos taken within 24 hours: N/A Was Clonidine taken within 24 hours: N/A Last intake: Intake Last Liquid Date 08/09/22 Last Liquid Time 23:00 Last Solid Date 08/09/22 Last Solid Time 09:00 Social Tobacco and No alcohol Exam alert, oriented x 3, clear to auscultation bilaterally and regular rate & rhythm Airway Submandibular: within normal limits Cervical ROM: within normal limits Mallampati: Class II Dentition: false Pulmonary Chronic Obstructive Pulmonary Disease, Sleep Apnea and Shortness of Breath Vocal cord dysfunction CV/HEM Anemia, Arrythmia (Pacemaker, sinus node dysfunction ) and Hypertension TTE 08/2020 ?CONCLUSIONS ?1.? This is a technically difficult study. ?2. Normal left ventricular size, systolic function and wall ?thickness. Left ventricular ejection fraction is estimated at 60 ?%.? Although no diagnostic regional wall motion abnormality ?could be identified, this possibility cannot be completely ?excluded.? ?3.? Normal pulmonary artery pressure. ?4.? When compared to previous echocardiogram dated 03/24/2019, ?there may not have been any significant change. Chronic Renal Insufficiency Prostate cancer with b/l urinary nephrostomy tubes for obstruction LC on CKD Hepatic None reported GI Odynophagia Esophagitis Metabolic Diabetes Mellitus Currently being evaluated for myasthenia gravis Musc/skel Osteoarthritis/DJD Anesthetic Plan ASA status: 3 Anesthesia: Anesthesia Evaluation and MAC Other: Discussed MAC vs general, patient prefers MAC. I discussed with the patient risks, goals, and benefits of MAC and general anesthesia. We discussed spectrum of MAC anesthesia including conversion to general as well as possibility of recall of intraoperative stimuli including discomfort/pain. Patient agrees to proceed with MAC. Risk of > 500 ml blood loss (7ml/kg in children): No Medications/Allergies Home Medications Medication Instructions Recorded Confirmed Last Taken Type duloxetine 60 mg capsule,delayed 60 mg PO BID 12/04/19 08/06/22 05/17/22 History release cholecalciferol (vitamin D3) 10 10 mcg PO DAILY 08/20/20 08/06/22 05/16/22 History mcg (400 unit) tablet (Vitamin D3) multivitamin 1 tab PO DAILY 07/21/21 08/06/22 05/16/22 History allopurinol 100 mg tablet 100 mg PO QAM 09/30/21 08/06/22 05/17/22 History gabapentin 300 mg capsule 600 mg PO BID 09/30/21 08/06/22 05/17/22 History hydrochlorothiazide 25 mg tablet 25 mg PO DAILY #90 tabs 10/12/21 08/06/22 05/16/22 Rx atorvastatin 80 mg tablet 40 mg PO BEDTIME 02/06/22 08/06/22 05/16/22 History fluticasone propionate 50 1 spray intranasal BID 02/06/22 08/06/22 05/16/22 History mcg/actuation nasal spray,suspension (Allergy Relief (fluticasone)) resveratrol 100 mg capsule 100 mg PO DAILY 02/06/22 08/06/22 05/16/22 History acetaminophen 500 mg tablet 500 mg PO QPM PRN Sleep 02/07/22 08/06/22 02/28/22 History albuterol sulfate 90 mcg/actuation 1 inh inhalation QID PRN Shortness 02/07/22 08/06/22 05/17/22 History aerosol inhaler (ProAir HFA) Of Breath docusate calcium 240 mg capsule 240 mg PO DAILY PRN Constipation 02/07/22 08/06/22 05/16/22 History insulin regular hum U-500 conc See Rx Instructions .Route .COMPLEX 02/07/22 08/06/22 05/16/22 History (Humulin R U-500 (Conc) Insulin Kwikpen) lidocaine 5 % topical patch See Rx Instructions .Route .COMPLEX 02/07/22 08/06/22 02/28/22 History mometasone 100 mcg/actuation HFA 1 puff inhalation BID 02/07/22 08/06/22 02/28/22 History aerosol inhaler (Asmanex HFA) olodaterol 2.5 mcg/actuation mist 2 inh inhalation DAILY 02/07/22 08/06/22 05/16/22 History for inhalation (Striverdi Respimat) polyethylene glycol 3350 17 See Rx Instructions .Route 02/07/22 08/06/22 05/16/22 History gram/dose oral powder .COMPLEX PRN Constipation tramadol 50 mg tablet 50 mg PO Q8H PRN pain #21 tabs 08/03/22 08/06/22 Unknown Rx carboxymethylcellulose sodium 1 % 1 drp ophthalmic (eye) DAILY PRN 08/06/22 08/06/22 Unknown History eye drops (Artificial Tears Dry Eyes (carboxymethylcellulose)) glucose 4 gram chewable tablet 4 g PO Q15M PRN LOW BS 08/06/22 08/06/22 Unknown History hydrocodone 5 mg-acetaminophen 325 1 tab PO Q4H PRN Pain 08/06/22 08/06/22 Unknown History mg tablet megestrol 20 mg tablet 20 mg PO DAILY 08/06/22 08/06/22 Unknown History Allergies Allergy/AdvReac Type Severity Reaction Status Date / Time losartan Allergy Mild ADR-Seizure Verified 08/09/22 17:11 lisinopril Allergy unknown Verified 08/09/22 17:11 morphine Allergy ADR-Halluci Verified 08/09/22 17:11 nating tetanus toxoid, adsorbed Allergy unknown Verified 08/09/22 17:11 Current Medications Generic Name Dose Route Start Last Admin Trade Name Freq PRN Reason Stop Dose Admin Hydrocodone Bitart/Acetaminophen 1 tab 08/06/22 04:25 08/10/22 05:03 Hydrocodone-Acetaminophen 5-325 Mg Tablet PO 1 tab Q4H PRN Administration MODERATE TO SEVERE PAIN Allopurinol 100 mg 08/10/22 06:00 08/10/22 05:03 Allopurinol 100 Mg Tablet PO 100 mg QAM [facility]ILASH Administration Atorvastatin Calcium 40 mg 08/06/22 21:00 08/09/22 20:01 Atorvastatin 40 Mg Tablet PO 40 mg BEDTIME AB[facility]ILASH Administration Duloxetine HCl 60 mg 08/06/22 09:00 08/10/22 12:02 Duloxetine 60 Mg Capsule PO Not Given BID [facility] Enoxaparin Sodium 40 mg 08/06/22 04:25 08/10/22 05:03 Enoxaparin 40 Mg/0.4 Ml Syringe SUBCUT 40 mg Q24H [facility]ILASH Administration Ferrous Sulfate 325 mg 08/06/22 09:00 08/10/22 12:02 Ferrous Sulfate Ec 325 Mg Tablet PO Not Given DAILY [facility] Fluticasone Propionate 1 spray 08/09/22 18:00 08/10/22 12:02 Fluticasone Nasal [place] 16gm Btl INTRANASAL Not Given BID [facility] Hydrochlorothiazide 25 mg 08/10/22 09:00 08/10/22 12:02 Hydrochlorothiazide 25 Mg Tablet PO Not Given DAILY [facility] Hydromorphone HCl 1 mg 08/09/22 12:11 08/10/22 08:42 Hydromorphone 1 Mg/Ml Inj 1 Ml IVP 1 mg Q6H PRN Administration SEVERE pain Imipenem/Cilastatin Sodium 250 100 mls @ 200 mls/hr 08/06/22 17:30 08/10/22 05:37 mg/ Sodium Chloride IV Infused Q6H [facility] Infusion Protocol Sodium Chloride 1,000 mls @ 50 mls/hr 08/07/22 19:15 08/09/22 20:02 Sodium Chloride 0.9% IV 50 mls/hr .Q20H [facility]ASH Administration Sodium Chloride 1,000 mls @ 30 mls/hr 08/10/22 12:15 08/10/22 12:28 Sodium Chloride 0.9% IV 08/11/22 12:14 30 mls/hr .Q24H [facility]ASH Administration Insulin Human Lispro 0 unit 08/06/22 08:00 08/10/22 12:04 Insulin Lispro 100 Unit/1 Ml SUBCUT Not Given TIDWM [facility] Protocol Lidocaine 0 patch 08/06/22 21:00 08/10/22 08:51 Lidocaine 5% Patch TOPICAL 1 patch O12O12 [facility] Administration Midodrine 5 mg 08/06/22 18:00 08/10/22 05:03 Midodrine 5 Mg Tablet PO 5 mg 0700,1300,1800 [facility] Administration Multivitamins Therapeutic 1 tab 08/10/22 09:00 08/10/22 12:03 Multivitamin Therapeutic Tablet PO Not Given DAILY [facility] Non-Formulary Medication 1 puff 08/06/22 18:00 08/10/22 12:03 Mometasone [Asmanex Hfa] INHALATION Not Given BID [facility] Non-Formulary Medication 2 inh 08/07/22 09:00 08/10/22 12:03 Olodaterol [Striverdi Respimat] INHALATION Not Given DAILY [facility] Non-Formulary Medication 10 mcg 08/10/22 09:00 08/10/22 11:58 Cholecalciferol (Vitamin D3) [Vitamin D3] PO Not Given DAILY [facility] Non-Formulary Medication 20 mg 08/10/22 09:00 08/10/22 12:02 Megestrol PO Not Given DAILY [facility] Non-Formulary Medication 100 mg 08/10/22 09:00 08/10/22 12:03 Resveratrol PO Not Given DAILY [facility] Pantoprazole Sodium 40 mg 08/06/22 09:00 08/10/22 12:[address] 40 Mg Tablet PO Not Given DAILY [facility] Polyethylene Glycol 17 gm 08/10/22 09:00 08/10/22 12:03 Polyethylene Glycol 3350 Pkt 17 Gm PO Not Given DAILY [facility] Tramadol HCl 50 mg 08/06/22 12:11 08/08/22 23:34 Tramadol 50 Mg Tablet PO 50 mg Q4H PRN Administration MODERATE PAIN PFSH Anesthesia Medical History Chronic kidney disease Complex renal cyst Overall considered low risk, following with ultrasound, COPD (chronic obstructive pulmonary disease) Diabetes mellitus Diabetic neuropathy Gross hematuria H/O cardiac pacemaker HTN (hypertension) Incomplete bladder emptying Lesion of bladder Chronic inflammatory change with fibroadipose tissue most likely consistent patient cystitis despite its suspicious appearing on cystitis Obstructive sleep apnea Prostate cancer Diagnosed 2019 treated with radiation therapy with good response No evidence of recurrence Sinus node dysfunction Urinary retention Surgical History History of back surgery C3-C4 ACDFF WITH C4 CORPECTOMY History of circumcision History of eye surgery 2018 History of neck surgery History of prostate biopsy Status post cataract surgery Status post knee surgery left Family History Father , AT AGE 65-CHF No problems noted. Mother , AT AGE 65-CHF No problems noted. Social History Smoking and tobacco status: never smoked Alcohol intake: never Marital status: Current occupational status: retired and disabled History of recent travel: No Data Anesthesia : 08/10/22 04:50 08/10/22 04:50 Short CBC 08/09/22 08/10/22 Range/Units 04:46 04:50 WBC 5.3 5.7 (4.0-10.0) 10^3/uL Hgb 8.2 L 8.9 L (11.7-16.6) g/dL Hct 26.4 L 29.0 L (42.0-52.0) % MCV 86.8 86.1 (80-94) fl Plt Count 336 378 (130-400) 10^3/cmm Neut % (Auto) 79.0 78.4 % Neut # (Auto) 4.16 4.44 (1.8-7.7) 10^3/uL BMP 08/09/22 08/10/22 04:46 04:50 Sodium 139 141 Potassium 4.1 4.2 Chloride 104 105 Carbon Dioxide 22 20 L BUN 37 H 35 H Creatinine 1.7 H 1.5 H Glucose 141 H 189 H Calcium 8.8 9.2 Liver Function 08/09/22 08/10/22 Range/Units 04:46 04:50 Total Bilirubin 0.3 0.3 (0.15-1.2) mg/dL AST 16 15 (0-40) U/L ALT 9 8 (0-41) U/L Alkaline Phosphatase 67 70 (40-130) U/L Albumin 3.0 L 2.9 L (3.5-5.2) g/dL Cardiac Studies: Echocardiogram Ultrasound 09/16/20 Cardiac Event Monitor 09/22/20
--- NOTE | 2022-08-10 14:04 | PC.NURSE ---
patient awake and alert oriented x3. denies pain. abdominal wrap in place. bowel sounds active x4. iv site clean dry and dressing intact.
--- NOTE | 2022-08-10 14:45 | ANE.PACU2 ---
Inpatient post-anesthesia follow up: Airway intact: Yes Vital signs: Temperature 99.4 F Pulse Rate [Orthos tatic 85 Standing Right Api monae] Pulse Rate [Orthos tatic 83 Sitting Right Apic al] Pulse Rate [Orthos tatic Lying 69 Right Apical] Pulse Rate 64 Respiratory Rate 18 Blood Pressure [Or thostatic 136/72 Standing Right Arm ] Blood Pressure [Or thostatic 170/87 Sitting Right Arm] Blood Pressure [Or thostatic 179/85 Lying Right Arm] Blood Pressure 180/95 Pulse Oximetry 99 Oxygen Delivery Me thod Room Air Oxygen Flow Rate 6 Fraction of Inspir ed Oxygen Hydration adequate: Yes Nausea and vomiting: No Pain level: 1 Mental status: Baseline
[2022-08-10 15:16] LABS: Glucose Urine UA Norm (Normal); Ketones Urine Negative (Negative); Protein Urine 3+ (Negative); Urine Appearance Cloudy (CLEAR); Urine Color Red (Yellow); pH Urine 8 (5-7)
[2022-08-10 15:17] LABS: Add Urine Microscopic? YES; Bilirubin Urine Neg (Negative); Blood Urine 3+ (Negative); Leukocyte Esterase Urine 2+ (Negative); Nitrate Urine Negative (Negative); Sulfosalicylic Acid Urine Positive (Negative); Urobilinogen Urine Norm (Negative)
[2022-08-10 15:19] LABS: Add Urine Culture? Yes; Amorphous Sediment Urine 3+ /hpf; Bacteria Urine 1+ /hpf; RBC Urine TOO NUMEROUS TO CNT /hpf (0-2); Squamous Epithelial Cell Urine 0-4 /hpf (0-5); WBC Urine TOO NUMEROUS TO CNT /hpf (0-5)
--- NOTE | 2022-08-10 15:29 | P.PN_ITS ---
Subjective Subjective: Status post PEG placement earlier today. Tolerated procedure well. Noted gastritis on endoscopy. To start tube feeds tomorrow. Medications: Reviewed: Yes Vitals/I&O/Wt Last Vital Signs Temp 99.4 F 08/10/22 13:55 Pulse 64 08/10/22 14:10 Resp 18 08/10/22 14:10 BP 180/95 08/10/22 14:10 Pulse Ox 99 08/10/22 14:10 O2 Del Method 08/10/22 14:10 O2 Flow Rate 6 08/10/22 08:00 08/10/22 08/10/22 08/10/22 06:59 14:59 22:59 Intake Total 200 / 1875 600 / 600 Output Total 1900 / 1901 Balance -1700 / -26 600 / 600 Physical Exam Narrative: General: No acute distress, AO x3 HEENT: PERRLA, pupils bilaterally equal and reactive, pallors not present Chest: Normal vesicular breath sounds CVS: S1-S2 regular, no murmurs, no tachycardia, no gallops, no rubs Abdomen: Soft, nontender, no organomegaly, bowel sounds present Neuro: No focal deficits, no facial deformity, AO x3, power 5/5 in all limbs Data : 08/10/22 04:50 08/10/22 04:50 A&P Assessment and plan (1) Prostate cancer: Status: Acute (2) HTN (hypertension): Status: Acute Qualifiers: Hypertension type: essential hypertension Qualified Code(s): I10 - Essential (primary) hypertension (3) Diabetes mellitus: Status: Acute Qualifiers: Diabetes mellitus complication status: without complication Diabetes mellitus salvage determiner insulin use: with longterm use Diabetes mellitus type: type 2 Qualified Code(s): E11.9 - Type 2 diabetes mellitus without complications; Z79.4 - detention (current) use of insulin (4) COPD (chronic obstructive pulmonary disease): Status: Acute Qualifiers: COPD type: unspecified COPD Qualified Code(s): J44.9 - Chronic obstructive pulmonary disease, unspecified (5) Chronic kidney disease: Status: Acute Qualifiers: Chronic kidney disease stage: stage 3 (moderate) Chronic kidney disease stage 3 subtype: stage 3a (GFR 45-59) Qualified Code(s): N18.31 - Chronic kidney disease, stage 3a (6) UTI (urinary tract infection): Status: Acute (7) Generalized weakness: Status: Acute Plan # Complicated UTI -Discontinue Primaxin. Narrow coverage to cefepime 2 g IV every 12 in keeping with susceptibility results. Noted to have puslike discharge at the urethral meatus today[facility] and bladder irrigation performed which revealed return of pus. Concern for pyelocystitis. Cultures have been sent. Patient currently is adequately covered with antibiotics. We will follow-up cultures. - Urine cx with Klebsiella pneumonia and Citrobacter brachii -Currently has good urine output from bilateral nephrostomies. -Both tubes are draining well, clear urine bilaterally. CT of the abdomen and pelvis without any perinephric collections. #B/L vocal; cord paralysis Cause is uncertain at this time. No gross mass lesions on CT head/neck/ Chest or direct layngoscopy pending Lyme serology to assess for possible tickborne etiology. ACh receptor ab has been added to evaluate for myasthenia gravis Will need neurology follow up PEG tube placed today given evidence of luis aspiration. Will start tube feeds tomorrow. Convert medications to via PEG. Cut back on IV opiates as patient noted to be more lethargic while on IV Dilaudid. We will try to optimize pain control with enteral opiates now that PEG route has been established and IV Tylenol as needed. Avoiding NSAIDs given CKD and recent contrast load. #Hypertension, orthostatics are much improved. Blood pressure tending towards hypertension now. We will stop midodrine. If blood pressure continues to be elevated will resume amlodipine. -Lovenox for DVT prophylaxis Attestations Medical Necessity Statement*: PEG placement today. Coding Level of Care Code Acute Clinical Education Consultant for [facility] Fwd Diagnoses Prostate cancer C61 HTN (hypertension) I10 Hypertension type: essential hypertension Diabetes mellitus E11.9; Z79.4 Diabetes mellitus complication status: without complication Diabetes mellitus salvage determiner insulin use: with salvage determiner use Diabetes mellitus type: type 2 COPD (chronic obstructive pulmonary disease) J44.9 COPD type: unspecified COPD Chronic kidney disease N18.31 Chronic kidney disease stage: stage 3 (moderate) Chronic kidney disease stage 3 subtype: stage 3a (GFR 45-59) UTI (urinary tract infection) N39.0 Generalized weakness R53.1
[2022-08-10] MEDS: ondansetron 2 mg/ML SDV 2 mL 4 MG IVP (15:31)
[2022-08-10] MEDS: acetaminophen 1,000 MG/100 ML PIGGYBACK 400 MG IV (16:10)
[2022-08-10] MEDS: cefepime 2,000 MG in sodium chloride 0.9% (plus) 50 ML 100 MG IV (16:10)
[2022-08-10] MEDS: fluticasone nasal spray 16gm Btl 1 SPRAY INTRANASAL (16:56)
[2022-08-10] MEDS: duloxetine 60 mg Capsule PO (16:57)
[2022-08-10 17:14] LABS: Glucose Point of Care 184 mg/dL (70-110)
--- NOTE | 2022-08-10 18:20 | PC.NURSE ---
Straight cathed patient per Dr. Sharma. Purulent drainage with blood and urine present. Sample collected and sent to lab for UA and Culture per [facility] from [facility]. Mannual Irrigation performed. 240mL infused and 260mL returned. Small clot drained and then cleared up. Straight cath removed. Patient tolerated well.
[2022-08-10 21:46] LABS: Glucose Point of Care 179 mg/dL (70-110)
[2022-08-10] MEDS: atorvastatin 40 mg Tablet PO (21:50)
[2022-08-11] VITALS (11 sets, daily range): BP systolic 91–192; BP diastolic 57–90; PULSE 62–117; RESP 14–20; TEMP 36.4–37.3; O2SAT 92–98
[2022-08-11] MEDS: HYDROmorphone 1 mg/mL INJ 1 mL 0.5 MG IVP ×2 (00:52→04:36)
--- NOTE | 2022-08-11 01:33 | PC.NURSE ---
manual BP with auscultation 185/91
[2022-08-11] MEDS: enoxaparin 40 mg/0.4 mL Syringe SUBCUT (04:37)
[2022-08-11] MEDS: cefepime 2,000 MG in sodium chloride 0.9% (plus) 50 ML 100 MG IV ×2 (04:38→16:25)
[2022-08-11] MEDS: allopurinol 100 mg Tablet PO (06:10)
[2022-08-11] MEDS: acetaminophen 325 mg Tablet 650 MG PO (06:10)
--- NOTE | 2022-08-11 06:43 | P.PN_ITS ---
Subjective Subjective: Patient overall doing well yet sore. PEG tube was inserted yesterday uneventfully, was left to gravity and minimal output was seen. Medications: Reviewed: Yes Vitals/I&O/Wt Last Vital Signs Temp 97.5 F L 08/11/22 04:00 Pulse 72 08/11/22 04:00 Resp 20 H 08/11/22 04:36 BP 192/89 08/11/22 04:00 Pulse Ox 94 08/11/22 04:00 O2 Del Method 08/11/22 04:00 O2 Flow Rate 6 08/10/22 08:00 08/10/22 08/10/22 08/11/22 14:59 22:59 06:59 Intake Total 600 / 600 1330 / 1930 1979 Output Total Balance 600 / 600 1310 / 1910 1959 Physical Exam Narrative: Patient is conscious alert oriented times 3 No apparent distress Abdominal exam nontender nondistended soft PEG tube in place without co mplication Data : 08/10/22 04:50 08/10/22 04:50 Micro: Microbiology 08/05/22 23:05 Blood Culture - Final Blood NO GROWTH AFTER 5 DAYS 08/05/22 23:00 Blood Culture - Final Blood NO GROWTH AFTER 5 DAYS A&P Assessment and plan (1) Dysphagia: Assessment 77 years old gentleman status post PEG tube insertion 08/10/2022 Plan from surgery standpoint reviewed We will start the patient on elixir hydrocodone via the PEG tube every 6 hours as needed Patient can start trophic feeds today and advance per protocol, please follow nutrition recommendation Assurance and education All questions have been answered Status: Acute Attestations Medical Necessity Statement*: Per admitting service Coding Level of Care Code Acute 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
[2022-08-11 06:55] LABS: Glucose Point of Care 195 mg/dL (70-110)
[2022-08-11] MEDS: insulin lispro 100 unit/1 mL SUBCUT ×2 (08:18→17:28)
[2022-08-11] MEDS: lactulose oral liq 20 gm/30 mL UDC 10 GM PEG-TUBE ×2 (08:18→16:39)
[2022-08-11] MEDS: polyethylene glycol 3350 Pkt 17 gm PO (08:19)
[2022-08-11] MEDS: HYDROcodone-APAP 7.5-325 mg/15 mL UDC PO (08:19)
[2022-08-11] MEDS: hydroCHLOROthiazide 25 mg Tablet PO (08:19)
[2022-08-11] MEDS: pantoprazole DR 40 mg Tablet PO (08:19)
[2022-08-11] MEDS: lidocaine 5% Patch TOPICAL ×2 (08:19→21:44)
[2022-08-11] MEDS: ferrous sulfate EC 325 mg Tablet PO (08:19)
[2022-08-11] MEDS: duloxetine 60 mg Capsule PO (08:19)
[2022-08-11] MEDS: multivitamin therapeutic Tablet 1 TAB PO (08:19)
[2022-08-11] MEDS: fluticasone nasal spray 16gm Btl 1 SPRAY INTRANASAL ×2 (09:47→17:29)
[2022-08-11] MEDS: amlodipine 5 mg Tablet PEG-TUBE (10:25)
[2022-08-11 11:01] LABS: Glucose Point of Care 123 mg/dL (70-110)
--- NOTE | 2022-08-11 12:16 | PM.PN ---
Subjective Subjective: Pain is better controlled today. Starting tube feeds today. Blood pressure tending towards hypertension now. afebrile, hemodynamically stable Medications: Reviewed: Yes Vitals/I&O/Wt Last Vital Signs Temp 97.9 F 08/11/22 11:36 Pulse 69 08/11/22 11:36 Resp 16 08/11/22 11:36 BP 166/90 08/11/22 11:36 Pulse Ox 95 08/11/22 11:36 O2 Del Method 08/11/22 11:36 O2 Flow Rate 6 08/10/22 08:00 08/10/22 08/11/22 08/11/22 22:59 06:59 14:59 Intake Total 1329 360 / 360 Output Total Balance 1309 360 / 360 Physical Exam Narrative: General: No acute distress, AO x3 HEENT: PERRLA, pupils bilaterally equal and reactive, pallors not present Chest: Normal vesicular breath sounds, no added sounds, equal good air entry bilaterally CVS: S1-S2 regular, no murmurs, no tachycardia, no gallops, no rubs Abdomen: Soft, nontender, no organomegaly, bowel sounds present Neuro: No focal deficits, no facial deformity, AO x3, power 5/5 in all limbs Data : 08/10/22 04:50 08/10/22 04:50 Micro: Microbiology 08/10/22 15:00 Urine Culture - Preliminary Urine,Clean Catch 08/05/22 23:05 Blood Culture - Final Blood NO GROWTH AFTER 5 DAYS 08/05/22 23:00 Blood Culture - Final Blood NO GROWTH AFTER 5 DAYS A&P Assessment and plan (1) Prostate cancer: Status: Acute (2) HTN (hypertension): Status: Acute Qualifiers: Hypertension type: essential hypertension Qualified Code(s): I10 - Essential (primary) hypertension (3) Diabetes mellitus: Status: Acute Qualifiers: Diabetes mellitus type: type 2 Diabetes mellitus assembly instructions writer insulin use: with usp use Diabetes mellitus complication status: without complication Qualified Code(s): E11.9 - Type 2 diabetes mellitus without complications; Z79.4 - long-term (current) use of insulin (4) COPD (chronic obstructive pulmonary disease): Status: Acute Qualifiers: COPD type: unspecified COPD Qualified Code(s): J44.9 - Chronic obstructive pulmonary disease, unspecified (5) Chronic kidney disease: Status: Acute Qualifiers: Chronic kidney disease stage: stage 3 (moderate) Chronic kidney disease stage 3 subtype: stage 3a (GFR 45-59) Qualified Code(s): N18.31 - Chronic kidney disease, stage 3a (6) UTI (urinary tract infection): Status: Acute (7) Generalized weakness: Status: Acute Plan # Complicated UTI -s/p Primaxin 08/06-08/10, now on cefepime since 08/10- aim for total 10 to 14 day course. transitiotn to FQ at discharge. - Urine cx with Klebsiella pneumonia and Citrobacter brachii. -Currently has good urine output from bilateral nephrostomies. urine cx from bladder pending from 08/10. -Both tubes are draining well, clear urine bilaterally. Has next appt for nephrostomy exchange at [facility] on 08/15. -CT of the abdomen and pelvis without any perinephric collections. #B/L vocal; cord paralysis No gross mass lesions on CT head/neck/ Chest or direct layngoscopy cause unclear, may be neurological ACh receptor ab pendingg Will need neurology follow up - discussed with Dr. Turpin that patient will be seen in close follow up post discharge. PEG tube to minimize risk of aspiration - placed on 08/10. starting tube feeds today. Currently maintaining airway, has refused trach with ENT #Hypertension, blood pressure noted to be elevated at 182/75. midodrine d/c on 08/10, start amlodipine today. No noted orthostatic drops. # added lactulose for BM -Lovenox for DVT prophylaxis D/c IVF once starts tune feeds Dispo: given significant deconditioning from hospital admissions, nursing needs with PEG and nephrostomy tubes, will likely ebnefit from SNF Attestations Medical Necessity Statement*: starting tube feeds today Coding Level of Care Code Acute Certified Marine Mechanic for g Fwd Diagnoses Prostate cancer C61 HTN (hypertension) I10 Hypertension type: essential hypertension Diabetes mellitus E11.9; Z79.4 Diabetes mellitus type: type 2 Diabetes mellitus usp insulin use: with assembly instructions writer use Diabetes mellitus complication status: without complication COPD (chronic obstructive pulmonary disease) J44.9 COPD type: unspecified COPD Chronic kidney disease N18.31 Chronic kidney disease stage: stage 3 (moderate) Chronic kidney disease stage 3 subtype: stage 3a (GFR 45-59) UTI (urinary tract infection) N39.0 Generalized weakness R53.1
--- NOTE | 2022-08-11 12:58 | PC.NUTR ---
PEG TF consult received. Recommend goal of 6 x 240 mls/day for Pt at: 8am/ noon/ 4pm/ 8pm with 60 mls flush before and after feeding. Start out with 120 mls for each feed. In 1-2 days, as tolerated, recommend goal rate for feedings: 240 mls/ 480 mls/ 480 mls/ [address] assessment.
[2022-08-11] MEDS: acetaminophen 1,000 MG/100 ML PIGGYBACK 400 MG IV (16:24)
[2022-08-11] MEDS: HYDROcodone-APAP 7.5-325 mg/15 mL UDC PEG-TUBE (16:39)
[2022-08-11] MEDS: duloxetine 60 mg Capsule PEG-TUBE (16:40)
[2022-08-11 17:00] LABS: Glucose Point of Care 192 mg/dL (70-110)
[2022-08-11 21:01] LABS: Glucose Point of Care 149 mg/dL (70-110)
[2022-08-11] MEDS: atorvastatin 40 mg Tablet PEG-TUBE (21:44)
[2022-08-12] VITALS (8 sets, daily range): BP systolic 117–175; BP diastolic 61–91; PULSE 54–78; RESP 16–23; TEMP 36.7–37.1; O2SAT 94–97
[2022-08-12] MEDS: acetaminophen 1,000 MG/100 ML PIGGYBACK 400 MG IV ×4 (00:19→23:38)
[2022-08-12 02:35] LABS: Basophils % 0.3 %; Eosinophils % 0.1 %; Hematocrit 26.9 % (42.0-52.0); Hemoglobin 8.4 g/dL (11.7-16.6); Lymphocytes % 13.2 %; Mean Corpuscular HGB Conc 31.2 g/dL (30.0-36.0); Mean Corpuscular Hemoglobin 27.2 pg (28.0-34.0); Mean Corpuscular Volume 87.1 fl (80-94); Mean Platelet Volume 10.6 fL (7.4-10.4); Monocytes # 0.5 10^3/uL (0.2-0.9); Monocytes % 6.9 %; Neutrophils # 6.22 10^3/uL (1.8-7.7); Neutrophils % 78.9 %; Nucleated Red Blood Cells % 0 %; Platelet Count 351 10^3/cmm (130-400); Red Blood Count 3.09 10^6/uL (4.1-5.3); Red Cell Distribution Width 15.5 % (12.1-15.1); White Blood Count 7.9 10^3/uL (4.0-10.0)
[2022-08-12 02:58] LABS: Alanine Aminotransferase 6 U/L (0-41); Alkaline Phosphatase 63 U/L (40-130); Anion Gap 15.3 (5-19); Aspartate Amino Transferase 13 U/L (0-40); Blood Urea Nitrogen 36 mg/dL (8-23); Calcium 8.8 mg/dL (8.5-10.5); Carbon Dioxide 24 mmol/L (22-29); Chloride 103 mmol/L (98-107); Globulin 3.7 g/dL (1.3-4.6); Glucose 155 mg/dL (65-115); Osmolality Calculated 299 mOsm/kg (285-295); Potassium 3.3 mmol/L (3.5-5.1); Sodium 139 mmol/L (136-145); Total Bilirubin 0.4 mg/dL (0.15-1.2); Total Protein 6.7 g/dL (6.6-8.7)
[2022-08-12] MEDS: cefepime 2,000 MG in sodium chloride 0.9% (plus) 50 ML 100 MG IV (05:21)
[2022-08-12] MEDS: enoxaparin 40 mg/0.4 mL Syringe SUBCUT (05:22)
[2022-08-12] MEDS: allopurinol 100 mg Tablet PEG-TUBE (05:22)
[2022-08-12] MEDS: HYDROcodone-APAP 7.5-325 mg/15 mL UDC PEG-TUBE ×2 (05:27→19:51)
[2022-08-12 06:19] LABS: Glucose Point of Care 189 mg/dL (70-110)
--- NOTE | 2022-08-12 08:38 | PC.SOCIAL ---
IMM update IMM Updated with patient. Verbalized an understanding. Copy Pg 2 provided. Initialled, dated, timed, and placed in chart.
[2022-08-12] MEDS: duloxetine 60 mg Capsule PEG-TUBE ×2 (08:49→18:11)
[2022-08-12] MEDS: polyethylene glycol 3350 Pkt 17 gm PEG-TUBE (08:49)
[2022-08-12] MEDS: ferrous sulfate EC 325 mg Tablet PEG-TUBE (08:50)
[2022-08-12] MEDS: amlodipine 5 mg Tablet PEG-TUBE (08:50)
[2022-08-12] MEDS: hydroCHLOROthiazide 25 mg Tablet PEG-TUBE (08:50)
[2022-08-12] MEDS: pantoprazole DR 40 mg Tablet PEG-TUBE (08:50)
[2022-08-12] MEDS: lactulose oral liq 20 gm/30 mL UDC 10 GM PEG-TUBE ×2 (08:51→18:11)
[2022-08-12] MEDS: insulin lispro 100 unit/1 mL SUBCUT ×2 (09:03→12:03)
[2022-08-12] MEDS: lidocaine 5% Patch TOPICAL (09:23)
[2022-08-12] MEDS: potassium chloride ER 20 mEq Tablet 40 MEQ PEG-TUBE (09:47)
[2022-08-12] MEDS: docusate sodium 10 mg/mL (5ml) Liq 240 MG PEG-TUBE (10:10)
[2022-08-12 11:04] LABS: Glucose Point of Care 166 mg/dL (70-110)
[2022-08-12] MEDS: peg /e-lyte soln 4,000 mL Btl 1500 ML PEG-TUBE (11:08)
[2022-08-12] MEDS: HYDROmorphone 1 mg/mL INJ 1 mL 0.5 MG IVP (11:24)
--- NOTE | 2022-08-12 11:35 | PC.NURSE ---
Patient had a small bowel movement at 1120. Very green.
--- NOTE | 2022-08-12 12:26 | PC.NURSE ---
Per Dr. Ibarra, patient is not to get any PEG tube feedings until he has a bowel movement.
--- NOTE | 2022-08-12 14:09 | P.PN_ITS ---
Subjective Subjective: Reports abdominal pain today around the PEG site. He has not yet had a bowel movement. Started on tube feeding yesterday, no significant residuals. Medications: Reviewed: Yes Vitals/I&O/Wt Last Vital Signs Temp 98.3 F 08/12/22 11:56 Pulse 72 08/12/22 11:56 Resp 16 08/12/22 11:56 BP 145/91 08/12/22 11:56 Pulse Ox 97 08/12/22 11:56 O2 Del Method 08/12/22 11:56 O2 Flow Rate 6 08/10/22 08:00 08/11/22 08/12/22 08/12/22 22:59 06:59 14:59 Intake Total 250 / 610 150 / 760 100 / 100 Balance 250 / 610 150 / 760 100 / 100 Physical Exam Narrative: General: Sitting in bed, appears very uncomfortable secondary to pain. HEENT: PERRLA, pupils bilaterally equal and reactive, pallors not present Chest: Normal vesicular breath sounds, no added sounds, equal good air entry bilaterally CVS: S1-S2 regular, no murmurs, no tachycardia, no gallops, no rubs Abdomen: Soft, nontender, no organomegaly, bowel sounds present bilateral nephrostomies in place. Neuro: No focal deficits, no facial deformity, AO x3, power 5/5 in all limbs Data : 08/12/22 01:37 08/12/22 01:37 Micro: Microbiology 08/10/22 15:00 Urine Culture - Final Urine,Clean Catch A&P Assessment and plan (1) Prostate cancer: (2) HTN (hypertension): Qualifiers: Hypertension type: essential hypertension Qualified Code(s): I10 - Essential (primary) hypertension (3) Diabetes mellitus: Qualifiers: Diabetes mellitus type: type 2 Diabetes mellitus nursing home insulin use: with nursing home use Diabetes mellitus complication status: without complication Qualified Code(s): E11.9 - Type 2 diabetes mellitus without complications; Z79.4 - [facility] (current) use of insulin (4) COPD (chronic obstructive pulmonary disease): Qualifiers: COPD type: unspecified COPD Qualified Code(s): J44.9 - Chronic obstructive pulmonary disease, unspecified (5) Chronic kidney disease: Qualifiers: Chronic kidney disease stage: stage 3 (moderate) Chronic kidney disease stage 3 subtype: stage 3a (GFR 45-59) Qualified Code(s): N18.31 - Chronic kidney disease, stage 3a (6) UTI (urinary tract infection): (7) Generalized weakness: Plan # Complicated UTI -s/p Primaxin 08/06-08/10--> cefepime 2 g IV every 12 in keeping with susceptibility results. (08/11-) Plan for total 10 day course of abx - Urine cx with Klebsiella pneumonia and Citrobacter brachii -Currently has good urine output from bilateral nephrostomies. -Both tubes are draining well, clear urine bilaterally. f/up appt for nephrotosmy exchange on 08/[facility] CT of the abdomen and pelvis without any perinephric collections. #B/L vocal cord paralysis discovered due to noted aspiration Cause is uncertain at this time. No gross mass lesions on CT head/neck/ Chest or direct layngoscopy pending Lyme serology to assess for possible tickborne etiology. ACh receptor ab has been added to evaluate for myasthenia gravis Will need neurology follow up PEG tube placed 08/10 given evidence of luis aspiration. Tube feeds started 08/11. For now until constipation resolves we will continue tube feeding at goal rate of 10 mL/h and increase to bolus feeding once constipation resolves. This is done to ensure minimized bloating and abdominal pain. #Constipation. Has not had a bowel movement in 1 week now in spite of being on docusate, MiraLAX and lactulose. Offered enema and suppositories, however patient does not wish for any further rectal medications. Trial of GoLytely via PEG today. #Abdominal pain: Likely to be multifactorial related to recent PEG placement, bloating from starting PEG feeding, constipation going on 1 week now. GoLytely as above. As needed 0.5 mg IV Dilaudid to be resumed. This has been on hold since yesterday as patient was noted to be getting somnolent with opiates. Will use as sparingly as possible #Hypertension, orthostatics are much improved. Blood pressure tending towards hypertension now. Resumed amlodipine 5 mg which she is currently tolerating. -Lovenox for DVT prophylaxis -Disposition: Ongoing disposition planning, anticipate discharge to SNF. Attestations Medical Necessity Statement*: Optimize pain control, ongoing disposition planning. Coding Level of Care Code Acute Portal Architect for [facility] Fwd Diagnoses Prostate cancer C61 HTN (hypertension) I10 Hypertension type: essential hypertension Diabetes mellitus E11.9; Z79.4 Diabetes mellitus type: type 2 Diabetes mellitus exterminator helper insulin use: with exterminator helper use Diabetes mellitus complication status: without complication COPD (chronic obstructive pulmonary disease) J44.9 COPD type: unspecified COPD Chronic kidney disease N18.31 Chronic kidney disease stage: stage 3 (moderate) Chronic kidney disease stage 3 subtype: stage 3a (GFR 45-59) UTI (urinary tract infection) N39.0 Generalized weakness R53.1
--- NOTE | 2022-08-12 15:44 | PC.NURSE ---
Changed nephrostomy tube dressings. Applied a 4x4 to each site and secured with a suresite clear tape. Drainage noticed on right side which appeared to be urine. Skin cleaned and dried before dressings applied. Patient tolerated well.
[2022-08-12] MEDS: cefepime 2,000 MG in sodium chloride 0.9% (plus) 50 ML 200 MG IV (16:43)
[2022-08-12 16:55] LABS: Glucose Point of Care 114 mg/dL (70-110)
--- NOTE | 2022-08-12 19:13 | PC.NURSE ---
Bedside report given to Peyton Liu LPN.
[2022-08-12] MEDS: atorvastatin 40 mg Tablet PEG-TUBE (19:52)
[2022-08-12] MEDS: pantoprazole 40 mg SDV IVP (21:05)
[2022-08-12] MEDS: metoclopramide 5 mg/mL SDV 2 mL IVP (21:06)
[2022-08-12 21:13] LABS: Glucose Point of Care 178 mg/dL (70-110)
[2022-08-13] VITALS (8 sets, daily range): BP systolic 92–188; BP diastolic 60–99; PULSE 56–88; RESP 16–24; TEMP 36.6–36.9; O2SAT 93–98
[2022-08-13] MEDS: enoxaparin 40 mg/0.4 mL Syringe SUBCUT (05:20)
[2022-08-13] MEDS: cefepime 2,000 MG in sodium chloride 0.9% (plus) 50 ML 100 MG IV ×2 (05:20→16:57)
[2022-08-13] MEDS: allopurinol 100 mg Tablet PEG-TUBE (05:21)
[2022-08-13 06:08] LABS: Glucose Point of Care 189 mg/dL (70-110)
[2022-08-13] MEDS: acetaminophen 1,000 MG/100 ML PIGGYBACK 400 MG IV (06:39)
[2022-08-13] MEDS: pantoprazole 40 mg SDV IVP ×2 (08:15→22:33)
[2022-08-13] MEDS: duloxetine 60 mg Capsule PEG-TUBE ×2 (08:16→16:58)
[2022-08-13] MEDS: metoclopramide 5 mg/mL SDV 2 mL IVP ×2 (08:16→22:32)
[2022-08-13] MEDS: amlodipine 5 mg Tablet PEG-TUBE (08:16)
[2022-08-13] MEDS: ferrous sulfate EC 325 mg Tablet PEG-TUBE (08:17)
[2022-08-13] MEDS: hydroCHLOROthiazide 25 mg Tablet PEG-TUBE (08:18)
[2022-08-13] MEDS: insulin lispro 100 unit/1 mL SUBCUT ×3 (08:18→16:58)
[2022-08-13] MEDS: lidocaine 5% Patch TOPICAL (08:18)
--- NOTE | 2022-08-13 08:48 | PM.PN ---
Subjective Subjective: Patient has been constipated and passing little gas Medications: Reviewed: Yes Vitals/I&O/Wt Last Vital Signs Temp 98.0 F 08/13/22 07:53 Pulse 63 08/13/22 08:00 Resp 16 08/13/22 08:00 BP 188/99 08/13/22 07:53 Pulse Ox 93 08/13/22 08:00 O2 Del Method 08/13/22 08:00 O2 Flow Rate 6 08/10/22 08:00 08/12/22 08/13/22 08/13/22 22:59 06:59 14:59 Intake Total 250 / 470 250 / 720 Output Total 1800 / 1800 Balance 250 / 470 -1550 / -1080 Physical Exam Narrative: Patient is conscious alert oriented times 3 No apparent distress Abdominal exam nontender nondistended soft PEG tube in place without complication PEG tube in place without complications and feeds are running at trophic rate 10 mL per hour Data : 08/12/22 01:37 08/12/22 01:37 Micro: Microbiology 08/10/22 15:00 Urine Culture - Final Urine,Clean Catch A&P Assessment and plan (1) Constipation: Recommend to start GoLytely 100 Administer glycerin suppository now Encourage patient to get out of bed and ambulate with assistance Assurance and education All questions have been answered and all concerns have been addressed to patient's satisfaction. 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
[2022-08-13] MEDS: glycerin adult supp 1 EACH PR (09:45)
--- NOTE | 2022-08-13 10:07 | PC.NURSE ---
dr galvin in to examine pt.he requests further go-lightly (100cc/hr per peg tube) until bm.he instructed to use remaining go-lightly at bedside from last nights dose.100 cc given via peg tube at this time
[2022-08-13 11:27] LABS: Glucose Point of Care 155 mg/dL (70-110)
[2022-08-13] MEDS: sodium chlor 0.9% + KCl 20 mEq 20 MEQ/1,000 ML BAG 75 MEQ IV (12:35)
--- NOTE | 2022-08-13 12:53 | PC.NURSE ---
100 cc go-lightly given per peg tube at 1215
--- NOTE | 2022-08-13 15:01 | P.PN_ITS ---
Subjective Subjective: Patient had 3 small bowel movements with passage of very hard pellets of stool today. States abdominal pain is improved today. Has not been able to get any tube feeds as GoLytely has been indwelling through his PEG tube. Noted to be orthostatic again today with blood pressure dropped from 140 s ystolic to 90 systolic upon standing up. He was symptomatic with dizziness at this time. Clinically he is also appearing to be slightly dehydrated today. He is afebrile and hemodynamically stable at this time. Medications: Reviewed: Yes Vitals/I&O/Wt Last Vital Signs Temp 98.4 F 08/13/22 11:56 Pulse 62 08/13/22 12:38 Resp 16 08/13/22 11:56 BP 142/78 08/13/22 12:38 Pulse Ox 96 08/13/22 11:56 O2 Del Method 08/13/22 11:56 O2 Flow Rate 6 08/13/22 08:00 08/13/22 08/13/22 08/13/22 06:59 14:59 22:59 Intake Total 250 / 720 Output Total 1800 / 1800 400 / 400 Balance -1550 / -1080 -400 / -400 Physical Exam Narrative: General: Lying in bed. Dehydration noted. Dry chapped lips and tongue. HEENT: PERRLA, pupils bilaterally equal and reactive, pallors not present Chest: Normal vesicular breath sounds, no added sounds, equal good air entry bilaterally CVS: S1-S2 regular, no murmurs, no tachycardia, no gallops, no rubs Abdomen: Soft, nontender, no organomegaly, bowel sounds present bilateral nephrostomies in place. PEG tube in place. Neuro: No focal deficits, no facial deformity, AO x3, power 5/5 in all limbs Data : 08/12/22 01:37 08/12/22 01:37 A&P Assessment and plan (1) Prostate cancer: (2) HTN (hypertension): Qualifiers: Hypertension type: essential hypertension Qualified Code(s): I10 - Essential (primary) hypertension (3) Diabetes mellitus: Qualifiers: Diabetes mellitus complication status: without complication Diabetes mellitus senior care insulin use: with senior care use Diabetes mellitus type: type 2 Qualified Code(s): E11.9 - Type 2 diabetes mellitus without complications; Z79.4 - local intermodal truck driver (current) use of insulin (4) COPD (chronic obstructive pulmonary disease): Qualifiers: COPD type: unspecified COPD Qualified Code(s): J44.9 - Chronic obstructive pulmonary disease, unspecified (5) Chronic kidney disease: Qualifiers: Chronic kidney disease stage: stage 3 (moderate) Chronic kidney disease stage 3 subtype: stage 3a (GFR 45-59) Qualified Code(s): N18.31 - Chronic kidney disease, stage 3a (6) UTI (urinary tract infection): (7) Generalized weakness: Plan # Complicated UTI -s/p Primaxin 08/06-08/10--> cefepime 2 g IV every 12 in keeping with susceptibility results. (08/11-) Plan for total 10 day course of abx - Urine cx with Klebsiella pneumonia and Citrobacter brachii -Currently has good urine output from bilateral nephrostomies. -Both tubes are draining well, clear urine bilaterally. f/up appt for nephrotosmy exchange on 08/15 at [facility] -Pus like discharge aspirated from bladder - cx negative- necrotic debris vs sterilized pus on abx CT of the abdomen and pelvis without any perinephric collections. improved with regards to UTI. #B/L vocal cord paralysis discovered due to noted aspiration Cause is uncertain at this time. No gross mass lesions on CT head/neck/ Chest or direct layngoscopy pending Lyme serology to assess for possible tickborne etiology. ACh receptor ab has been added to evaluate for myasthenia gravis Will need neurology follow up PEG tube placed 08/10 given evidence of luis aspiration. Tube feeds started 08/11. For now until constipation resolves we will continue tube feeding at goal rate of 10 mL/h and increase to bolus feeding once constipation resolves. This is done to ensure minimized bloating and abdominal pain. #Constipation. Has had BM today, 3-4 episodes but with very hard pellet like stools. refused suppositories or enema. Continue Go lytely today. #Abdominal pain: Likely to be multifactorial related to recent PEG placement, bloating from starting PEG feeding, constipation going on 1 week now. GoLytely as above. #Hypertension, orthostatics also had significant orthostatic hypotension when he first came in for which he was started on midodrine 5 mg 3 times daily. With the midodrine orthostatics is improved, however blood pressure trended to 1 80-1 90 systolic therefore midodrine had been discontinued. Again today patient is noted to be orthostatic. Will resume midodrine. -Lovenox for DVT prophylaxis -Disposition: Ongoing disposition planning, anticipate discharge to SNF. 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
--- NOTE | 2022-08-13 15:54 | PC.NURSE ---
pt has had several bm's this shift...initially hard,round balls...now liquid stool.refuses further go lightly via peg tube..dr galvin and dr mcgee aware.
--- NOTE | 2022-08-13 16:11 | PC.NURSE ---
dr mcgee ordered to increase tube feedings by 10 cc/hr every 4 hrs...to goal of 60 cc/hr.tubefeeding increased to 20 cc/hr at 1605.
[2022-08-13 16:52] LABS: Glucose Point of Care 150 mg/dL (70-110)
[2022-08-13] MEDS: HYDROcodone-APAP 7.5-325 mg/15 mL UDC PEG-TUBE (17:25)
[2022-08-13] MEDS: midodrine 5 mg TABLET PO (20:42)
[2022-08-13] MEDS: atorvastatin 40 mg Tablet PEG-TUBE (20:42)
[2022-08-13 20:44] LABS: Glucose Point of Care 127 mg/dL (70-110)
[2022-08-14] VITALS (7 sets, daily range): BP systolic 152–176; BP diastolic 79–93; PULSE 58–92; RESP 16–18; TEMP 36.3–36.8; O2SAT 94–98
[2022-08-14] MEDS: sodium chlor 0.9% + KCl 20 mEq 20 MEQ/1,000 ML BAG 75 MEQ IV (03:18)
[2022-08-14] MEDS: enoxaparin 40 mg/0.4 mL Syringe SUBCUT (03:43)
[2022-08-14] MEDS: cefepime 2,000 MG in sodium chloride 0.9% (plus) 50 ML 100 MG IV (03:43)
[2022-08-14] MEDS: allopurinol 100 mg Tablet PEG-TUBE (05:13)
[2022-08-14] MEDS: HYDROcodone-APAP 7.5-325 mg/15 mL UDC PEG-TUBE (05:13)
[2022-08-14 05:34] LABS: Basophils % 0.3 %; Eosinophils # 0.1 10^3/uL (0.0-0.8); Eosinophils % 0.6 %; Hematocrit 31.5 % (42.0-52.0); Hemoglobin 9.8 g/dL (11.7-16.6); Lymphocytes # 1.3 10^3/uL (0.8-4.8); Lymphocytes % 12.8 %; Mean Corpuscular HGB Conc 31.1 g/dL (30.0-36.0); Mean Corpuscular Hemoglobin 26.7 pg (28.0-34.0); Mean Corpuscular Volume 85.8 fl (80-94); Monocytes # 0.6 10^3/uL (0.2-0.9); Monocytes % 6.2 %; Neutrophils # 7.96 10^3/uL (1.8-7.7); Neutrophils % 79.6 %; Nucleated Red Blood Cells % 0 %; Platelet Count 435 10^3/cmm (130-400); Red Blood Count 3.67 10^6/uL (4.1-5.3); Red Cell Distribution Width 15.5 % (12.1-15.1)
[2022-08-14 05:54] LABS: Alanine Aminotransferase < 5 U/L (0-41); Albumin Level 3.4 g/dL (3.5-5.2); Alkaline Phosphatase 79 U/L (40-130); Anion Gap 15.6 (5-19); Aspartate Amino Transferase 13 U/L (0-40); Blood Urea Nitrogen 40 mg/dL (8-23); Calcium 8.9 mg/dL (8.5-10.5); Carbon Dioxide 23 mmol/L (22-29); Chloride 103 mmol/L (98-107); Globulin 3.5 g/dL (1.3-4.6); Glucose 199 mg/dL (65-115); Osmolality Calculated 301 mOsm/kg (285-295); Potassium 3.6 mmol/L (3.5-5.1); Sodium 138 mmol/L (136-145); Total Bilirubin 0.4 mg/dL (0.15-1.2); Total Protein 6.9 g/dL (6.6-8.7)
[2022-08-14 06:45] LABS: Glucose Point of Care 231 mg/dL (70-110)
[2022-08-14] MEDS: insulin lispro 100 unit/1 mL SUBCUT (08:39)
[2022-08-14] MEDS: duloxetine 60 mg Capsule PEG-TUBE (10:29)
[2022-08-14] MEDS: amlodipine 5 mg Tablet PEG-TUBE (10:29)
[2022-08-14] MEDS: midodrine 5 mg TABLET PO ×2 (10:30→15:46)
[2022-08-14] MEDS: lidocaine 5% Patch TOPICAL (10:31)
[2022-08-14] MEDS: ferrous sulfate EC 325 mg Tablet PEG-TUBE (10:32)
[2022-08-14] MEDS: metoclopramide 5 mg/mL SDV 2 mL IVP (10:32)
[2022-08-14] MEDS: hydroCHLOROthiazide 25 mg Tablet PEG-TUBE (10:32)
--- NOTE | 2022-08-14 10:37 | PC.SOCIAL ---
IMM Updated Updated pt & pt's on IMM. No questions voiced. Provided pt a copy. Initialed, dated, & timed copy in chart.
[2022-08-14] MEDS: fluticasone nasal spray 16gm Btl 1 SPRAY INTRANASAL (10:44)
[2022-08-14] MEDS: pantoprazole 40 mg SDV IVP (11:04)
--- NOTE | 2022-08-14 12:26 | P.DS_ITS ---
Discharge Providers Date of Admission: 08/07/22 19:27 Date of Discharge: August 14, 2022 Attending Provider at Admission: Otoniel Padron MD Attending Provider at Discharge: Branden Dailey Primary Care Provider: Rajwinder Olivarez MD Diagnoses at Discharge Discharge Diagnosis (1) Prostate cancer: Status: Acute Permanent problem details: Diagnosed 2019 treated with radiation therapy with good response No evidence of recurrence (2) HTN (hypertension): Status: Acute Qualifiers: Hypertension type: essential hypertension Qualified Code(s): I10 - Essential (primary) hypertension (3) Diabetes mellitus: Status: Acute Qualifiers: Diabetes mellitus type: type 2 Diabetes mellitus intermodal customer service insulin use: with intermodal customer service use Diabetes mellitus complication status: without complication Qualified Code(s): E11.9 - Type 2 diabetes mellitus without complications; Z79.4 - penitentiary (current) use of insulin (4) COPD (chronic obstructive pulmonary disease): Status: Acute Qualifiers: COPD type: unspecified COPD Qualified Code(s): J44.9 - Chronic obstructive pulmonary disease, unspecified (5) Chronic kidney disease: Status: Acute Qualifiers: Chronic kidney disease stage: stage 3 (moderate) Chronic kidney disease stage 3 subtype: stage 3a (GFR 45-59) Qualified Code(s): N18.31 - Chronic kidney disease, stage 3a (6) UTI (urinary tract infection): Status: Acute (7) Generalized weakness: Status: Acute Reason for Visit Reason for Visit: FALL Hospital Course Hospital Course Pleasant 77-year-old gentleman with history of prostate cancer, radiation, radiation-induced obstruction of bilateral UPJ, bilateral nephrostomies, was adm itted and managed for complicated urinary tract infection, treated with Primaxin, on susceptibility availability switched over to cefepime, with planned completion of 10 days total of antibiotics, discharges transition to Levaquin. Additional issue recently has been aspiration, with all consistency aspiration on MBS, bilateral vocal cord paralysis on assessment by ENT without clear etiology. CT of the head and neck also unrevealing. Incidentally noted 12 mm left supraclavicular lymph node unchanged from 2019. Incidental small right lateral pharyngeal pouch. Stable postoperative changes cervical spine with instrumentation. Myasthenia gravis antibody panel has been sent. Tick panel pending, although thought to be less likely. PEG feeding tube was placed on 08/10. He has had issues with severe constipation, and did receive GoLytely, currently with having multiple bowel movements, GoLytely discontinued. He is transitioned again from continuous tube feeds to bolus feeds as per recommendation 240 mL at 8 AM, 480 at noon and 4 PM and 240 at 8 PM with 60 mL water flushes before and after each feeding. He has an appointment tomorrow at [facility] for exchange of nephrostomy tubes. Additionally during hospitalization managed also for significant orthostatic hypotension. Initially started with midodrine, however, with hypertension, systolic pressures up to 180s-190s, midodrine was temporarily held, was continued on HCTZ, amlodipine, however, again orthostatic hypotension, midodrine was resumed, blood pressures currently in the 160s-170s over 70s-low 90s. Midodrine for now is continued. In case of supine hypertension head of bed may be raised slightly to 20 degrees. Continue to monitor vitals, including orthostatic vitals, adjust midodrine, blood pressure medications accordingly. Physical Exam Narrative: His spouse accompanies him at bedside. Const: COMMON NORMALS: patient oriented x3 and alert GENERAL APPEARANCE: cooperative ORIENTATION/CONSCIOUSNESS: Yes awake HENMT: COMMON NORMALS: oropharynx normal Neck/C-Spine: COMMON NORMALS: no JVD Resp: COMMON NORMALS: normal respiratory effort and clear to auscultation bilaterally AUSCULTATION: clear to auscultation bilaterally Cardio: COMMON NORMALS: no JVD, regular rhythm, S1 normal heart sound present, S2 normal heart sound present and No murmurs present (Cardio) RHYTHM: regular rhythm HEART SOUNDS: S1 normal heart sound present and S2 normal heart sound present GI: COMMON NORMALS: Normal to inspection, nondistended, normoactive bowel sounds present, Soft to palpation and non-tender PALPATION: Yes Soft to palpation OTHER: PEG Back/Pelvis: OTHER: Nephrostomies in place Extremity: COMMON NORMALS: no joint enlargement and no pedal edema Neuro: COMMON NORMALS: patient oriented x3 and moves all extremities SENSORIUM/ORIENTATION: Yes alert Skin: COMMON NORMALS: no rashes or lesions noted GENERAL SKIN EXAM: no rashes or lesions noted Discharge Data Studies Completed and Pending Completed Studies During Hospitalization Category Date Time Status CT abdomen pelvis wo con [id number] Stat Cat Scan 08/05/22 23:[address] chest wo con [id number] Routine Cat Scan 08/07/22 18:[address] head wo/w con [id number] Routine Cat Scan 08/08/22 09:[address] neck w con* [id number] Routine Cat Scan 08/08/22 09:47 Completed [place] barium swallow modifd [id number] Routine Exams 08/07/22 14:40 Completed XR chest 1V portable [id number] Stat Exams 08/05/22 22:09 Completed Pathology: Surgical [PTH] Routine Pth 08/09/22 10:21 Completed Pending at discharge Category Date Time Status Acetylcholine Recept Modulatin Routine Lab 08/09/22 12:40 Received Acetylcholine Receptor Binding Routine Lab 08/09/22 12:40 Received Acetylcholine Receptor Block Routine Lab 08/09/22 12:40 Received SARS Covid-2 Antigen Routine Lab 08/14/22 11:40 Received Tick Panel AM LABS Lab 08/10/22 04:50 Received Radiology Impressions Chest X-Ray 08/05/22 22:09 IMPRESSION: 1. Cardiomegaly. 2. Left lower lobe atelectasis versus very minimal infiltrate. Abdomen/Pelvis CT 08/05/22 23:30 IMPRESSION: 1. Diffuse urinary bladder wall thickening with some surrounding edema suggestive of a cystitis. 2. Mildly prominent fluid in the small bowel without dilation suggestive of an enteritis. 3. Emphysematous changes. 4. Left lower lobe atelectasis versus minimal infiltrate. 5. Right kidney cyst, negative for follow-up advised. 6. Bilateral percutaneous nephrostomy tube seen appear in place. 7. Rectal wall thickening suggestive of a colitis. 8. Bilateral fat containing inguinal hernias without bowel. 9. Mild perinephric edema bilaterally suggestive of renal insufficiency, pyelonephritis may also be a consideration. 10. Diverticulosis without diverticulitis. Modified Barium Swallow 08/07/22 14:40 IMPRESSION: 1. Moderate aspiration was noted with multiple food consistencies but predominantly with liquids and multiple contiguous swallows of liquid. Please see speech therapist report also for recommendations. Chest CT 08/07/22 18:16 IMPRESSION: 1. Bilateral dependent atelectasis versus infiltrate. 2. Trace bilateral pleural effusions. 3. Cardiomegaly. 4. Pacemaker. 5. Coronary artery atherosclerotic calcifications. 6. Right kidney cyst, partially visualized. 7. Left percutaneous nephrostomy tube. 8. Negative for supraclavicular mass. COMMENTS: Consistent with the [employer]'s Incidental Findings Committee white paper (J Am Beckie Radiol 2018): Any incidental renal lesion less than 1 cm or classified as too small to characterize, or any incidental cystic renal lesion characterized as simple-appearing, is likely benign. No follow-up imaging is recommended for these lesions per consensus recommendations based on imaging criteria. Head CT 08/08/22 09:47 IMPRESSION: No acute intracranial findings. Neck CT 08/08/22 09:47 IMPRESSION: 1. No evidence of mass or lesion in the lower neck or visualized upper mediastinum. 2. No evidence of supraglottic or glottic mass. 3. Suspected RIGHT vocal cord paralysis. 4. No cervical lymphadenopathy. 12 mm LEFT supraclavicular lymph node unchanged from 2019 5. Incidental small RIGHT lateral pharyngeal pouch. 6. Normal salivary glands. 7. Stable postoperative changes cervical spine with instrumentation. Laboratory Results WBC 10.0 10^3/uL (4.0-10.0) 08/14/22 04:52 RBC 3.67 10^6/uL (4.1-5.3) L 08/14/22 04:52 Hgb 9.8 g/dL (11.7-16.6) L 08/14/22 04:52 Hct 31.5 % (42.0-52.0) L 08/14/22 04:52 MCV 85.8 fl (80-94) 08/14/22 04:52 MCH 26.7 pg (28.0-34.0) L 08/14/22 04:52 MCHC 31.1 g/dL (30.0-36.0) 08/14/22 04:52 RDW 15.5 % (12.1-15.1) H 08/14/22 04:52 Plt Count 435 10^3/cmm (130-400) H 08/14/22 04:52 MPV 11.0 fL (7.4-10.4) H 08/14/22 04:52 Neut % (Auto) 79.6 % 08/14/22 04:52 Lymph % (Auto) 12.8 % 08/14/22 04:52 [place] % (Auto) 6.2 % 08/14/22 04:52 Eos % (Auto) 0.6 % 08/14/22 04:52 Baso % (Auto) 0.3 % 08/14/22 04:52 Neut # (Auto) 7.96 10^3/uL (1.8-7.7) H 08/14/22 04:52 Lymph # (Auto) 1.3 10^3/uL (0.8-4.8) 08/14/22 04:52 [place] # (Auto) 0.6 10^3/uL (0.2-0.9) 08/14/22 04:52 Eos # (Auto) 0.1 10^3/uL (0.0-0.8) 08/14/22 04:52 Baso # (Auto) 0.0 10^3/uL (0.0-0.1) 08/14/22 04:52 Nucleated RBC % (auto) 0 % 08/14/22 04:52 Nucleated RBCs # 0.0 /100WBC 08/14/22 04:52 Sodium 138 mmol/L (136-145) 08/14/22 04:52 Potassium 3.6 mmol/L (3.5-5.1) 08/14/22 04:52 Chloride 103 mmol/L (98-107) 08/14/22 04:52 Carbon Dioxide 23 mmol/L (22-29) 08/14/22 04:52 Anion Gap 15.6 (5-19) 08/14/22 04:52 BUN 40 mg/dL (8-23) H 08/14/22 04:52 Creatinine 1.5 mg/dL (0.7-1.2) H 08/14/22 04:52 GFR Calculation Not Reportable 08/14/22 04:52 Glucose 199 mg/dL (65-115) H 08/14/22 04:52 POC Glucose 231 mg/dL (70-110) H 08/14/22 06:42 Estimat Average Glucose 166 08/05/22 21:47 Hemoglobin A1c 7.4 % (4.0-6.0) H 08/05/22 21:47 Calculated Osmolality 301 mOsm/kg (285-295) H 08/14/22 04:52 Lactate 3.2 mmol/L (0.5-2.2) H 08/05/22 21:47 Calcium 8.9 mg/dL (8.5-10.5) 08/14/22 04:52 Phosphorus 2.8 mg/dL (2.5-4.5) 08/05/22 21:47 Magnesium 1.5 mg/dL (1.7-2.3) L 08/05/22 21:47 Iron 33 ug/dL (59-158) L 08/10/22 04:50 TIBC 157 mcg/dl 08/10/22 04:50 % Saturation 21.0 % (20-50) 08/10/22 04:50 Unsat Iron Binding 124 ug/dL (112-347) 08/10/22 04:50 Ferritin 792 ng/mL (30-400) H 08/10/22 04:50 Total Bilirubin 0.4 mg/dL (0.15-1.2) 08/14/22 04:52 AST 13 U/L (0-40) 08/14/22 04:52 ALT < 5 U/L (0-41) 08/14/22 04:52 Alkaline Phosphatase 79 U/L (40-130) 08/14/22 04:52 Creatine Kinase 111 U/L (39-308) 08/05/22 21:47 Troponin T Baseline 58 ng/L (0-15) H 08/05/22 21:47 Troponin T 120 Minute 58.90 ng/L (0-15) H 08/06/22 00:25 Delta Troponin T 0.90 ABS# (0-10) 08/06/22 00:25 Troponin T Hi Sens 6Hr 48.20 ng/L (0-15) H 08/06/22 04:40 Troponin T Hi Sens 6Hr Delta -9.80 ng/L (0-12) L 08/06/22 04:40 C-Reactive Protein 125.2 mg/L (0.0-4.9) H 08/05/22 21:47 NT-Pro-B Natriuret Pep 1502 pg/mL (0-450) H 08/05/22 21:47 Total Protein 6.9 g/dL (6.6-8.7) 08/14/22 04:52 Albumin 3.4 g/dL (3.5-5.2) L 08/14/22 04:52 Globulin 3.5 g/dL (1.3-4.6) 08/14/22 04:52 TSH 0.97 uIU/mL (0.27-4.20) 08/06/22 00:25 Urine Color Red (Yellow) 08/10/22 15:00 Urine Appearance Cloudy (CLEAR) A 08/10/22 15:00 Urine pH 8 (5-7) H 08/10/22 15:00 Ur Specific [place] 1.010 (1.005-1.030) 08/10/22 15:00 Urine Protein 3+ (Negative) H 08/10/22 15:00 Urine Glucose (UA) Norm (Normal) 08/10/22 15:00 Urine Ketones Negative (Negative) 08/10/22 15:00 Urine Blood 3+ (Negative) H 08/10/22 15:00 Urine Nitrate Negative (Negative) 08/10/22 15:00 Urine Bilirubin Neg (Negative) 08/10/22 15:00 Prot Sulfosalicylic Acd Positive (Negative) 08/10/22 15:00 Urine Urobilinogen Norm mg/dL (Negative) 08/10/22 15:00 Ur Leukocyte Esterase 2+ (Negative) H 08/10/22 15:00 Urine RBC Too numerous to cnt /hpf (0-2) H 08/10/22 15:00 Urine WBC Too numerous to cnt /hpf (0-5) H 08/10/22 15:00 Ur Squamous Epith Cells 0-4 /hpf (0-5) H 08/10/22 15:00 Amorphous Sediment 3+ /hpf 08/10/22 15:00 Urine Bacteria 1+ /hpf (NONE) H 08/10/22 15:00 Coarse Granular Casts 0-4 /lpf H 08/05/22 22:52 Urine Mucus Trace /hpf 08/05/22 22:52 Blood Type O Negative 08/05/22 23:05 Rho(D) Type Negative 08/05/22 23:05 Antibody Screen Negative 08/05/22 23:05 Vitals Last Vital Signs Temp 97.4 F L 08/14/22 11:41 Pulse 84 08/14/22 11:41 Resp 18 08/14/22 11:41 BP 169/79 08/14/22 11:41 Pulse Ox 94 08/14/22 11:41 O2 Del Method 08/14/22 11:41 O2 Flow Rate 6 08/13/22 08:00 Discharge Plan Discharge Patient Disposition: Xfer SNF Condition: Stable Prescriptions: New midodrine 5 mg Tablet 5 mg PO TID Qty: 90 0RF amlodipine 5 mg Tablet 5 mg peg-tube DAILY PRN (Reason: Hypertension) Qty: 30 0RF Rx Instructions: SBP >180, DBP >100 levofloxacin 750 mg tablet 750 mg feeding tube EVERY OTHER DAY 6 Days Qty: 3 0RF Continued allopurinol 100 mg tablet 100 mg PO QAM multivitamin Tablet 1 tab PO DAILY duloxetine 60 mg capsule,delayed release(DR/EC) 60 mg PO BID atorvastatin 80 mg tablet 40 mg PO BEDTIME Label Comments: [facility] resveratrol 100 mg capsule 100 mg PO DAILY fluticasone propionate [Allergy Relief (fluticasone)] 50 mcg/actuation spray,suspension 1 spray intranasal BID Rx Instructions: administer into each nostril tramadol 50 mg tablet 50 mg PO Q8H PRN (Reason: pain) Qty: 21 0RF hydrochlorothiazide 25 mg tablet 25 mg PO DAILY Qty: 90 3RF cholecalciferol (vitamin D3) [Vitamin D3] 10 mcg (400 unit) Tablet 10 mcg PO DAILY gabapentin 300 mg capsule 600 mg PO BID docusate calcium 240 mg Capsule 240 mg PO DAILY PRN (Reason: Constipation) acetaminophen 500 mg Tablet 500 mg PO QPM PRN (Reason: Sleep) lidocaine 5 % Adhesive Patch,Medicated See Rx Instructions .ROUTE .COMPLEX Rx Instructions: 1 patch topically daily leave on most painful area for up to 12 hrs then off for 12 hours polyethylene glycol 3350 17 gram/dose powder See Rx Instructions .ROUTE .COMPLEX PRN (Reason: Constipation) Rx Instructions: two scoops with two glasses of water daily until soft bowel movement then do one scoop once a day albuterol sulfate [ProAir HFA] 90 mcg/actuation Hfa Aerosol Inhaler 1 inh INHALATION QID PRN (Reason: Shortness Of Breath) Striverdi Respimat 2.5 mcg/actuation Mist 2 inh INHALATION DAILY Asmanex HFA 100 mcg/actuation Hfa Aerosol Inhaler 1 puff INHALATION BID Humulin R U-500 (Conc) Kwikpen 500 unit/mL (3 mL) Insulin Pen See Rx Instructions .ROUTE .COMPLEX Rx Instructions: PER SLIDING SCALE hydrocodone-acetaminophen 5-325 mg Tablet 1 tab PO Q4H PRN (Reason: Pain) glucose 4 gram Tablet,Chewable 4 g PO Q15M PRN (Reason: LOW BS) Rx Instructions: until symptoms of low blood sugar are controlled megestrol 20 mg Tablet 20 mg PO DAILY Artificial Tears (cmc) 1 % Drops 1 drp OPHTHALMIC (EYE) DAILY PRN (Reason: Dry Eyes) Discharge Orders: Discharge Order (Routine); Ordered 08/14/22 Ordered By: Branden Dailey Referrals: [facility] [Outside] - 08/15/22 1:00 pm (Surgery Center. Check in time is 1300. Surgery at 1400. Dr. Morton will be performing the procedure. ) [facility] [Outside] Denisse Turpin MD [Physician] - 09/25/22 12:00 pm (Aspiration, MG?) Discharge Diet: As Directed Discharge Activity: Increase activity as tolerated and As per PT/OT instructions Patient Instructions: Amlodipine (By mouth), Midodrine (By mouth), How to Use and Care for Your PEG Tube (GEN), Tube Feeding (GEN), GI Discharge Instructions, Opioid Safety Activity Restrictions/Additional Instructions: Please proceed with the appointment as planned on 08/15 for exchange of nephrosto my tubes at [facility]. Continue follow-up with urology. Please avoid any intake by mouth. Maintain aspiration precautions. Continue feeding tube care, tube feeds. Please follow-up with neurology for additional assessment due to aspiration. Additional assessment consideration of possible myasthenia gravis or other conditions. Continue tube feeding with Jevity 1.2, 1 carton at 8 AM, 2 cartons at noon, 2 cartons at 4 PM, 1 carton at 8 PM. Give 60 mL water flush before and after each feeding. Please continue to monitor blood pressures, monitor orthostatic vital signs. Continue midodrine, in case blood pressure is very elevated, over 180 systolic or over 100 diastolic, can receive amlodipine. Elevate head of bed to 20 degrees to avoid supine hypertension, unless blood pressure is soft, less than 110 systolic or less than 50 diastolic. In that case later head of bed flat. Please follow-up orthostatics with primary care provider. Discharge Attestations Time Spent in Discharge Care*: greater than 30 min Quality Metrics Clinical Quality Measures [ No reported AMI, CVA or VTE this stay] Coding Level of Care Code Acute Chg FW DC note Diagnoses Prostate cancer C61 HTN (hypertension) I10 Hypertension type: essential hypertension Diabetes mellitus E11.9; Z79.4 Diabetes mellitus type: type 2 Diabetes mellitus intermodal customer service insulin use: with intermodal customer service use Diabetes mellitus complication status: without complication COPD (chronic obstructive pulmonary disease) J44.9 COPD type: unspecified COPD Chronic kidney disease N18.31 Chronic kidney disease stage: stage 3 (moderate) Chronic kidney disease stage 3 subtype: stage 3a (GFR 45-59) UTI (urinary tract infection) N39.0 Generalized weakness R53.1
[2022-08-14 12:27] LABS: SARS Covid-2 Antigen Negative (Negative)
[2022-08-14 21:10] LABS: Glucose Point of Care 136 mg/dL (70-110)
[2022-08-15 16:39] LABS: Lyme AB Screen <0.90 index
[2022-08-15 18:22] LABS: Acetylcholine Receptor Block <15 (<15)
[2022-08-18 15:48] LABS: Acetylcholine Receptor Binding <0.30 nmol/L
[2022-08-18 17:27] LABS: E. Chaffeensis AB IGG <1:64; E. Chaffeensis AB IGM <1:20
[2022-08-19 16:28] LABS: RMSF IGG NOT DETECTED; RMSF IGM NOT DETECTED
[2022-08-21 07:54] LABS: Glucose Point of Care 199 mg/dL (70-110)
[2022-08-31 17:26] LABS: Acetylcholine Recept Modulatin 13
== END 2022-08-14 16:20 | disposition skilled nursing facility (03) | DRG 699 ==
LOC: ER 08-06 01:22 → MEDSURG 08-06 03:44
PROVIDERS: Internal Medicine; Specialist; Student in an Organized Health Care Education/Training Program; Surgery; Urology; Admitting Provider Family Medicine; Emergency Provider Emergency Medicine; PCP Family Medicine; Visit Provider Internal Medicine
PROC: 0CJS8ZZ Inspection of Larynx, Via Natural or Artificial Opening Endoscopic (ICD-10-PCS; principal; 2022-08-09 09:10)
PROC: 0DJ08ZZ Inspection of Upper Intestinal Tract, Via Natural or Artificial Opening Endoscopic (ICD-10-PCS; 2022-08-09 09:10)
PROC: 0DH63UZ Insertion of Feeding Device into Stomach, Percutaneous Approach (ICD-10-PCS; CPT 43246; principal; 2022-08-10 11:30)
DX: T83.512A Infection and inflammatory reaction due to nephrostomy catheter, initial encounter (principal); N17.9 Acute kidney failure, unspecified; N30.40 Irradiation cystitis without hematuria; Y73.8 Miscellaneous gastroenterology and urology devices associated with adverse incidents, not elsewhere classified; Z96.0 Presence of urogenital implants; W88.1XXS Exposure to radioactive isotopes, sequela; J44.9 Chronic obstructive pulmonary disease, unspecified; G62.9 Polyneuropathy, unspecified; E11.22 Type 2 diabetes mellitus with diabetic chronic kidney disease; I12.9 Hypertensive chronic kidney disease with stage 1 through stage 4 chronic kidney disease, or unspecified chronic kidney disease; N18.31 Chronic kidney disease, stage 3a; Z85.46 Personal history of malignant neoplasm of prostate; W19.XXXA Unspecified fall, initial encounter; Z95.0 Presence of cardiac pacemaker; G47.33 Obstructive sleep apnea (adult) (pediatric); Z92.3 Personal history of irradiation; R33.9 Retention of urine, unspecified; Z98.1 Arthrodesis status; D63.1 Anemia in chronic kidney disease; E83.42 Hypomagnesemia; Z79.4 Long term (current) use of insulin; Z79.891 Long term (current) use of opiate analgesic; Q38.7 Congenital pharyngeal pouch; R59.0 Localized enlarged lymph nodes; I95.1 Orthostatic hypotension; K59.00 Constipation, unspecified; J38.01 Paralysis of vocal cords and larynx, unilateral; Z87.891 Personal history of nicotine dependence; R49.0 Dysphonia; R13.10 Dysphagia, unspecified; G89.29 Other chronic pain; M54.9 Dorsalgia, unspecified; K20.90 Esophagitis, unspecified without bleeding; B96.1 Klebsiella pneumoniae [K. pneumoniae] as the cause of diseases classified elsewhere
CPT/HCPCS: 12345; 36415; 36416; 43246; 51702; 70470; 70491; 71045; 71250; 74176; 74230; 80048; 80053; 81001; 82550; 82728; 82962; 83036; 83516; 83519; 83540; 83550; 83605; 83735; 83880; 84100; 84443; 84484; 85025; 86140; 86618; 86666; 86757; 86850; 86900; 87040; 87077; 87086; 87186; 87426; 88305; 92523; 92524; 92526; 92610; 92611; 93005; 96365; 96372; 96375; 97116; 97161; 97165; 99285; C9113; G0378; J0171; J0692; J0743; J1100; J1170; J1650; J1815; J2405; J2543; J2704; J2765; J3010; J3475; J3490; J7030; J7040; Q9967

== ENCOUNTER 2022-08-29 15:16 | Emergency (ER) | payer OTHER, SELFPAY ==
[2022-08-29 15:18] VITALS: BP 148/68; PULSE 89; RESP 19; TEMP 36.6; O2SAT 88; BMI 27.1
--- NOTE | 2022-08-29 15:21 | CTR_ITS ---
PROCEDURE INFORMATION: Exam: CT Cervical Spine Without Contrast Exam date and time: 08/29/2022 3:49 PM Age: 77 years old Clinical indication: Injury or trauma; Fall; Blunt trauma; Prior surgery TECHNIQUE: Imaging protocol: Computed tomography of the cervical spine without contrast. Radiation optimization: All CT scans at this facility use at least one of these dose optimization techniques: automated exposure control; mA and/or kV adjustment per patient size (includes targeted exams where dose is matched to clinical indication); or iterative reconstruction. COMPARISON: CT neck w con* [id number] 08/08/2022 11:19 AM RADIATION DOSE METRICS: Total DLP (mGy-cm): 270.7 FINDINGS: Bones/joints: Corpectomy changes with strut graft noted at C4/C5 as well as ACDF hardware involving the C3-C5 segment. No acute fracture. Normal alignment. No severe spinal canal stenosis. Lungs: Lung apices are normal. Soft tissues: Unremarkable. CT/CT cervical spin wo con* [id number] IMPRESSION: No acute findings.
--- NOTE | 2022-08-29 15:22 | CTR_ITS ---
PROCEDURE INFORMATION: Exam: CT Head Without Contrast Exam date and time: 08/29/2022 3:49 PM Age: 77 years old Clinical indication: Injury or trauma; Blunt trauma (contusions or hematomas); Injury details: Fall x today hitting left side of head on concrete. Multiple recent falls; Additional info: Ams/fall TECHNIQUE: Imaging protocol: Computed tomography of the head without contrast. Radiation optimization: All CT scans at this facility use at least one of these dose optimization techniques: automated exposure control; mA and/or kV adjustment per patient size (includes targeted exams where dose is matched to clinical indication); or iterative reconstruction. COMPARISON: CT head wo/w con [id number] 08/08/2022 11:19 AM RADIATION DOSE METRICS: Total DLP (mGy-cm): 1243.32 FINDINGS: Brain: No hemorrhage. No edema. Moderate diffuse cerebral atrophy. Mild sequela of chronic small vessel ischemic disease. No mass effect. Cerebral ventricles: No ventriculomegaly. Paranasal sinuses: Visualized sinuses are unremarkable. No fluid levels. Mastoid air cells: Visualized mastoid air cells are well aerated. Bones/joints: Unremarkable. No acute fracture. Soft tissues: Unremarkable. CT/CT head wo con* [id number] IMPRESSION: No acute intracranial abnormality.
[2022-08-29 15:43] LABS: Basophils % 0.3 %; Eosinophils % 0.2 %; Hematocrit 25.5 % (42.0-52.0); Lymphocytes # 0.6 10^3/uL (0.8-4.8); Lymphocytes % 10.7 %; Mean Corpuscular HGB Conc 31.4 g/dL (30.0-36.0); Mean Corpuscular Volume 86.1 fl (80-94); Mean Platelet Volume 10.7 fL (7.4-10.4); Monocytes # 0.4 10^3/uL (0.2-0.9); Monocytes % 6.9 %; Neutrophils # 4.74 10^3/uL (1.8-7.7); Neutrophils % 81.6 %; Nucleated Red Blood Cells % 0 %; Platelet Count 269 10^3/cmm (130-400); Red Blood Count 2.96 10^6/uL (4.1-5.3); Red Cell Distribution Width 16.2 % (12.1-15.1); White Blood Count 5.8 10^3/uL (4.0-10.0)
--- NOTE | 2022-08-29 15:51 | ED_ITS ---
HPI - Altered Mental Status General: Chief Complaint: Altered Mental Status Stated Complaint: FALL/ AMS/ LAC TO ER Time Seen by Provider: 08/29/22 15:20 Source: patient Mode of arrival: ambulatory Limitations: no limitations PFSH ED PFSH: Medical History Chronic kidney disease Complex renal cyst Overall considered low risk, following with ultrasound, COPD (chronic obstructive pulmonary disease) Diabetes mellitus Diabetic neuropathy Gross hematuria H/O cardiac pacemaker HTN (hypertension) Incomplete bladder emptying Lesion of bladder Chronic inflammatory change with fibroadipose tissue most likely consistent patient cystitis despite its suspicious appearing on cystitis Obstructive sleep apnea Prostate cancer Diagnosed 2019 treated with radiation therapy with good response No evidence of recurrence Sinus node dysfunction Urinary retention Surgical History History of back surgery C3-C4 ACDFF WITH C4 CORPECTOMY History of circumcision History of eye surgery 2018 History of neck surgery History of prostate biopsy Status post cataract surgery Status post knee surgery left Family History Father , AT AGE 65-CHF No problems noted. Mother , AT AGE 65-CHF No problems noted. Social History Smoking and tobacco status: never smoked Alcohol intake: never Marital status: Current occupational status: retired and disabled History of recent travel: No Course Vital Signs: Vital signs: Vital Signs Temperature 97.8 F 08/29/22 15:18 Pulse Rate 89 08/29/22 15:18 Respiratory Rate 19 H 08/29/22 15:18 Blood Pressure 148/68 08/29/22 15:18 Pulse Oximetry 88 L 08/29/22 15:18 Oxygen Delivery Me thod 08/29/22 15:18 Oxygen Flow Rate 3 08/29/22 15:18 MDM - Altered Mental Status Lab Data : 08/29/22 15:35 08/29/22 15:35 Laboratory Results WBC 5.8 10^3/uL (4.0-10.0) 08/29/22 15:35 RBC 2.96 10^6/uL (4.1-5.3) L 08/29/22 15:35 Hgb 8.0 g/dL (11.7-16.6) L 08/29/22 15:35 Hct 25.5 % (42.0-52.0) L 08/29/22 15:35 MCV 86.1 fl (80-94) 08/29/22 15:35 MCH 27.0 pg (28.0-34.0) L 08/29/22 15:35 MCHC 31.4 g/dL (30.0-36.0) 08/29/22 15:35 RDW 16.2 % (12.1-15.1) H 08/29/22 15:35 Plt Count 269 10^3/cmm (130-400) 08/29/22 15:35 MPV 10.7 fL (7.4-10.4) H 08/29/22 15:35 Neut % (Auto) 81.6 % 08/29/22 15:35 Lymph % (Auto) 10.7 % 08/29/22 15:35 [place] % (Auto) 6.9 % 08/29/22 15:35 Eos % (Auto) 0.2 % 08/29/22 15:35 Baso % (Auto) 0.3 % 08/29/22 15:35 Neut # (Auto) 4.74 10^3/uL (1.8-7.7) 08/29/22 15:35 Lymph # (Auto) 0.6 10^3/uL (0.8-4.8) L 08/29/22 15:35 [place] # (Auto) 0.4 10^3/uL (0.2-0.9) 08/29/22 15:35 Eos # (Auto) 0.0 10^3/uL (0.0-0.8) 08/29/22 15:35 Baso # (Auto) 0.0 10^3/uL (0.0-0.1) 08/29/22 15:35 Nucleated RBC % (auto) 0 % 08/29/22 15:35 Nucleated RBCs # 0.0 /100WBC 08/29/22 15:35 Discharge Plan Discharge Condition: Stable Prescriptions: No Action allopurinol 100 mg tablet 100 mg PO QAM multivitamin Tablet 1 tab PO DAILY duloxetine 60 mg capsule,delayed release(DR/EC) 60 mg PO BID atorvastatin 80 mg tablet 40 mg PO BEDTIME Label Comments: [facility] resverat[facility] 100 mg capsule 100 mg PO DAILY fluticasone propionate [Allergy Relief (fluticasone)] 50 mcg/actuation spray,suspension 1 spray intranasal BID Rx Instructions: administer into each nostril tramadol 50 mg tablet 50 mg PO Q8H PRN (Reason: pain) Qty: 21 0RF hydrochlorothiazide 25 mg tablet 25 mg PO DAILY Qty: 90 3RF cholecalciferol (vitamin D3) [Vitamin D3] 10 mcg (400 unit) Tablet 10 mcg PO DAILY gabapentin 300 mg capsule 600 mg PO BID docusate calcium 240 mg Capsule 240 mg PO DAILY PRN (Reason: Constipation) acetaminophen 500 mg Tablet 500 mg PO QPM PRN (Reason: Sleep) lidocaine 5 % Adhesive Patch,Medicated See Rx Instructions .ROUTE .COMPLEX Rx Instructions: 1 patch topically daily leave on most painful area for up to 12 hrs then off for 12 hours polyethylene glycol 3350 17 gram/dose powder See Rx Instructions .ROUTE .COMPLEX PRN (Reason: Constipation) Rx Instructions: two scoops with two glasses of water daily until soft bowel movement then do one scoop once a day albuterol sulfate [ProAir HFA] 90 mcg/actuation Hfa Aerosol Inhaler 1 inh INHALATION QID PRN (Reason: Shortness Of Breath) Striverdi Respimat 2.5 mcg/actuation Mist 2 inh INHALATION DAILY Asmanex HFA 100 mcg/actuation Hfa Aerosol Inhaler 1 puff INHALATION BID Humulin R U-500 (Conc) Kwikpen 500 unit/mL (3 mL) Insulin Pen See Rx Instructions .ROUTE .COMPLEX Rx Instructions: PER SLIDING SCALE hydrocodone-acetaminophen 5-325 mg Tablet 1 tab PO Q4H PRN (Reason: Pain) glucose 4 gram Tablet,Chewable 4 g PO Q15M PRN (Reason: LOW BS) Rx Instructions: until symptoms of low blood sugar are controlled megestrol 20 mg Tablet 20 mg PO DAILY Artificial Tears (cmc) 1 % Drops 1 drp OPHTHALMIC (EYE) DAILY PRN (Reason: Dry Eyes) midodrine 5 mg Tablet 5 mg PO TID Qty: 90 0RF amlodipine 5 mg Tablet 5 mg peg-tube DAILY PRN (Reason: Hypertension) Qty: 30 0RF Rx Instructions: SBP >180, DBP >100 Referrals: Rajwinder Olivarez MD [Primary Care Provider] - Coding Level of Care Code ED Forestry Aid Technician for Chg Sun
[2022-08-29 16:02] LABS: Alanine Aminotransferase 11 U/L (0-41); Albumin Level 2.9 g/dL (3.5-5.2); Alkaline Phosphatase 81 U/L (40-130); Anion Gap 15.9 (5-19); Aspartate Amino Transferase 20 U/L (0-40); Blood Urea Nitrogen 48 mg/dL (8-23); Calcium 8.9 mg/dL (8.5-10.5); Carbon Dioxide 28 mmol/L (22-29); Chloride 95 mmol/L (98-107); Globulin 3.9 g/dL (1.3-4.6); Glucose 265 mg/dL (65-115); Osmolality Calculated 300 mOsm/kg (285-295); Potassium 4.9 mmol/L (3.5-5.1); Sodium 134 mmol/L (136-145); Total Bilirubin 0.4 mg/dL (0.15-1.2); Total Protein 6.8 g/dL (6.6-8.7)
--- NOTE | 2022-08-29 16:20 | PC.PHAR ---
pt is from [facility]-venkat bucio nurse from [facility] pt had all am meds
[2022-08-29 16:22] VITALS: BP 127/68; PULSE 80; RESP 92; O2SAT 93
--- NOTE | 2022-08-29 16:33 | W.ED.GENADLT ---
HPI - General Adult General: Chief complaint: Altered Mental Status Stated complaint: FALL/ AMS/ LAC TO ER Time Seen by Provider: 08/29/22 15:20 Source: patient and family Mode of arrival: EMS History of Present Illness: 77-year-old male who presents to the emergency room via EMS from the [place] [facility]. He was hospitalized at the [place] [facility] after a 1 week long stay in the hospital last month. He was placed there on August 14. Cording to the he said multiple falls in the last year and significant weight loss. He had work-up while he was in-house for the weight loss and the falls. They have a follow-up appointment coming with Dr. Turpin. He said multiple falls at the [place] [facility] he was brought in today after a fall he has an abrasion above his left ear there was no loss consciousness. Patient evidently does have some dementia and does not answer history questions completely. Denies any chest or abdominal pain. says he continues to not be eating well he does have a PEG tube which they are giving nutrition from he is also been moderately constipated. Onset (ago): month(s) Severity: moderate Relieving factors: none Exacerbating factors: none Associated symptoms: Reports confusion, decreased appetite, malaise and weakness; Deny chest pain, cough, diaphoresis, dyspnea, fevers/chills, headache(s), nausea, rash, palpitations, seizures, short of breath, syncope or vomiting Treatments prior to arrival: none Review of Systems Const: Reports: fatigue and malaise; Denies: fever(s), chills or diaphoresis ENMT: Denies: throat pain, ear or mastoid pain, nasal discharge or nasal congestion Card: Denies: chest pain, palpitations or syncope Resp: Denies: dyspnea GI: Reports: abdominal pain; Denies: nausea or vomiting : Denies: flank pain, difficulty urinating, dysuria, urinary frequency or urinary urgency Skin/Breast: Denies: rash Neuro: Reports: confusion; Denies: headache(s) PFS ED PFSH: Medical History Chronic kidney disease Complex renal cyst Overall considered low risk, following with ultrasound, COPD (chronic obstructive pulmonary disease) Diabetes mellitus Diabetic neuropathy Gross hematuria H/O cardiac pacemaker HTN (hypertension) Incomplete bladder emptying Lesion of bladder Chronic inflammatory change with fibroadipose tissue most likely consistent patient cystitis despite its suspicious appearing on cystitis Obstructive sleep apnea Prostate cancer Diagnosed 2019 treated with radiation therapy with good response No evidence of recurrence Sinus node dysfunction Urinary retention Surgical History History of back surgery C3-C4 ACDFF WITH C4 CORPECTOMY History of circumcision History of eye surgery 2018 History of neck surgery History of prostate biopsy Status post cataract surgery Status post knee surgery left Family History Father , AT AGE 65-CHF No problems noted. Mother , AT AGE 65-CHF No problems noted. Social History Smoking and tobacco status: never smoked Alcohol intake: never Marital status: Current occupational status: retired and disabled History of recent travel: No Physical Exam Const: GENERAL APPEARANCE: cooperative and comfortable ORIENTATION/CONSCIOUSNESS: Yes awake HENMT: COMMON NORMALS: normocephalic, atraumatic and hearing grossly normal bilaterally HEAD & SCALP: normocephalic and atraumatic Neck/C-Spine: COMMON NORMALS: full ROM, no lymphadenopathy, supple and no JVD Lymph: LYMPHATIC: no lymphadenopathy noted and no lymphedema noted Resp: COMMON NORMALS: normal respiratory effort, No retractions, No use of accessory muscles and clear to auscultation bilaterally AUSCULTATION: clear to auscultation bilaterally Cardio: COMMON NORMALS: no JVD, regular rate, regular rhythm and No murmurs present (Cardio) RATE: regular rate RHYTHM: regular rhythm GI: COMMON NORMALS: Soft to palpation and No hepatosplenomegaly present AUSCULTATION: Yes normoactive bowel sounds PALPATION: Yes Soft to palpation, No Tenderness to palpation present (GI), No Guarding due to palpation present (GI) and Yes No hepatosplenomegaly present Extremity: COMMON NORMALS: normal to inspection, capillary refill normal, no clubbing, cyanosis or edema, no calf tenderness and no pedal edema Skin: COMMON NORMALS: no rashes or lesions noted GENERAL SKIN EXAM: no rashes or lesions noted Course Vital Signs: Vital signs: Vital Signs Temperature 97.8 F 08/29/22 15:18 Pulse Rate 77 08/29/22 17:37 Respiratory Rate 92 H 08/29/22 16:22 Blood Pressure 102/63 08/29/22 17:37 Pulse Oximetry 95 08/29/22 17:37 Oxygen Delivery Me thod 08/29/22 16:22 Oxygen Flow Rate 3 08/29/22 15:18 MDM - General Adult Medical Decision Making Mild cystitis normal white count. Patient is chronically anemic but is slightly lower than he usually is patient will repeat CBC in the next 1 to 2 days. Treat the cystitis discharge patient back up to the [place] [facility]. Medical Records I reviewed the patient's medical records. Lab Data I reviewed the patient's lab results. : 08/29/22 15:35 08/29/22 15:35 Radiology Impressions Cervical Spine CT 08/29/22 15:21 IMPRESSION: No acute findings. Head CT 08/29/22 15:22 IMPRESSION: No acute intracranial abnormality. Laboratory Results WBC 5.8 10^3/uL (4.0-10.0) 08/29/22 15:35 RBC 2.96 10^6/uL (4.1-5.3) L 08/29/22 15:35 Hgb 8.0 g/dL (11.7-16.6) L 08/29/22 15:35 Hct 25.5 % (42.0-52.0) L 08/29/22 15:35 MCV 86.1 fl (80-94) 08/29/22 15:35 MCH 27.0 pg (28.0-34.0) L 08/29/22 15:35 MCHC 31.4 g/dL (30.0-36.0) 08/29/22 15:35 RDW 16.2 % (12.1-15.1) H 08/29/22 15:35 Plt Count 269 10^3/cmm (130-400) 08/29/22 15:35 MPV 10.7 fL (7.4-10.4) H 08/29/22 15:35 Neut % (Auto) 81.6 % 08/29/22 15:35 Lymph % (Auto) 10.7 % 08/29/22 15:35 [place] % (Auto) 6.9 % 08/29/22 15:35 Eos % (Auto) 0.2 % 08/29/22 15:35 Baso % (Auto) 0.3 % 08/29/22 15:35 Neut # (Auto) 4.74 10^3/uL (1.8-7.7) 08/29/22 15:35 Lymph # (Auto) 0.6 10^3/uL (0.8-4.8) L 08/29/22 15:35 [place] # (Auto) 0.4 10^3/uL (0.2-0.9) 08/29/22 15:35 Eos # (Auto) 0.0 10^3/uL (0.0-0.8) 08/29/22 15:35 Baso # (Auto) 0.0 10^3/uL (0.0-0.1) 08/29/22 15:35 Nucleated RBC % (auto) 0 % 08/29/22 15:35 Nucleated RBCs # 0.0 /100WBC 08/29/22 15:35 Sodium 134 mmol/L (136-145) L 08/29/22 15:35 Potassium 4.9 mmol/L (3.5-5.1) 08/29/22 15:35 Chloride 95 mmol/L (98-107) L 08/29/22 15:35 Carbon Dioxide 28 mmol/L (22-29) 08/29/22 15:35 Anion Gap 15.9 (5-19) 08/29/22 15:35 BUN 48 mg/dL (8-23) H 08/29/22 15:35 Creatinine 1.6 mg/dL (0.7-1.2) H 08/29/22 15:35 GFR Calculation Not Reportable 08/29/22 15:35 Glucose 265 mg/dL (65-115) H 08/29/22 15:35 Calculated Osmolality 300 mOsm/kg (285-295) H 08/29/22 15:35 Calcium 8.9 mg/dL (8.5-10.5) 08/29/22 15:35 Total Bilirubin 0.4 mg/dL (0.15-1.2) 08/29/22 15:35 AST 20 U/L (0-40) 08/29/22 15:35 ALT 11 U/L (0-41) 08/29/22 15:35 Alkaline Phosphatase 81 U/L (40-130) 08/29/22 15:35 Total Protein 6.8 g/dL (6.6-8.7) 08/29/22 15:35 Albumin 2.9 g/dL (3.5-5.2) L 08/29/22 15:35 Globulin 3.9 g/dL (1.3-4.6) 08/29/22 15:35 Urine Color Yellow (Yellow) 08/29/22 16:20 Urine Appearance Hazy (CLEAR) A 08/29/22 16:20 Urine pH 5 (5-7) 08/29/22 16:20 Ur Specific [place] 1.015 (1.005-1.030) 08/29/22 16:20 Urine Protein 1+ (Negative) H 08/29/22 16:20 Urine Glucose (UA) Norm (Normal) 08/29/22 16:20 Urine Ketones 1+ (Negative) H 08/29/22 16:20 Urine Blood 3+ (Negative) H 08/29/22 16:20 Urine Nitrate Negative (Negative) 08/29/22 16:20 Urine Bilirubin Neg (Negative) 08/29/22 16:20 Urine Urobilinogen 1 mg/dL (Negative) H 08/29/22 16:20 Ur Leukocyte Esterase 2+ (Negative) H 08/29/22 16:20 Urine RBC 40-50 /hpf (0-2) H 08/29/22 16:20 Urine WBC 40-55 /hpf (0-5) H 08/29/22 16:20 Ur Squamous Epith Cells 0-4 /hpf (0-5) H 08/29/22 16:20 Amorphous Sediment 1+ /hpf 08/29/22 16:20 Urine Bacteria 1+ /hpf (NONE) H 08/29/22 16:20 Urine Mucus Trace /hpf 08/29/22 16:20 Discharge Plan Discharge Patient Disposition: Home Clinical Impression: Fall, Cystitis, Chronic kidney disease Condition: Stable Prescriptions: New Cipro 500 mg tablet 500 mg PO BID Qty: 14 0RF mupirocin 2 % ointment 1 applic topical BID Qty: 22 0RF No Action allopurinol 100 mg tablet 100 mg feeding tube DAILY@08 multivitamin Tablet 1 tab feeding tube DAILY@08 duloxetine 60 mg capsule,delayed release(DR/EC) 60 mg PO BID@08,20 resveratrol 100 mg capsule 100 mg PO DAILY@08 fluticasone propionate [Flonase Allergy Relief] 50 mcg/actuation spray,suspension 1 spray intranasal BID@08,20 Rx Instructions: administer into each nostril tramadol 50 mg tablet 50 mg PO Q8H PRN (Reason: pain) Qty: 21 0RF cholecalciferol (vitamin D3) [Vitamin D3] 10 mcg (400 unit) Tablet 10 mcg feeding tube DAILY@08 docusate sodium 50 mg/5 mL Liquid 24 ml PO DAILY@08 atorvastatin 40 mg Tablet 40 mg feeding tube BEDTIME@20 gabapentin 600 mg Tablet 600 mg feeding tube BID@08,20 lidocaine 4 % Adhesive Patch,Medicated See Rx Instructions .ROUTE .COMPLEX Rx Instructions: apply one patch topically daily on for 12 hours and off for 12 hours Artificial Tears (polyvin alc) 1.4 % Drops 1 drp ophthalmic (eye) DAILY PRN (Reason: Dry Eye(S)) Milk of Magnesia 400 mg/5 mL Suspension See Rx Instructions .ROUTE .COMPLEX Rx Instructions: 30ml gastric tube every 72 hours if needed if no bm in 3 days do not give to renal patients go to dulcolax orders Dulcolax (bisacodyl) 10 mg Suppository 10 mg TN DAILY PRN (Reason: Constipation) Rx Instructions: if no results from mom Fleet Enema 19-7 gram/118 mL Enema 118 ml TN DAILY PRN (Reason: Constipation) Rx Instructions: give if no results from mom and dulcolax Dulcolax (bisacodyl) 5 mg Tablet,Delayed Release (Dr/Ec) 10 mg PO DAILY PRN (Reason: Constipation) Rx Instructions: give if no results from mom Jevity 1.2 [place] 0.06 gram-1.2 kcal/mL Liquid 1 ea feeding tube QAM Rx Instructions: flush 60ml water before and after each feeding Humulin R Regular U-100 Insuln 100 unit/mL Solution See Rx Instructions .ROUTE .COMPLEX Rx Instructions: per sliding scale before meals and at bedtime acetaminophen 500 mg Tablet 500 mg feeding tube BEDTIME PRN (Reason: Pain) polyethylene glycol 3350 17 gram/dose powder See Rx Instructions .ROUTE .COMPLEX PRN (Reason: Constipation) Rx Instructions: two scoops with two glasses of water daily until soft bowel movement then do one scoop once a day albuterol sulfate [ProAir HFA] 90 mcg/actuation Hfa Aerosol Inhaler 1 inh INHALATION Q4H PRN (Reason: Shortness Of Breath) Striverdi Respimat 2.5 mcg/actuation Mist 2 inh INHALATION DAILY@08 Asmanex HFA 100 mcg/actuation Hfa Aerosol Inhaler 1 puff INHALATION BID Rx Instructions: rinse with h20 after use hydrocodone-acetaminophen 5-325 mg Tablet 1 tab PO Q4H PRN (Reason: Pain) Discharge Orders: Discharge ED (Routine); Ordered 08/29/22 Ordered By: Stef Fagan Referrals: Rajwinder Olivarez MD [Primary Care Provider] - Discharge Diet: Usual diet Discharge Activity: Resume usual activity Patient Instructions: Opioid Safety, Pain Management Activity Restrictions/Additional Instructions: Start Cipro 500 twice daily tomorrow follow-up with Dr. Turpin for for further evaluation as previously scheduled. Apply topical antibiotic ointment to the abrasion above the left ear Coding Level of Care Code ED Power Equipment Technology Instructor for Chg Fwd Exam Comprehensive
[2022-08-29 16:39] LABS: Add Urine Culture? Yes; Add Urine Microscopic? YES; Amorphous Sediment Urine 1+ /hpf; Bacteria Urine 1+ /hpf; Bilirubin Urine Neg (Negative); Blood Urine 3+ (Negative); Glucose Urine UA Norm (Normal); Ketones Urine 1+ (Negative); Leukocyte Esterase Urine 2+ (Negative); Mucus Urine TRACE /hpf; Nitrate Urine Negative (Negative); Protein Urine 1+ (Negative); RBC Urine 40-50 /hpf (0-2); Specific Gravity, Urine 1.015 (1.005-1.030); Squamous Epithelial Cell Urine 0-4 /hpf (0-5); Urine Appearance Hazy (CLEAR); Urine Color Yellow (Yellow); Urobilinogen Urine 1 mg/dL (Negative); WBC Urine 40-55 /hpf (0-5); pH Urine 5 (5-7)
[2022-08-29] MEDS: cefTRIAXone 1,000 MG in lidocaine 1% 2.1 ML 1 MG IM (17:36)
[2022-08-29 17:37] VITALS: BP 102/63; PULSE 77; O2SAT 95
== END 2022-08-29 17:41 | disposition home or self-care (01) ==
PROVIDERS: Emergency Provider Family Medicine; PCP Family Medicine
DX: N30.90 Cystitis, unspecified without hematuria (principal); E11.22 Type 2 diabetes mellitus with diabetic chronic kidney disease; I12.9 Hypertensive chronic kidney disease with stage 1 through stage 4 chronic kidney disease, or unspecified chronic kidney disease; N18.9 Chronic kidney disease, unspecified; J44.9 Chronic obstructive pulmonary disease, unspecified; Z95.0 Presence of cardiac pacemaker; Z85.46 Personal history of malignant neoplasm of prostate
CPT/HCPCS: 70450; 72125; 80053; 81001; 85025; 87086; 87186; 96372; 99285; J0696

== ENCOUNTER 2022-09-06 14:14 | Oncology outpatient (recurring) (ONCR) | payer OTHER, SELFPAY | END 2022-09-18 23:59 | disposition home or self-care (01) | PROVIDERS: PCP Family Medicine; Visit Provider Internal Medicine Hematology & Oncology | DX: Z08 Encounter for follow-up examination after completed treatment for malignant neoplasm (principal); Z85.46 Personal history of malignant neoplasm of prostate; D64.9 Anemia, unspecified; J38.02 Paralysis of vocal cords and larynx, bilateral; Z79.899 Other long term (current) drug therapy; Z92.3 Personal history of irradiation; Z87.891 Personal history of nicotine dependence | CPT/HCPCS: 99204 ==

== ENCOUNTER → 2022-09-20 15:54 | Outpatient (BNVA) | payer OTHER, SELFPAY | PROVIDERS: PCP Family Medicine; Visit Provider Urology | DX: R33.9 Retention of urine, unspecified (principal); N13.5 Crossing vessel and stricture of ureter without hydronephrosis; N30.40 Irradiation cystitis without hematuria | CPT/HCPCS: 99214 ==

== ENCOUNTER → 2022-09-25 11:40 | Outpatient (BNVA) | payer OTHER, SELFPAY | PROVIDERS: PCP Family Medicine; Visit Provider Specialist | DX: J38.02 Paralysis of vocal cords and larynx, bilateral (principal); R51.9 Headache, unspecified; R63.4 Abnormal weight loss; I95.1 Orthostatic hypotension; R41.3 Other amnesia; Z68.27 Body mass index [BMI] 27.0-27.9, adult; E11.9 Type 2 diabetes mellitus without complications; Z79.4 Long term (current) use of insulin | CPT/HCPCS: 99205 ==

== ENCOUNTER 2022-10-01 11:19 | Emergency (ER) | payer OTHER, SELFPAY ==
[2022-10-01] VITALS (8 sets, daily range): BP systolic 102–121; BP diastolic 56–81; PULSE 75–81; RESP 16–25; TEMP 36.9; O2SAT 88–100; BMI 23.7
--- NOTE | 2022-10-01 12:54 | CTR_ITS ---
PROCEDURE INFORMATION: Exam: CT Maxillofacial Without Contrast Exam date and time: 10/01/2022 1:17 PM Age: 77 years old Clinical indication: Injury or trauma; Fall; Blunt trauma (contusions or hematomas); Jaw; Bilateral TECHNIQUE: Imaging protocol: Computed tomography of the of the face without contrast. Radiation optimization: All CT scans at this facility use at least one of these dose optimization techniques: automated exposure control; mA and/or kV adjustment per patient size (includes targeted exams where dose is matched to clinical indication); or iterative reconstruction. COMPARISON: 1. CT head wo con* [id number] 08/29/2022 3:[address] neck w con* [id number] 08/08/2022 11:19 AM RADIATION DOSE METRICS: Total DLP (mGy-cm): 546.7 FINDINGS: Orbital cavities: Orbits are normal. Globes are unremarkable. Bones/joints: Interval increase in destructive changes of the right mandibular horizontal ramus, vertical ramus, and base of coronoid process, with periosteal reaction, lateral cortical breakthrough (series 4, image 18), and vertical ramus cancellous bone sclerosis (series 4, image 27). Pathologic nondisplaced fracture of the posterior horizontal ramus is suspected (series 4, image 23). Pathologic nondisplaced fracture of the posterior horizontal ramus is suspected (series 4, image 23). Upper cervical spine anterior and posterior longitudinal ligamentous ossification. Previous upper cervical spine postsurgical changes. Paranasal sinuses: Mild left sphenoid sinus posterior mucosal thickening. No air-fluid levels. Soft tissues: Right francy mandibular soft tissue swelling particularly involving the masseter and medial pterygoid muscles. Dental: Edentulous maxilla and mandible. CT/CT facial bones wo con* [id number] IMPRESSION: 1. Increased destructive changes right mandible. Differential diagnosis includes osteomyelitis and neoplasia. MRI may add additional useful information. 2. Pathologic nondisplaced fracture posterior right mandibular horizontal ramus is suspected.
--- NOTE | 2022-10-01 12:54 | CTR_ITS ---
PROCEDURE INFORMATION: Exam: CT Head Without Contrast Exam date and time: 10/01/2022 1:17 PM Age: 77 years old Clinical indication: Injury or trauma; Fall; Blunt trauma (contusions or hematomas) TECHNIQUE: Imaging protocol: Computed tomography of the head without contrast. Radiation optimization: All CT scans at this facility use at least one of these dose optimization techniques: automated exposure control; mA and/or kV adjustment per patient size (includes targeted exams where dose is matched to clinical indication); or iterative reconstruction. COMPARISON: 1. CT head wo con* [id number] 08/29/2022 3:[address] head wo/w con [id number] 08/08/2022 11:19 AM RADIATION DOSE METRICS: Total DLP (mGy-cm): 1217.8 FINDINGS: Brain: Moderate hypoattenuating foci are noted in the anterior lateral ventricular periventricular white matter bilaterally. No intracranial hemorrhage. No mass or acute cortical infarction identified. Ventricles: Prominence of the ventricular system and subarachnoid spaces is consistent with the patient's age of 77 years. Paranasal sinuses: Mild dependent fluid/mucous posterior left sphenoid sinus. Mild left sphenoid sinus mucosal thickening. Mastoid air cells: Visualized mastoid air cells are well aerated. Orbital cavities: Bilateral prior cataract surgery. Bones/joints: Chronic bilateral nasal born deformity. No acute fracture. Small anterior left temporomandibular joint para-articular ossification. Soft tissues: Unremarkable. Vasculature: Atherosclerotic calcifications are present involving the carotid artery siphons and vertebral arteries bilaterally. CT/CT head wo con* [id number] IMPRESSION: 1. Age appropriate supratentorial and infratentorial atrophy. 2. Moderate chronic white matter microvascular ischemic disease. 3. No acute intracranial injury identified.
--- NOTE | 2022-10-01 12:54 | XRR_ITS ---
PROCEDURE INFORMATION: Exam: XR Pelvis Exam date and time: 10/01/2022 2:25 PM Age: 77 years old Clinical indication: Injury or trauma; Fall; Blunt trauma (contusions or hematomas); Bilateral; Pelvic region TECHNIQUE: Imaging protocol: Radiologic exam of the pelvis. Views: AP single view. COMPARISON: CT abdomen pelvis con [id number] 08/05/2022 11:57 PM FINDINGS: Bones/joints: No acute bony abnormality identified. Right lower lumbar facet primary osteoarthritis. Bilateral lateral acetabular mild marginal hypertrophy. Soft tissues: Unremarkable. XR/XR pelvis 1-2V* [id number] IMPRESSION: No acute bony injury identified.
--- NOTE | 2022-10-01 12:54 | XRR_ITS ---
PROCEDURE INFORMATION: Exam: XR Chest Exam date and time: 10/01/2022 2:25 PM Age: 77 years old Clinical indication: Injury or trauma; Fall; Blunt trauma (contusions or hematomas) TECHNIQUE: Imaging protocol: Radiologic exam of the chest. Views: 1 view. Other technique: Frontal portable upright view of the chest. COMPARISON: CT chest con [id number] 08/07/2022 6:38 PM FINDINGS: Tubes, catheters and devices: A dual lead left subclavian permanent pacemaker is present. The right atrial and right ventricular leads appear to be in good position. EKG leads are present overlying the chest. Lungs: Mild left medial basilar subsegmental atelectasis/scarring, stable. Lateral left mid lung zone subsegmental atelectasis. The lungs are otherwise peripherally clear bilaterally. The pulmonary vasculature is normal. Pleural spaces: No pleural effusion. No pneumothorax. Heart/Mediastinum: The heart is normal in size and contour. Mediastinum: Stable. Bones/joints: Lower cervical spinal anterior fixation hardware. Stable. Moderately severe right glenohumeral joint primary osteoarthritis. XR/XR chest 1V portable [id number] IMPRESSION: 1. Mild left medial basilar subsegmental atelectasis/scarring, stable. 2. Lateral left mid lung zone subsegmental atelectasis. 3. No acute injury identified.
--- NOTE | 2022-10-01 12:55 | W.ED.FALL ---
HPI - Fall General: Chief Complaint: Fall Stated Complaint: BACK PAIN S/P FALL Time Seen by Provider: 10/01/22 11:42 Source: patient and family Mode of arrival: EMS History of Present Illness: Patient was transported by EMS from [facility]. He allegedly had a fall from his bed this morning. It is unclear how this occurred. He is there because of being sent there to 2 initially to rehabilitation and then to long-term care. He has a history of vocal cord paralysis and receives all his feedings via G-tube. He also has nephrostomy tubes because of chronic kidney disease and obstructive uropathy. Had prior cervical spine fusion from an accident. Unclear whether his suffered a loss of consciousness but he has a an abrasion to his right elbow as well as erythema and contusion to his right face. Does not take any antiplatelet or anticoagulant medications. MD complaint: fall Fall witnessed: no Place fall occurred: shelter/SNF Symptoms prior to fall: none Associated symptoms-after fall: Denies abdominal pain, chest pain or headache(s) Review of Systems Const: Denies: fever(s) or chills Eyes: Denies: change in vision ENMT: Reports: sinus pain; Denies: throat pain, nasal congestion or nasal obstruction Card: Denies: chest pain, palpitations, irregular heart rhythm or syncope Resp: Denies: dyspnea, productive cough or non-productive cough GI: Denies: abdominal pain or vomiting : Denies: flank pain Musc: Reports: extremity pain; Denies: back pain Skin/Breast: Denies: rash Neuro: Denies: headache(s), numbness in extremities or weakness in extremities Eder/Lymph: Denies: easy bruising or easy bleeding PFSH ED PFSH: Medical History Chronic kidney disease Complex renal cyst Overall considered low risk, following with ultrasound, COPD (chronic obstructive pulmonary disease) Diabetic neuropathy Gross hematuria HTN (hypertension) Hyperlipidemia Obstructive sleep apnea Orthostatic hypotension Prostate cancer Radiation cystitis Sinus node dysfunction Type 2 diabetes mellitus Urinary retention Vocal cord paralysis, bilateral complete Surgical History H/O cardiac pacemaker History of cervical spinal surgery C4 corpectomy History of circumcision History of eye surgery 2018 History of kidney surgery Placement of nephrostomy tubes History of prostate biopsy S/P percutaneous endoscopic gastrostomy (PEG) tube placement Status post cataract surgery Status post knee surgery left Family History Father , AT AGE 65-CHF No problems noted. Mother , AT AGE 65-CHF No problems noted. Social History Smoking and tobacco status: former smoker (smoked x 20+ years) Alcohol intake: never Marital status: Current occupational status: retired and disabled History of recent travel: No Physical Exam Narrative: EXAM NARRATIVE: Patient is alert. He communicates in a very soft whisper but appears to understand questions and communicate appropriate answers. Const: COMMON NORMALS: no acute distress, patient oriented x3 and alert HENMT: COMMON NORMALS: normocephalic, Normal nasal mucous membranes and turbinates present, moist oral mucous membranes and oropharynx normal HEAD & SCALP: normocephalic FACE & SINUS IMAGES: 1. Ecchymosis and erythema NOSE: Normal nasal mucous membranes and turbinates present; no Epistaxis present Eye: COMMON NORMALS: Equal, round and reactive pupils present, EOMs intact bilaterally, conjunctivae normal and no scleral icterus CONJUNCTIVA: Yes conjunctivae normal PUPIL: Yes Equal, round and reactive pupils present Neck/C-Spine: COMMON NORMALS: full ROM CERVICAL SPINE: Yes cervical ROM normal, No Cervical spine tenderness, No step off deformity, No Paracervical spasm and No Trapezius muscle tenderness Chest: COMMONS NORMALS: normal inspection of the chest and normal palpation of entire chest wall Resp: COMMON NORMALS: normal respiratory effort, No retractions, No use of accessory muscles and clear to auscultation bilaterally AUSCULTATION: clear to auscultation bilaterally Cardio: COMMON NORMALS: regular rate, regular rhythm, No murmurs present (Cardio) and Peripheral pulses 2+ throughout RATE: regular rate RHYTHM: regular rhythm PERIPHERAL PULSES: Peripheral pulses 2+ throughout GI: COMMON NORMALS: Soft to palpation and non-tender INSPECTION: Yes normal to inspection (Does have a G-tube in situ in the epigastric region without any erythema or) PALPATION: Yes Soft to palpation : COMMON NORMALS: Yes no CVA tenderness (Nephrostomy tube in situ without any drainage or erythema.) BLADDER/KIDNEY EXAM: Yes no CVA tenderness (Nephrostomy tube in situ without any drainage or erythema.) Back/Pelvis: COMMON NORMALS: no CVA tenderness (Nephrostomy tube in situ without any drainage or erythema.), no thoracic nor lumbar tenderness, thoraco-lumbar ROM normal and straight leg raise negative bilaterally BACK IMAGE (MALE): 1. Abrasions Extremity: COMMON NORMALS: full ROM and no pedal edema RIGHT UPPER EXTREMITY: Yes elbow joint (Abrasions noted but has normal range of motion in all ranges) Neuro: COMMON NORMALS: patient oriented x3, moves all extremities, no focal motor deficits and no sensory deficits noted SENSORIUM/ORIENTATION: Yes alert Psych: COMMON NORMALS: mental status grossly normal Skin: COMMON NORMALS: turgor normal SKIN IMAGES (MALE): 1. Erythema without skin breakdown consistent with stage II GENERAL SKIN EXAM: turgor normal TRAUMA: abrasion (Right elbow) Course Reevaluation(s): Reevaluation #1: Patient remained stable with no new findings on repeat examination. Reviewed imaging studies. No evidence of acute fracture in the areas imaged. Does have what appears to be some sort of destructive process of the l left mandibular ramus. Apparently this is present on previous images according to review of this current image interpretation. Not clear if this represents an infiltrative process, infectious process etc. Patient nor his were aware of any abnormalities in this area. I reviewed previous images to include recent CT of the neck interpretation did not discuss this tensional pathology however clearly there is some changes over the interval. I have was had a very luis and open discussion with the patient and his spouse regarding the findings today. His spouse related that he has an appointment with otolaryngology coming up this this week and I think that is reasonable for us to allow the work-up and further evaluation of this process via that avenue. They were very appreciative of their care and the sharing of this information at this time. Discussed return precautions in detail. Time: 14:21 Vital Signs: Vital signs: Vital Signs Temperature 98.4 F 10/01/22 11:32 Pulse Rate 76 10/01/22 12:45 Respiratory Rate 19 H 10/01/22 12:45 Blood Pressure 121/67 10/01/22 13:15 Pulse Oximetry 92 10/01/22 12:45 Oxygen Delivery Me thod 10/01/22 11:32 MDM - Fall Medical Decision Making Gentleman who took a fall from bed height at the long-term care facility. Has a reassuring clinical examination. Did have a very small mild contusion to his right face as well as an abrasion to his right elbow but imaging was reassuring and that there was no acute fractures or other acute process today. There was discovery of potential mandibular process of uncertain etiology and this information was shared with the patient and spouse who have a HEENT follow-up this coming week. He is currently clinically stable at this time without any evidence of acute injury other than described above and no evidence of other acute process at this time that requires further emergency medical treatment and stabilization. Stable at this time to be returned back to long-term [facility] with follow-up as discussed. Medical Records I reviewed the patient's medical records. Lab Data Radiology Impressions Chest X-Ray 10/01/22 12:54 IMPRESSION: 1. Mild left medial basilar subsegmental atelectasis/scarring, stable. 2. Lateral left mid lung zone subsegmental atelectasis. 3. No acute injury identified. Face CT 10/01/22 12:54 IMPRESSION: 1. Increased destructive changes right mandible. Differential diagnosis includes osteomyelitis and neoplasia. MRI may add additional useful information. 2. Pathologic nondisplaced fracture posterior right mandibular horizontal ramus is suspected. Head CT 10/01/22 12:54 IMPRESSION: 1. Age appropriate supratentorial and infratentorial atrophy. 2. Moderate chronic white matter microvascular ischemic disease. 3. No acute intracranial injury identified. Pelvis X-Ray 10/01/22 12:54 IMPRESSION: No acute bony injury identified. Discharge Plan Discharge Patient Disposition: [facility] Clinical Impression: Fall, Abrasion of elbow, right, Contusion Condition: Stable Discharge Orders: Discharge ED (Routine); Ordered 10/01/22 Ordered By: Roger Sanchez Referrals: Rajwinder Olivarez MD [Primary Care Provider] - Discharge Diet: Usual diet Discharge Activity: Increase activity as tolerated Activity Restrictions/Additional Instructions: Continue usual medications, diet etc. As we discussed this important that you follow-up with the ear nose and throat doctor this week as scheduled. Discussed with him the CT scan findings from today. If you develop any new, worsening or other concerns return to this emergency department immediately. Coding Level of Care Code ED Box Sorter for Chg Fwd Exam Comprehensive
--- NOTE | 2022-10-01 14:53 | PC.NURSE ---
Report/discharge instructions called to Ana Maria at [facility].
== END 2022-10-01 15:28 ==
PROVIDERS: Emergency Provider Emergency Medicine; PCP Family Medicine
DX: S00.83XA Contusion of other part of head, initial encounter (principal); S50.311A Abrasion of right elbow, initial encounter; I12.9 Hypertensive chronic kidney disease with stage 1 through stage 4 chronic kidney disease, or unspecified chronic kidney disease; E11.22 Type 2 diabetes mellitus with diabetic chronic kidney disease; N18.9 Chronic kidney disease, unspecified; J44.9 Chronic obstructive pulmonary disease, unspecified; E78.5 Hyperlipidemia, unspecified; Z85.46 Personal history of malignant neoplasm of prostate; Z95.0 Presence of cardiac pacemaker; Z87.891 Personal history of nicotine dependence; W06.XXXA Fall from bed, initial encounter
CPT/HCPCS: 70450; 70486; 71045; 72170; 99284

== ENCOUNTER 2022-10-10 13:55 | Emergency (ER) | payer OTHER, SELFPAY ==
[2022-10-10 13:59] VITALS: BP 146/79; PULSE 96; RESP 17; TEMP 36.6; O2SAT 93; BMI 24.4
--- NOTE | 2022-10-10 14:27 | ED.C_ITS ---
HPI - Psych General: Chief Complaint: Psychiatric Symptoms Stated Complaint: S/I Time Seen by Provider: 10/10/22 14:05 History of Present Illness: 77-year-old male who resides at a [place] [facility] facility presents by EMS. Staff became worried when the patient exhibited signs of depression and evidently made some statements that made it sound like he might intend to hurt himself today. I have spoken with the patient at length and although communication is difficult due to his paralyzed vocal cord, I was able to elicit some of the feelings he is having. 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 Now, he feels helpless and like a burden. He is unable to perform the things that he wants to do. He feels his mind is still sharp but his body is failing him. He was recently found to have a destructive change in his right mandible that is thought to be neoplastic in origin and related to his recent vocal cord paralysis. He is also found to have a pathologic nondisplaced fracture in his right mandibular ramus. The patient has so far refused work-up on this thinking that he would rather go on hospice. He did not admit to any specific plan to hurt himself but does state that he often wishes he would go to sleep and not wake up. He is currently taking all of his nutrition via a feeding tube.? Review of Systems General: Reports: 10 or more systems reviewed and unremarkable except in HPI and below Narrative: Communication is difficult and strained due to the patient's vocal cord paralysis. Review of systems is positive for generalized fatigue, weakness, frequent pains, depression, sense of hopelessness and helplessness. He has a pressure wound on his buttock due to being unable to get up frequently. No endorsement of fever, acute trauma, abdominal pain, vomiting, respiratory distress, altered mental status. PFS ED PFSH: Medical History Chronic kidney disease Complex renal cyst Overall considered low risk, following with ultrasound, COPD (chronic obstructive pulmonary disease) Diabetic neuropathy Gross hematuria HTN (hypertension) Hyperlipidemia Obstructive sleep apnea Orthostatic hypotension Prostate cancer Radiation cystitis Sinus node dysfunction Type 2 diabetes mellitus Urinary retention Vocal cord paralysis, bilateral complete Surgical History H/O cardiac pacemaker History of cervical spinal surgery C4 corpectomy History of circumcision History of eye surgery 2018 History of kidney surgery Placement of nephrostomy tubes History of prostate biopsy S/P percutaneous endoscopic gastrostomy (PEG) tube placement Status post cataract surgery Status post knee surgery left Family History Father , AT AGE 65-CHF No problems noted. Mother , AT AGE 65-CHF No problems noted. Social History Smoking and tobacco status: former smoker (smoked x 20+ years) Alcohol intake: never Marital status: Current occupational status: retired and disabled History of recent travel: No Physical Exam Const: COMMON NORMALS: alert; negative for healthy appearing EXAM LIMITATIONS: no altered mental status HENMT: OTHER: The buccal and oral mucosa is very dry. Voice is hoarse and strained with an area quality. Eye: COMMON NORMALS: EOMs intact bilaterally and conjunctivae normal CONJUNCTIVA: Yes conjunctivae normal Neck/C-Spine: COMMON NORMALS: no JVD GENERAL: Yes normal visual inspection and Yes trachea midline Resp: COMMON NORMALS: normal respiratory effort and No use of accessory muscles Cardio: COMMON NORMALS: no JVD and regular rhythm RHYTHM: regular rhythm Neuro: COMMON NORMALS: moves all extremities and no focal motor deficits SENSORIUM/ORIENTATION: Yes alert Psych: COMMON NORMALS: mental status grossly normal, Normal thought process present and cooperative APPEARANCE: Yes other (Deconditioned) ATTITUDE: Yes calm SPEECH: Yes Other speech symptoms (Airy quality due to vocal cord injury) MOOD & AFFECT: Yes depressed mood and Yes tearful THOUGHT PROCESS: Normal thought process present THOUGHT CONTENT: Yes other (Patient has not stated that he has a suicidal plan but does speak of his de) Course Vital Signs: Vital signs: Vital Signs Temperature 97.9 F 10/10/22 13:59 Pulse Rate 96 10/10/22 13:59 Respiratory Rate 17 10/10/22 13:59 Blood Pressure 146/79 10/10/22 13:59 Pulse Oximetry 93 10/10/22 13:59 Oxygen Delivery Me thod 10/10/22 13:59 MDM - Psych Medical Decision Making After discussion with the patient, his , case management here, psychiatric provider on-call; I have found that there is not a inpatient psychiatric service that has the ability to care for the patient in regards to his inability to perform his activities of daily living. Additionally he will need assistance and tube feedings. I went back and spoke to the patient and his . He reports at no time in the last 72 hours was he worried that he did lose control and hurt himself or anyone else. He reports that he can contract for safety. After speaking with psychiatry, they have recommended starting a low-dose of Lexapro at 10 mg. I talked with case management and she has help to arrange for the [place] [facility] to take the patient for a walk-in to the [facility] to begin therapy and psychiatric follow-up. I found through review of other documents that the patient is already taking duloxetine and sertraline. He takes a low-dose of trazodone before bed. Therefore I will not be adding Lexapro. Instead, I will increase the dose of sertraline from 25 to 50 mg. His dose of Cymbalta will stay at 60 mg. His dose of trazodone will stay at 50 mg at night. Any further titration will be out patient. Given the instructions to return to the emergency department if he can no longer contract for safety. 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 Condition: Stable Prescriptions: New sertraline 50 mg tablet 50 mg PO DAILY Qty: 30 2RF Discontinued sertraline 25 mg Tablet 25 mg PO BEDTIME No Action duloxetine 60 mg capsule,delayed release(DR/EC) 60 mg PO BID@08,20 fluticasone propionate [Flonase Allergy Relief] 50 mcg/actuation spray,suspension 1 spray intranasal BID@08,20 Rx Instructions: administer into each nostril trazodone 50 mg tablet 50 mg PO BEDTIME gabapentin 600 mg Tablet 600 mg feeding tube BID@08,20 lidocaine 4 % Adhesive Patch,Medicated See Rx Instructions .ROUTE .COMPLEX Rx Instructions: apply one patch topically daily on for 12 hours and off for 12 hours polyvinyl alcohol [Artificial Tears (polyvin alc)] 1.4 % Drops 1 drp ophthalmic (eye) DAILY PRN (Reason: Dry Eye(S)) magnesium hydroxide [Milk of Magnesia] 400 mg/5 mL Suspension See Rx Instructions .ROUTE .COMPLEX Rx Instructions: 30ml gastric tube every 72 hours if needed if no bm in 3 days do not give to renal patients go to dulcolax orders bisacodyl [Dulcolax (bisacodyl)] 10 mg Suppository 10 mg AZ DAILY PRN (Reason: Constipation) Rx Instructions: if no results from mom Fleet Enema 19-7 gram/118 mL Enema 118 ml AZ DAILY PRN (Reason: Constipation) Rx Instructions: give if no results from mom and dulcolax Jevity 1.2 Leland 0.06 gram-1.2 kcal/mL Liquid 1 ea feeding tube QAM Rx Instructions: flush 60ml water before and after each feeding Humulin R Regular U-100 Insuln 100 unit/mL Solution See Rx Instructions .ROUTE .COMPLEX Rx Instructions: per sliding scale before meals and at bedtime mupirocin 2 % ointment 1 applic topical BID Qty: 22 0RF albuterol sulfate 2.5 mg /3 mL (0.083 %) Solution For Nebulization 2.5 mg INHALATION Q6H PRN (Reason: Shortness Of Breath) midodrine 5 mg Tablet 5 mg PO TID Dakin's Solution 0.125 % Solution 1 applic TOPICAL BID oxycodone-acetaminophen 5-325 mg Tablet 1 tab PO Q4H PRN (Reason: Pain) acetaminophen 500 mg Tablet 500 mg feeding tube BEDTIME PRN (Reason: Pain) polyethylene glycol 3350 17 gram/dose powder See Rx Instructions .ROUTE .COMPLEX PRN (Reason: Constipation) Rx Instructions: two scoops with two glasses of water daily until soft bowel movement then do one scoop once a day Striverdi Respimat 2.5 mcg/actuation Mist 2 inh INHALATION DAILY@08 Asmanex HFA 100 mcg/actuation Hfa Aerosol Inhaler 1 puff INHALATION BID Rx Instructions: rinse with h20 after use Discharge Orders: Discharge ED (Routine); Ordered 10/10/22 Ordered By: Cecil Mahoney Referrals: Rajwinder Olivarez MD [Primary Care Provider] - Discharge Diet: Resume prior tube feeds Discharge Activity: Increase activity as tolerated Patient Instructions: Help Prevent Suicide in Older Adults (ED), Depression in Older Adults (ED) Activity Restrictions/Additional Instructions: Your dose of sertraline has increased from 25mg daily to 50mg daily. Read handouts and abide by return precautions. If you can no longer contract for your safety, call 911 or return to ER. You are to establish care and follow-up with: [address], [place] [address] Opens 7:30AM Phone:? Coding Level of Care Code ED Roll Forger for Chg Fwd Exam Detailed
--- NOTE | 2022-10-10 14:34 | ECG_ITS ---
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 Measurements Intervals Minetto Rate: 82 P: 24 WI: 119 QRS: -37 QRSD: 112 T: -48 QT: 371 QTc: 435 Interpretive Statements SINUS RHYTHM WITH SHORT WI INTERVAL WITH FREQUENT SUPRAVENTRICULAR PREMATURE COMPLEXES LEFT AXIS DEVIATION [QRS AXIS < -30] SEPTAL MYOCARDIAL INFARCTION , PROBABLY OLD [40+ ms Q WAVE IN V1/V2] Compared to ECG 08/06/2022 05:17:28 Short WI interval now present Myocardial infarct finding now present Intraventricular conduction delay no longer present T-wave abnormality no longer present Electronically Signed On 10-10-2022 20:37:07 SUPPORT TEAM MEMBER by Kelby Sifuentes M.D. [id number]
--- NOTE | 2022-10-10 14:35 | PC.NURSE ---
pt reports in ER for depression, worsening over the last few months. Pt reports suicidal ideation increasing over the last 6 months. Denies a plan. Pt denies any hx of suicidal ideation or attempts. Denies HI or hallucinations. Pt's reports pt potentially has troubles with constipation, unable to take fluids PO, has a feeding tube. Also reports pt has blood in urine
--- NOTE | 2022-10-10 16:36 | PC.NURSE ---
dc report called to Yodit at [facility]
== END 2022-10-10 17:24 ==
PROVIDERS: Emergency Provider Emergency Medicine; PCP Family Medicine
DX: F06.32 Mood disorder due to known physiological condition with major depressive-like episode (principal); Z79.4 Long term (current) use of insulin; Z87.891 Personal history of nicotine dependence; I12.9 Hypertensive chronic kidney disease with stage 1 through stage 4 chronic kidney disease, or unspecified chronic kidney disease; E11.22 Type 2 diabetes mellitus with diabetic chronic kidney disease; N18.9 Chronic kidney disease, unspecified; J44.9 Chronic obstructive pulmonary disease, unspecified; E78.5 Hyperlipidemia, unspecified; Z85.46 Personal history of malignant neoplasm of prostate; Z95.0 Presence of cardiac pacemaker
CPT/HCPCS: 93005; 99283

== ENCOUNTER 2022-10-18 12:31 | Emergency (ER) | payer OTHER, SELFPAY ==
[2022-10-18] VITALS (28 sets, daily range): BP systolic 106–159; BP diastolic 57–131; PULSE 85–112; RESP 15–92; TEMP 37.7–38.9; O2SAT 84–100; BMI 24.4
--- NOTE | 2022-10-18 12:53 | CT_ITS ---
WS: [id number] CT HEAD TECHNIQUE: Noncontrast CT of the head obtained from the skullbase to the vertex. CLINICAL INFORMATION: ams COMPARISON: October 01, 2022 DLP: 1217.[address] scans at [facility] use at least one of these dose optimization techniques: automated e xposure control; mA and/or kV adjustment per patient size (includes targeted exams where dose is matc hed to clinical indication); or iterative reconstruction. FINDINGS: No evidence of intracranial hemorrhage or mass effect. Ventricular system and basal cisterns are austin nt. Mild small vessel changes with moderate parenchymal volume loss. No extra-axial fluid collections . No evidence of mass or mass effect. Intracranial vascular calcification. Mild mucosal thickening in the paranasal sinuses. Fluid within the sphenoid sinuses compatible with s inusitis. Mastoid air cells well aerated. Chronic appearing RIGHT nasal bone fractures. This is uncha nged from previous.Normal visualized soft tissues. CT/CT head wo con* [id number] IMPRESSION: 1. No evidence of intracranial hemorrhage or mass effect. 2. Mild small vessel changes. Moderate parenchymal volume loss. 3. No acute intracranial findings.
--- NOTE | 2022-10-18 12:53 | XRR_ITS ---
PROCEDURE INFORMATION: Exam: XR Chest Exam date and time: 10/18/2022 1:01 PM Age: 77 years old Clinical indication: Shortness of breath; Prior surgery; Surgery type: Neck; Patient HX: HX of prostate cancer; Additional info: SOB TECHNIQUE: Imaging protocol: Radiologic exam of the chest. Views: 1 view. COMPARISON: CR (CHEST, ) 10/01/2022 2:25 PM FINDINGS: Tubes, catheters and devices: Permanent pacemaker is intact. Lungs: There is patchy atelectasis in the left base similar to the previous study. Pleural spaces: Unremarkable. No pleural effusion. No pneumothorax. Heart/Mediastinum: Unremarkable. No cardiomegaly. Bones/joints: Unremarkable. XR/XR chest 1V portable [id number] IMPRESSION: Patchy left basilar atelectasis.
--- NOTE | 2022-10-18 12:58 | ED_ITS ---
HPI - Altered Mental Status General: Chief Complaint: Altered Mental Status Stated Complaint: tremors, AMS, possible UTI Time Seen by Provider: 10/18/22 12:39 History of Present Illness: Patient is brought in by EMS from the longterm with altered mental status and concerns for infection. Per the patient's he has been slowly declining over the last couple of days becoming more confused and less interactive. States he is also requiring oxygen which she normally does not. She is concerned that he may have a kidney infection as his urine from his left nephrostomy tube has been cloudier than normal. Review of Systems General: Reports: Other (Incomplete due to patient's mental status) Const: Reports: fever(s) Eyes: Denies: change in vision or blurry vision ENMT: Denies: throat pain or odynophagia Card: Denies: chest pain Resp: Reports: dyspnea and productive cough GI: Reports: abdominal pain : Reports: flank pain Musc: Denies: neck pain or back pain Skin/Breast: Denies: rash or pruritus Neuro: Reports: numbness in extremities and weakness in extremities; Denies: headache(s) Psych: Denies: anxiety or change in appetite Endo: Denies: polyuria or excessive sweating PFSH ED PFSH: Medical History Chronic kidney disease Complex renal cyst Overall considered low risk, following with ultrasound, COPD (chronic obstructive pulmonary disease) Diabetic neuropathy Gross hematuria HTN (hypertension) Hyperlipidemia Obstructive sleep apnea Orthostatic hypotension Prostate cancer Radiation cystitis Sinus node dysfunction Type 2 diabetes mellitus Urinary retention Vocal cord paralysis, bilateral complete Surgical History H/O cardiac pacemaker History of cervical spinal surgery C4 corpectomy History of circumcision History of eye surgery 2018 History of kidney surgery Placement of nephrostomy tubes History of prostate biopsy S/P percutaneous endoscopic gastrostomy (PEG) tube placement Status post cataract surgery Status post knee surgery left Family History Father , AT AGE 65-CHF No problems noted. Mother , AT AGE 65-CHF No problems noted. Social History Smoking and tobacco status: former smoker (smoked x 20+ years) Alcohol intake: never Marital status: Current occupational status: retired and disabled History of recent travel: No Physical Exam Const: OTHER: Patient is awake, minimally responsive to questions with confusion HENMT: COMMON NORMALS: normocephalic and atraumatic HEAD & SCALP: normocephalic and atraumatic OTHER: Dry mucous membranes Eye: COMMON NORMALS: Equal, round and reactive pupils present and EOMs intact bilaterally PUPIL: Yes Equal, round and reactive pupils present Neck/C-Spine: COMMON NORMALS: full ROM and supple Resp: COMMON NORMALS: normal respiratory effort, No retractions and No use of accessory muscles Cardio: COMMON NORMALS: regular rate and regular rhythm RATE: regular rate RHYTHM: regular rhythm GI: COMMON NORMALS: Normal to inspection, nondistended, normoactive bowel sounds present, Soft to palpation and non-tender PALPATION: Yes Soft to palpation OTHER: G-tube in the left upper quadrant Back/Pelvis: OTHER: Bilateral nephrostomy tube, with right nephrostomy tube pulled partially out Extremity: COMMON NORMALS: normal to inspection and full ROM Skin: COMMON NORMALS: no rashes or lesions noted and no wounds GENERAL SKIN EXAM: no rashes or lesions noted Course Vital Signs: Vital signs: Vital Signs Temperature 99.9 F H 10/18/22 18:42 Pulse Rate 87 10/18/22 18:30 Respiratory Rate 20 H 10/18/22 18:30 Blood Pressure 130/69 10/18/22 18:30 Pulse Oximetry 100 10/18/22 17:45 Oxygen Delivery Me thod 10/18/22 14:46 Oxygen Flow Rate 3 10/18/22 14:46 MDM - Altered Mental Status Medical Decision Making Patient is brought in by EMS from the longterm with altered mental status and concerns for infection. Per the patient's he has been slowly declining over the last couple of days becoming more confused and less interactive. States he is also requiring oxygen which she normally does not. She is concerned that he may have a kidney infection as his urine from his left nephrostomy tube has been cloudier than normal. On physical exam the patient is awake, he will respond to questions but is confused. He has dry mucous membranes, G-tube in his left upper abdomen, bilateral nephrostomy tubes with the right nephrostomy tube appearing to be pulled out partially. Will check labs, CT, x-ray, give IV fluids, and reassess. On reassessment I talked to the patient and his about the test results. We will start antibiotics for urinary tract infection and likely pneumonia. I discussed the case with interventional radiology and the hospitalist at [facility] and they will accept the patient in transport. We do not have an yone here who can replace the nephrostomy tube tonight or tomorrow. We will continue IV fluids, antibiotics, and prepare for transport. Will sign out to the oncoming physician pending transport Lab Data 10/18/22 13:12 10/18/22 13:12 Radiology Impressions Chest X-Ray 10/18/22 12:53 IMPRESSION: Patchy left basilar atelectasis. Head CT 10/18/22 12:53 IMPRESSION: 1. No evidence of intracranial hemorrhage or mass effect. 2. Mild small vessel changes. Moderate parenchymal volume loss. 3. No acute intracranial findings. Abdomen/Pelvis CT 10/18/22 13:02 IMPRESSION: 1. RIGHT nephrostomy tube has been retracted compared to previous with a portion of the pigtail remaining in the RIGHT renal cortex. This is nonfunctioning. Moderate RIGHT hydronephrosis with RIGHT ureterectasis. 2. Normal LEFT nephrostomy tube. 3. Intraluminal bladder hematoma measuring 6.0 x 4.9 cm with diffuse inflammatory stranding and edema in the pelvic soft tissues. Intraluminal hemorrhagic mass not excluded. Recommend further evaluation with cystoscopy. 4. Heterogeneously enhancing enlarged prostate with small lobulated foci of peripheral enhancement at the bladder margin suspicious for neoplasm or prostatitis. 5. Gastrostomy tube appears in place. 6. Small bilateral pleural effusions compressive atelectasis in the lung bases. Notified Joaquin Kumar MD at 10/18/2022 3:36 PM. Laboratory Results WBC 15.3 10^3/uL (4.0-10.0) H 10/18/22 13:12 RBC 2.67 10^6/uL (4.1-5.3) L 10/18/22 13:12 Hgb 6.7 g/dL (11.7-16.6) L 10/18/22 13:12 Hct 22.5 % (42.0-52.0) L 10/18/22 13:12 MCV 84.3 fl (80-94) 10/18/22 13:12 MCH 25.1 pg (28.0-34.0) L 10/18/22 13:12 MCHC 29.8 g/dL (30.0-36.0) L 10/18/22 13:12 RDW 18.2 % (12.1-15.1) H 10/18/22 13:12 Plt Count 519 10^3/cmm (130-400) H 10/18/22 13:12 MPV 10.1 fL (7.4-10.4) 10/18/22 13:12 Neut % (Auto) 91.0 % 10/18/22 13:12 Lymph % (Auto) 3.2 % 10/18/22 13:12 [place] % (Auto) 5.1 % 10/18/22 13:12 Eos % (Auto) 0.0 % 10/18/22 13:12 Baso % (Auto) 0.1 % 10/18/22 13:12 Neut # (Auto) 13.88 10^3/uL (1.8-7.7) H 10/18/22 13:12 Lymph # (Auto) 0.5 10^3/uL (0.8-4.8) L 10/18/22 13:12 [place] # (Auto) 0.8 10^3/uL (0.2-0.9) 10/18/22 13:12 Eos # (Auto) 0.0 10^3/uL (0.0-0.8) 10/18/22 13:12 Baso # (Auto) 0.0 10^3/uL (0.0-0.1) 10/18/22 13:12 Nucleated RBC % (auto) 0 % 10/18/22 13:12 Nucleated RBCs # 0.0 /100WBC 10/18/22 13:12 Specimen Type Arterial 10/18/22 13:08 Sample Site Radial, left 10/18/22 13:08 ABG pH 7.49 (7.35-7.45) H 10/18/22 13:08 ABG pCO2 41.0 mmHg (35-45) 10/18/22 13:08 ABG pO2 73.4 mmHg (80.0-100.0) L 10/18/22 13:08 ABG HCO3 30.9 mmol/L (22-26) H 10/18/22 13:08 ABG Base Excess 6.9 mmol/L (-2.0-2.0) H 10/18/22 13:08 Junior Test Pos 10/18/22 13:08 Hematocrit 21.2 % (42-52) L 10/18/22 13:08 O2 Delivery Device Nc 10/18/22 13:08 O2 Liters/Min 3.5 % 10/18/22 13:08 FiO2 34.0 % 10/18/22 13:08 Lighting Engineering Technician ID Amh 10/18/22 13:08 Sodium 134 mmol/L (136-145) L 10/18/22 13:12 Potassium 4.7 mmol/L (3.5-5.1) 10/18/22 13:12 Chloride 96 mmol/L (98-107) L 10/18/22 13:12 Carbon Dioxide 29 mmol/L (22-29) 10/18/22 13:12 Anion Gap 13.7 (5-19) 10/18/22 13:12 BUN 43 mg/dL (8-23) H 10/18/22 13:12 Creatinine 1.4 mg/dL (0.7-1.2) H 10/18/22 13:12 GFR Calculation Not Reportable 10/18/22 13:12 Glucose 149 mg/dL (65-115) H 10/18/22 13:12 Calculated Osmolality 292 mOsm/kg (285-295) 10/18/22 13:12 Lactate 2.0 mmol/L (0.5-2.2) 10/18/22 13:12 Calcium 8.8 mg/dL (8.5-10.5) 10/18/22 13:12 Magnesium 2.1 mg/dL (1.7-2.3) 10/18/22 13:12 Total Bilirubin 0.2 mg/dL (0.15-1.2) 10/18/22 13:12 AST 20 U/L (0-40) 10/18/22 13:12 ALT 29 U/L (0-41) 10/18/22 13:12 Alkaline Phosphatase 102 U/L (40-130) 10/18/22 13:12 Ammonia 23 umol/L (16-60) 10/18/22 13:12 Total Protein 6.9 g/dL (6.6-8.7) 10/18/22 13:12 Albumin 2.4 g/dL (3.5-5.2) L 10/18/22 13:12 Globulin 4.5 g/dL (1.3-4.6) 10/18/22 13:12 Urine Color Yellow (Yellow) 10/18/22 13:30 Urine Appearance Clear (CLEAR) 10/18/22 13:30 Urine pH 7 (5-7) 10/18/22 13:30 Ur Specific [place] 1.010 (1.005-1.030) 10/18/22 13:30 Urine Protein 2+ (Negative) H 10/18/22 13:30 Urine Glucose (UA) Norm (Normal) 10/18/22 13:30 Urine Ketones Negative (Negative) 10/18/22 13:30 Urine Blood 2+ (Negative) H 10/18/22 13:30 Urine Nitrate Negative (Negative) 10/18/22 13:30 Urine Bilirubin Neg (Negative) 10/18/22 13:30 Urine Urobilinogen Norm mg/dL (Negative) 10/18/22 13:30 Ur Leukocyte Esterase 2+ (Negative) H 10/18/22 13:30 Urine RBC 0-4 /hpf (0-2) H 10/18/22 13:30 Urine WBC Too numerous to cnt /hpf (0-5) H 10/18/22 13:30 Ur Squamous Epith Cells 5-10 /hpf (0-5) H 10/18/22 13:30 Amorphous Sediment 2+ /hpf 10/18/22 13:30 Urine Bacteria 2+ /hpf (NONE) H 10/18/22 13:30 Influenza Type A Ag negative (Negative) 10/18/22 13:35 Influenza Type B Ag negative (Negative) 10/18/22 13:35 SARS-CoV-2 Ag (Rapid) negative (Negative) 10/18/22 13:35 Blood Type O Negative 10/18/22 14:43 Rho(D) Type Negative 10/18/22 14:43 Antibody Screen Negative 10/18/22 14:43 Crossmatch See Detail 10/18/22 14:43 Discharge Plan Discharge Patient Disposition: Xfer Intermediate Care Fac Clinical Impression: Urinary tract infection, Pneumonia, Displacement of nephrostomy tube Condition: Stable Prescriptions: No Action duloxetine 60 mg capsule,delayed release(DR/EC) 60 mg PO BID@08,20 fluticasone propionate [Flonase Allergy Relief] 50 mcg/actuation sp ray,suspension 1 spray intranasal BID@08,20 Rx Instructions: administer into each nostril trazodone 50 mg tablet 50 mg PO BEDTIME gabapentin 600 mg Tablet 600 mg feeding tube BID@08,20 lidocaine 4 % Adhesive Patch,Medicated See Rx Instructions .ROUTE .COMPLEX Rx Instructions: apply one patch topically daily on for 12 hours and off for 12 hours polyvinyl alcohol [Artificial Tears (polyvin alc)] 1.4 % Drops 1 drp ophthalmic (eye) DAILY PRN (Reason: Dry Eye(S)) magnesium hydroxide [Milk of Magnesia] 400 mg/5 mL Suspension See Rx Instructions .ROUTE .COMPLEX Rx Instructions: 30ml gastric tube every 72 hours if needed if no bm in 3 days do not give to renal patients go to dulcolax orders bisacodyl [Dulcolax (bisacodyl)] 10 mg Suppository 10 mg NJ DAILY PRN (Reason: Constipation) Rx Instructions: if no results from mom Fleet Enema 19-7 gram/118 mL Enema 118 ml [place] DAILY PRN (Reason: Constipation) Rx Instructions: give if no results from mom and dulcolax Jevity 1.2 Leland 0.06 gram-1.2 kcal/mL Liquid 1 ea feeding tube QAM Rx Instructions: flush 60ml water before and after each feeding mupirocin 2 % ointment 1 applic topical BID Qty: 22 0RF albuterol sulfate 2.5 mg /3 mL (0.083 %) Solution For Nebulization 2.5 mg INHALATION Q6H PRN (Reason: Shortness Of Breath) midodrine 5 mg Tablet 5 mg PO TID Dakin's Solution 0.125 % Solution 1 applic TOPICAL BID Rx Instructions: cleanse with ns pack with dakins damp gauze cover with dry gauze and secure with tape oxycodone-acetaminophen 5-325 mg Tablet 1 tab feeding tube Q4H PRN (Reason: Pain) acetaminophen 500 mg Tablet 500 mg feeding tube BEDTIME PRN (Reason: Pain) polyethylene glycol 3350 17 gram/dose powder See Rx Instructions .ROUTE .COMPLEX PRN (Reason: Constipation) Rx Instructions: two scoops with two glasses of water daily until soft bowel movement then do one scoop once a day Striverdi Respimat 2.5 mcg/actuation Mist 2 inh INHALATION DAILY@08 Asmanex HFA 100 mcg/actuation Hfa Aerosol Inhaler 1 puff INHALATION BID Rx Instructions: rinse with h20 after use morphine 15 mg Tablet Extended Release 15 mg PO Q12H Dulcolax (bisacodyl) 5 mg Tablet,Delayed Release (Dr/Ec) 10 mg PO DAILY PRN (Reason: Constipation) Rx Instructions: give if no results from mom Humulin R U-500 (Conc) Kwikpen 500 unit/mL (3 mL) Insulin Pen See Rx Instructions .ROUTE .COMPLEX Rx Instructions: sliding scale subcutaneously four times a day if bs is less than 60 call 150-200=5 units 201-250=10 units 251-300=15 units 301-350=20 units 351-400=25 units if bs is greater than 400 call sertraline 25 mg Tablet 25 mg PO BEDTIME Rx Instructions: end date 10/24/22 Referrals: Rajwinder Olivarez MD [Primary Care Provider] - Coding Level of Care Code ED Certified Personal Finance Counselor for Chg Fwd Exam Comprehensive
--- NOTE | 2022-10-18 13:02 | CT_ITS ---
WS: [id number] CT ABDOMEN PELVIS TECHNIQUE: Contrast-enhanced CT of the abdomen and pelvis with coronal and sagittal reformatted image s. CLINICAL INFORMATION: right nephrostomy tube pulled out? COMPARISON: CT August 05, 2022 DLP: 6.[address] scans at [facility] use at least one of these dose optimization techniques: automated e xposure control; mA and/or kV adjustment per patient size (includes targeted exams where dose is matc hed to clinical indication); or iterative reconstruction. FINDINGS:Normal LEFT nephrostomy tube. RIGHT nephrostomy tube pigtail is been pulled out from the christopher al pelvis with a portion of the tube within the renal cortex. This would be nonfunctioning. Moderate RIGHT hydronephrosis with ureterectasis extending to the bladder. No hydronephrosis in the LEFT kidne y. Large intraluminal bladder hematoma measuring 5.0 x 6.0 CM. Diffuse inflammatory stranding and edema about the bladder. This extends into the surrounding pelvic soft tissues. Enlarged prostate with impi ngement on the bladder with small areas of peripheral enhancing fluid or phlegmon. Recommend correlat ion for prostatitis. Intraluminal bladder mass not excluded. Hematoma may be due to sequelae of prost ate radiation therapy. Small bilateral pleural effusions. Compressive atelectasis in the lung bases. Mild diffuse fatty infi ltration liver. Normal portal vein and splenic vein. Small cyst or hemangioma in the RIGHT hepatic lo be. Small esophageal hiatal hernia. Gastrostomy tube. Normal spleen. Adrenal glands are normal. Fatty atrophy of the pancreas. Normal caliber abdominal aorta. Aortic calcification. Fat-containing umbilical hernia. Hypertrophic changes lumbar spine. CT/CT abdomen pelvis w con* [id number] IMPRESSION: 1. RIGHT nephrostomy tube has been retracted compared to previous with a porti on of the pigtail remaining in the RIGHT renal cortex. This is nonfunctioning. Moderate RIGHT hydronephrosis with RIGHT ureterectasis. 2. Normal LEFT nephrostomy tube. 3. Intraluminal bladder hematoma measuring 6.0 x 4.9 cm with diffuse inflammat ory stranding and edema in the pelvic soft tissues. Intraluminal hemorrhagic ma ss not excluded. Recommend further evaluation with cystoscopy. 4. Heterogeneously enhancing enlarged prostate with small lobulated foci of pe ripheral enhancement at the bladder margin suspicious for neoplasm or prostatit is. 5. Gastrostomy tube appears in place. 6. Small bilateral pleural effusions compressive atelectasis in the lung bases . Notified Joaquin Kumar MD at 10/18/2022 3:36 PM.
--- NOTE | 2022-10-18 13:08 | PC.PHAR ---
pt is from [facility] [phone]-[phone] aslas will fax med list
[2022-10-18] MEDS: sodium chloride 0.9% 1,000 ML 999 ML IV ×2 (13:16→15:20)
[2022-10-18 13:20] LABS: ABG PH Result 7.49 (7.35-7.45); Arterial Blood Gas Hematocrit 21.2 % (42-52); Base Excess ABG 6.9 mmol/L (-2.0-2.0); Blood Gas Allen Test Pos; Blood Gas LPM 3.5 %; Blood Gas Operator Identificat AMH; Blood Gas Sample Site Radial, left; Blood Gas Sample Type Arterial; HCO3 ABG 30.9 mmol/L (22-26); Oxygen Device NC; PO2 ABG 73.4 mmHg (80.0-100.0)
[2022-10-18 13:26] LABS: Basophils % 0.1 %; Hematocrit 22.5 % (42.0-52.0); Hemoglobin 6.7 g/dL (11.7-16.6); Lymphocytes # 0.5 10^3/uL (0.8-4.8); Lymphocytes % 3.2 %; Mean Corpuscular HGB Conc 29.8 g/dL (30.0-36.0); Mean Corpuscular Hemoglobin 25.1 pg (28.0-34.0); Mean Corpuscular Volume 84.3 fl (80-94); Mean Platelet Volume 10.1 fL (7.4-10.4); Monocytes # 0.8 10^3/uL (0.2-0.9); Monocytes % 5.1 %; Neutrophils # 13.88 10^3/uL (1.8-7.7); Nucleated Red Blood Cells % 0 %; Platelet Count 519 10^3/cmm (130-400); Red Blood Count 2.67 10^6/uL (4.1-5.3); Red Cell Distribution Width 18.2 % (12.1-15.1); White Blood Count 15.3 10^3/uL (4.0-10.0)
[2022-10-18 13:51] LABS: Alanine Aminotransferase 29 U/L (0-41); Albumin Level 2.4 g/dL (3.5-5.2); Alkaline Phosphatase 102 U/L (40-130); Anion Gap 13.7 (5-19); Aspartate Amino Transferase 20 U/L (0-40); Blood Urea Nitrogen 43 mg/dL (8-23); Calcium 8.8 mg/dL (8.5-10.5); Carbon Dioxide 29 mmol/L (22-29); Chloride 96 mmol/L (98-107); Globulin 4.5 g/dL (1.3-4.6); Glucose 149 mg/dL (65-115); Magnesium 2.1 mg/dL (1.7-2.3); Osmolality Calculated 292 mOsm/kg (285-295); Potassium 4.7 mmol/L (3.5-5.1); Sodium 134 mmol/L (136-145); Total Bilirubin 0.2 mg/dL (0.15-1.2); Total Protein 6.9 g/dL (6.6-8.7)
[2022-10-18 13:52] LABS: Ammonia 23 umol/L (16-60)
[2022-10-18 14:04] LABS: Influenza A by IFA negative (Negative); Influenza B by IFA negative (Negative); SARS Covid-2 Antigen negative (Negative)
[2022-10-18 14:09] LABS: Add Urine Microscopic? YES; Bilirubin Urine Neg (Negative); Blood Urine 2+ (Negative); Glucose Urine UA Norm (Normal); Ketones Urine Negative (Negative); Leukocyte Esterase Urine 2+ (Negative); Nitrate Urine Negative (Negative); Protein Urine 2+ (Negative); Urine Appearance Clear (CLEAR); Urine Color Yellow (Yellow); Urobilinogen Urine Norm (Negative); pH Urine 7 (5-7)
[2022-10-18 14:10] LABS: Add Urine Culture? Yes; Amorphous Sediment Urine 2+ /hpf; Bacteria Urine 2+ /hpf; RBC Urine 0-4 /hpf (0-2); WBC Urine TOO NUMEROUS TO CNT /hpf (0-5)
[2022-10-18] MEDS: cefTRIAXone 1,000 MG in sodium chloride 0.9% (plus) 50 ML 100 MG IV (14:44)
[2022-10-18] MEDS: iohexol 350 mg/mL 500 mL Btl (per mL) IV (15:08)
[2022-10-18] MEDS: sodium chloride 0.9% 500 ML 999 ML IV (15:22)
[2022-10-18] MEDS: azithromycin 500 MG in sodium chloride 0.9% 250 ML 250 MG IV (15:27)
--- NOTE | 2022-10-18 16:23 | ECG_ITS ---
[facility] Test Date: 2022-10-18 Pat Name: Nikita Perez Department: Room: Gender: Male Target Worker: : 1945 Requested By: Joaquin Kumar Order Number: [id number] Dipti MD: Denver Stone M.D. Measurements Intervals Enigma Rate: 85 P: 51 MS: 131 QRS: -25 QRSD: 114 T: 11 QT: 375 QTc: 446 Interpretive Statements SINUS RHYTHM WITH OCCASIONAL VENTRICULAR PREMATURE COMPLEXES BORDERLINE LEFT AXIS DEVIATION [QRS AXIS < -20] MODERATE INTRAVENTRICULAR CONDUCTION DELAY [110+ ms QRS DURATION] NONSPECIFIC T-WAVE ABNORMALITY Compared to ECG 10/10/2022 14:34:48 Ventricular premature complex(es) now present Intraventricular conduction delay now present T-wave abnormality now present Short MS interval no longer present Myocardial infarct finding no longer present Electronically Signed On 10-18-2022 17:55:14 AUTOMOTIVE TECHNICIAN by Denver Stone M.D. [id number]
--- NOTE | 2022-10-19 | CT_ITS ---
Ordering Provider/Ordering MD: Joauqin Kumar MD Date of Service: 10/18/22 Procedure(s): CT abdomen pelvis w con* [id number] Accession Number(s): [id number] Report Number: [id number] TOTAL EXAM DLP: 1069.98 mGy-cm MTDD
[2022-10-19 00:30] VITALS: BP 150/73; PULSE 82; RESP 15; O2SAT 95
--- NOTE | 2022-10-19 00:34 | PC.NURSE ---
Pt soiled brief at this time. New bed linens place, francy care given, clean gown applied to pt.
[2022-10-19 01:00] VITALS: BP 150/61; PULSE 89; RESP 22; O2SAT 96
== END 2022-10-19 01:00 | disposition intermediate care facility (04) ==
PROVIDERS: Emergency Medicine; Emergency Provider Family Medicine; PCP Family Medicine
DX: N39.0 Urinary tract infection, site not specified (principal); J18.9 Pneumonia, unspecified organism; N99.528 Other complication of incontinent external stoma of urinary tract; Z79.4 Long term (current) use of insulin; Z87.891 Personal history of nicotine dependence; E11.22 Type 2 diabetes mellitus with diabetic chronic kidney disease; I12.9 Hypertensive chronic kidney disease with stage 1 through stage 4 chronic kidney disease, or unspecified chronic kidney disease; N18.9 Chronic kidney disease, unspecified; J44.9 Chronic obstructive pulmonary disease, unspecified; E78.5 Hyperlipidemia, unspecified; Z85.46 Personal history of malignant neoplasm of prostate; Z95.0 Presence of cardiac pacemaker
CPT/HCPCS: 36430; 36600; 70450; 71045; 74177; 80053; 81001; 82140; 82803; 83605; 83735; 85025; 86850; 86900; 86920; 87040; 87077; 87086; 87150; 87186; 87205; 87426; 87804; 93005; 96361; 96365; 96367; 99285; J0456; J0696; J7030; J7040; J7050; P9040; Q9967